=== PATIENT | female | born 1950 | race Caucasian/White ===

== ENCOUNTER 2017-01-05 07:36 | Inpatient (IN) | payer MEDICARE, OTHER ==
[~2017-01-05] VITALS: Ht 152.4 cm; Wt 69.8 kg
[~2017-01-05 07:36] MED LIST: AMLO5TAB4 PO; CARV3.1260 PO; ISOS5TAB2 PO; LANT3I SC; LEVO25TA53 PO; MEDS FOR HTN
--- NOTE | 2017-01-05 08:52 | RADRPT ---
PROCEDURE: XR Chest. CLINICAL INDICATION: Cough . TECHNIQUE: Single frontal chest x-ray. COMPARISON: 11/12/2013 FINDINGS: The lungs are clear of acute infiltrates, edema, effusions, or masses.. The cardiac silhouette is e nlarged.. The osseous structures are intact. IMPRESSION: No acute cardiopulmonary disease. Enlarged cardiac silhouette. RPTAT: GG .Julio Borrero MD, Date Time Electronically viewed and signed by .Julio Borrero MD, on 01/05/2017 08:51 .L/
[2017-01-05] MEDS ORDERED: LEVO100T87 PO (08:56)
[2017-01-05] MEDS ORDERED: FURO40TA4 PO (08:56)
[2017-01-05] MEDS ORDERED: PENT400T2 PO (08:57)
[2017-01-05] MEDS ORDERED: ATOR20TA38 PO (08:57)
[2017-01-05] MEDS ORDERED: LORA10TA3 PO (08:57)
[2017-01-05] MEDS ORDERED: LOSA100T7 PO (08:57)
[2017-01-05] MEDS ORDERED: VERA120C2 PO (08:58)
[2017-01-05 09:05] LABS: BASOPHIL # 0.1 10^3/ul (0.0-0.1); BASOPHILS % 0.7 % (0.0-2.0); EOSINOPHILS # 0.6 10^3/ul (0.0-0.5); EOSINOPHILS % 7.7 % (0.0-7.0); HEMATOCRIT 28.1 % (37.0-47.0); HEMOGLOBIN 9.1 g/dl (12.0-16.0); LYMPHOCYTES # 1.8 10^3/ul (0.8-2.9); LYMPHOCYTES % 23.8 % (15.0-51.0); MEAN CORPUSCULAR HEMOGLOBIN 28.5 pg (29.0-33.0); MEAN CORPUSCULAR HGB CONC 32.4 g/dl (32.0-37.0); MEAN CORPUSCULAR VOLUME 88.1 fl (82.0-101.0); MEAN PLATELET VOLUME 11.5 fl (7.4-10.4); MONOCYTE # 0.4 10^3/ul (0.3-0.9); MONOCYTES % 5.3 % (0.0-11.0); NEUTROPHIL # 4.6 10^3/ul (1.6-7.5); NEUTROPHILS % 62.1 % (39.0-77.0); PLATELET COUNT 217 10^3/UL (140-415); RED BLOOD COUNT 3.19 10^6/ul (4.20-5.40); RED CELL DISTRIBUTION WIDTH 13.3 % (11.5-14.5); WHITE BLOOD COUNT 7.4 10^3/ul (4.8-10.8)
[2017-01-05 09:25] LABS: ALBUMIN 2.2 g/dl (3.3-4.9); ALBUMIN/GLOBULIN RATIO 0.73; BILIRUBIN,INDIRECT 0.1 mg/dl (0-1.1); BILIRUBIN,TOTAL 0.1 mg/dl (0.2-1.3); CALCIUM 7.6 mg/dl (8.4-10.2); CREATININE 5.76 mg/dl (0.44-1.00); POTASSIUM 4.4 mmol/L (3.5-5.1); TOTAL PROTEIN 5.2 g/dl (6.1-8.1)
--- NOTE | 2017-01-05 09:47 | ERA ---
ER Documentation Chief Complaint Date/Time DATE: 01/05/17 TIME: 09:[address] Chief Complaint [address]ENT BY DR Dave BURRIS FOR ABNORMAL LABS , B/L LEG SWELLING HPI 66-year-old female referred to the emergency department by Dr. Burris for evaluation of lower extremity swelling as well as an elevated creatinine. Patient was last seen in the office approximately a month or 2 ago where her creatinine was approximately in the low twos. Patient is asymptomatic at this time with no chest pain or shortness of breath, but Dr. Burris noted that her creatinine was elevated above 5 and sent her to the emergency department. At this current time, patient reports no chest pain, shortness of breath, weakness , fevers and tells me she does continue to urinate. ROS All systems reviewed and are negative except as per history of present illness. Medications Home Meds Reported Medications Verapamil Hcl* (Verapamil ER*) 120 Mg Cap24h.pel, 120 MG PO DAILY, CAP 01/05/17 Pentoxifylline* (Pentoxifylline*) 400 Mg Tablet.sa, 400 MG PO TID, TAB 01/05/17 Losartan Potassium* (Losartan Potassium*) 100 Mg Tablet, 100 MG PO DAILY, TAB 01/05/17 Loratadine* (Loratadine*) 10 Mg Tablet, 10 MG PO DAILY, #30 TAB 01/05/17 Atorvastatin Calcium* (Atorvastatin Calcium*) 20 Mg Tablet, 20 MG PO QHS, #30 TAB 01/05/17 Furosemide* (Furosemide*) 40 Mg Tablet, 40 MG PO DAILY, TAB 01/05/17 Levothyroxine Sodium* (Levothyroxine Sodium*) 100 Mcg Tablet, 100 MCG PO BEFORE BREAKFAST, #30 TAB 01/05/17 Discontinued Reported Medications Isosorbide Dinitrate* (Isosorbide Dinitrate*) 5 Mg Tablet, 5 MG PO BID, TAB 11/12/13 Carvedilol* (Carvedilol*) 3.125 Mg Tablet, 3.125 MG PO BID, TAB 11/12/13 Insulin Glargine* (Lantus*) 100 Unit/Ml Soln, 5 UNIT SC HS, EA 10/19/13 Amlodipine Besylate* (Norvasc*) 5 Mg Tablet, 5 MG PO DAILY, TAB 10/19/13 Levothyroxine Sodium* (Levothyroxine Sodium*) 25 Mcg Tablet, 25 MCG PO AC BREAKFAST, TAB 10/19/13 [Meds For Htn] No Conflict Check 10/14/13 Allergies Allergies: Coded Allergies: No Known Allergy (Unverified , 01/05/17) PMhx/Soc History of Surgery: No Anesthesia Reaction: No Hx Neurological Disorder: No Hx Respiratory Disorders: No Hx Cardiac Disorders: Yes (HTN,HIGH CHOLESTEROL) Hx Psychiatric Problems: No Hx Miscellaneous Medical Probl: Yes (DM) Hx Alcohol Use: No Hx Substance Use: No Hx Tobacco Use: No Smoking Status: Never smoker FmHx non-Contributory for chief complaint Physical Exam Vitals Vital Signs Date Time Temp Pulse Resp B/P Pulse Ox O2 Delivery O2 Flow Rate FiO2 01/05/17 08:51 71 18 199/88 98 Room Air 01/05/17 07:40 96.4 78 18 236/98 98 Physical Exam GENERAL: Patient is elderly somewhat plethoric in no acute distress HEENT: Pupils equal, round, and reactive to light. EOMI. There is no scleral icterus. NECK: C-spine is soft and supple, there is no meningismus. There is no cervical lymphadenopathy. LUNGS: Clear to auscultation bilaterally. There are no rales, wheezes or rhonchi. HEART: Regular rate and rhythm, no murmurs, clicks, rubs or gallops. ABDOMEN: Soft, non-tender, non-distended. There are bowel sounds in all four quadrants. No rebound or guarding. EXTREMITIES: 2+ edema both lower extremities without cyanosis or clubbing NEURO: The patient moves all four extremities with 5/5 strength. Cranial nerves II - XII are intact. Normal gait. Alert and oriented SKIN: There is no apparent rash or petechiae. HEME/LYMPHATIC: There is no evidence of excessive bruising or lymphedema. PSYCHIATRIC: The patient does not appear anxious or depressed. Result Diagram: 01/05/17 0825 01/05/17 0825 Results 24 hrs Laboratory Tests Test 01/05/17 08:25 White Blood Count 7.410^3/ul Red Blood Count 3.1910^6/ul Hemoglobin 9.1g/dl Hematocrit 28.1% Mean Corpuscular Volume 88.1fl Mean Corpuscular Hemoglobin 28.5pg Mean Corpuscular Hemoglobin Concent 32.4g/dl Red Cell Distribution Width 13.3% Platelet Count 83314^3/UL Mean Platelet Volume 11.5fl Neutrophils % 62.1% Lymphocytes % 23.8% Monocytes % 5.3% Eosinophils % 7.7% Basophils % 0.7% Nucleated Red Blood Cells % 0.0/100WBC Neutrophils # 4.610^3/ul Lymphocytes # 1.810^3/ul Monocytes # 0.410^3/ul Eosinophils # 0.610^3/ul Basophils # 0.110^3/ul Nucleated Red Blood Cells # 0.010^3/ul Sodium Level 133mmol/L Potassium Level 4.4mmol/L Chloride Level 107mmol/L Carbon Dioxide Level 21mmol/L Anion Gap 9 Blood Urea Nitrogen 60mg/dl Creatinine 5.76mg/dl Glucose Level 181mg/dl Calcium Level 7.6mg/dl Total Bilirubin 0.1mg/dl Direct Bilirubin 0.00mg/dl Indirect Bilirubin 0.1mg/dl Aspartate Amino Transf (AST/SGOT) 32IU/L Alanine Aminotransferase (ALT/SGPT) 33IU/L Alkaline Phosphatase 114IU/L Total Protein 5.2g/dl Albumin 2.2g/dl Globulin 3.00g/dl Albumin/Globulin Ratio 0.73 Procedures/MDM Patient was taken to a room, seen and evaluated. Comfort measures were initiated. Diagnostic tests were ordered and reviewed. 3 LEAD RHYTHM STRIP: [Normal sinus rhythm without ectopy] EK lead EKG reviewed by myself: [Normal Sinus Rhythm] [Normal [place] and intervals] Nonspecific ST and T-wave changes without peaked T waves or ischemic changes Impression: Abnormal, nonspecific EKG RADIOLOGY: [reviewed with the radiologist] CONSULTATION: Dr. Burris was consulted. He requested Dr. Martinez, who was notified for admission REEVALUATION: 66-year-old female presents the emergency department with essentially an asymptomatic worsening acute renal failure. At this time, patient does not appear to be fluid overloaded although she does have some lower extremity edema, but no CHF. She is not hyperkalemic or acidotic. She does not appear to be uremic. At this time, she will be admitted for further evaluation and observation of her renal issues. MEDICAL DECISION MAKING: [default value] Departure Diagnosis: Primary Impression: Acute renal failure Condition: NITA Jansen Jan 05, 2017 09:47
--- NOTE | 2017-01-05 10:53 | CONS ---
Date/Time of Note Date/Time of Note DATE: 01/05/17 TIME: 10:52 Assessment/Plan Assessment/Plan Additional Assessment/Plan 1. Acute Kidney injuyr on CKD worsening to CKD V 2. acute fluid overaload with Anasarca 3. 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 Hypertension - not well controlled 5. Diabetes melitus 6. hyperlipidemia 7. hypothyroidism Plan : Thanks for consultatino I will order 24 hr urine collectinofor creatinine clearance and Protein Renal US has been ordered Recently had a Hepatitis panel and HIV negative BP High - pt is already on verapmil so she can not have Nifedipine, we will add hydralazine 50mg PO QID< IV hydralzine Prn will continue to follow up will give IV albumin with IV lasix for diuresis Consultation Date/Type/Reason Admit Date/Time 01/05/2017 Date of Consultation: Jan 05, 2017 Type of Consultation: NEPHROLOGY Reason for Consultation Acute vs acute on chronic renal failure, Anasarca Referring Provider: SILVIA IQBAL MD Hx of Present Illness 66 F with PMHx of HTN, HL, DM< who was seen by me in clinic yesterday for low renal functio, eGFR 8- she was complaining of leg edema, and Fluid overload, she was advised to come to ED yesterday but she came today- need to be admitted for worsening renal failure and anasarca Constitutional: no complaints Eyes: no complaints ENT: no complaints Respiratory: cough, pleuritic pain, shortness of breath Genitourinary: no complaints Musculoskeletal: back pain, bone/joint pain, neck pain, restricted range of motion, swelling Skin: no complaints Neurologic: no complaints Endocrine: no complaints Lymphatic: no complaints Psychological: no complaints Immunologic: no complaints Past Medical History Medical History: diabetes, high cholesterol, hypertension, renal disease Past Surgical History Past Surgical Hx: no surgical history Family History Significant Family History: no pertinent family hx Social History Alcohol Use: none Smoking Status: Never smoker Drug Use: none Exam/Review of Systems Vital Signs Vitals Vital Signs Date Time Temp Pulse Resp B/P Pulse Ox O2 Delivery O2 Flow Rate FiO2 01/05/17 10:51 66 18 205/95 98 Room Air 01/05/17 07:40 96.4 Exam Constitutional: alert Psych: no complaints Head: normocephalic Eyes: nl conjunctiva ENMT: nl external ears & nose Neck: non-tender, supple Respiratory: clear to auscultation, normal air movement Cardiovascular: nl pulses, regular rate and rhythm Gastrointestinal: non-tender, soft Extremities: calf tenderness, edema, normal pulses, palpable cord, pitting pedal edema, tenderness 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, nl mental status, nl speech, nl strength Results Result Diagram: 01/05/1782401/05/17 0825 Results 24 hrs Laboratory Tests Test 01/05/17 08:25 White Blood Count 7.4 Red Blood Count 3.19 L Hemoglobin 9.1 L Hematocrit 28.1 L Mean Corpuscular Volume 88.1 Mean Corpuscular Hemoglobin 28.5 L Mean Corpuscular Hemoglobin Concent 32.4 Red Cell Distribution Width 13.3 Platelet Count 217 Mean Platelet Volume 11.5 H Neutrophils % 62.1 Lymphocytes % 23.8 Monocytes % 5.3 Eosinophils % 7.7 H Basophils % 0.7 Nucleated Red Blood Cells % 0.0 Neutrophils # 4.6 Lymphocytes # 1.8 Monocytes # 0.4 Eosinophils # 0.6 H Basophils # 0.1 Nucleated Red Blood Cells # 0.0 Sodium Level 133 L Potassium Level 4.4 Chloride Level 107 Carbon Dioxide Level 21 Anion Gap 9 Blood Urea Nitrogen 60 H Creatinine 5.76 H Glucose Level 181 Calcium Level 7.6 L Total Bilirubin 0.1 L Direct Bilirubin 0.00 Indirect Bilirubin 0.1 Aspartate Amino Transf (AST/SGOT) 32 Alanine Aminotransferase (ALT/SGPT) 33 Alkaline Phosphatase 114 Total Protein 5.2 L Albumin 2.2 L Globulin 3.00 Albumin/Globulin Ratio 0.73 Medications Medications Current Medications Atorvastatin Calcium (Lipitor) 20 mg QHS PO ; Start 01/05/17 at 21:00; Status UNV Loratadine (Claritin) 10 mg DAILY PO ; Start 01/06/17 at 09:00; Status UNV Pentoxifylline (Trental) 400 mg TID PO ; Start 01/05/17 at 13:00; Status UNV Verapamil HCl (Isoptin Sr) 120 mg DAILY PO ; Start 01/05/17 at 11:00; Status UNV IRIS BURRIS MD Jan 05, 2017 10:53
[2017-01-05] MEDS ORDERED: hydrALAzine 20 MG INJ IV ONE (11:00)
[2017-01-05] MEDS ORDERED: ACETAMINOPHEN 325 MG TAB PO PRN (12:00)
[2017-01-05] MEDS ORDERED: DOCUSATE SODIUM 100 MG CAP PO PRN (12:00)
[2017-01-05] MEDS ORDERED: NACL 0.9% 3 ML SYG IV SCH (12:00)
[2017-01-05 12:05] VITALS: BP 190/88; PULSE 70; RESP 18
[2017-01-05] MEDS: ALBUMIN HUMAN 25% 100 ML IV SCH ×2 (12:20→21:07)
[2017-01-05] MEDS: VERAPAMIL (SR) 120 MG TAB PO SCH (12:22)
[2017-01-05] MEDS: PENTOXIFYLLINE (SR) 400 MG TAB PO SCH ×2 (12:26→21:19)
[2017-01-05 12:30] VITALS: Ht 152.4 cm; Wt 69.8 kg
--- NOTE | 2017-01-05 12:50 | HP ---
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 HISTORY OF PRESENT ILLNESS: The patient is a 66-year-old, with past medical history positive for diabetes mellitus, hypertension, hyperlipidemia, hypothyroidism, and chronic kidney disease with baseline creatinine being slightly above 2. The patient was seen in her dampener operator office, Dr. Naidu with complaints of bilateral lower extremity swelling and her creatinine was elevated above 5 and patient was sent to the emergency room for further evaluation and management. In the emergency room the patient's blood pressure was elevated to 236/98. Creatinine elevated to 5.76. Patient denies any chest pain. Denies any shortness of breath. Denies any nausea, vomiting, or diarrhea. Denies any abdominal pain. The patient underwent chest x-ray, which revealed no acute cardiopulmonary disease. Enlarged cardiac silhouette. PAST MEDICAL HISTORY: Positive for chronic kidney disease, diabetes, hypertension, hypothyroidism, and left toe infection. PAST SURGICAL HISTORY: The patient denies having any surgeries in the past. FAMILY HISTORY: Positive for heart disease in both parents. SOCIAL HISTORY: Patient lives at home with her . The patient denies any tobacco use, alcohol use, or illicit drug use. ALLERGIES: NO KNOWN ALLERGIES. MEDICATIONS: Includes verapamil, pentoxifylline, Cozaar, loratadine, atorvastatin, Lasix, and levothyroxine. REVIEW OF SYSTEMS: Twelve point review of system is negative unless mentioned in HPI. PHYSICAL EXAMINATION: GENERAL: Well-developed, well-nourished female, currently is awake and alert. VITAL SIGNS: Temperature is 96.4, heart rate is 66, blood pressure 199/88, respiratory rate 18, and oxygen saturation 98 percent on room air. HEENT: Head is atraumatic, normocephalic. Pupils equal, round, reactive to light and accommodation. Oral mucosa is pink and moist. NECK: Supple. No cervical lymphadenopathy. No thyromegaly. CHEST: Lungs clear bilaterally. There is no rhonchi, wheezes, rales noted. CARDIOVASCULAR: Normal S1, S2. No murmurs, gallops, clicks, or rubs noted. ABDOMEN: Protuberant, soft, nondistended, nontender. Bowel sounds present. There is no guarding or rebound tenderness. EXTREMITIES: Mild edema 2 plus. SKIN: No rash. No petechiae noted. NEUROLOGICAL: Patient is awake, alert and oriented times 4. No focal deficits noted. Motor strength 5/5 in all extremities. LABORATORY DATA: On admission, CBC white blood cells 7.4, hemoglobin 9.1, hematocrit 28.1, and platelets 217. Chemistry: Sodium is 133, potassium 4.4, chloride 107, carbon dioxide 21, anion gap 9, BUN 16, creatinine 5.76, glucose 181, AST 32, ALT 33, and alkaline phosphate is 114. ASSESSMENT AND PLAN: 1. Acute kidney injury on chronic kidney disease. Dr. Naidu is following patient in Nephrology consultation. 2. Hypertensive urgency continue hydralazine and verapamil. 3. Continue to monitor blood pressure. Admit patient to telemetry floor. 4. Hypothyroidism. Continue Synthroid. We will check TSH and T4. 5. Bilateral lower extremity edema. We will check 2D echo to evaluate ejection fraction. 6. Hyperlipidemia. 7. Hyperlipidemia. Continue statin. 8. We will continue Pepcid for peptic ulcer disease prophylaxis. 9. Further recommendations based on clinical course. Plan of care discussed with Dr. Martinez. Dictated By: Kirsten Tan NP /tobi/erick /Document#: [id number]
[2017-01-05 12:53] LABS: CREATINE KINASE 953 IU/L (23-200)
[2017-01-05 13:11] LABS: TROPONIN-I < 0.012 ng/ml (0.00-0.12)
[2017-01-05 13:25] VITALS: BP 183/86; PULSE 68
[2017-01-05] MEDS: FAMOTIDINE 20 MG TAB PO SCH (14:04)
--- NOTE | 2017-01-05 15:14 | RADRPT ---
PROCEDURE: US Lower extremity Venous. CLINICAL INDICATION: Bilateral leg swelling TECHNIQUE: Multiple sonographic images of the bilateral lower extremity deep venous system was obt ained utilizing lewis scale, color-flow, compressive sonography and doppler imaging with augmentation . COMPARISON: None. FINDINGS: There is normal compressibility and flow within the bilateral common femoral, femoral and popliteal veins. Visualized portions of the calf veins are patent. Left popliteal fossa cyst. IMPRESSION: No sonographic evidence for deep venous thrombosis. RPTAT:AAJJ Les Brunner Physician Date Time Electronically viewed and signed by Les Brunner Physician on 01/05/2017 15:13 /
[2017-01-05 15:30] VITALS: BP 175/88; PULSE 65
[2017-01-05 15:50] LABS: CK-MB 6.17 ng/ml (0.0-2.4); TROPONIN-I 0.012 ng/ml (0.00-0.12)
[2017-01-05] MEDS: FUROSEMIDE 40 MG INJ IV SCH ×2 (16:15→19:01)
--- NOTE | 2017-01-05 17:05 | RADRPT ---
PROCEDURE: US Renal CLINICAL INDICATION: Elevated creatinine TECHNIQUE: Multiple sonographic images of the kidneys and bladder were obtained. Evaluation of th e kidneys and bladder was performed as well with lewis scale and color and Doppler evaluation using a curved array transducer. The images were reviewed on a high-resolution PACS workstation. COMPARISON: 04/21/2013 to FINDINGS: The right kidney measures 8.7 cm. The left kidney measures 9.9 cm. Kidneys appear echogenic and demonstrate renal cortical thinning bilaterally. There is no mass, calculus, or obstructive uropathy. No perinephric fluid collection is seen. Evaluation of the urinary bladder is unremarkable. IMPRESSION: 1. Small echogenic kidneys with cortical thinning suggesting medical renal disease. RPTAT: [facility] Physician Gilberto Date Time Electronically viewed and signed by Physician Gilberto on 01/05/2017 17:05 /
[2017-01-05 18:08] VITALS: BP 195/85; PULSE 72
--- NOTE | 2017-01-05 18:21 | RADRPT ---
Echocardiogram Report Patient Name: LAM ZAVALA Gender: Female Date: 1950 Study Date: 05-Jan-2017 Warranty Manager: Jason [facility] Location: 3302 Ref. Physician: FREDDIE KEYS Quality: Adequate Procedures: Transthoracic echocardiogram with complete 2D, M-Mode, and doppler examination. Indications: BLE edema. 2D/M Mode Doppler Measurement Value Normal Ranges Measurement Value Normal Ranges LVIDd 2D 5.1 3.5 - 5.6 cm AV Peak Walter 1.5 m/sec LVIDs 2D 3.2 2.1 - 4.1 cm AV Peak PG 9.0 mmHg FS 2D 37.9 % LVOT Peak Walter 1.0 m/sec LVPWd 2D 1.3 0.6 - 1.1 cm LVOT Peak PG 4.0 mmHg IVSd 2D 1.3 0.6 - 1.1 cm MV E Peak Walter 0.9 m/sec IVS/LVPW 2D 1.0 MV A Peak Walter 1.0 m/sec AoR Diam 2D 2.8 2.0 - 3.7 cm MV E/A 0.8 LA/Ao 2D 1 0 - 1 MV Decel Time 222 msec EDV 2D 132.0 cm3 MV E/A 0.8 ESV 2D 31.6 cm3 TR Peak Walter 2.6 m/sec LA Dimen 2D 3.5 2.3 - 4.0 cm TR Peak PG 26.0 mmHg RVSP 29.0 mmHg Findings Left Ventricle: Lower limits of normal systolic function. Normal left ventricular cavity size. Mild concentric left ventricular hypertrophy. Ejection fraction is visually estimated at 5055 %. Tissue Doppler/Mitral Doppler indices are consistent with impaired relaxation (Stage I diastolic dysfunction). Right Ventricle: Normal right ventricular size. Normal right ventricular systolic function. Left Atrium: The left atrium is normal in size. Right Atrium: The right atrium is normal in size. Mitral Valve: Mild mitral leaflet calcification. Mild mitral annular calcification. Trace mitral regurgitation. Aortic Valve: Normal appearance of the aortic valve. No significant aortic stenosis or insufficiency. Tricuspid Valve: Normal appearance of the tricuspid valve. Estimated peak PA systolic pressure 29 mmHg. There is mild tricuspid regurgitation. Pulmonic Valve: Pulmonic valve not well visualized. There is trace pulmonic regurgitation. Pericardium: Normal pericardium with no significant pericardial effusion. Aorta: Normal aortic root. IVC: Normal size and normal respiratory collapse consistent with normal right atrial pressure. Conclusions 1.Lower limits of normal systolic function. Normal left ventricular cavity size. Mild concentric left ventricular hypertrophy. Ejection fraction is visually estimated at 50-55 %. Tissue Doppler/Mitral Doppler indices are consistent with impaired relaxation (Stage I diastolic dysfunction). 2.Mild mitral leaflet calcification. Mild mitral annular calcification. Trace mitral regurgitation. 3.Normal appearance of the tricuspid valve. Estimated peak PA systolic pressure 29 mmHg. There is mild tricuspid regurgitation. 4.Pulmonic valve not well visualized. There is trace pulmonic regurgitation. Electronically Signed By: Varinder Paidlla 05-Jan-2017 18:20:53 -0700 Patient Name: LAM ZAVALA Study Date: 05-Jan-2017 [id number]
[2017-01-05 20:43] VITALS: BP 168/85; RESP 18
[2017-01-05] MEDS: ATORVASTATIN 20 MG TAB PO SCH (21:08)
[2017-01-05] MEDS: ONDANSETRON 4 MG INJ IV PRN (23:39)
[2017-01-06] MEDS: hydrALAzine 20 MG INJ IV PRN (02:48)
[2017-01-06 03:07] VITALS: BP 189/91; RESP 16
[2017-01-06 05:00] VITALS: BP 145/85
[2017-01-06] MEDS: FUROSEMIDE 40 MG INJ IV SCH (05:28)
[2017-01-06 06:01] LABS: BASOPHILS % 0.5 % (0.0-2.0); EOSINOPHILS # 0.2 10^3/ul (0.0-0.5); EOSINOPHILS % 2.2 % (0.0-7.0); HEMATOCRIT 27.4 % (37.0-47.0); LYMPHOCYTES % 11.6 % (15.0-51.0); MEAN CORPUSCULAR HEMOGLOBIN 27.9 pg (29.0-33.0); MEAN CORPUSCULAR HGB CONC 32.8 g/dl (32.0-37.0); MEAN CORPUSCULAR VOLUME 84.8 fl (82.0-101.0); MEAN PLATELET VOLUME 10.9 fl (7.4-10.4); MONOCYTE # 0.4 10^3/ul (0.3-0.9); NEUTROPHIL # 7.1 10^3/ul (1.6-7.5); NEUTROPHILS % 81.1 % (39.0-77.0); PLATELET COUNT 209 10^3/UL (140-415); RED BLOOD COUNT 3.23 10^6/ul (4.20-5.40); RED CELL DISTRIBUTION WIDTH 13.3 % (11.5-14.5); WHITE BLOOD COUNT 8.7 10^3/ul (4.8-10.8)
[2017-01-06] MEDS: LEVOTHYROXINE 100 MCG TAB PO SCH (06:03)
[2017-01-06] MEDS: ALBUMIN HUMAN 25% 100 ML IV SCH ×2 (06:04→17:58)
[2017-01-06] MEDS: ONDANSETRON 4 MG INJ IV PRN ×3 (06:27→21:55)
[2017-01-06 07:03] LABS: ALBUMIN 2.7 g/dl (3.3-4.9); ALBUMIN/GLOBULIN RATIO 0.96; BILIRUBIN,INDIRECT 0.1 mg/dl (0-1.1); BILIRUBIN,TOTAL 0.1 mg/dl (0.2-1.3); CREATININE 5.52 mg/dl (0.44-1.00); TOTAL PROTEIN 5.5 g/dl (6.1-8.1)
[2017-01-06 07:13] LABS: THYROID STIMULATING HORMONE 4.02 MIU/L (0.465-4.680)
[2017-01-06 08:31] VITALS: BP 179/86; RESP 19
[2017-01-06] MEDS: LORATADINE 10 MG TAB PO SCH (09:19)
[2017-01-06] MEDS: ASPIRIN 81 MG TAB PO SCH (09:19)
[2017-01-06] MEDS: PENTOXIFYLLINE (SR) 400 MG TAB PO SCH ×3 (09:20→20:13)
[2017-01-06] MEDS: VERAPAMIL (SR) 120 MG TAB PO SCH (09:20)
[2017-01-06] MEDS: FAMOTIDINE 20 MG TAB PO SCH (09:20)
[2017-01-06] MEDS ORDERED: METOCLOPRAMIDE 10 MG INJ IV ONE (10:30)
[2017-01-06 15:09] VITALS: BP 157/72; RESP 18
--- NOTE | 2017-01-06 16:35 | CONS ---
Date/Time of Note Date/Time of Note DATE: 01/06/17 TIME: 16:33 Assessment/Plan Assessment/Plan Chief Complaint/Hosp Course 66 F with PMHx of HTN, HL, DM< who was seen by me in clinic yesterday for low renal functio, eGFR 8- she was complaining of leg edema, and Fluid overload, she was advised to come to ED yesterday but she came today- need to be admitted for worsening renal failure and anasarca Problems: Additional Assessment/Plan 1. Acute Kidney injuyr on CKD worsening to CKD V 2. acute fluid overaload with Anasarca 3. 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 Hypertension - not well controlled 5. Diabetes melitus 6. hyperlipidemia 7. hypothyroidism Plan : continue IV lasix + albumin for diuresis,BUN/Cr slighty improved, BP stable with hydralazine Pending 24 hr urine collectinofor creatinine clearance and Protein Renal US c/w medical renal disease. Recently had a Hepatitis panel and HIV negative continue verapamil, lasix, Hydralazine for HTN will continue to follow up reglan 10mg IV x 1 dose today will follow up on 24 hr urine collection result to decide for need of dialysis initiation. Consultation Date/Type/Reason Admit Date/Time Jan 05, 2017 at 09:43 Initial Consult Date 01/05/17 Type of Consultation: NEPHROLOGY Referring Provider: SILVIA IQBAL MD 24 HR Interval Summary Free Text/Dictation BUN/Cr slightly improved, BP stable, afebrile c/o nausea, vomiting Exam/Review of Systems Vital Signs Vitals Vital Signs Date Time Temp Pulse Resp B/P Pulse Ox O2 Delivery O2 Flow Rate FiO2 01/06/17 15:09 98.5 79 18 157/72 95 01/05/17 12:05 Room Air Intake and Output 01/05/17 01/05/17 01/06/17 15:00 23:00 07:00 Intake Total 100 ml 460 ml 300 ml Balance 100 ml 460 ml 300 ml Exam Constitutional: alert Psych: no complaints Head: normocephalic Eyes: nl conjunctiva ENMT: nl external ears & nose Neck: non-tender, supple Respiratory: clear to auscultation, normal air movement Cardiovascular: nl pulses, regular rate and rhythm Gastrointestinal: non-tender, soft Extremities: calf tenderness, edema, normal pulses, palpable cord, pitting pedal edema, tenderness 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, nl mental status, nl speech, nl strength Results Result Diagram: 01/06/17 0535 01/06/17 0535 Results 24 hrs Laboratory Tests Test 01/06/17 05:35 01/06/17 13:19 White Blood Count 8.7 Red Blood Count 3.23 L Hemoglobin 9.0 L Hematocrit 27.4 L Mean Corpuscular Volume 84.8 Mean Corpuscular Hemoglobin 27.9 L Mean Corpuscular Hemoglobin Concent 32.8 Red Cell Distribution Width 13.3 Platelet Count 209 Mean Platelet Volume 10.9 H Neutrophils % 81.1 H Lymphocytes % 11.6 L Monocytes % 4.0 Eosinophils % 2.2 Basophils % 0.5 Nucleated Red Blood Cells % 0.0 Neutrophils # 7.1 Lymphocytes # 1.0 Monocytes # 0.4 Eosinophils # 0.2 Basophils # 0.0 Nucleated Red Blood Cells # 0.0 Sodium Level 137 Potassium Level 4.0 Chloride Level 108 Carbon Dioxide Level 23 Anion Gap 10 Blood Urea Nitrogen 55 H Creatinine 5.52 H Glucose Level 141 # Hemoglobin A1c 6.5 H Calcium Level 8.0 L Magnesium Level 2.0 Total Bilirubin 0.1 L Direct Bilirubin 0.00 Indirect Bilirubin 0.1 Aspartate Amino Transf (AST/SGOT) 33 Alanine Aminotransferase (ALT/SGPT) 31 Alkaline Phosphatase 103 Total Protein 5.5 L Albumin 2.7 L Globulin 2.80 Albumin/Globulin Ratio 0.96 Thyroid Stimulating Hormone (TSH) 4.020 Bedside Glucose 132 Medications Medications Current Medications Atorvastatin Calcium (Lipitor) 20 mg QHS PO Last administered on 01/05/17 21: 08; Admin Dose 20 MG; Start 01/05/17 at 21:00 Loratadine (Claritin) 10 mg DAILY PO Last administered on 01/06/17 09:19; Admin Dose 10 MG; Start 01/06/17 at 09:00 Pentoxifylline (Trental) 400 mg TID PO Last administered on 01/06/17 13:25; Admin Dose 400 MG; Start 01/05/17 at 13:00 Verapamil HCl 120 mg 120 mg DAILY PO Last administered on 01/06/17 09:20; Admin Dose 120 MG; Start 01/05/17 at 11:00 Albumin Human (Albumin Human 25%) 100 ml @ 100 mls/hr BID@05,17 IV Last administered on 01/06/17 06:04; Admin Dose 100 MLS/HR; Start 01/05/17 at 11:00 Ondansetron HCl (Zofran Inj) 4 mg Q6H PRN IV NAUSEA AND/OR VOMITING Last administered on 01/06/17 13:26; Admin Dose 4 MG; Start 01/05/17 at 12:00 Aspirin (Aspirin) 81 mg DAILY PO Last administered on 01/06/17 09:19; Admin Dose 81 MG; Start 01/06/17 at 09:00 Acetaminophen (Tylenol Tab) 650 mg Q6H PRN PO PAIN LEVEL 1-3 OR FEVER; Start at 12:00 Morphine Sulfate (morphine) 2 mg Q4H PRN IV PAIN LEVEL 7-10; Start 01/05/17 at 12:00 Docusate Sodium (Colace) 100 mg Q12H PRN PO CONSTIPATION; Start 01/05/17 at 12: 00 Famotidine (Pepcid) 20 mg DAILY PO Last administered on 01/06/17 09:20; Admin Dose 20 MG; Start 01/05/17 at 12:00 Hydralazine HCl (Apresoline) 50 mg QID PO Last administered on 01/06/17 13:25 ; Admin Dose 50 MG; Start 01/05/17 at 17:00 Hydralazine HCl (Apresoline) 10 mg Q4H PRN IV SBP>150 mmhg Last administered on 01/06/17 02:48; Admin Dose 10 MG; Start 01/05/17 at 17:00 IRIS BURRIS MD Jan 06, 2017 16:35
[2017-01-06] MEDS: FUROSEMIDE 20 MG INJ IV SCH (20:12)
[2017-01-06] MEDS: ATORVASTATIN 20 MG TAB PO SCH (20:13)
[2017-01-06 20:20] VITALS: BP 178/86; RESP 18
[2017-01-06] MEDS ORDERED: GLUCAGON 1 MG INJ IM PRN (21:30)
[2017-01-06] MEDS ORDERED: DEXTROSE 50% 50 ML SYRINGE IV PRN ×2 (21:30)
[2017-01-06] MEDS ORDERED: GLUCOSE GEL 15 GRAM TUBE BUCCAL PRN (21:30)
[2017-01-06] MEDS ORDERED: GLUCOSE GEL 15 GRAM TUBE PO PRN ×2 (21:30)
[2017-01-06] MEDS: INSULIN ASPART [NOVOLOG] 3 ML PEN SC SCH (21:30)
[2017-01-06] MEDS: ACCU-CHEK XX SCH (21:58)
[2017-01-06 23:17] LABS: SCRET 5.52 mg/dl (0.44-1.00)
[2017-01-06 23:52] LABS: COLLECTION PERIOD 24 hrs
[2017-01-07] VITALS (8 sets, daily range): BP systolic 131–168; BP diastolic 61–76; PULSE 80; RESP 17–18
[2017-01-07] MEDS: hydrALAzine 20 MG INJ IV PRN (00:42)
[2017-01-07] MEDS ORDERED: ACCU-CHEK XX SCH (02:00)
[2017-01-07 06:23] LABS: BASOPHIL # 0.1 10^3/ul (0.0-0.1); BASOPHILS % 0.7 % (0.0-2.0); EOSINOPHILS # 0.1 10^3/ul (0.0-0.5); EOSINOPHILS % 1.5 % (0.0-7.0); HEMATOCRIT 26.2 % (37.0-47.0); HEMOGLOBIN 8.4 g/dl (12.0-16.0); LYMPHOCYTES # 1.4 10^3/ul (0.8-2.9); LYMPHOCYTES % 16.5 % (15.0-51.0); MEAN CORPUSCULAR HGB CONC 32.1 g/dl (32.0-37.0); MEAN CORPUSCULAR VOLUME 87.3 fl (82.0-101.0); MEAN PLATELET VOLUME 11.1 fl (7.4-10.4); MONOCYTE # 0.5 10^3/ul (0.3-0.9); MONOCYTES % 5.9 % (0.0-11.0); NEUTROPHIL # 6.1 10^3/ul (1.6-7.5); NEUTROPHILS % 74.8 % (39.0-77.0); PLATELET COUNT 214 10^3/UL (140-415); RED CELL DISTRIBUTION WIDTH 13.6 % (11.5-14.5); WHITE BLOOD COUNT 8.2 10^3/ul (4.8-10.8)
[2017-01-07] MEDS: ALBUMIN HUMAN 25% 100 ML IV SCH ×2 (06:25→16:28)
[2017-01-07] MEDS: LEVOTHYROXINE 100 MCG TAB PO SCH (06:31)
[2017-01-07 06:50] LABS: INR 1.07; PARTIAL THROMBOPLASTIN TIME 31.3 Sec (25.0-35.0); PROTIME 13.9 Sec (12.2-14.2); PT RATIO 1.1
[2017-01-07 07:11] LABS: ALBUMIN 2.8 g/dl (3.3-4.9); ALBUMIN/GLOBULIN RATIO 1.03; CALCIUM 7.7 mg/dl (8.4-10.2); CREATININE 5.8 mg/dl (0.44-1.00); POTASSIUM 3.7 mmol/L (3.5-5.1); TOTAL PROTEIN 5.5 g/dl (6.1-8.1)
[2017-01-07 07:18] LABS: MAGNESIUM 1.7 mg/dl (1.7-2.5); PHOSPHORUS 5.4 mg/dl (2.5-4.9)
[2017-01-07] MEDS: INSULIN ASPART [NOVOLOG] 3 ML PEN SC SCH ×4 (07:41→20:08)
[2017-01-07] MEDS: FUROSEMIDE 20 MG INJ IV SCH ×2 (07:50→18:48)
[2017-01-07] MEDS: FAMOTIDINE 20 MG TAB PO SCH (08:51)
[2017-01-07] MEDS: ASPIRIN 81 MG TAB PO SCH (08:51)
[2017-01-07] MEDS: VERAPAMIL (SR) 120 MG TAB PO SCH (08:52)
[2017-01-07] MEDS: LORATADINE 10 MG TAB PO SCH (08:52)
[2017-01-07] MEDS: PENTOXIFYLLINE (SR) 400 MG TAB PO SCH ×3 (08:52→20:05)
--- NOTE | 2017-01-07 09:16 | CONS ---
Date/Time of Note Date/Time of Note DATE: 01/07/17 TIME: 09:14 Assessment/Plan Assessment/Plan Additional Assessment/Plan 1. Acute Kidney injuyr on CKD worsening to CKD V 2. acute fluid overaload with Anasarca 3. 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 Hypertension - not well controlled 5. Diabetes melitus 6. hyperlipidemia 7. hypothyroidism Plan : continue IV lasix + albumin for diuresis,BUN/Cr slighty improved, BP stable with hydralazine , yesterday her lasix was reduced to 20mg IV BID- tomorrow will switch it to PO lasix 40mg daily Pending 24 hr urine collectinofor creatinine clearance and Protein- collected,k result pending Renal US c/w medical renal disease. Recently had a Hepatitis panel and HIV negative continue verapamil, lasix, Hydralazine for HTN will continue to follow up Relgan prn nausea, vomiting will follow up on 24 hr urine collection result to decide for need of dialysis initiation. Consultation Date/Type/Reason Admit Date/Time Jan 05, 2017 at 09:43 Initial Consult Date 01/05/17 Type of Consultation: NEPHROLOGY Referring Provider: SILVIA IQBAL MD 24 HR Interval Summary Free Text/Dictation 24 hr urine collected, result pending, BP stable with hydralzine , no fever, no chills Exam/Review of Systems Vital Signs Vitals Vital Signs Date Time Temp Pulse Resp B/P Pulse Ox O2 Delivery O2 Flow Rate FiO2 01/07/17 08:15 98.8 91 17 164/75 95 01/05/17 12:05 Room Air Intake and Output 01/06/17 01/06/17 01/07/17 15:00 23:00 07:00 Intake Total 100 ml 590 ml 120 ml Output Total 700 ml Balance 100 ml 590 ml -580 ml Exam Constitutional: alert Psych: no complaints Eyes: nl conjunctiva ENMT: nl external ears & nose Respiratory: clear to auscultation, diminished breath sounds, normal air movement Cardiovascular: nl pulses, regular rate and rhythm Gastrointestinal: soft Musculoskeletal: nl extremities to inspection, swelling Neurological: [employer] II-XII intact, nl mental status, nl speech, nl strength Skin: nl turgor Results Result Diagram: 9/22/17 0526 9/22/17 0526 Results 24 hrs Laboratory Tests Test 01/06/17 13:19 01/06/17 21:50 01/06/17 22:00 01/07/17 05:26 Bedside Glucose 132 115 Urine Random Creatinine 27.30 Urine Total Volume 24 Hours 700 Urine Creatinine Timed 24 Creatinine Clearance 2.4 L White Blood Count 8.2 Red Blood Count 3.00 L Hemoglobin 8.4 L Hematocrit 26.2 L Mean Corpuscular Volume 87.3 Mean Corpuscular Hemoglobin 28.0 L Mean Corpuscular Hemoglobin Concent 32.1 Red Cell Distribution Width 13.6 Platelet Count 214 Mean Platelet Volume 11.1 H Neutrophils % 74.8 Lymphocytes % 16.5 Monocytes % 5.9 Eosinophils % 1.5 Basophils % 0.7 Nucleated Red Blood Cells % 0.0 Neutrophils # 6.1 Lymphocytes # 1.4 Monocytes # 0.5 Eosinophils # 0.1 Basophils # 0.1 Nucleated Red Blood Cells # 0.0 Prothrombin Time 13.9 Prothrombin Time Ratio 1.1 INR International Normalized Ratio 1.07 Activated Partial Thromboplast Time 31.3 Sodium Level 138 Potassium Level 3.7 Chloride Level 108 Carbon Dioxide Level 24 Anion Gap 10 Blood Urea Nitrogen 52 H Creatinine 5.80 H Glucose Level 98 # Calcium Level 7.7 L Phosphorus Level 5.4 H Magnesium Level 1.7 Total Bilirubin 0.0 L Direct Bilirubin 0.00 Indirect Bilirubin 0.0 Aspartate Amino Transf (AST/SGOT) 26 Alanine Aminotransferase (ALT/SGPT) 33 Alkaline Phosphatase 76 Total Protein 5.5 L Albumin 2.8 L Globulin 2.70 Albumin/Globulin Ratio 1.03 Test 01/07/17 07:40 Bedside Glucose 100 Medications Medications Current Medications Atorvastatin Calcium (Lipitor) 20 mg QHS PO Last administered on 01/06/17 20: 13; Admin Dose 20 MG; Start 01/05/17 at 21:00 Loratadine (Claritin) 10 mg DAILY PO Last administered on 01/07/17 08:52; Admin Dose 10 MG; Start 01/06/17 at 09:00 Pentoxifylline (Trental) 400 mg TID PO Last administered on 01/07/17 08:52; Admin Dose 400 MG; Start 01/05/17 at 13:00 Verapamil HCl 120 mg 120 mg DAILY PO Last administered on 01/07/17 08:52; Admin Dose 120 MG; Start 01/05/17 at 11:00 Albumin Human (Albumin Human 25%) 100 ml @ 100 mls/hr BID@17 IV Last administered on 01/07/17 06:25; Admin Dose 100 MLS/HR; Start 01/05/17 at 11:00 Ondansetron HCl (Zofran Inj) 4 mg Q6H PRN IV NAUSEA AND/OR VOMITING Last administered on 01/06/17 21:55; Admin Dose 4 MG; Start 01/05/17 at 12:00 Aspirin (Aspirin) 81 mg DAILY PO Last administered on 01/07/17 08:51; Admin Dose 81 MG; Start 01/06/17 at 09:00 Acetaminophen (Tylenol Tab) 650 mg Q6H PRN PO PAIN LEVEL 1-3 OR FEVER; Start at 12:00 Morphine Sulfate (morphine) 2 mg Q4H PRN IV PAIN LEVEL 7-10; Start 01/05/17 at 12:00 Docusate Sodium (Colace) 100 mg Q12H PRN PO CONSTIPATION; Start 01/05/17 at 12: 00 Famotidine (Pepcid) 20 mg DAILY PO Last administered on 01/07/17 08:51; Admin Dose 20 MG; Start 01/05/17 at 12:00 Hydralazine HCl (Apresoline) 50 mg QID PO Last administered on 01/07/17 08:52 ; Admin Dose 50 MG; Start 01/05/17 at 17:00 Hydralazine HCl (Apresoline) 10 mg Q4H PRN IV SBP>150 mmhg Last administered on 01/07/17 00:42; Admin Dose 10 MG; Start 01/05/17 at 17:00 Diagnostic Test (Pha) (Accu-Chek) 1 ea 02 XX ; Start 01/07/17 at 02:00 Miscellaneous Information 1 ea NOTE XX ; Start 01/06/17 at 21:30 Glucose (Glutose) 15 gm Q15M PRN PO DECREASED GLUCOSE; Start 01/06/17 at 21:30 Glucose (Glutose) 22.5 gm Q15M PRN PO DECREASED GLUCOSE; Start 01/06/17 at 21: 30 Dextrose (D50w Syringe) 25 ml Q15M PRN IV DECREASED GLUCOSE; Start 01/06/17 at 21:30 Dextrose (D50w Syringe) 50 ml Q15M PRN IV DECREASED GLUCOSE; Start 01/06/17 at 21:30 Glucagon (Glucagen) 1 mg Q15M PRN IM DECREASED GLUCOSE; Start 01/06/17 at 21:30 Glucose (Glutose) 15 gm Q15M PRN BUCCAL DECREASED GLUCOSE; Start 01/06/17 at 21 :30 IRIS BURRIS MD Jan 07, 2017 09:16
[2017-01-07] MEDS: CALCIUM ACETATE 667 MG CAP PO SCH ×2 (12:13→17:03)
[2017-01-07] MEDS: ONDANSETRON 4 MG INJ IV PRN (12:36)
[2017-01-07] MEDS: METOCLOPRAMIDE 10 MG INJ IV PRN (17:45)
--- NOTE | 2017-01-07 18:46 | PN ---
Date/Time of Note Date/Time of Note DATE: 01/07/17 TIME: 18:40 Assessment/Plan VTE Prophylaxis VTE Prophylaxis Intervention: SCD's Lines/Catheters IV [facility] Urinary Cath still in place: No Assessment/Plan Chief Complaint/Hosp Course Patient with poor appetite complains of nausea, continue Zofran and Reglan as needed. ASSESSMENT AND PLAN: - Acute kidney injury on chronic kidney disease stage 3. Dr. Naidu is following patient in Nephrology consultation. - Hypertensive urgency continue hydralazine and verapamil. - Diabetes mellitus type II with hemoglobin A1c 6.5. Continue NovoLog per sliding scale - Hypothyroidism. Continue Synthroid. - Bilateral lower extremity edema. Preserved ejection fraction per echo. - Hyperlipidemia. Continue statin. Further recommendations based on clinical course. Plan of care discussed with Dr. Martinez. Problems: Exam/Review of Systems Vital Signs Vitals Vital Signs Date Time Temp Pulse Resp B/P Pulse Ox O2 Delivery O2 Flow Rate FiO2 01/07/17 16:28 80 136/61 01/07/17 14:15 98.8 17 95 01/05/17 12:05 Room Air Intake and Output 01/06/17 01/06/17 01/07/17 15:00 23:00 07:00 Intake Total 100 ml 590 ml 120 ml Output Total 700 ml Balance 100 ml 590 ml -580 ml Exam Constitutional: alert Neck: supple Respiratory: normal air movement Cardiovascular: nl pulses Gastrointestinal: non-tender, soft Extremities: edema Results Result Diagram: 01/07/17 0526 01/07/17 0526 Results 24 hrs Laboratory Tests Test 01/06/17 21:50 01/06/17 22:00 01/07/17 05:26 01/07/17 07:40 Bedside Glucose 115 100 Urine Random Creatinine 27.30 Urine Collection Duration 24 Urine Total Volume 24 Hours 700 Urine Creatinine Timed 24 Creatinine Clearance 2.4 L Urine Total Volume (Protein) 700 Urine Total Protein 24 Hour White Blood Count 8.2 Red Blood Count 3.00 L Hemoglobin 8.4 L Hematocrit 26.2 L Mean Corpuscular Volume 87.3 Mean Corpuscular Hemoglobin 28.0 L Mean Corpuscular Hemoglobin Concent 32.1 Red Cell Distribution Width 13.6 Platelet Count 214 Mean Platelet Volume 11.1 H Neutrophils % 74.8 Lymphocytes % 16.5 Monocytes % 5.9 Eosinophils % 1.5 Basophils % 0.7 Nucleated Red Blood Cells % 0.0 Neutrophils # 6.1 Lymphocytes # 1.4 Monocytes # 0.5 Eosinophils # 0.1 Basophils # 0.1 Nucleated Red Blood Cells # 0.0 Prothrombin Time 13.9 Prothrombin Time Ratio 1.1 INR International Normalized Ratio 1.07 Activated Partial Thromboplast Time 31.3 Sodium Level 138 Potassium Level 3.7 Chloride Level 108 Carbon Dioxide Level 24 Anion Gap 10 Blood Urea Nitrogen 52 H Creatinine 5.80 H Glucose Level 98 # Calcium Level 7.7 L Phosphorus Level 5.4 H Magnesium Level 1.7 Total Bilirubin 0.0 L Direct Bilirubin 0.00 Indirect Bilirubin 0.0 Aspartate Amino Transf (AST/SGOT) 26 Alanine Aminotransferase (ALT/SGPT) 33 Alkaline Phosphatase 76 Total Protein 5.5 L Albumin 2.8 L Globulin 2.70 Albumin/Globulin Ratio 1.03 Test 01/07/17 11:52 01/07/17 16:56 Bedside Glucose 129 110 Medications Medications Current Medications Atorvastatin Calcium (Lipitor) 20 mg QHS PO Last administered on 01/06/17 20: 13; Admin Dose 20 MG; Start 01/05/17 at 21:00 Loratadine (Claritin) 10 mg DAILY PO Last administered on 01/07/17 08:52; Admin Dose 10 MG; Start 01/06/17 at 09:00 Pentoxifylline (Trental) 400 mg TID PO Last administered on 01/07/17 12:13; Admin Dose 400 MG; Start 01/05/17 at 13:00 Verapamil HCl 120 mg 120 mg DAILY PO Last administered on 01/07/17 08:52; Admin Dose 120 MG; Start 01/05/17 at 11:00 Albumin Human (Albumin Human 25%) 100 ml @ 100 mls/hr BID@05,17 IV Last administered on 01/07/17 16:28; Admin Dose 100 MLS/HR; Start 01/05/17 at 11:00 ; Stop 01/07/17 at 23:45 Aspirin (Aspirin) 81 mg DAILY PO Last administered on 01/07/17 08:51; Admin Dose 81 MG; Start 01/06/17 at 09:00 Acetaminophen (Tylenol Tab) 650 mg Q6H PRN PO PAIN LEVEL 1-3 OR FEVER; Start at 12:00 Morphine Sulfate (morphine) 2 mg Q4H PRN IV PAIN LEVEL 7-10; Start 01/05/17 at 12:00 Docusate Sodium (Colace) 100 mg Q12H PRN PO CONSTIPATION; Start 01/05/17 at 12: 00 Famotidine (Pepcid) 20 mg DAILY PO Last administered on 01/07/17 08:51; Admin Dose 20 MG; Start 01/05/17 at 12:00 Hydralazine HCl (Apresoline) 50 mg QID PO Last administered on 01/07/17 16:28 ; Admin Dose 50 MG; Start 01/05/17 at 17:00 Hydralazine HCl (Apresoline) 10 mg Q4H PRN IV SBP>150 mmhg Last administered on 01/07/17 00:42; Admin Dose 10 MG; Start 01/05/17 at 17:00 Diagnostic Test (Pha) (Accu-Chek) 1 ea 02 XX ; Start 01/07/17 at 02:00 Miscellaneous Information 1 ea NOTE XX ; Start 01/06/17 at 21:30 Glucose (Glutose) 15 gm Q15M PRN PO DECREASED GLUCOSE; Start 01/06/17 at 21:30 Glucose (Glutose) 22.5 gm Q15M PRN PO DECREASED GLUCOSE; Start 01/06/17 at 21: 30 Dextrose (D50w Syringe) 25 ml Q15M PRN IV DECREASED GLUCOSE; Start 01/06/17 at 21:30 Dextrose (D50w Syringe) 50 ml Q15M PRN IV DECREASED GLUCOSE; Start 01/06/17 at 21:30 Glucagon (Glucagen) 1 mg Q15M PRN IM DECREASED GLUCOSE; Start 01/06/17 at 21:30 Glucose (Glutose) 15 gm Q15M PRN BUCCAL DECREASED GLUCOSE; Start 01/06/17 at 21 :30 Ondansetron HCl (Zofran Inj) 4 mg Q4H PRN IV NAUSEA AND/OR VOMITING; Start at 17:00 Metoclopramide HCl (Reglan) 5 mg Q6H PRN IV NAUSEA Last administered on 17:45; Admin Dose 5 MG; Start 01/07/17 at 17:30 FREDDIE KEYS Jan 07, 2017 18:46
[2017-01-07] MEDS: ATORVASTATIN 20 MG TAB PO SCH (20:06)
[2017-01-08] VITALS (7 sets, daily range): BP systolic 136–187; BP diastolic 63–84; PULSE 85–87; RESP 16–19
[2017-01-08] MEDS: ACCU-CHEK XX SCH (01:15)
[2017-01-08] MEDS: hydrALAzine 20 MG INJ IV PRN ×2 (02:33→14:23)
[2017-01-08 04:38] LABS: BASOPHILS % 0.4 % (0.0-2.0); EOSINOPHILS # 0.4 10^3/ul (0.0-0.5); HEMATOCRIT 27.1 % (37.0-47.0); HEMOGLOBIN 8.6 g/dl (12.0-16.0); LYMPHOCYTES # 2.2 10^3/ul (0.8-2.9); MEAN CORPUSCULAR HEMOGLOBIN 28.2 pg (29.0-33.0); MEAN CORPUSCULAR HGB CONC 31.7 g/dl (32.0-37.0); MEAN CORPUSCULAR VOLUME 88.9 fl (82.0-101.0); MEAN PLATELET VOLUME 11.1 fl (7.4-10.4); MONOCYTE # 0.6 10^3/ul (0.3-0.9); MONOCYTES % 6.7 % (0.0-11.0); NEUTROPHIL # 5.9 10^3/ul (1.6-7.5); NEUTROPHILS % 64.3 % (39.0-77.0); PLATELET COUNT 214 10^3/UL (140-415); RED BLOOD COUNT 3.05 10^6/ul (4.20-5.40); RED CELL DISTRIBUTION WIDTH 13.9 % (11.5-14.5); WHITE BLOOD COUNT 9.1 10^3/ul (4.8-10.8)
[2017-01-08 05:28] LABS: CALCIUM 8.2 mg/dl (8.4-10.2); CREATININE 6.24 mg/dl (0.44-1.00); POTASSIUM 3.9 mmol/L (3.5-5.1)
[2017-01-08] MEDS: METOCLOPRAMIDE 10 MG INJ IV PRN ×2 (05:53→23:38)
[2017-01-08] MEDS: FUROSEMIDE 20 MG INJ IV SCH (05:55)
[2017-01-08] MEDS: LEVOTHYROXINE 100 MCG TAB PO SCH (06:00)
[2017-01-08] MEDS: INSULIN ASPART [NOVOLOG] 3 ML PEN SC SCH ×4 (08:00→21:00)
[2017-01-08] MEDS: CALCIUM ACETATE 667 MG CAP PO SCH ×3 (08:20→16:51)
[2017-01-08] MEDS: PENTOXIFYLLINE (SR) 400 MG TAB PO SCH ×3 (08:21→20:57)
[2017-01-08] MEDS: ISOSORBIDE MONONITRATE(SR)60 MG TAB PO SCH (08:21)
[2017-01-08] MEDS: FAMOTIDINE 20 MG TAB PO SCH (08:21)
[2017-01-08] MEDS: VERAPAMIL (SR) 120 MG TAB PO SCH (08:21)
[2017-01-08] MEDS: LORATADINE 10 MG TAB PO SCH (08:23)
[2017-01-08] MEDS: ASPIRIN 81 MG TAB PO SCH (08:23)
[2017-01-08] MEDS: ONDANSETRON 4 MG INJ IV PRN (14:23)
[2017-01-08] MEDS ORDERED: METOCLOPRAMIDE 10 MG INJ IV ONE (15:00)
--- NOTE | 2017-01-08 19:37 | CONS ---
Date/Time of Note Date/Time of Note DATE: 01/08/17 TIME: 19:35 Assessment/Plan Assessment/Plan Additional Assessment/Plan 1. Acute Kidney injuyr on CKD worsening to CKD V 2. acute fluid overaload with Anasarca 3. 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 Hypertension - not well controlled 5. Diabetes melitus 6. hyperlipidemia 7. hypothyroidism Plan : -IV albumin is finished, decrease lasix to 20mg daily - BUN/Cr persisitently rising Renal US c/w medical renal disease. Recently had a Hepatitis panel and HIV negative continue verapamil, lasix, Hydralazine for HTN will continue to follow up Relgan prn nausea, vomiting 24 hr urine collection showed Cr clearance 2.7, U/O 700 cc- will discuss with family about initiation of HD . Consultation Date/Type/Reason Admit Date/Time Jan 05, 2017 at 09:43 Initial Consult Date 01/05/17 Type of Consultation: NEPHROLOGY Referring Provider: SILVIA IQBAL MD 24 HR Interval Summary Free Text/Dictation c/o nausea, vomiting, BUN/Cr rising high Exam/Review of Systems Vital Signs Vitals Vital Signs Date Time Temp Pulse Resp B/P Pulse Ox O2 Delivery O2 Flow Rate FiO2 01/08/17 14:00 98.6 87 16 151/71 96 01/05/17 12:05 Room Air Intake and Output 01/07/17 01/07/17 01/08/17 14:59 22:59 06:59 Intake Total 100 ml 700 ml 220 ml Output Total 300 ml 800 ml Balance 100 ml 400 ml -580 ml Results Result Diagram: 01/08/17 0310 01/08/17 0310 Results 24 hrs Laboratory Tests Test 01/07/17 20:07 01/08/17 03:10 01/08/17 03:19 01/08/17 08:24 Bedside Glucose 104 94 White Blood Count 9.1 Red Blood Count 3.05 L Hemoglobin 8.6 L Hematocrit 27.1 L Mean Corpuscular Volume 88.9 Mean Corpuscular Hemoglobin 28.2 L Mean Corpuscular Hemoglobin Concent 31.7 L Red Cell Distribution Width 13.9 Platelet Count 214 Mean Platelet Volume 11.1 H Neutrophils % 64.3 Lymphocytes % 24.0 Monocytes % 6.7 Eosinophils % 4.0 Basophils % 0.4 Nucleated Red Blood Cells % 0.0 Neutrophils # 5.9 Lymphocytes # 2.2 Monocytes # 0.6 Eosinophils # 0.4 Basophils # 0.0 Nucleated Red Blood Cells # 0.0 Sodium Level 138 Potassium Level 3.9 Chloride Level 106 Carbon Dioxide Level 23 Anion Gap 13 Blood Urea Nitrogen 54 H Creatinine 6.24 H Glucose Level 90 Calcium Level 8.2 L Troponin I 0.052 Test 01/08/17 11:56 01/08/17 17:25 Bedside Glucose 148 135 Medications Medications Current Medications Atorvastatin Calcium (Lipitor) 20 mg QHS PO Last administered on 01/07/17 20: 06; Admin Dose 20 MG; Start 01/05/17 at 21:00 Loratadine (Claritin) 10 mg DAILY PO Last administered on 01/08/17 08:23; Admin Dose 10 MG; Start 01/06/17 at 09:00 Pentoxifylline (Trental) 400 mg TID PO Last administered on 01/08/17 12:06; Admin Dose 400 MG; Start 01/05/17 at 13:00 Verapamil HCl (Isoptin Sr) 120 mg DAILY PO Last administered on 01/08/17 08:21 ; Admin Dose 120 MG; Start 01/05/17 at 11:00 Aspirin (Aspirin) 81 mg DAILY PO Last administered on 01/08/17 08:23; Admin Dose 81 MG; Start 01/06/17 at 09:00 Acetaminophen (Tylenol Tab) 650 mg Q6H PRN PO PAIN LEVEL 1-3 OR FEVER; Start at 12:00 Morphine Sulfate (morphine) 2 mg Q4H PRN IV PAIN LEVEL 7-10; Start 01/05/17 at 12:00 Docusate Sodium (Colace) 100 mg Q12H PRN PO CONSTIPATION; Start 01/05/17 at 12: 00 Famotidine (Pepcid) 20 mg DAILY PO Last administered on 01/08/17 08:21; Admin Dose 20 MG; Start 01/05/17 at 12:00 Hydralazine HCl (Apresoline) 50 mg QID PO Last administered on 01/08/17 16:51 ; Admin Dose 50 MG; Start 01/05/17 at 17:00 Hydralazine HCl (Apresoline) 10 mg Q4H PRN IV SBP>150 mmhg Last administered on 01/08/17 14:23; Admin Dose 10 MG; Start 01/05/17 at 17:00 Diagnostic Test (Pha) (Accu-Chek) 1 ea 02 XX ; Start 01/07/17 at 02:00 Miscellaneous Information 1 ea NOTE XX ; Start 01/06/17 at 21:30 Glucose (Glutose) 15 gm Q15M PRN PO DECREASED GLUCOSE; Start 01/06/17 at 21:30 Glucose (Glutose) 22.5 gm Q15M PRN PO DECREASED GLUCOSE; Start 01/06/17 at 21: 30 Dextrose (D50w Syringe) 25 ml Q15M PRN IV DECREASED GLUCOSE; Start 01/06/17 at 21:30 Dextrose (D50w Syringe) 50 ml Q15M PRN IV DECREASED GLUCOSE; Start 01/06/17 at 21:30 Glucagon (Glucagen) 1 mg Q15M PRN IM DECREASED GLUCOSE; Start 01/06/17 at 21:30 Glucose (Glutose) 15 gm Q15M PRN BUCCAL DECREASED GLUCOSE; Start 01/06/17 at 21 :30 Ondansetron HCl (Zofran Inj) 4 mg Q4H PRN IV NAUSEA AND/OR VOMITING Last administered on 01/08/17 14:23; Admin Dose 4 MG; Start 01/07/17 at 17:00 Metoclopramide HCl (Reglan) 5 mg Q6H PRN IV NAUSEA Last administered on 05:53; Admin Dose 5 MG; Start 01/07/17 at 17:30 Nitroglycerin (Nitroglycerin (Sl Tab) 0.4 Mg) 1 tab Q5M PRN SL ANGINA; Start at 03:30 Isosorbide Mononitrate (Imdur) 60 mg DAILY PO Last administered on 01/08/17 08 :21; Admin Dose 60 MG; Start 01/08/17 at 09:00 Furosemide (Lasix) 20 mg DAILY PO ; Start 01/09/17 at 09:00 IRIS BURRIS MD Jan 08, 2017 19:37
[2017-01-08] MEDS: ATORVASTATIN 20 MG TAB PO SCH (20:57)
[2017-01-09 01:30] VITALS: BP 173/78; PULSE 95; RESP 18
[2017-01-09] MEDS: hydrALAzine 20 MG INJ IV PRN (01:35)
[2017-01-09] MEDS: ACCU-CHEK XX SCH (02:00)
[2017-01-09 02:13] VITALS: BP 155/70; PULSE 99; RESP 20
[2017-01-09] MEDS: ONDANSETRON 4 MG INJ IV PRN ×3 (03:34→16:15)
[2017-01-09 06:15] LABS: BASOPHIL # 0.1 10^3/ul (0.0-0.1); BASOPHILS % 0.5 % (0.0-2.0); EOSINOPHILS # 0.1 10^3/ul (0.0-0.5); EOSINOPHILS % 1.2 % (0.0-7.0); HEMATOCRIT 25.9 % (37.0-47.0); HEMOGLOBIN 8.2 g/dl (12.0-16.0); LYMPHOCYTES # 1.4 10^3/ul (0.8-2.9); LYMPHOCYTES % 13.8 % (15.0-51.0); MEAN CORPUSCULAR HEMOGLOBIN 27.8 pg (29.0-33.0); MEAN CORPUSCULAR HGB CONC 31.7 g/dl (32.0-37.0); MEAN CORPUSCULAR VOLUME 87.8 fl (82.0-101.0); MEAN PLATELET VOLUME 10.8 fl (7.4-10.4); MONOCYTE # 0.7 10^3/ul (0.3-0.9); MONOCYTES % 7.2 % (0.0-11.0); NEUTROPHIL # 7.7 10^3/ul (1.6-7.5); NEUTROPHILS % 76.8 % (39.0-77.0); PLATELET COUNT 221 10^3/UL (140-415); RED BLOOD COUNT 2.95 10^6/ul (4.20-5.40); RED CELL DISTRIBUTION WIDTH 13.5 % (11.5-14.5); WHITE BLOOD COUNT 10.1 10^3/ul (4.8-10.8)
[2017-01-09] MEDS: LEVOTHYROXINE 100 MCG TAB PO SCH (06:27)
[2017-01-09 06:34] LABS: CALCIUM 8.1 mg/dl (8.4-10.2); CREATININE 6.83 mg/dl (0.44-1.00); POTASSIUM 3.8 mmol/L (3.5-5.1)
[2017-01-09] MEDS: INSULIN ASPART [NOVOLOG] 3 ML PEN SC SCH ×4 (08:00→21:00)
[2017-01-09] MEDS: ASPIRIN 81 MG TAB PO SCH (08:13)
[2017-01-09] MEDS: FAMOTIDINE 20 MG TAB PO SCH (08:13)
[2017-01-09] MEDS: CALCIUM ACETATE 667 MG CAP PO SCH ×3 (08:13→17:23)
[2017-01-09] MEDS: LORATADINE 10 MG TAB PO SCH (08:13)
[2017-01-09] MEDS: PENTOXIFYLLINE (SR) 400 MG TAB PO SCH ×3 (08:13→21:17)
[2017-01-09] MEDS: VERAPAMIL (SR) 120 MG TAB PO SCH (08:22)
[2017-01-09] MEDS: ISOSORBIDE MONONITRATE(SR)60 MG TAB PO SCH (08:22)
[2017-01-09] MEDS: FUROSEMIDE 20 MG TAB PO SCH (08:28)
[2017-01-09 08:32] VITALS: BP 174/77; PULSE 93; RESP 20
[2017-01-09] MEDS: NITROGLYCERIN (SL) 0.4 MG TAB SL PRN ×3 (09:50→10:07)
[2017-01-09] MEDS: morphine 2 MG INJ IV PRN (11:20)
[2017-01-09] MEDS ORDERED: EPOETIN 10000 UNITS/1 ML INJ (ESRD) SC ONE (12:00)
[2017-01-09] MEDS: METOCLOPRAMIDE 10 MG INJ IV PRN ×2 (12:20→21:26)
--- NOTE | 2017-01-09 14:20 | CONS ---
Date/Time of Note Date/Time of Note DATE: 01/09/17 TIME: 14:05 Assessment/Plan Assessment/Plan Additional Assessment/Plan 1. Acute Kidney injuyr on CKD worsening to CKD V- progressed to ESRD- with symptoms of uremia 2. acute fluid overaload with Anasarca 3. 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 Hypertension - not well controlled 5. Diabetes melitus 6. hyperlipidemia 7. hypothyroidism Plan : -IV albumin is finished, decrease lasix to 20mg daily - BUN/Cr persisitently rising , 24 hr urine creatinine clearance 4- Pt has symptoms of uremia- d/w family at bedside with senior qa tester- pt agreed and plan is to start HD tomorrow after permacath placement hepatitis panel, HIV panel in AM labs Renal US c/w medical renal disease. continue verapamil, stop lasix after pt gets HD initiation will continue to follow up Relgan prn nausea, vomiting 24 hr urine collection showed Cr clearance 2.7, U/O 700 cc- Consent signed, IR guided permacath requested with AM labs. Consultation Date/Type/Reason Admit Date/Time Jan 05, 2017 at 09:43 Initial Consult Date 01/05/17 Type of Consultation: NEPHROLOGY Referring Provider: SILVIA IQBAL MD 24 HR Interval Summary Free Text/Dictation BUN/Cr persistently remained high, 24 hr urine creatinine clearance 4- BP stable Exam/Review of Systems Vital Signs Vitals Vital Signs Date Time Temp Pulse Resp B/P Pulse Ox O2 Delivery O2 Flow Rate FiO2 01/09/17 08:32 97.7 93 20 174/77 99 Room Air Intake and Output 01/08/17 01/08/17 01/09/17 15:00 23:00 07:00 Intake Total 520 ml 150 ml Output Total 1220 ml Balance 520 ml -1070 ml Exam Constitutional: alert Respiratory: clear to auscultation, normal air movement Cardiovascular: nl pulses, regular rate and rhythm Gastrointestinal: non-tender, soft Extremities: calf tenderness, edema, normal pulses, palpable cord, pitting pedal edema, tenderness Neurological: [employer] II-XII intact, nl mental status, nl speech, nl strength Results Result Diagram: 01/09/17 0549 01/09/17 0549 Results 24 hrs Laboratory Tests Test 01/08/17 17:25 01/08/17 20:56 01/09/17 05:49 01/09/17 08:11 Bedside Glucose 135 141 105 White Blood Count 10.1 Red Blood Count 2.95 L Hemoglobin 8.2 L Hematocrit 25.9 L Mean Corpuscular Volume 87.8 Mean Corpuscular Hemoglobin 27.8 L Mean Corpuscular Hemoglobin Concent 31.7 L Red Cell Distribution Width 13.5 Platelet Count 221 Mean Platelet Volume 10.8 H Neutrophils % 76.8 Lymphocytes % 13.8 L Monocytes % 7.2 Eosinophils % 1.2 Basophils % 0.5 Nucleated Red Blood Cells % 0.0 Neutrophils # 7.7 H Lymphocytes # 1.4 Monocytes # 0.7 Eosinophils # 0.1 Basophils # 0.1 Nucleated Red Blood Cells # 0.0 Sodium Level 136 Potassium Level 3.8 Chloride Level 104 Carbon Dioxide Level 25 Anion Gap 11 Blood Urea Nitrogen 54 H Creatinine 6.83 H Glucose Level 106 Calcium Level 8.1 L Test 01/09/17 10:59 01/09/17 12:16 Troponin I 0.029 Bedside Glucose 103 Medications Medications Current Medications Atorvastatin Calcium (Lipitor) 20 mg QHS PO Last administered on 01/08/17 20: 57; Admin Dose 20 MG; Start 01/05/17 at 21:00 Loratadine (Claritin) 10 mg DAILY PO Last administered on 01/09/17 08:13; Admin Dose 10 MG; Start 01/06/17 at 09:00 Pentoxifylline (Trental) 400 mg TID PO Last administered on 01/09/17 08:13; Admin Dose 400 MG; Start 01/05/17 at 13:00 Verapamil HCl (Isoptin Sr) 120 mg DAILY PO Last administered on 01/09/17 08:22 ; Admin Dose 120 MG; Start 01/05/17 at 11:00 Aspirin (Aspirin) 81 mg DAILY PO Last administered on 01/09/17 08:13; Admin Dose 81 MG; Start 01/06/17 at 09:00 Acetaminophen (Tylenol Tab) 650 mg Q6H PRN PO PAIN LEVEL 1-3 OR FEVER; Start at 12:00 Morphine Sulfate (morphine) 2 mg Q4H PRN IV PAIN LEVEL 7-10 Last administered on 01/09/17 11:20; Admin Dose 2 MG; Start 01/05/17 at 12:00 Docusate Sodium (Colace) 100 mg Q12H PRN PO CONSTIPATION; Start 01/05/17 at 12: 00 Famotidine (Pepcid) 20 mg DAILY PO Last administered on 01/09/17 08:13; Admin Dose 20 MG; Start 01/05/17 at 12:00 Hydralazine HCl (Apresoline) 50 mg QID PO Last administered on 01/09/17 08:23 ; Admin Dose 50 MG; Start 01/05/17 at 17:00 Hydralazine HCl (Apresoline) 10 mg Q4H PRN IV SBP>150 mmhg Last administered on 01/09/17 01:35; Admin Dose 10 MG; Start 01/05/17 at 17:00 Diagnostic Test (Pha) (Accu-Chek) 1 ea 02 XX ; Start 01/07/17 at 02:00 Miscellaneous Information 1 ea NOTE XX ; Start 01/06/17 at 21:30 Glucose (Glutose) 15 gm Q15M PRN PO DECREASED GLUCOSE; Start 01/06/17 at 21:30 Glucose (Glutose) 22.5 gm Q15M PRN PO DECREASED GLUCOSE; Start 01/06/17 at 21: 30 Dextrose (D50w Syringe) 25 ml Q15M PRN IV DECREASED GLUCOSE; Start 01/06/17 at 21:30 Dextrose (D50w Syringe) 50 ml Q15M PRN IV DECREASED GLUCOSE; Start 01/06/17 at 21:30 Glucagon (Glucagen) 1 mg Q15M PRN IM DECREASED GLUCOSE; Start 01/06/17 at 21:30 Glucose (Glutose) 15 gm Q15M PRN BUCCAL DECREASED GLUCOSE; Start 01/06/17 at 21 :30 Ondansetron HCl (Zofran Inj) 4 mg Q4H PRN IV NAUSEA AND/OR VOMITING Last administered on 01/09/17 11:24; Admin Dose 4 MG; Start 01/07/17 at 17:00 Metoclopramide HCl (Reglan) 5 mg Q6H PRN IV NAUSEA Last administered on 12:20; Admin Dose 5 MG; Start 01/07/17 at 17:30 Nitroglycerin (Nitroglycerin (Sl Tab) 0.4 Mg) 1 tab Q5M PRN SL ANGINA Last administered on 01/09/17 10:07; Admin Dose 1 TAB; Start 01/08/17 at 03:30 Isosorbide Mononitrate (Imdur) 60 mg DAILY PO Last administered on 01/09/17 08 :22; Admin Dose 60 MG; Start 01/08/17 at 09:00 Furosemide (Lasix) 20 mg DAILY PO Last administered on 01/09/17 08:28; Admin Dose 20 MG; Start 01/09/17 at 09:00 Carvedilol (Coreg) 6.25 mg BID PO Last administered on 01/09/17 11:24; Admin Dose 6.25 MG; Start 01/09/17 at 10:30 IRIS BURRIS MD Jan 09, 2017 14:15
[2017-01-09 14:25] VITALS: BP 144/68; RESP 18
--- NOTE | 2017-01-09 15:13 | PN ---
Date/Time of Note Date/Time of Note DATE: 01/09/17 TIME: 15:11 Assessment/Plan VTE Prophylaxis VTE Prophylaxis Intervention: other Lines/Catheters IV [facility]from [facility] Saline Lock Urinary Cath still in place: No Assessment/Plan Assessment/Plan - Acute kidney injury on chronic kidney disease stage 3. Dr. Naidu is following patient in Nephrology consultation. - Hypertensive urgency continue hydralazine and verapamil. - Diabetes mellitus type II with hemoglobin A1c 6.5. Continue NovoLog per sliding scale - Hypothyroidism. Continue Synthroid. - Bilateral lower extremity edema. Preserved ejection fraction per echo. - Hyperlipidemia. Continue statin. Further recommendations based on clinical course. Plan of care discussed with Dr. Martinez Subjective 24 Hr Interval Summary Free Text/Dictation Late entry- 01/08/2017 at 11:00 am Respiratory: no complaints Cardiovascular: no complaints Gastrointestinal: no complaints Exam/Review of Systems Vital Signs Vitals Vital Signs Date Time Temp Pulse Resp B/P Pulse Ox O2 Delivery O2 Flow Rate FiO2 01/09/17 14:25 98.2 78 18 144/68 96 01/09/17 08:32 Room Air Intake and Output 01/08/17 01/08/17 01/09/17 15:00 23:00 07:00 Intake Total 520 ml 150 ml Output Total 1220 ml Balance 520 ml -1070 ml Exam Constitutional: alert, oriented Respiratory: clear to auscultation, diminished breath sounds Cardiovascular: nl pulses Gastrointestinal: nl liver, spleen, soft Musculoskeletal: nl extremities to inspection Extremities: normal pulses Neurological: nl mental status, nl speech Results Result Diagram: 01/09/17 0549 01/09/17 0549 Results 24 hrs Laboratory Tests Test 01/08/17 17:25 01/08/17 20:56 01/09/17 05:49 01/09/17 08:11 Bedside Glucose 135 141 105 White Blood Count 10.1 Red Blood Count 2.95 L Hemoglobin 8.2 L Hematocrit 25.9 L Mean Corpuscular Volume 87.8 Mean Corpuscular Hemoglobin 27.8 L Mean Corpuscular Hemoglobin Concent 31.7 L Red Cell Distribution Width 13.5 Platelet Count 221 Mean Platelet Volume 10.8 H Neutrophils % 76.8 Lymphocytes % 13.8 L Monocytes % 7.2 Eosinophils % 1.2 Basophils % 0.5 Nucleated Red Blood Cells % 0.0 Neutrophils # 7.7 H Lymphocytes # 1.4 Monocytes # 0.7 Eosinophils # 0.1 Basophils # 0.1 Nucleated Red Blood Cells # 0.0 Sodium Level 136 Potassium Level 3.8 Chloride Level 104 Carbon Dioxide Level 25 Anion Gap 11 Blood Urea Nitrogen 54 H Creatinine 6.83 H Glucose Level 106 Calcium Level 8.1 L Test 01/09/17 10:59 01/09/17 12:16 Troponin I 0.029 Bedside Glucose 103 Medications Medications Current Medications Atorvastatin Calcium (Lipitor) 20 mg QHS PO Last administered on 01/08/17 20: 57; Admin Dose 20 MG; Start 01/05/17 at 21:00 Loratadine (Claritin) 10 mg DAILY PO Last administered on 01/09/17 08:13; Admin Dose 10 MG; Start 01/06/17 at 09:00 Pentoxifylline (Trental) 400 mg TID PO Last administered on 01/09/17 14:00; Admin Dose 400 MG; Start 01/05/17 at 13:00 Verapamil HCl (Isoptin Sr) 120 mg DAILY PO Last administered on 01/09/17 08:22 ; Admin Dose 120 MG; Start 01/05/17 at 11:00 Aspirin (Aspirin) 81 mg DAILY PO Last administered on 01/09/17 08:13; Admin Dose 81 MG; Start 01/06/17 at 09:00 Acetaminophen (Tylenol Tab) 650 mg Q6H PRN PO PAIN LEVEL 1-3 OR FEVER; Start at 12:00 Morphine Sulfate (morphine) 2 mg Q4H PRN IV PAIN LEVEL 7-10 Last administered on 01/09/17 11:20; Admin Dose 2 MG; Start 01/05/17 at 12:00 Docusate Sodium (Colace) 100 mg Q12H PRN PO CONSTIPATION; Start 01/05/17 at 12: 00 Famotidine (Pepcid) 20 mg DAILY PO Last administered on 01/09/17 08:13; Admin Dose 20 MG; Start 01/05/17 at 12:00 Hydralazine HCl (Apresoline) 50 mg QID PO Last administered on 01/09/17 14:17 ; Admin Dose 50 MG; Start 01/05/17 at 17:00 Hydralazine HCl (Apresoline) 10 mg Q4H PRN IV SBP>150 mmhg Last administered on 01/09/17 01:35; Admin Dose 10 MG; Start 01/05/17 at 17:00 Diagnostic Test (Pha) (Accu-Chek) 1 ea 02 XX ; Start 01/07/17 at 02:00 Miscellaneous Information 1 ea NOTE XX ; Start 01/06/17 at 21:30 Glucose (Glutose) 15 gm Q15M PRN PO DECREASED GLUCOSE; Start 01/06/17 at 21:30 Glucose (Glutose) 22.5 gm Q15M PRN PO DECREASED GLUCOSE; Start 01/06/17 at 21: 30 Dextrose (D50w Syringe) 25 ml Q15M PRN IV DECREASED GLUCOSE; Start 01/06/17 at 21:30 Dextrose (D50w Syringe) 50 ml Q15M PRN IV DECREASED GLUCOSE; Start 01/06/17 at 21:30 Glucagon (Glucagen) 1 mg Q15M PRN IM DECREASED GLUCOSE; Start 01/06/17 at 21:30 Glucose (Glutose) 15 gm Q15M PRN BUCCAL DECREASED GLUCOSE; Start 01/06/17 at 21 :30 Ondansetron HCl (Zofran Inj) 4 mg Q4H PRN IV NAUSEA AND/OR VOMITING Last administered on 01/09/17 11:24; Admin Dose 4 MG; Start 01/07/17 at 17:00 Metoclopramide HCl (Reglan) 5 mg Q6H PRN IV NAUSEA Last administered on 12:20; Admin Dose 5 MG; Start 01/07/17 at 17:30 Nitroglycerin (Nitroglycerin (Sl Tab) 0.4 Mg) 1 tab Q5M PRN SL ANGINA Last administered on 01/09/17 10:07; Admin Dose 1 TAB; Start 01/08/17 at 03:30 Isosorbide Mononitrate (Imdur) 60 mg DAILY PO Last administered on 01/09/17 08 :22; Admin Dose 60 MG; Start 01/08/17 at 09:00 Furosemide (Lasix) 20 mg DAILY PO Last administered on 01/09/17 08:28; Admin Dose 20 MG; Start 01/09/17 at 09:00 Carvedilol (Coreg) 6.25 mg BID PO Last administered on 01/09/17 11:24; Admin Dose 6.25 MG; Start 01/09/17 at 10:30 WALE RIBEIRO Jan 09, 2017 15:13
--- NOTE | 2017-01-09 15:18 | PN ---
Date/Time of Note Date/Time of Note DATE: 01/09/17 TIME: 15:13 Assessment/Plan VTE Prophylaxis VTE Prophylaxis Intervention: SCD's Lines/Catheters IV Catheter Type (from Nrsg): Saline Lock Urinary Cath still in place: No Assessment/Plan Assessment/Plan - Chest pain- none at present. - EKG, Troponin done- negative - cardiology consult- Dr Ku notified - Acute kidney injury on chronic kidney disease stage 3. Dr. Naidu is following patient in Nephrology consultation. - Hypertensive urgency continue hydralazine and verapamil. - Diabetes mellitus type II with hemoglobin A1c 6.5. Continue NovoLog per sliding scale - Hypothyroidism. Continue Synthroid. - Bilateral lower extremity edema. Preserved ejection fraction per echo. - Hyperlipidemia. Continue statin. Further recommendations based on clinical course. Plan of care discussed with Dr. Martinez. Problems: Subjective 24 Hr Interval Summary Free Text/Dictation 100- resting, had an episode of chest pain x1 this morning, EKG, Troponin done, cardiology consult- Dr Ku notified, staff. at bed side- all Qs answered Respiratory: no complaints Cardiovascular: no complaints Gastrointestinal: no complaints Genitourinary: no complaints Musculoskeletal: no complaints Exam/Review of Systems Vital Signs Vitals Vital Signs Date Time Temp Pulse Resp B/P Pulse Ox O2 Delivery O2 Flow Rate FiO2 01/09/17 14:25 98.2 78 18 144/68 96 01/09/17 08:32 Room Air Intake and Output 01/08/17 01/08/17 01/09/17 15:00 23:00 07:00 Intake Total 520 ml 150 ml Output Total 1220 ml Balance 520 ml -1070 ml Exam Constitutional: alert, well developed Respiratory: clear to auscultation, normal air movement Cardiovascular: nl pulses Gastrointestinal: non-tender, soft Musculoskeletal: nl extremities to inspection Extremities: normal pulses Neurological: nl mental status, nl speech Results Result Diagram: 01/09/17 0549 01/09/17 0549 Results 24 hrs Laboratory Tests Test 01/08/17 17:25 01/08/17 20:56 01/09/17 05:49 01/09/17 08:11 Bedside Glucose 135 141 105 White Blood Count 10.1 Red Blood Count 2.95 L Hemoglobin 8.2 L Hematocrit 25.9 L Mean Corpuscular Volume 87.8 Mean Corpuscular Hemoglobin 27.8 L Mean Corpuscular Hemoglobin Concent 31.7 L Red Cell Distribution Width 13.5 Platelet Count 221 Mean Platelet Volume 10.8 H Neutrophils % 76.8 Lymphocytes % 13.8 L Monocytes % 7.2 Eosinophils % 1.2 Basophils % 0.5 Nucleated Red Blood Cells % 0.0 Neutrophils # 7.7 H Lymphocytes # 1.4 Monocytes # 0.7 Eosinophils # 0.1 Basophils # 0.1 Nucleated Red Blood Cells # 0.0 Sodium Level 136 Potassium Level 3.8 Chloride Level 104 Carbon Dioxide Level 25 Anion Gap 11 Blood Urea Nitrogen 54 H Creatinine 6.83 H Glucose Level 106 Calcium Level 8.1 L Test 01/09/17 10:59 01/09/17 12:16 Troponin I 0.029 Bedside Glucose 103 Medications Medications Current Medications Atorvastatin Calcium (Lipitor) 20 mg QHS PO Last administered on 01/08/17 20: 57; Admin Dose 20 MG; Start 01/05/17 at 21:00 Loratadine (Claritin) 10 mg DAILY PO Last administered on 01/09/17 08:13; Admin Dose 10 MG; Start 01/06/17 at 09:00 Pentoxifylline (Trental) 400 mg TID PO Last administered on 01/09/17 14:00; Admin Dose 400 MG; Start 01/05/17 at 13:00 Verapamil HCl (Isoptin Sr) 120 mg DAILY PO Last administered on 01/09/17 08:22 ; Admin Dose 120 MG; Start 01/05/17 at 11:00 Aspirin (Aspirin) 81 mg DAILY PO Last administered on 01/09/17 08:13; Admin Dose 81 MG; Start 01/06/17 at 09:00 Acetaminophen (Tylenol Tab) 650 mg Q6H PRN PO PAIN LEVEL 1-3 OR FEVER; Start at 12:00 Morphine Sulfate (morphine) 2 mg Q4H PRN IV PAIN LEVEL 7-10 Last administered on 01/09/17 11:20; Admin Dose 2 MG; Start 01/05/17 at 12:00 Docusate Sodium (Colace) 100 mg Q12H PRN PO CONSTIPATION; Start 01/05/17 at 12: 00 Famotidine (Pepcid) 20 mg DAILY PO Last administered on 01/09/17 08:13; Admin Dose 20 MG; Start 01/05/17 at 12:00 Hydralazine HCl (Apresoline) 50 mg QID PO Last administered on 01/09/17 14:17 ; Admin Dose 50 MG; Start 01/05/17 at 17:00 Hydralazine HCl (Apresoline) 10 mg Q4H PRN IV SBP>150 mmhg Last administered on 01/09/17 01:35; Admin Dose 10 MG; Start 01/05/17 at 17:00 Diagnostic Test (Pha) (Accu-Chek) 1 ea 02 XX ; Start 01/07/17 at 02:00 Miscellaneous Information 1 ea NOTE XX ; Start 01/06/17 at 21:30 Glucose (Glutose) 15 gm Q15M PRN PO DECREASED GLUCOSE; Start 01/06/17 at 21:30 Glucose (Glutose) 22.5 gm Q15M PRN PO DECREASED GLUCOSE; Start 01/06/17 at 21: 30 Dextrose (D50w Syringe) 25 ml Q15M PRN IV DECREASED GLUCOSE; Start 01/06/17 at 21:30 Dextrose (D50w Syringe) 50 ml Q15M PRN IV DECREASED GLUCOSE; Start 01/06/17 at 21:30 Glucagon (Glucagen) 1 mg Q15M PRN IM DECREASED GLUCOSE; Start 01/06/17 at 21:30 Glucose (Glutose) 15 gm Q15M PRN BUCCAL DECREASED GLUCOSE; Start 01/06/17 at 21 :30 Ondansetron HCl (Zofran Inj) 4 mg Q4H PRN IV NAUSEA AND/OR VOMITING Last administered on 01/09/17 11:24; Admin Dose 4 MG; Start 01/07/17 at 17:00 Metoclopramide HCl (Reglan) 5 mg Q6H PRN IV NAUSEA Last administered on 12:20; Admin Dose 5 MG; Start 01/07/17 at 17:30 Nitroglycerin (Nitroglycerin (Sl Tab) 0.4 Mg) 1 tab Q5M PRN SL ANGINA Last administered on 01/09/17 10:07; Admin Dose 1 TAB; Start 01/08/17 at 03:30 Isosorbide Mononitrate (Imdur) 60 mg DAILY PO Last administered on 01/09/17 08 :22; Admin Dose 60 MG; Start 01/08/17 at 09:00 Furosemide (Lasix) 20 mg DAILY PO Last administered on 01/09/17 08:28; Admin Dose 20 MG; Start 01/09/17 at 09:00 Carvedilol (Coreg) 6.25 mg BID PO Last administered on 01/09/17 11:24; Admin Dose 6.25 MG; Start 01/09/17 at 10:30 WALE RIBEIRO Jan 09, 2017 15:18
[2017-01-09 17:27] VITALS: BP 143/67; RESP 20
[2017-01-09 20:22] VITALS: BP 146/68; RESP 22
[2017-01-09] MEDS: ATORVASTATIN 20 MG TAB PO SCH (21:19)
--- NOTE | 2017-01-10 00:03 | CONS ---
Date/Time of Note Date/Time of Note DATE: 01/09/17 TIME: 23:36 Consultation Date/Type/Reason Admit Date/Time Jan 05, 2017 at 09:43 DATE OF ADMISSION: 01/05/2017 DATE OF CONSULTATION: 01/09/2017 CHIEF COMPLAINT: Chest pain and bilateral lower extremity swelling. HISTORY OF PRESENT ILLNESS: The patient is a 66-year-old, with past medical history positive for diabetes mellitus, hypertension, hyperlipidemia, hypothyroidism, and chronic kidney disease with baseline creatinine being slightly above 2. The patient was seen in her iron ass[facility] office, Dr. Naidu with complaints of bilateral lower extremity swelling and her creatinine was elevated above 5 and patient was sent to the emergency room for further evaluation and management. In the emergency room the patient's blood pressure was elevated to 236/98. Creatinine elevated to 5.76, now 6.5. Patient was admitted initially without chest pain. Denies any shortness of breath. Denies any nausea, vomiting, or diarrhea. Denies any abdominal pain. The patient underwent chest x-ray, which revealed no acute cardiopulmonary disease. Enlarged cardiac silhouette. PAST MEDICAL HISTORY: Positive for chronic kidney disease, diabetes, hypertension, hypothyroidism, and left toe infection. PAST SURGICAL HISTORY: The patient denies having any surgeries in the past. FAMILY HISTORY: Positive for heart disease in both parents. SOCIAL HISTORY: Patient lives at home with her . The patient denies any tobacco use, alcohol use, or illicit drug use. ALLERGIES: NO KNOWN ALLERGIES. MEDICATIONS: Includes verapamil, pentoxifylline, Cozaar, loratadine, atorvastatin, Lasix, and levothyroxine. REVIEW OF SYSTEMS: Twelve point review of system is negative unless mentioned in HPI. PHYSICAL EXAMINATION: GENERAL: Well-developed, well-nourished female, currently is awake and alert. VITAL SIGNS: Temperature is 98.4, heart rate is 85 bpm, regular; blood pressure 146/68 mmHg, respiratory rate 22, oxygen saturation 91%. percent on room air (better with nasal cannula, 2 L/min. O2). HEENT: Head is atraumatic, normocephalic. Pupils equal, round, reactive to light and accommodation. Oral mucosa is pink and moist. NECK: Supple. No cervical lymphadenopathy. No thyromegaly. CHEST: Lungs clear bilaterally. There is no rhonchi, wheezes, rales noted. CARDIOVASCULAR: Normal S1, S2. No murmurs, gallops, clicks, or rubs noted. ABDOMEN: Protuberant, soft, nondistended, nontender. Bowel sounds present. There is no guarding or rebound tenderness. EXTREMITIES: Mild edema 2 plus. SKIN: No rash. No petechiae noted. NEUROLOGICAL: Patient is awake, alert and oriented times 4. No focal deficits noted. Motor strength 5/5 in all extremities. LABORATORY DATA: On admission, CBC white blood cells 7.4, hemoglobin 9.1, hematocrit 28.1, and platelets 217. Chemistry: Sodium is 133, potassium 4.4, chloride 107, carbon dioxide 21, anion gap 9, BUN 16, creatinine 5.76, glucose 181, AST 32, ALT 33, and alkaline phosphate is 114. ASSESSMENT AND PLAN: 1. Chest pain, non specific. Patient has several significant risk factors for premature CAD. 2. Acute kidney injury on chronic kidney disease. 2. Hypertensive urgency at admission, currently reasonably controlled with medications. 3. Hypothyroidism. 4. Bilateral lower extremity edema. Echocardiogram documented normal size cardiac chambers, normal LV systolic function, minimal valvular abnormalities. 5. Hyperlipidemia. RECOMMENDATION: Lexiscan nuclear stress test as inpatient to role out significant coronary artery disease. DAKOTA SANTILLAN MD Constitutional: no complaints Eyes: no complaints ENT: no complaints Respiratory: no complaints Cardiovascular: no complaints Gastrointestinal: no complaints Genitourinary: no complaints Musculoskeletal: no complaints Skin: no complaints Neurologic: no complaints Endocrine: no complaints Lymphatic: no complaints Psychological: no complaints Immunologic: no complaints Past Medical History Medical History: diabetes, high cholesterol, hypertension, renal disease Past Surgical History Past Surgical Hx: no surgical history Social History Alcohol Use: none Smoking Status: Never smoker Drug Use: none Exam/Review of Systems Vital Signs Vitals Vital Signs Date Time Temp Pulse Resp B/P Pulse Ox O2 Delivery O2 Flow Rate FiO2 01/09/17 20:22 98.5 85 22 146/68 91 01/09/17 17:27 Nasal Cannula Intake and Output 01/08/17 01/08/17 01/09/17 15:00 23:00 07:00 Intake Total 520 ml 150 ml Output Total 1220 ml Balance 520 ml -1070 ml Results Result Diagram: 01/09/17 0549 01/09/17 0549 Results 24 hrs Laboratory Tests Test 01/09/17 05:49 01/09/17 08:11 01/09/17 10:59 01/09/17 12:16 White Blood Count 10.1 Red Blood Count 2.95 L Hemoglobin 8.2 L Hematocrit 25.9 L Mean Corpuscular Volume 87.8 Mean Corpuscular Hemoglobin 27.8 L Mean Corpuscular Hemoglobin Concent 31.7 L Red Cell Distribution Width 13.5 Platelet Count 221 Mean Platelet Volume 10.8 H Neutrophils % 76.8 Lymphocytes % 13.8 L Monocytes % 7.2 Eosinophils % 1.2 Basophils % 0.5 Nucleated Red Blood Cells % 0.0 Neutrophils # 7.7 H Lymphocytes # 1.4 Monocytes # 0.7 Eosinophils # 0.1 Basophils # 0.1 Nucleated Red Blood Cells # 0.0 Sodium Level 136 Potassium Level 3.8 Chloride Level 104 Carbon Dioxide Level 25 Anion Gap 11 Blood Urea Nitrogen 54 H Creatinine 6.83 H Glucose Level 106 Calcium Level 8.1 L Bedside Glucose 105 103 Troponin I 0.029 Test 01/09/17 17:18 01/09/17 21:16 Bedside Glucose 106 90 Medications Medications Current Medications Atorvastatin Calcium (Lipitor) 20 mg QHS PO Last administered on 01/09/17 21: 19; Admin Dose 20 MG; Start 01/05/17 at 21:00 Loratadine (Claritin) 10 mg DAILY PO Last administered on 01/09/17 08:13; Admin Dose 10 MG; Start 01/06/17 at 09:00 Pentoxifylline (Trental) 400 mg TID PO Last administered on 01/09/17 21:17; Admin Dose 400 MG; Start 01/05/17 at 13:00 Verapamil HCl (Isoptin Sr) 120 mg DAILY PO Last administered on 01/09/17 08:22 ; Admin Dose 120 MG; Start 01/05/17 at 11:00 Aspirin (Aspirin) 81 mg DAILY PO Last administered on 01/09/17 08:13; Admin Dose 81 MG; Start 01/06/17 at 09:00 Acetaminophen (Tylenol Tab) 650 mg Q6H PRN PO PAIN LEVEL 1-3 OR FEVER; Start at 12:00 Morphine Sulfate (morphine) 2 mg Q4H PRN IV PAIN LEVEL 7-10 Last administered on 01/09/17 11:20; Admin Dose 2 MG; Start 01/05/17 at 12:00 Docusate Sodium (Colace) 100 mg Q12H PRN PO CONSTIPATION; Start 01/05/17 at 12: 00 Famotidine (Pepcid) 20 mg DAILY PO Last administered on 01/09/17 08:13; Admin Dose 20 MG; Start 01/05/17 at 12:00 Hydralazine HCl (Apresoline) 50 mg QID PO Last administered on 01/09/17 21:18 ; Admin Dose 50 MG; Start 01/05/17 at 17:00 Hydralazine HCl (Apresoline) 10 mg Q4H PRN IV SBP>150 mmhg Last administered on 01/09/17 01:35; Admin Dose 10 MG; Start 01/05/17 at 17:00 Diagnostic Test (Pha) (Accu-Chek) 1 ea 02 XX ; Start 01/07/17 at 02:00 Miscellaneous Information 1 ea NOTE XX ; Start 01/06/17 at 21:30 Glucose (Glutose) 15 gm Q15M PRN PO DECREASED GLUCOSE; Start 01/06/17 at 21:30 Glucose (Glutose) 22.5 gm Q15M PRN PO DECREASED GLUCOSE; Start 01/06/17 at 21: 30 Dextrose (D50w Syringe) 25 ml Q15M PRN IV DECREASED GLUCOSE; Start 01/06/17 at 21:30 Dextrose (D50w Syringe) 50 ml Q15M PRN IV DECREASED GLUCOSE; Start 01/06/17 at 21:30 Glucagon (Glucagen) 1 mg Q15M PRN IM DECREASED GLUCOSE; Start 01/06/17 at 21:30 Glucose (Glutose) 15 gm Q15M PRN BUCCAL DECREASED GLUCOSE; Start 01/06/17 at 21 :30 Ondansetron HCl (Zofran Inj) 4 mg Q4H PRN IV NAUSEA AND/OR VOMITING Last administered on 01/09/17 16:15; Admin Dose 4 MG; Start 01/07/17 at 17:00 Metoclopramide HCl (Reglan) 5 mg Q6H PRN IV NAUSEA Last administered on 21:26; Admin Dose 5 MG; Start 01/07/17 at 17:30 Nitroglycerin (Nitroglycerin (Sl Tab) 0.4 Mg) 1 tab Q5M PRN SL ANGINA Last administered on 01/09/17 10:07; Admin Dose 1 TAB; Start 01/08/17 at 03:30 Isosorbide Mononitrate (Imdur) 60 mg DAILY PO Last administered on 01/09/17 08 :22; Admin Dose 60 MG; Start 01/08/17 at 09:00 Furosemide (Lasix) 20 mg DAILY PO Last administered on 01/09/17 08:28; Admin Dose 20 MG; Start 01/09/17 at 09:00 Carvedilol (Coreg) 6.25 mg BID PO Last administered on 01/09/17 21:19; Admin Dose 6.25 MG; Start 01/09/17 at 10:30 DAKOTA SANTILLAN MD Jan 10, 2017 00:01
[2017-01-10] MEDS: ACCU-CHEK XX SCH (02:00)
[2017-01-10 02:57] VITALS: BP 154/71; RESP 21
[2017-01-10 05:45] LABS: HAAIG REFLEX REFLEX FILED
[2017-01-10 05:51] LABS: BASOPHIL # 0.1 10^3/ul (0.0-0.1); BASOPHILS % 0.5 % (0.0-2.0); EOSINOPHILS # 0.2 10^3/ul (0.0-0.5); EOSINOPHILS % 2.3 % (0.0-7.0); HEMATOCRIT 24.8 % (37.0-47.0); LYMPHOCYTES # 1.7 10^3/ul (0.8-2.9); LYMPHOCYTES % 18.5 % (15.0-51.0); MEAN CORPUSCULAR HEMOGLOBIN 28.5 pg (29.0-33.0); MEAN CORPUSCULAR HGB CONC 32.3 g/dl (32.0-37.0); MEAN CORPUSCULAR VOLUME 88.3 fl (82.0-101.0); MEAN PLATELET VOLUME 10.8 fl (7.4-10.4); MONOCYTE # 0.7 10^3/ul (0.3-0.9); NEUTROPHIL # 6.5 10^3/ul (1.6-7.5); NEUTROPHILS % 70.2 % (39.0-77.0); PLATELET COUNT 226 10^3/UL (140-415); RED BLOOD COUNT 2.81 10^6/ul (4.20-5.40); RED CELL DISTRIBUTION WIDTH 13.2 % (11.5-14.5); WHITE BLOOD COUNT 9.2 10^3/ul (4.8-10.8)
[2017-01-10] MEDS: LEVOTHYROXINE 100 MCG TAB PO SCH (06:13)
[2017-01-10 06:38] LABS: CALCIUM 8.1 mg/dl (8.4-10.2); CREATININE 6.99 mg/dl (0.44-1.00)
[2017-01-10 07:08] LABS: HEPATITIS B CORE ANTIBODY REACTIVE (NEGATIVE)
[2017-01-10 07:49] VITALS: BP 167/77; RESP 20
[2017-01-10] MEDS: INSULIN ASPART [NOVOLOG] 3 ML PEN SC SCH ×4 (08:00→21:00)
--- NOTE | 2017-01-10 08:38 | RADRPT ---
Vent Rate: 95 bpm RR Interval: 0 msec UT Interval: 172 msec QRS Duration: 84 msec QT Interval: 356 msec QTC Interval: 447 msec P-R-T [place]: 59 - 14 - 17 degrees Normal sinus rhythm Possible Anterior infarct , age undetermined Abnormal ECG Electronically Signed By: Irwin Marinelli [id number]
--- NOTE | 2017-01-10 08:40 | RADRPT ---
Vent Rate: 95 bpm RR Interval: 0 msec [place] Interval: 176 msec QRS Duration: 90 msec QT Interval: 356 msec QTC Interval: 447 msec P-R-T [place]: 57 - 43 - 43 degrees Normal sinus rhythm Normal ECG Electronically Signed By: Irwin Marinelli [id number]
[2017-01-10] MEDS: CALCIUM ACETATE 667 MG CAP PO SCH ×3 (08:52→17:38)
[2017-01-10] MEDS: FAMOTIDINE 20 MG TAB PO SCH (08:53)
[2017-01-10] MEDS: ISOSORBIDE MONONITRATE(SR)60 MG TAB PO SCH (08:53)
[2017-01-10] MEDS: FUROSEMIDE 20 MG TAB PO SCH (08:53)
[2017-01-10] MEDS: PENTOXIFYLLINE (SR) 400 MG TAB PO SCH ×3 (08:53→21:07)
[2017-01-10] MEDS: VERAPAMIL (SR) 120 MG TAB PO SCH (08:53)
[2017-01-10] MEDS: LORATADINE 10 MG TAB PO SCH (08:54)
[2017-01-10] MEDS: ASPIRIN 81 MG TAB PO SCH (08:54)
--- NOTE | 2017-01-10 13:56 | RADRPT ---
PROCEDURE: US bilateral upper extremity veins. CLINICAL INDICATION: Preoperative evaluation for central line placement. TECHNIQUE: Multiple longitudinal and transverse images of the bilateral internal jugular veins, gómez bclavian, and axillary veins was obtained with lewis scale, pulsed Doppler imaging, and color Doppler imaging. COMPARISON: None available FINDINGS: The internal jugular, subclavian, and axillary veins are patent bilaterally. There is normal flow an d compressibility throughout. There is no thrombus or occlusion. The right internal jugular vein diameter is 1.3 cm and the left internal jugular vein diameter is 1. 0 cm. IMPRESSION: 1. Normal bilateral internal jugular, subclavian, and axillary veins. RPTAT: QQ .Yunier Kelsey MD, MD Date Time Electronically viewed and signed by .Yunier Kelsey MD, on 01/10/2017 13:56 .R/
--- NOTE | 2017-01-10 14:18 | PN ---
Date/Time of Note Date/Time of Note DATE: 01/10/17 TIME: 14:16 Assessment/Plan VTE Prophylaxis VTE Prophylaxis Intervention: SCD's Lines/Catheters IV C[facility]ter Type (from [facility]): [facility] Urinary Cath still in place: No Assessment/Plan Chief Complaint/Hosp Course No acute events overnight, pending permacath placement by radiology today to initiate hemodialysis. Problems: Assessment/Plan - Acute kidney injury on chronic kidney disease stage 3. Dr. Naidu is following patient in Nephrology consultation. - Hypertensive urgency, continue hydralazine and verapamil. - Diabetes mellitus type II with hemoglobin A1c 6.5. Continue NovoLog per sliding scale - Hypothyroidism. Continue Synthroid. - Bilateral lower extremity edema. Preserved ejection fraction per echo. - Hyperlipidemia. Continue statin. Further recommendations based on clinical course. Plan of care discussed with Dr. Martinez. Exam/Review of Systems Vital Signs Vitals Vital Signs Date Time Temp Pulse Resp B/P Pulse Ox O2 Delivery O2 Flow Rate FiO2 01/10/17 07:49 97.7 85 20 167/77 95 01/09/17 17:27 Nasal Cannula Intake and Output 01/09/17 01/09/17 01/10/17 15:00 23:00 07:00 Intake Total 360 ml 250 ml Output Total 100 ml Balance 360 ml 150 ml Exam Constitutional: alert Neck: supple Respiratory: normal air movement Cardiovascular: nl pulses Gastrointestinal: non-tender, soft Extremities: edema Results Result Diagram: 01/10/17 0515 01/10/17 0515 Results 24 hrs Laboratory Tests Test 01/09/17 17:18 01/09/17 21:16 01/10/17 05:15 01/10/17 07:52 Bedside Glucose 106 90 70 White Blood Count 9.2 Red Blood Count 2.81 L Hemoglobin 8.0 L Hematocrit 24.8 L Mean Corpuscular Volume 88.3 Mean Corpuscular Hemoglobin 28.5 L Mean Corpuscular Hemoglobin Concent 32.3 Red Cell Distribution Width 13.2 Platelet Count 226 Mean Platelet Volume 10.8 H Neutrophils % 70.2 Lymphocytes % 18.5 Monocytes % 8.0 Eosinophils % 2.3 Basophils % 0.5 Nucleated Red Blood Cells % 0.0 Neutrophils # 6.5 Lymphocytes # 1.7 Monocytes # 0.7 Eosinophils # 0.2 Basophils # 0.1 Nucleated Red Blood Cells # 0.0 Sodium Level 136 Potassium Level 4.0 Chloride Level 105 Carbon Dioxide Level 24 Anion Gap 11 Blood Urea Nitrogen 54 H Creatinine 6.99 H Glucose Level 73 Calcium Level 8.1 L Hepatitis B Surface Antigen NEGATIVE Hepatitis B Core Total Antibody REACTIVE H Hepatitis C Antibody NEGATIVE HIV (1&2) Antibody NEGATIVE Test 01/10/17 11:45 Bedside Glucose 106 Medications Medications Current Medications Atorvastatin Calcium (Lipitor) 20 mg QHS PO Last administered on 01/09/17 21: 19; Admin Dose 20 MG; Start 01/05/17 at 21:00 Loratadine (Claritin) 10 mg DAILY PO Last administered on 01/10/17 08:54; Admin Dose 10 MG; Start 01/06/17 at 09:00 Pentoxifylline (Trental) 400 mg TID PO Last administered on 01/10/17 12:29; Admin Dose 400 MG; Start 01/05/17 at 13:00 Verapamil HCl (Isoptin Sr) 120 mg DAILY PO Last administered on 01/10/17 08:53 ; Admin Dose 120 MG; Start 01/05/17 at 11:00 Aspirin (Aspirin) 81 mg DAILY PO Last administered on 01/10/17 08:54; Admin Dose 81 MG; Start 01/06/17 at 09:00 Acetaminophen (Tylenol Tab) 650 mg Q6H PRN PO PAIN LEVEL 1-3 OR FEVER; Start at 12:00 Morphine Sulfate (morphine) 2 mg Q4H PRN IV PAIN LEVEL 7-10 Last administered on 01/09/17 11:20; Admin Dose 2 MG; Start 01/05/17 at 12:00 Docusate Sodium (Colace) 100 mg Q12H PRN PO CONSTIPATION; Start 01/05/17 at 12: 00 Famotidine (Pepcid) 20 mg DAILY PO Last administered on 01/10/17 08:53; Admin Dose 20 MG; Start 01/05/17 at 12:00 Hydralazine HCl (Apresoline) 50 mg QID PO Last administered on 01/10/17 12:30 ; Admin Dose 50 MG; Start 01/05/17 at 17:00 Hydralazine HCl (Apresoline) 10 mg Q4H PRN IV SBP>150 mmhg Last administered on 01/09/17 01:35; Admin Dose 10 MG; Start 01/05/17 at 17:00 Diagnostic Test (Pha) (Accu-Chek) 1 ea 02 XX ; Start 01/07/17 at 02:00 Miscellaneous Information 1 ea NOTE XX ; Start 01/06/17 at 21:30 Glucose (Glutose) 15 gm Q15M PRN PO DECREASED GLUCOSE; Start 01/06/17 at 21:30 Glucose (Glutose) 22.5 gm Q15M PRN PO DECREASED GLUCOSE; Start 01/06/17 at 21: 30 Dextrose (D50w Syringe) 25 ml Q15M PRN IV DECREASED GLUCOSE; Start 01/06/17 at 21:30 Dextrose (D50w Syringe) 50 ml Q15M PRN IV DECREASED GLUCOSE; Start 01/06/17 at 21:30 Glucagon (Glucagen) 1 mg Q15M PRN IM DECREASED GLUCOSE; Start 01/06/17 at 21:30 Glucose (Glutose) 15 gm Q15M PRN BUCCAL DECREASED GLUCOSE; Start 01/06/17 at 21 :30 Ondansetron HCl (Zofran Inj) 4 mg Q4H PRN IV NAUSEA AND/OR VOMITING Last administered on 01/09/17 16:15; Admin Dose 4 MG; Start 01/07/17 at 17:00 Metoclopramide HCl (Reglan) 5 mg Q6H PRN IV NAUSEA Last administered on 21:26; Admin Dose 5 MG; Start 01/07/17 at 17:30 Nitroglycerin (Nitroglycerin (Sl Tab) 0.4 Mg) 1 tab Q5M PRN SL ANGINA Last administered on 01/09/17 10:07; Admin Dose 1 TAB; Start 01/08/17 at 03:30 Isosorbide Mononitrate (Imdur) 60 mg DAILY PO Last administered on 01/10/17 08 :53; Admin Dose 60 MG; Start 01/08/17 at 09:00 Furosemide (Lasix) 20 mg DAILY PO Last administered on 01/10/17 08:53; Admin Dose 20 MG; Start 01/09/17 at 09:00 Carvedilol 6.25 mg 6.25 mg BID PO Last administered on 01/10/17 08:54; Admin Dose 6.25 MG; Start 01/09/17 at 10:30 Dextrose/Sodium Chloride (D5-NS) 1,000 ml @ 50 mls/hr Q20H IV ; Start 01/11/17 at 00:00 FREDDIE KEYS Jan 10, 2017 14:18
[2017-01-10 14:48] VITALS: BP 126/60; RESP 16
[2017-01-10] MEDS: ONDANSETRON 4 MG INJ IV PRN (14:48)
[2017-01-10] MEDS: METOCLOPRAMIDE 10 MG INJ IV PRN (17:38)
--- NOTE | 2017-01-10 18:39 | CONS ---
Date/Time of Note Date/Time of Note DATE: 01/10/17 TIME: 18:38 Assessment/Plan Assessment/Plan Additional Assessment/Plan 1. Acute Kidney injuyr on CKD worsening to CKD V- progressed to ESRD- with symptoms of uremia 2. acute fluid overaload with Anasarca 3. 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 Hypertension - not well controlled 5. Diabetes melitus 6. hyperlipidemia 7. 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 continue verapamil, stop lasix after pt gets HD initiation will continue to follow up Relgan prn nausea, vomiting 24 hr urine collection showed Cr clearance 2.7, U/O 700 cc- Consent signed, IR guided permacath pending . Consultation Date/Type/Reason Admit Date/Time Jan 05, 2017 at 09:43 Initial Consult Date 01/05/17 Type of Consultation: NEPHROLOGY Referring Provider: SILVIA IQBAL MD Exam/Review of Systems Vital Signs Vitals Vital Signs Date Time Temp Pulse Resp B/P Pulse Ox O2 Delivery O2 Flow Rate FiO2 01/10/17 14:48 98.1 78 16 126/60 94 01/09/17 17:27 Nasal Cannula Intake and Output 01/09/17 01/09/17 01/10/17 15:00 23:00 07:00 Intake Total 360 ml 250 ml Output Total 100 ml Balance 360 ml 150 ml Exam Constitutional: alert Respiratory: clear to auscultation, normal air movement Cardiovascular: nl pulses, regular rate and rhythm Gastrointestinal: non-tender, soft Extremities: calf tenderness, edema, normal pulses, palpable cord, pitting pedal edema, tenderness 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, nl mental status, nl speech, nl strength Results Result Diagram: 01/10/17 0515 01/10/17 0515 Results 24 hrs Laboratory Tests Test 01/09/17 21:16 01/10/17 05:15 01/10/17 07:52 01/10/17 11:45 Bedside Glucose 90 70 106 White Blood Count 9.2 Red Blood Count 2.81 L Hemoglobin 8.0 L Hematocrit 24.8 L Mean Corpuscular Volume 88.3 Mean Corpuscular Hemoglobin 28.5 L Mean Corpuscular Hemoglobin Concent 32.3 Red Cell Distribution Width 13.2 Platelet Count 226 Mean Platelet Volume 10.8 H Neutrophils % 70.2 Lymphocytes % 18.5 Monocytes % 8.0 Eosinophils % 2.3 Basophils % 0.5 Nucleated Red Blood Cells % 0.0 Neutrophils # 6.5 Lymphocytes # 1.7 Monocytes # 0.7 Eosinophils # 0.2 Basophils # 0.1 Nucleated Red Blood Cells # 0.0 Sodium Level 136 Potassium Level 4.0 Chloride Level 105 Carbon Dioxide Level 24 Anion Gap 11 Blood Urea Nitrogen 54 H Creatinine 6.99 H Glucose Level 73 Calcium Level 8.1 L Hepatitis B Surface Antigen NEGATIVE Hepatitis B Core Total Antibody REACTIVE H Hepatitis C Antibody NEGATIVE HIV (1&2) Antibody NEGATIVE Test 01/10/17 17:33 Bedside Glucose 107 Medications Medications Current Medications Atorvastatin Calcium (Lipitor) 20 mg QHS PO Last administered on 01/09/17 21: 19; Admin Dose 20 MG; Start 01/05/17 at 21:00 Loratadine (Claritin) 10 mg DAILY PO Last administered on 01/10/17 08:54; Admin Dose 10 MG; Start 01/06/17 at 09:00 Pentoxifylline (Trental) 400 mg TID PO Last administered on 01/10/17 12:29; Admin Dose 400 MG; Start 01/05/17 at 13:00 Verapamil HCl (Isoptin Sr) 120 mg DAILY PO Last administered on 01/10/17 08:53 ; Admin Dose 120 MG; Start 01/05/17 at 11:00 Aspirin (Aspirin) 81 mg DAILY PO Last administered on 01/10/17 08:54; Admin Dose 81 MG; Start 01/06/17 at 09:00 Acetaminophen (Tylenol Tab) 650 mg Q6H PRN PO PAIN LEVEL 1-3 OR FEVER; Start at 12:00 Morphine Sulfate (morphine) 2 mg Q4H PRN IV PAIN LEVEL 7-10 Last administered on 01/09/17 11:20; Admin Dose 2 MG; Start 01/05/17 at 12:00 Docusate Sodium (Colace) 100 mg Q12H PRN PO CONSTIPATION; Start 01/05/17 at 12: 00 Famotidine (Pepcid) 20 mg DAILY PO Last administered on 01/10/17 08:53; Admin Dose 20 MG; Start 01/05/17 at 12:00 Hydralazine HCl (Apresoline) 50 mg QID PO Last administered on 01/10/17 17:38 ; Admin Dose 50 MG; Start 01/05/17 at 17:00 Hydralazine HCl (Apresoline) 10 mg Q4H PRN IV SBP>150 mmhg Last administered on 01/09/17 01:35; Admin Dose 10 MG; Start 01/05/17 at 17:00 Diagnostic Test (Pha) (Accu-Chek) 1 ea 02 XX ; Start 01/07/17 at 02:00 Miscellaneous Information 1 ea NOTE XX ; Start 01/06/17 at 21:30 Glucose (Glutose) 15 gm Q15M PRN PO DECREASED GLUCOSE; Start 01/06/17 at 21:30 Glucose (Glutose) 22.5 gm Q15M PRN PO DECREASED GLUCOSE; Start 01/06/17 at 21: 30 Dextrose (D50w Syringe) 25 ml Q15M PRN IV DECREASED GLUCOSE; Start 01/06/17 at 21:30 Dextrose (D50w Syringe) 50 ml Q15M PRN IV DECREASED GLUCOSE; Start 01/06/17 at 21:30 Glucagon (Glucagen) 1 mg Q15M PRN IM DECREASED GLUCOSE; Start 01/06/17 at 21:30 Glucose (Glutose) 15 gm Q15M PRN BUCCAL DECREASED GLUCOSE; Start 01/06/17 at 21 :30 Ondansetron HCl (Zofran Inj) 4 mg Q4H PRN IV NAUSEA AND/OR VOMITING Last administered on 01/10/17 14:48; Admin Dose 4 MG; Start 01/07/17 at 17:00 Metoclopramide HCl (Reglan) 5 mg Q6H PRN IV NAUSEA Last administered on 17:38; Admin Dose 5 MG; Start 01/07/17 at 17:30 Nitroglycerin (Nitroglycerin (Sl Tab) 0.4 Mg) 1 tab Q5M PRN SL ANGINA Last administered on 01/09/17 10:07; Admin Dose 1 TAB; Start 01/08/17 at 03:30 Isosorbide Mononitrate (Imdur) 60 mg DAILY PO Last administered on 01/10/17 08 :53; Admin Dose 60 MG; Start 01/08/17 at 09:00 Furosemide (Lasix) 20 mg DAILY PO Last administered on 01/10/17 08:53; Admin Dose 20 MG; Start 01/09/17 at 09:00 Carvedilol 6.25 mg 6.25 mg BID PO Last administered on 01/10/17 08:54; Admin Dose 6.25 MG; Start 01/09/17 at 10:30 Dextrose/Sodium Chloride (D5-NS) 1,000 ml @ 50 mls/hr Q20H IV ; Start 01/11/17 at 00:00 IRIS BURRIS MD Jan 10, 2017 18:39
--- NOTE | 2017-01-10 19:06 | CONS ---
Date/Time of Note Date/Time of Note DATE: 01/10/17 TIME: 18:58 Assessment/Plan Assessment/Plan Chief Complaint/Hosp Course IMP: 1.Chest pain-trop negative x 3/NL EF by echo this admit 2.HTN 3.HL 4.Renal failure 5. HYpothyroid 6.DM 7.PAD Recc: -serial ecg's -Continue coreg/lasix/imdur/statin -Continue daily PO lasix and follow creatnine/volume status closely -Continue asa/trental -AM lexiscan Problems: Consultation Date/Type/Reason Admit Date/Time Jan 05, 2017 at 09:43 Initial Consult Date 01/05/17 Type of Consultation: cardiology Reason for Consultation chest pain Referring Provider: SILVIA IQBAL MD Exam/Review of Systems Vital Signs Vitals Vital Signs Date Time Temp Pulse Resp B/P Pulse Ox O2 Delivery O2 Flow Rate FiO2 01/10/17 14:48 98.1 78 16 126/60 94 01/09/17 17:27 Nasal Cannula Intake and Output 01/09/17 01/09/17 01/10/17 15:00 23:00 07:00 Intake Total 360 ml 250 ml Output Total 100 ml Balance 360 ml 150 ml Exam Review of Systems: CONSTITUTIONAL: No fevers, chills. PULMONARY: No sob CARDIOVASCULAR: No chest pain/palpitations GASTROINTESTINAL: No nausea/vomiting. GENITOURINARY: No hematuria/dysuria. MUSCULOSKELETAL: No myagias/arthalgias. PSYCHIATRIC: The patient denies depression. NEUROLOGIC: somewhat lethargic Constitutional: alert Psych: no complaints Head: normocephalic ENMT: mucosa pink and moist Neck: jvd (9 cm water), supple Respiratory: diminished breath sounds (at bases/B) Cardiovascular: regular rate and rhythm Gastrointestinal: non-tender, soft Musculoskeletal: muscle tone (normal) Extremities: edema (trace) Neurological: lethargic Results Result Diagram: 01/10/17 0515 01/10/17 0515 Results 24 hrs Laboratory Tests Test 01/09/17 21:16 01/10/17 05:15 01/10/17 07:52 01/10/17 11:45 Bedside Glucose 90 70 106 White Blood Count 9.2 Red Blood Count 2.81 L Hemoglobin 8.0 L Hematocrit 24.8 L Mean Corpuscular Volume 88.3 Mean Corpuscular Hemoglobin 28.5 L Mean Corpuscular Hemoglobin Concent 32.3 Red Cell Distribution Width 13.2 Platelet Count 226 Mean Platelet Volume 10.8 H Neutrophils % 70.2 Lymphocytes % 18.5 Monocytes % 8.0 Eosinophils % 2.3 Basophils % 0.5 Nucleated Red Blood Cells % 0.0 Neutrophils # 6.5 Lymphocytes # 1.7 Monocytes # 0.7 Eosinophils # 0.2 Basophils # 0.1 Nucleated Red Blood Cells # 0.0 Sodium Level 136 Potassium Level 4.0 Chloride Level 105 Carbon Dioxide Level 24 Anion Gap 11 Blood Urea Nitrogen 54 H Creatinine 6.99 H Glucose Level 73 Calcium Level 8.1 L Hepatitis B Surface Antigen NEGATIVE Hepatitis B Core Total Antibody REACTIVE H Hepatitis C Antibody NEGATIVE HIV (1&2) Antibody NEGATIVE Test 01/10/17 17:33 Bedside Glucose 107 Medications Medications Current Medications Atorvastatin Calcium (Lipitor) 20 mg QHS PO Last administered on 01/09/17 21: 19; Admin Dose 20 MG; Start 01/05/17 at 21:00 Loratadine (Claritin) 10 mg DAILY PO Last administered on 01/10/17 08:54; Admin Dose 10 MG; Start 01/06/17 at 09:00 Pentoxifylline (Trental) 400 mg TID PO Last administered on 01/10/17 12:29; Admin Dose 400 MG; Start 01/05/17 at 13:00 Verapamil HCl (Isoptin Sr) 120 mg DAILY PO Last administered on 01/10/17 08:53 ; Admin Dose 120 MG; Start 01/05/17 at 11:00 Aspirin (Aspirin) 81 mg DAILY PO Last administered on 01/10/17 08:54; Admin Dose 81 MG; Start 01/06/17 at 09:00 Acetaminophen (Tylenol Tab) 650 mg Q6H PRN PO PAIN LEVEL 1-3 OR FEVER; Start at 12:00 Morphine Sulfate (morphine) 2 mg Q4H PRN IV PAIN LEVEL 7-10 Last administered on 01/09/17 11:20; Admin Dose 2 MG; Start 01/05/17 at 12:00 Docusate Sodium (Colace) 100 mg Q12H PRN PO CONSTIPATION; Start 01/05/17 at 12: 00 Famotidine (Pepcid) 20 mg DAILY PO Last administered on 01/10/17 08:53; Admin Dose 20 MG; Start 01/05/17 at 12:00 Hydralazine HCl (Apresoline) 50 mg QID PO Last administered on 01/10/17 17:38 ; Admin Dose 50 MG; Start 01/05/17 at 17:00 Hydralazine HCl (Apresoline) 10 mg Q4H PRN IV SBP>150 mmhg Last administered on 01/09/17 01:35; Admin Dose 10 MG; Start 01/05/17 at 17:00 Diagnostic Test (Pha) (Accu-Chek) 1 ea 02 XX ; Start 01/07/17 at 02:00 Miscellaneous Information 1 ea NOTE XX ; Start 01/06/17 at 21:30 Glucose (Glutose) 15 gm Q15M PRN PO DECREASED GLUCOSE; Start 01/06/17 at 21:30 Glucose (Glutose) 22.5 gm Q15M PRN PO DECREASED GLUCOSE; Start 01/06/17 at 21: 30 Dextrose (D50w Syringe) 25 ml Q15M PRN IV DECREASED GLUCOSE; Start 01/06/17 at 21:30 Dextrose (D50w Syringe) 50 ml Q15M PRN IV DECREASED GLUCOSE; Start 01/06/17 at 21:30 Glucagon (Glucagen) 1 mg Q15M PRN IM DECREASED GLUCOSE; Start 01/06/17 at 21:30 Glucose (Glutose) 15 gm Q15M PRN BUCCAL DECREASED GLUCOSE; Start 01/06/17 at 21 :30 Ondansetron HCl (Zofran Inj) 4 mg Q4H PRN IV NAUSEA AND/OR VOMITING Last administered on 01/10/17 14:48; Admin Dose 4 MG; Start 01/07/17 at 17:00 Metoclopramide HCl (Reglan) 5 mg Q6H PRN IV NAUSEA Last administered on 17:38; Admin Dose 5 MG; Start 01/07/17 at 17:30 Nitroglycerin (Nitroglycerin (Sl Tab) 0.4 Mg) 1 tab Q5M PRN SL ANGINA Last administered on 01/09/17 10:07; Admin Dose 1 TAB; Start 01/08/17 at 03:30 Isosorbide Mononitrate (Imdur) 60 mg DAILY PO Last administered on 01/10/17 08 :53; Admin Dose 60 MG; Start 01/08/17 at 09:00 Furosemide (Lasix) 20 mg DAILY PO Last administered on 01/10/17 08:53; Admin Dose 20 MG; Start 01/09/17 at 09:00 Carvedilol 6.25 mg 6.25 mg BID PO Last administered on 01/10/17 08:54; Admin Dose 6.25 MG; Start 01/09/17 at 10:30 Dextrose/Sodium Chloride (D5-NS) 1,000 ml @ 50 mls/hr Q20H IV ; Start 01/11/17 at 00:00 KERRY RIZO Jan 10, 2017 19:06
[2017-01-10 19:50] VITALS: BP 129/60; RESP 16
[2017-01-10] MEDS: ATORVASTATIN 20 MG TAB PO SCH (21:07)
[2017-01-11] VITALS (15 sets, daily range): BP systolic 90–159; BP diastolic 50–74; PULSE 60–72; RESP 12–19
[2017-01-11] MEDS: DEXTROSE 5%-0.9% NACL 1,000 ML IV SCH (00:11)
[2017-01-11] MEDS: ACCU-CHEK XX SCH (02:00)
[2017-01-11] MEDS: morphine 2 MG INJ IV PRN ×2 (02:29→09:10)
[2017-01-11] MEDS: hydrALAzine 20 MG INJ IV PRN (04:52)
[2017-01-11] MEDS: LEVOTHYROXINE 100 MCG TAB PO SCH (06:30)
[2017-01-11 06:32] LABS: BASOPHILS % 0.4 % (0.0-2.0); EOSINOPHILS # 0.3 10^3/ul (0.0-0.5); EOSINOPHILS % 3.2 % (0.0-7.0); HEMOGLOBIN 7.7 g/dl (12.0-16.0); LYMPHOCYTES # 1.8 10^3/ul (0.8-2.9); LYMPHOCYTES % 17.7 % (15.0-51.0); MEAN CORPUSCULAR HEMOGLOBIN 28.2 pg (29.0-33.0); MEAN CORPUSCULAR HGB CONC 32.1 g/dl (32.0-37.0); MEAN CORPUSCULAR VOLUME 87.9 fl (82.0-101.0); MONOCYTES % 9.3 % (0.0-11.0); NEUTROPHIL # 7.1 10^3/ul (1.6-7.5); NEUTROPHILS % 68.8 % (39.0-77.0); PLATELET COUNT 221 10^3/UL (140-415); RED BLOOD COUNT 2.73 10^6/ul (4.20-5.40); RED CELL DISTRIBUTION WIDTH 13.2 % (11.5-14.5); WHITE BLOOD COUNT 10.3 10^3/ul (4.8-10.8)
[2017-01-11 07:14] LABS: CALCIUM 7.8 mg/dl (8.4-10.2); CREATININE 7.24 mg/dl (0.44-1.00); POTASSIUM 3.8 mmol/L (3.5-5.1)
[2017-01-11] MEDS: CALCIUM ACETATE 667 MG CAP PO SCH ×3 (07:35→17:33)
[2017-01-11] MEDS: INSULIN ASPART [NOVOLOG] 3 ML PEN SC SCH ×4 (08:00→21:00)
[2017-01-11] MEDS: LORATADINE 10 MG TAB PO SCH (09:11)
[2017-01-11] MEDS: VERAPAMIL (SR) 120 MG TAB PO SCH (09:11)
[2017-01-11] MEDS: ISOSORBIDE MONONITRATE(SR)60 MG TAB PO SCH (09:11)
[2017-01-11] MEDS: FAMOTIDINE 20 MG TAB PO SCH (09:12)
[2017-01-11] MEDS: FUROSEMIDE 20 MG TAB PO SCH (09:17)
[2017-01-11] MEDS: PENTOXIFYLLINE (SR) 400 MG TAB PO SCH ×3 (09:18→21:04)
[2017-01-11] MEDS: ASPIRIN 81 MG TAB PO SCH (10:13)
--- NOTE | 2017-01-11 10:43 | CONS ---
Date/Time of Note Date/Time of Note DATE: 01/11/17 TIME: 10:41 Assessment/Plan Assessment/Plan Additional Assessment/Plan 1.Chest pain-trop negative x 3/NL EF by echo this admit - Stress test to follow 2.HTN - on hig sie, will adjust Rx as need post test 3.HL 4.Renal failure - + urine output, avoid nephrotoxic meds 5. HYpothyroid - stable, Rx as needed 6.DM - keep euglycemic 7.PAD Consultation Date/Type/Reason Admit Date/Time Jan 05, 2017 at 09:43 Initial Consult Date 01/05/17 Type of Consultation: cardiology Referring Provider: SILVIA IQBAL MD 24 HR Interval Summary Free Text/Dictation NO CP now. Stress test to follow ROS: No fever, no chills, no nausea, no vomiting, no diarrhea/constipation No recent weight changes No chest pain, no PND, no orthopnea No dizziness, blurred vision No thirst, no heat or cold intolerance Exam/Review of Systems Vital Signs Vitals Vital Signs Date Time Temp Pulse Resp B/P Pulse Ox O2 Delivery O2 Flow Rate FiO2 01/11/17 07:45 98.1 80 16 155/69 98 01/09/17 17:27 Nasal Cannula Intake and Output 01/10/17 01/10/17 01/11/17 15:00 23:00 07:00 Intake Total 1200 ml 250 ml Balance 1200 ml 250 ml Exam General: WN/WD/NAD, AOx 1-2 HEENT: Unicetric/atraumatic/EOMI (follows some commands) NECK: JVD elevated, no thyromegaly Lymph: no lymphadenopathy HEART: regular with no S3, II/ systolic murmur at apex LUNGS: Coarse sounds ABD: soft, NT, ND, +BS : Intact Neuro: non focal SKIN: chronic changes EXT: trace edema Results Result Diagram: 01/11/1744801/11/17448 Results 24 hrs Laboratory Tests Test 01/10/17 11:45 01/10/17 17:33 01/10/17 21:02 01/11/17 04:49 Bedside Glucose 106 107 126 White Blood Count 10.3 Red Blood Count 2.73 L Hemoglobin 7.7 L Hematocrit 24.0 L Mean Corpuscular Volume 87.9 Mean Corpuscular Hemoglobin 28.2 L Mean Corpuscular Hemoglobin Concent 32.1 Red Cell Distribution Width 13.2 Platelet Count 221 Mean Platelet Volume 11.0 H Neutrophils % 68.8 Lymphocytes % 17.7 Monocytes % 9.3 Eosinophils % 3.2 Basophils % 0.4 Nucleated Red Blood Cells % 0.0 Neutrophils # 7.1 Lymphocytes # 1.8 Monocytes # 1.0 H Eosinophils # 0.3 Basophils # 0.0 Nucleated Red Blood Cells # 0.0 Sodium Level 134 L Potassium Level 3.8 Chloride Level 104 Carbon Dioxide Level 25 Anion Gap 9 Blood Urea Nitrogen 55 H Creatinine 7.24 H Glucose Level 99 Calcium Level 7.8 L Test 01/11/17 08:02 Bedside Glucose 111 Medications Medications Current Medications Atorvastatin Calcium (Lipitor) 20 mg QHS PO Last administered on 01/10/17 21: 07; Admin Dose 20 MG; Start 01/05/17 at 21:00 Loratadine (Claritin) 10 mg DAILY PO Last administered on 01/11/17 09:11; Admin Dose 10 MG; Start 01/06/17 at 09:00 Pentoxifylline (Trental) 400 mg TID PO Last administered on 01/11/17 09:18; Admin Dose 400 MG; Start 01/05/17 at 13:00 Verapamil HCl (Isoptin Sr) 120 mg DAILY PO Last administered on 01/11/17 09:11 ; Admin Dose 120 MG; Start 01/05/17 at 11:00 Aspirin (Aspirin) 81 mg DAILY PO Last administered on 01/11/17 10:13; Admin Dose 81 MG; Start 01/06/17 at 09:00 Acetaminophen (Tylenol Tab) 650 mg Q6H PRN PO PAIN LEVEL 1-3 OR FEVER; Start at 12:00 Morphine Sulfate (morphine) 2 mg Q4H PRN IV PAIN LEVEL 7-10 Last administered on 01/11/17 09:10; Admin Dose 2 MG; Start 01/05/17 at 12:00 Docusate Sodium (Colace) 100 mg Q12H PRN PO CONSTIPATION; Start 01/05/17 at 12: 00 Famotidine (Pepcid) 20 mg DAILY PO Last administered on 01/11/17 09:12; Admin Dose 20 MG; Start 01/05/17 at 12:00 Hydralazine HCl (Apresoline) 50 mg QID PO Last administered on 01/11/17 09:18 ; Admin Dose 50 MG; Start 01/05/17 at 17:00 Hydralazine HCl (Apresoline) 10 mg Q4H PRN IV SBP>150 mmhg Last administered on 01/11/17 04:52; Admin Dose 10 MG; Start 01/05/17 at 17:00 Diagnostic Test (Pha) (Accu-Chek) 1 ea 02 XX ; Start 01/07/17 at 02:00 Miscellaneous Information 1 ea NOTE XX ; Start 01/06/17 at 21:30 Glucose (Glutose) 15 gm Q15M PRN PO DECREASED GLUCOSE; Start 01/06/17 at 21:30 Glucose (Glutose) 22.5 gm Q15M PRN PO DECREASED GLUCOSE; Start 01/06/17 at 21: 30 Dextrose (D50w Syringe) 25 ml Q15M PRN IV DECREASED GLUCOSE; Start 01/06/17 at 21:30 Dextrose (D50w Syringe) 50 ml Q15M PRN IV DECREASED GLUCOSE; Start 01/06/17 at 21:30 Glucagon (Glucagen) 1 mg Q15M PRN IM DECREASED GLUCOSE; Start 01/06/17 at 21:30 Glucose (Glutose) 15 gm Q15M PRN BUCCAL DECREASED GLUCOSE; Start 01/06/17 at 21 :30 Ondansetron HCl (Zofran Inj) 4 mg Q4H PRN IV NAUSEA AND/OR VOMITING Last administered on 01/10/17 14:48; Admin Dose 4 MG; Start 01/07/17 at 17:00 Metoclopramide HCl (Reglan) 5 mg Q6H PRN IV NAUSEA Last administered on 17:38; Admin Dose 5 MG; Start 01/07/17 at 17:30 Nitroglycerin (Nitroglycerin (Sl Tab) 0.4 Mg) 1 tab Q5M PRN SL ANGINA Last administered on 01/09/17 10:07; Admin Dose 1 TAB; Start 01/08/17 at 03:30 Isosorbide Mononitrate (Imdur) 60 mg DAILY PO Last administered on 01/11/17 09 :11; Admin Dose 60 MG; Start 01/08/17 at 09:00 Furosemide (Lasix) 20 mg DAILY PO Last administered on 01/11/17 09:17; Admin Dose 20 MG; Start 01/09/17 at 09:00 Carvedilol 6.25 mg 6.25 mg BID PO Last administered on 01/11/17 09:12; Admin Dose 6.25 MG; Start 01/09/17 at 10:30 Dextrose/Sodium Chloride (D5-NS) 1,000 ml @ 50 mls/hr Q20H IV Last administered on 01/11/17 00:11; Admin Dose 50 MLS/HR; Start 01/11/17 at 00:00 CAMMY RAE MD Jan 11, 2017 10:43
[2017-01-11] MEDS ORDERED: HEPARIN 1000 UNITS/ML 10 ML INJ ONE (11:41)
[2017-01-11] MEDS ORDERED: LIDOCAINE 1% (MDV) 20 ML INJ ONE (11:41)
[2017-01-11] MEDS ORDERED: CEFAZOLIN 1 GM/50 ML (PMX) 50 ML IVPB ONE (11:43)
[2017-01-11] MEDS ORDERED: FENTAnyl 50 MCG/ML VIAL ONE (11:51)
[2017-01-11] MEDS ORDERED: MIDAZOLAM 1 MG/ML 2 ML INJ ONE (11:51)
[2017-01-11] MEDS ORDERED: LIDOCAINE 2% (SDV) 5 ML INJ ONE (11:51)
[2017-01-11] MEDS ORDERED: PROPOFOL 20 ML ONE (11:51)
[2017-01-11] MEDS ORDERED: PHENYLephrine (100 MCG/ML) 5ML SYG ONE (11:57)
--- NOTE | 2017-01-11 13:06 | CONS ---
Date/Time of Note Date/Time of Note DATE: 01/11/17 TIME: 13:05 Assessment/Plan Assessment/Plan Additional Assessment/Plan 1. Acute Kidney injuyr on CKD worsening to CKD V- progressed to ESRD- with symptoms of uremia 2. acute fluid overaload with Anasarca 3. 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 Hypertension - not well controlled 5. Diabetes melitus 6. hyperlipidemia 7. hypothyroidism Plan : -IV albumin is finished, decreased lasix to 20mg daily - BUN/Cr persisitently rising ,24 hr urine collection showed Cr clearance 2.7, U/O 700 cc- Pt has symptoms of uremia- d/w family at bedside with operations officer afloat- pt agreed and plan is to start HD today after permacath placement hepatitis panel, HIV panel negative Renal US c/w medical renal disease. continue verapamil, stop lasix after pt gets HD initiation will continue to follow up Relgan prn nausea, vomiting Consultation Date/Type/Reason Admit Date/Time Jan 05, 2017 at 09:43 Initial Consult Date 01/05/17 Type of Consultation: NEPHROLOGY Referring Provider: SILVIA IQBAL MD Exam/Review of Systems Vital Signs Vitals Vital Signs Date Time Temp Pulse Resp B/P Pulse Ox O2 Delivery O2 Flow Rate FiO2 01/11/17 07:45 98.1 80 16 155/69 98 01/09/17 17:27 Nasal Cannula Intake and Output 01/10/17 01/10/17 01/11/17 15:00 23:00 07:00 Intake Total 1200 ml 250 ml Balance 1200 ml 250 ml Exam Constitutional: alert Respiratory: clear to auscultation, normal air movement Cardiovascular: nl pulses, regular rate and rhythm Gastrointestinal: non-tender, soft Extremities: calf tenderness, edema, normal pulses, palpable cord, pitting pedal edema, tenderness Neurological: ALGEBRAIST II-XII intact, nl mental status, nl speech, nl strength Results Result Diagram: 01/11/179 01/11/179 Results 24 hrs Laboratory Tests Test 01/10/17 17:33 01/10/17 21:02 01/11/17 04:49 01/11/17 08:02 Bedside Glucose 107 126 111 White Blood Count 10.3 Red Blood Count 2.73 L Hemoglobin 7.7 L Hematocrit 24.0 L Mean Corpuscular Volume 87.9 Mean Corpuscular Hemoglobin 28.2 L Mean Corpuscular Hemoglobin Concent 32.1 Red Cell Distribution Width 13.2 Platelet Count 221 Mean Platelet Volume 11.0 H Neutrophils % 68.8 Lymphocytes % 17.7 Monocytes % 9.3 Eosinophils % 3.2 Basophils % 0.4 Nucleated Red Blood Cells % 0.0 Neutrophils # 7.1 Lymphocytes # 1.8 Monocytes # 1.0 H Eosinophils # 0.3 Basophils # 0.0 Nucleated Red Blood Cells # 0.0 Sodium Level 134 L Potassium Level 3.8 Chloride Level 104 Carbon Dioxide Level 25 Anion Gap 9 Blood Urea Nitrogen 55 H Creatinine 7.24 H Glucose Level 99 Calcium Level 7.8 L Medications Medications Current Medications Atorvastatin Calcium (Lipitor) 20 mg QHS PO Last administered on 01/10/17 21: 07; Admin Dose 20 MG; Start 01/05/17 at 21:00 Loratadine (Claritin) 10 mg DAILY PO Last administered on 01/11/17 09:11; Admin Dose 10 MG; Start 01/06/17 at 09:00 Pentoxifylline (Trental) 400 mg TID PO Last administered on 01/11/17 09:18; Admin Dose 400 MG; Start 01/05/17 at 13:00 Verapamil HCl (Isoptin Sr) 120 mg DAILY PO Last administered on 01/11/17 09:11 ; Admin Dose 120 MG; Start 01/05/17 at 11:00 Aspirin (Aspirin) 81 mg DAILY PO Last administered on 01/11/17 10:13; Admin Dose 81 MG; Start 01/06/17 at 09:00 Acetaminophen (Tylenol Tab) 650 mg Q6H PRN PO PAIN LEVEL 1-3 OR FEVER; Start at 12:00 Morphine Sulfate (morphine) 2 mg Q4H PRN IV PAIN LEVEL 7-10 Last administered on 01/11/17 09:10; Admin Dose 2 MG; Start 01/05/17 at 12:00 Docusate Sodium (Colace) 100 mg Q12H PRN PO CONSTIPATION; Start 01/05/17 at 12: 00 Famotidine (Pepcid) 20 mg DAILY PO Last administered on 01/11/17 09:12; Admin Dose 20 MG; Start 01/05/17 at 12:00 Hydralazine HCl (Apresoline) 50 mg QID PO Last administered on 01/11/17 09:18 ; Admin Dose 50 MG; Start 01/05/17 at 17:00 Hydralazine HCl (Apresoline) 10 mg Q4H PRN IV SBP>150 mmhg Last administered on 01/11/17 04:52; Admin Dose 10 MG; Start 01/05/17 at 17:00 Diagnostic Test (Pha) (Accu-Chek) 1 ea 02 XX ; Start 01/07/17 at 02:00 Miscellaneous Information 1 ea NOTE XX ; Start 01/06/17 at 21:30 Glucose (Glutose) 15 gm Q15M PRN PO DECREASED GLUCOSE; Start 01/06/17 at 21:30 Glucose (Glutose) 22.5 gm Q15M PRN PO DECREASED GLUCOSE; Start 01/06/17 at 21: 30 Dextrose (D50w Syringe) 25 ml Q15M PRN IV DECREASED GLUCOSE; Start 01/06/17 at 21:30 Dextrose (D50w Syringe) 50 ml Q15M PRN IV DECREASED GLUCOSE; Start 01/06/17 at 21:30 Glucagon (Glucagen) 1 mg Q15M PRN IM DECREASED GLUCOSE; Start 01/06/17 at 21:30 Glucose (Glutose) 15 gm Q15M PRN BUCCAL DECREASED GLUCOSE; Start 01/06/17 at 21 :30 Ondansetron HCl (Zofran Inj) 4 mg Q4H PRN IV NAUSEA AND/OR VOMITING Last administered on 01/10/17 14:48; Admin Dose 4 MG; Start 01/07/17 at 17:00 Metoclopramide HCl (Reglan) 5 mg Q6H PRN IV NAUSEA Last administered on 17:38; Admin Dose 5 MG; Start 01/07/17 at 17:30 Nitroglycerin (Nitroglycerin (Sl Tab) 0.4 Mg) 1 tab Q5M PRN SL ANGINA Last administered on 01/09/17 10:07; Admin Dose 1 TAB; Start 01/08/17 at 03:30 Isosorbide Mononitrate (Imdur) 60 mg DAILY PO Last administered on 01/11/17 09 :11; Admin Dose 60 MG; Start 01/08/17 at 09:00 Furosemide (Lasix) 20 mg DAILY PO Last administered on 01/11/17 09:17; Admin Dose 20 MG; Start 01/09/17 at 09:00 Carvedilol 6.25 mg 6.25 mg BID PO Last administered on 01/11/17 09:12; Admin Dose 6.25 MG; Start 01/09/17 at 10:30 Dextrose/Sodium Chloride (D5-NS) 1,000 ml @ 50 mls/hr Q20H IV Last administered on 01/11/17 00:11; Admin Dose 50 MLS/HR; Start 01/11/17 at 00:00 Hydromorphone HCl (Dilaudid) 0.5 mg Q4H PRN IV PAIN; Start 01/11/17 at 11:30 IRIS BURRIS MD Jan 11, 2017 13:06
--- NOTE | 2017-01-11 13:07 | RADRPT ---
PROCEDURE: PLACEMENT OF RIGHT INTERNAL JUGULAR VENOUS TUNNELED DIALYSIS CATHETER. CLINICAL INDICATION: Renal failure. TECHNIQUE: Prior to the procedure, informed consent was obtained. Risks including bleeding, infection, and pneu mothorax were explained to the patient and/or the patient's family. The patient and/or the patient's family understood and was willing to proceed. A procedural pause was performed. The patient's name, date of , and procedure to be performed were verified. The central line was inserted with all elements of maximal sterile barrier technique. All of the following were used: head covering, facial mask, sterile gown, sterile gloves, a large sterile sheet, hand hygiene, and 2% chlorhexidine for cutaneous antisepsis. The right neck and anterior/superior chest wall was prepped and draped in usu al sterile fashion. Limited sonography of the right neck was then performed. Noted is a patent right internal jugular ve in. Ultrasound images were recorded and stored in the patient's medical record. Following the local injection of Xylocaine, the right internal jugular vein was punctured under sono graphic guidance with a 20-gauge needle through which a 0.018 inch floppy tip guidewire was advanced into the superior vena cava. The tract was dilated to 5 [place] and the wire was then replaced with a 0.035 in Amplatz guidewire. A tunnel was then created from the anterior lateral aspect of the sup erior right chest wall to the puncture site in the neck and the catheter was pulled through the trac t. Serial dilatation was then performed and a 16 [place] peel away sheath was introduced. The 14.5 [place] 23cm tip to cuff Angiodynamics BioFlo DuraMax dialysis catheter was advanced through the 16 F rench peel-away sheath. The tip of the catheter was confirmed in position within the right atrium. T he peel-away sheath was removed. The 2 ports were each flushed with 2.3 ml of 1:1000 heparin. The c atheter was secured to the skin with 2-0 silk. The wound in the neck was closed with 4-0 Vicryl suture using subcuticular running technique. The site was dressed. The patient tolerated the proce dure well. COMPARISON: None. FINDINGS: Final radiographic images demonstrate the tip of the catheter in the upper right atrium. A total of 0.1 minutes of fluoroscopy time was used. The ultrasound images demonstrate the needle entering th e jugular vein. Ultrasound images were recorded and stored in the patient's medical record. 4 image s of the chest were obtained with image intensifier. IMPRESSION: 1. Percutaneous insertion of right internal jugular dialysis tunneled dialysis catheter under fluoro scopic and sonographic guidance. RPTAT: QQ .Yunier Kelsey MD, MD Date Time Electronically viewed and signed by .Yunier Kelsey MD, MD on 01/11/2017 13:07 .R/
--- NOTE | 2017-01-11 13:09 | RADRPT ---
PROCEDURE: Ultrasound guidance for placement of needle in right internal jugular vein. CLINICAL INDICATION: Venous access. TECHNIQUE: Prior to the procedure, informed consent was obtained. Risks including bleeding, infection, and pneu mothorax were explained to the patient. The patient understood and was willing to proceed. A procedu ral pause was performed. The patient's name, date of , and procedure to be performed were verif ied. The central line was inserted with all elements of maximal sterile barrier technique. All of th e following were used: head covering, facial mask, sterile gown, sterile gloves, a large sterile she et, hand hygiene, and 2% chlorhexidine for cutaneous antisepsis. The right neck and anterior/super ior chest wall was prepped and draped in usual sterile fashion. Limited sonography of the right neck was then performed. Noted is a patent right internal jugular ve in. Ultrasound images were recorded and stored in the patient's medical record. Following the local injection of Xylocaine, the right internal jugular vein was punctured under sono graphic guidance with a 20-gauge needle through which a 0.018 inch floppy tip guidewire was advanced into the superior vena cava. The patient tolerated the procedure well. The remainder of the proce dure was performed and dictated under separate cover. COMPARISON: None. FINDINGS: The ultrasound images demonstrate a patent right internal jugular vein. The subsequent images demon strate the needle entering the right internal jugular vein. IMPRESSION: 1. Ultrasound guidance for a needle placement in right internal jugular vein. RPTAT: QQ .Yunier Kelsey MD, Date Time Electronically viewed and signed by .Yunier Kelsey MD, on 01/11/2017 13:09 .R/
[2017-01-11] MEDS ORDERED: ONDANSETRON 4 MG INJ IV PRN (13:30)
[2017-01-11] MEDS ORDERED: HYDROmorphONE (0.2 MG/ML) 10ML SYG IV PRN (13:30)
[2017-01-11] MEDS ORDERED: EPHEDrine SULFATE 50 MG/5 ML SYG ONE (13:36)
[2017-01-11] MEDS: HYDROmorphONE 1 MG/ML SYG IV PRN (14:45)
--- NOTE | 2017-01-11 17:16 | PN ---
Date/Time of Note Date/Time of Note DATE: 01/11/17 TIME: 17:09 Assessment/Plan VTE Prophylaxis VTE Prophylaxis Intervention: SCD's Lines/Catheters IV [facility]ter [facility]from [facility] Peripheral IV Urinary Cath still in place: No Assessment/Plan Chief Complaint/Hosp Course Patient status post right IJ permacath placement by radiology today, currently patient is undergoing first hemodialysis, patient looks comfortable denies any pain. 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 Dr. Naidu is following patient in Nephrology consultation. Continue hemodialysis per nephrology. - Hypertensive urgency, continue hydralazine and verapamil. - Diabetes mellitus type II with hemoglobin A1c 6.5. Continue NovoLog per sliding scale - Hypothyroidism. Continue Synthroid. - Bilateral lower extremity edema. Preserved ejection fraction per echo. - Hyperlipidemia. Continue statin. Further recommendations based on clinical course. Plan of care discussed with Dr. Martinez. Problems: Exam/Review of Systems Vital Signs Vitals Vital Signs Date Time Temp Pulse Resp B/P Pulse Ox O2 Delivery O2 Flow Rate FiO2 01/11/17 16:05 68 01/11/17 14:35 20 01/11/17 14:21 98.0 113/56 91 01/11/17 13:15 Nasal Cannula 2.0 Intake and Output 01/10/17 01/10/17 01/11/17 15:00 23:00 07:00 Intake Total 1200 ml 250 ml Balance 1200 ml 250 ml Exam Constitutional: alert Neck: supple Respiratory: normal air movement Cardiovascular: nl pulses Gastrointestinal: non-tender, soft Extremities: edema R IJ permacath Results Result Diagram: 01/11/17 0449 01/11/17 0449 Results 24 hrs Laboratory Tests Test 01/10/17 17:33 01/10/17 21:02 01/11/17 04:49 01/11/17 08:02 Bedside Glucose 107 126 111 White Blood Count 10.3 Red Blood Count 2.73 L Hemoglobin 7.7 L Hematocrit 24.0 L Mean Corpuscular Volume 87.9 Mean Corpuscular Hemoglobin 28.2 L Mean Corpuscular Hemoglobin Concent 32.1 Red Cell Distribution Width 13.2 Platelet Count 221 Mean Platelet Volume 11.0 H Neutrophils % 68.8 Lymphocytes % 17.7 Monocytes % 9.3 Eosinophils % 3.2 Basophils % 0.4 Nucleated Red Blood Cells % 0.0 Neutrophils # 7.1 Lymphocytes # 1.8 Monocytes # 1.0 H Eosinophils # 0.3 Basophils # 0.0 Nucleated Red Blood Cells # 0.0 Sodium Level 134 L Potassium Level 3.8 Chloride Level 104 Carbon Dioxide Level 25 Anion Gap 9 Blood Urea Nitrogen 55 H Creatinine 7.24 H Glucose Level 99 Calcium Level 7.8 L Test 01/11/17 13:06 Bedside Glucose 117 Medications Medications Current Medications Atorvastatin Calcium (Lipitor) 20 mg QHS PO Last administered on 01/10/17 21: 07; Admin Dose 20 MG; Start 01/05/17 at 21:00 Loratadine (Claritin) 10 mg DAILY PO Last administered on 01/11/17 09:11; Admin Dose 10 MG; Start 01/06/17 at 09:00 Pentoxifylline (Trental) 400 mg TID PO Last administered on 01/11/17 14:44; Admin Dose 400 MG; Start 01/05/17 at 13:00 Verapamil HCl (Isoptin Sr) 120 mg DAILY PO Last administered on 01/11/17 09:11 ; Admin Dose 120 MG; Start 01/05/17 at 11:00 Aspirin (Aspirin) 81 mg DAILY PO Last administered on 01/11/17 10:13; Admin Dose 81 MG; Start 01/06/17 at 09:00 Acetaminophen (Tylenol Tab) 650 mg Q6H PRN PO PAIN LEVEL 1-3 OR FEVER; Start at 12:00 Morphine Sulfate (morphine) 2 mg Q4H PRN IV PAIN LEVEL 7-10 Last administered on 01/11/17 09:10; Admin Dose 2 MG; Start 01/05/17 at 12:00 Docusate Sodium (Colace) 100 mg Q12H PRN PO CONSTIPATION; Start 01/05/17 at 12: 00 Famotidine (Pepcid) 20 mg DAILY PO Last administered on 01/11/17 09:12; Admin Dose 20 MG; Start 01/05/17 at 12:00 Hydralazine HCl (Apresoline) 50 mg QID PO Last administered on 01/11/17 14:44 ; Admin Dose 50 MG; Start 01/05/17 at 17:00 Hydralazine HCl (Apresoline) 10 mg Q4H PRN IV SBP>150 mmhg Last administered on 01/11/17 04:52; Admin Dose 10 MG; Start 01/05/17 at 17:00 Diagnostic Test (Pha) (Accu-Chek) 1 ea 02 XX ; Start 01/07/17 at 02:00 Miscellaneous Information 1 ea NOTE XX ; Start 01/06/17 at 21:30 Glucose (Glutose) 15 gm Q15M PRN PO DECREASED GLUCOSE; Start 01/06/17 at 21:30 Glucose (Glutose) 22.5 gm Q15M PRN PO DECREASED GLUCOSE; Start 01/06/17 at 21: 30 Dextrose (D50w Syringe) 25 ml Q15M PRN IV DECREASED GLUCOSE; Start 01/06/17 at 21:30 Dextrose (D50w Syringe) 50 ml Q15M PRN IV DECREASED GLUCOSE; Start 01/06/17 at 21:30 Glucagon (Glucagen) 1 mg Q15M PRN IM DECREASED GLUCOSE; Start 01/06/17 at 21:30 Glucose (Glutose) 15 gm Q15M PRN BUCCAL DECREASED GLUCOSE; Start 01/06/17 at 21 :30 Ondansetron HCl (Zofran Inj) 4 mg Q4H PRN IV NAUSEA AND/OR VOMITING Last administered on 01/10/17 14:48; Admin Dose 4 MG; Start 01/07/17 at 17:00 Metoclopramide HCl (Reglan) 5 mg Q6H PRN IV NAUSEA Last administered on 17:38; Admin Dose 5 MG; Start 01/07/17 at 17:30 Nitroglycerin (Nitroglycerin (Sl Tab) 0.4 Mg) 1 tab Q5M PRN SL ANGINA Last administered on 01/09/17 10:07; Admin Dose 1 TAB; Start 01/08/17 at 03:30 Isosorbide Mononitrate (Imdur) 60 mg DAILY PO Last administered on 01/11/17 09 :11; Admin Dose 60 MG; Start 01/08/17 at 09:00 Furosemide (Lasix) 20 mg DAILY PO Last administered on 01/11/17 09:17; Admin Dose 20 MG; Start 01/09/17 at 09:00 Carvedilol 6.25 mg 6.25 mg BID PO Last administered on 01/11/17 09:12; Admin Dose 6.25 MG; Start 01/09/17 at 10:30 Dextrose/Sodium Chloride (D5-NS) 1,000 ml @ 50 mls/hr Q20H IV Last administered on 01/11/17 00:11; Admin Dose 50 MLS/HR; Start 01/11/17 at 00:00 Hydromorphone HCl (Dilaudid) 0.5 mg Q4H PRN IV PAIN Last administered on 14:45; Admin Dose 0.5 MG; Start 01/11/17 at 11:30 FREDDIE KEYS Jan 11, 2017 17:16
[2017-01-11] MEDS: ATORVASTATIN 20 MG TAB PO SCH (21:04)
[2017-01-12] VITALS (10 sets, daily range): BP systolic 78–157; BP diastolic 45–72; PULSE 78–88; RESP 16–18
[2017-01-12] MEDS: ACCU-CHEK XX SCH (02:00)
[2017-01-12] MEDS: HYDROmorphONE 1 MG/ML SYG IV PRN ×3 (02:09→12:23)
[2017-01-12] MEDS: LEVOTHYROXINE 100 MCG TAB PO SCH (06:07)
[2017-01-12 06:18] LABS: BASOPHILS % 0.4 % (0.0-2.0); EOSINOPHILS # 0.3 10^3/ul (0.0-0.5); EOSINOPHILS % 3.2 % (0.0-7.0); HEMATOCRIT 27.4 % (37.0-47.0); HEMOGLOBIN 8.7 g/dl (12.0-16.0); LYMPHOCYTES # 1.3 10^3/ul (0.8-2.9); LYMPHOCYTES % 13.7 % (15.0-51.0); MEAN CORPUSCULAR HEMOGLOBIN 28.2 pg (29.0-33.0); MEAN CORPUSCULAR HGB CONC 31.8 g/dl (32.0-37.0); MEAN CORPUSCULAR VOLUME 88.7 fl (82.0-101.0); MEAN PLATELET VOLUME 10.8 fl (7.4-10.4); MONOCYTES % 10.8 % (0.0-11.0); NEUTROPHIL # 6.5 10^3/ul (1.6-7.5); NEUTROPHILS % 70.9 % (39.0-77.0); PLATELET COUNT 215 10^3/UL (140-415); RED BLOOD COUNT 3.09 10^6/ul (4.20-5.40); RED CELL DISTRIBUTION WIDTH 13.4 % (11.5-14.5); WHITE BLOOD COUNT 9.2 10^3/ul (4.8-10.8)
[2017-01-12 06:47] LABS: CALCIUM 7.4 mg/dl (8.4-10.2); CREATININE 5.61 mg/dl (0.44-1.00)
[2017-01-12] MEDS: CALCIUM ACETATE 667 MG CAP PO SCH ×3 (07:35→18:03)
[2017-01-12] MEDS: INSULIN ASPART [NOVOLOG] 3 ML PEN SC SCH ×4 (08:00→21:00)
[2017-01-12] MEDS: ASPIRIN 81 MG TAB PO SCH (08:12)
[2017-01-12] MEDS: LORATADINE 10 MG TAB PO SCH (08:12)
[2017-01-12] MEDS: FAMOTIDINE 20 MG TAB PO SCH (09:00)
[2017-01-12] MEDS: VERAPAMIL (SR) 120 MG TAB PO SCH (09:00)
[2017-01-12] MEDS: PENTOXIFYLLINE (SR) 400 MG TAB PO SCH ×4 (09:00→22:52)
[2017-01-12] MEDS: FUROSEMIDE 20 MG TAB PO SCH (09:00)
[2017-01-12] MEDS: ISOSORBIDE MONONITRATE(SR)60 MG TAB PO SCH (09:00)
[2017-01-12] MEDS: DEXTROSE 5%-0.9% NACL 1,000 ML IV SCH ×2 (09:16→16:00)
[2017-01-12] MEDS ORDERED: REGADENOSON 0.4 MG/5 ML SYG ONE (09:36)
--- NOTE | 2017-01-12 11:04 | CONS ---
Date/Time of Note Date/Time of Note DATE: 01/12/17 TIME: 11:02 Assessment/Plan Assessment/Plan Additional Assessment/Plan 1.Chest pain-trop negative x 3/NL EF by echo this admit - Stress test DONE TODAY , con't to follow post test 2.HTN - on hig sie, will adjust Rx as need post test - well rX now 3.HL 4.Renal failure - + urine output, avoid nephrotoxic meds - stable 5. HYpothyroid - stable, Rx as needed 6.DM - keep euglycemic 7.PAD Consultation Date/Type/Reason Admit Date/Time Jan 05, 2017 at 09:43 Initial Consult Date 01/05/17 Type of Consultation: NEPHROLOGY Referring Provider: SILVIA IQBAL MD 24 HR Interval Summary Free Text/Dictation Stress test completer - will follow post test ROS: No fever, no chills, no nausea, no vomiting, no diarrhea/constipation No recent weight changes No chest pain, no PND, no orthopnea No dizziness, blurred vision No thirst, no heat or cold intolerance Exam/Review of Systems Vital Signs Vitals Vital Signs Date Time Temp Pulse Resp B/P Pulse Ox O2 Delivery O2 Flow Rate FiO2 01/12/17 08:14 98.2 87 16 140/71 95 01/12/17 08:05 Nasal Cannula 2.0 Intake and Output 01/11/17 01/11/17 01/12/17 15:00 23:00 07:00 Intake Total 1420 ml 600 ml Output Total 1100 ml Balance 320 ml 600 ml Exam General: WN/WD/NAD, AOx 3 HEENT: Unicetric/atraumatic/EOMI (follows commands) NECK: JVD elevated, no thyromegaly Lymph: no lymphadenopathy HEART: regular with no S3, II/ systolic murmur at apex LUNGS: Coarse sounds ABD: soft, NT, ND, +BS : Intact Neuro: non focal SKIN: chronic changes EXT: trace edema Results Result Diagram: 01/12/1728 01/12/1728 Results 24 hrs Laboratory Tests Test 01/11/17 13:06 01/11/17 17:03 01/11/17 21:02 01/12/17 05:28 Bedside Glucose 117 127 105 White Blood Count 9.2 Red Blood Count 3.09 L Hemoglobin 8.7 L Hematocrit 27.4 L Mean Corpuscular Volume 88.7 Mean Corpuscular Hemoglobin 28.2 L Mean Corpuscular Hemoglobin Concent 31.8 L Red Cell Distribution Width 13.4 Platelet Count 215 Mean Platelet Volume 10.8 H Neutrophils % 70.9 Lymphocytes % 13.7 L Monocytes % 10.8 Eosinophils % 3.2 Basophils % 0.4 Nucleated Red Blood Cells % 0.0 Neutrophils # 6.5 Lymphocytes # 1.3 Monocytes # 1.0 H Eosinophils # 0.3 Basophils # 0.0 Nucleated Red Blood Cells # 0.0 Sodium Level 136 Potassium Level 4.0 Chloride Level 104 Carbon Dioxide Level 27 Anion Gap 9 Blood Urea Nitrogen 38 #H Creatinine 5.61 H Glucose Level 125 Calcium Level 7.4 L Test 01/12/17 05:30 01/12/17 07:15 01/12/17 08:04 Lab Scanned Report BLOOD [facility]SFUS[facility] LAB Bedside Glucose 114 Medications Medications Current Medications Atorvastatin Calcium (Lipitor) 20 mg QHS PO Last administered on 01/11/17 21: 04; Admin Dose 20 MG; Start 01/05/17 at 21:00 Loratadine (Claritin) 10 mg DAILY PO Last administered on 01/11/17 09:11; Admin Dose 10 MG; Start 01/06/17 at 09:00 Pentoxifylline (Trental) 400 mg TID PO Last administered on 01/11/17 21:04; Admin Dose 400 MG; Start 01/05/17 at 13:00 Verapamil HCl (Isoptin Sr) 120 mg DAILY PO Last administered on 01/11/17 09:11 ; Admin Dose 120 MG; Start 01/05/17 at 11:00 Aspirin (Aspirin) 81 mg DAILY PO Last administered on 01/11/17 10:13; Admin Dose 81 MG; Start 01/06/17 at 09:00 Acetaminophen (Tylenol Tab) 650 mg Q6H PRN PO PAIN LEVEL 1-3 OR FEVER; Start at 12:00 Morphine Sulfate (morphine) 2 mg Q4H PRN IV PAIN LEVEL 7-10 Last administered on 01/11/17 09:10; Admin Dose 2 MG; Start 01/05/17 at 12:00 Docusate Sodium (Colace) 100 mg Q12H PRN PO CONSTIPATION; Start 01/05/17 at 12: 00 Famotidine (Pepcid) 20 mg DAILY PO Last administered on 01/11/17 09:12; Admin Dose 20 MG; Start 01/05/17 at 12:00 Hydralazine HCl (Apresoline) 50 mg QID PO Last administered on 01/11/17 21:04 ; Admin Dose 50 MG; Start 01/05/17 at 17:00 Hydralazine HCl (Apresoline) 10 mg Q4H PRN IV SBP>150 mmhg Last administered on 01/11/17 04:52; Admin Dose 10 MG; Start 01/05/17 at 17:00 Diagnostic Test (Pha) (Accu-Chek) 1 ea 02 XX ; Start 01/07/17 at 02:00 Miscellaneous Information 1 ea NOTE XX ; Start 01/06/17 at 21:30 Glucose (Glutose) 15 gm Q15M PRN PO DECREASED GLUCOSE; Start 01/06/17 at 21:30 Glucose (Glutose) 22.5 gm Q15M PRN PO DECREASED GLUCOSE; Start 01/06/17 at 21: 30 Dextrose (D50w Syringe) 25 ml Q15M PRN IV DECREASED GLUCOSE; Start 01/06/17 at 21:30 Dextrose (D50w Syringe) 50 ml Q15M PRN IV DECREASED GLUCOSE; Start 01/06/17 at 21:30 Glucagon (Glucagen) 1 mg Q15M PRN IM DECREASED GLUCOSE; Start 01/06/17 at 21:30 Glucose (Glutose) 15 gm Q15M PRN BUCCAL DECREASED GLUCOSE; Start 01/06/17 at 21 :30 Ondansetron HCl (Zofran Inj) 4 mg Q4H PRN IV NAUSEA AND/OR VOMITING Last administered on 01/10/17 14:48; Admin Dose 4 MG; Start 01/07/17 at 17:00 Metoclopramide HCl (Reglan) 5 mg Q6H PRN IV NAUSEA Last administered on 17:38; Admin Dose 5 MG; Start 01/07/17 at 17:30 Nitroglycerin (Nitroglycerin (Sl Tab) 0.4 Mg) 1 tab Q5M PRN SL ANGINA Last administered on 01/09/17 10:07; Admin Dose 1 TAB; Start 01/08/17 at 03:30 Isosorbide Mononitrate (Imdur) 60 mg DAILY PO Last administered on 01/11/17 09 :11; Admin Dose 60 MG; Start 01/08/17 at 09:00 Furosemide (Lasix) 20 mg DAILY PO Last administered on 01/11/17 09:17; Admin Dose 20 MG; Start 01/09/17 at 09:00 Carvedilol 6.25 mg 6.25 mg BID PO Last administered on 01/11/17 21:04; Admin Dose 6.25 MG; Start 01/09/17 at 10:30 Dextrose/Sodium Chloride (D5-NS) 1,000 ml @ 50 mls/hr Q20H IV Last administered on 01/12/17 09:16; Admin Dose 50 MLS/HR; Start 01/11/17 at 00:00 Hydromorphone HCl (Dilaudid) 0.5 mg Q4H PRN IV PAIN Last administered on 08:05; Admin Dose 0.5 MG; Start 01/11/17 at 11:30 CAMMY RAE MD Jan 12, 2017 11:04
--- NOTE | 2017-01-12 11:49 | PN ---
Date/Time of Note Date/Time of Note DATE: 01/12/17 TIME: 11:47 Assessment/Plan VTE Prophylaxis VTE Prophylaxis Intervention: SCD's Lines/Catheters IV C[facility]ter Type (from [facility] Peripheral IV Urinary Cath still in place: No Assessment/Plan Chief Complaint/Hosp Course Patient is currently in nuclear medicine, undergoing stress test, no acute events reported prior to procedure. 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 Dr. Naidu is following patient in Nephrology consultation. Continue hemodialysis per nephrology. - Hypertensive urgency, continue hydralazine and verapamil. - Diabetes mellitus type II with hemoglobin A1c 6.5. Continue NovoLog per sliding scale - Hypothyroidism. Continue Synthroid. - Bilateral lower extremity edema. Preserved ejection fraction per echo. - Hyperlipidemia. Continue statin. Further recommendations based on clinical course. Plan of care discussed with Dr. Martinez. Problems: Exam/Review of Systems Vital Signs Vitals Vital Signs Date Time Temp Pulse Resp B/P Pulse Ox O2 Delivery O2 Flow Rate FiO2 01/12/17 08:14 98.2 87 16 140/71 95 01/12/17 08:05 Nasal Cannula 2.0 Intake and Output 01/11/17 01/11/17 01/12/17 15:00 23:00 07:00 Intake Total 1420 ml 600 ml Output Total 1100 ml Balance 320 ml 600 ml Results Result Diagram: 01/12/17 0528 01/12/17 0528 Results 24 hrs Laboratory Tests Test 01/11/17 13:06 01/11/17 17:03 01/11/17 21:02 01/12/17 05:28 Bedside Glucose 117 127 105 White Blood Count 9.2 Red Blood Count 3.09 L Hemoglobin 8.7 L Hematocrit 27.4 L Mean Corpuscular Volume 88.7 Mean Corpuscular Hemoglobin 28.2 L Mean Corpuscular Hemoglobin Concent 31.8 L Red Cell Distribution Width 13.4 Platelet Count 215 Mean Platelet Volume 10.8 H Neutrophils % 70.9 Lymphocytes % 13.7 L Monocytes % 10.8 Eosinophils % 3.2 Basophils % 0.4 Nucleated Red Blood Cells % 0.0 Neutrophils # 6.5 Lymphocytes # 1.3 Monocytes # 1.0 H Eosinophils # 0.3 Basophils # 0.0 Nucleated Red Blood Cells # 0.0 Sodium Level 136 Potassium Level 4.0 Chloride Level 104 Carbon Dioxide Level 27 Anion Gap 9 Blood Urea Nitrogen 38 #H Creatinine 5.61 H Glucose Level 125 Calcium Level 7.4 L Test 01/12/17 05:30 01/12/17 07:15 01/12/17 08:04 Lab Scanned Report BLOOD TRANSFUSION REFERENCE LAB Bedside Glucose 114 Medications Medications Current Medications Atorvastatin Calcium (Lipitor) 20 mg QHS PO Last administered on 01/11/17 21: 04; Admin Dose 20 MG; Start 01/05/17 at 21:00 Loratadine (Claritin) 10 mg DAILY PO Last administered on 01/11/17 09:11; Admin Dose 10 MG; Start 01/06/17 at 09:00 Pentoxifylline (Trental) 400 mg TID PO Last administered on 01/11/17 21:04; Admin Dose 400 MG; Start 01/05/17 at 13:00 Verapamil HCl (Isoptin Sr) 120 mg DAILY PO Last administered on 01/11/17 09:11 ; Admin Dose 120 MG; Start 01/05/17 at 11:00 Aspirin (Aspirin) 81 mg DAILY PO Last administered on 01/11/17 10:13; Admin Dose 81 MG; Start 01/06/17 at 09:00 Acetaminophen (Tylenol Tab) 650 mg Q6H PRN PO PAIN LEVEL 1-3 OR FEVER; Start at 12:00 Morphine Sulfate (morphine) 2 mg Q4H PRN IV PAIN LEVEL 7-10 Last administered on 01/11/17 09:10; Admin Dose 2 MG; Start 01/05/17 at 12:00 Docusate Sodium (Colace) 100 mg Q12H PRN PO CONSTIPATION; Start 01/05/17 at 12: 00 Famotidine (Pepcid) 20 mg DAILY PO Last administered on 01/11/17 09:12; Admin Dose 20 MG; Start 01/05/17 at 12:00 Hydralazine HCl (Apresoline) 50 mg QID PO Last administered on 01/11/17 21:04 ; Admin Dose 50 MG; Start 01/05/17 at 17:00 Hydralazine HCl (Apresoline) 10 mg Q4H PRN IV SBP>150 mmhg Last administered on 01/11/17 04:52; Admin Dose 10 MG; Start 01/05/17 at 17:00 Diagnostic Test (Pha) (Accu-Chek) 1 ea 02 XX ; Start 01/07/17 at 02:00 Miscellaneous Information 1 ea NOTE XX ; Start 01/06/17 at 21:30 Glucose (Glutose) 15 gm Q15M PRN PO DECREASED GLUCOSE; Start 01/06/17 at 21:30 Glucose (Glutose) 22.5 gm Q15M PRN PO DECREASED GLUCOSE; Start 01/06/17 at 21: 30 Dextrose (D50w Syringe) 25 ml Q15M PRN IV DECREASED GLUCOSE; Start 01/06/17 at 21:30 Dextrose (D50w Syringe) 50 ml Q15M PRN IV DECREASED GLUCOSE; Start 01/06/17 at 21:30 Glucagon (Glucagen) 1 mg Q15M PRN IM DECREASED GLUCOSE; Start 01/06/17 at 21:30 Glucose (Glutose) 15 gm Q15M PRN BUCCAL DECREASED GLUCOSE; Start 01/06/17 at 21 :30 Ondansetron HCl (Zofran Inj) 4 mg Q4H PRN IV NAUSEA AND/OR VOMITING Last administered on 01/10/17 14:48; Admin Dose 4 MG; Start 01/07/17 at 17:00 Metoclopramide HCl (Reglan) 5 mg Q6H PRN IV NAUSEA Last administered on 17:38; Admin Dose 5 MG; Start 01/07/17 at 17:30 Nitroglycerin (Nitroglycerin (Sl Tab) 0.4 Mg) 1 tab Q5M PRN SL ANGINA Last administered on 01/09/17 10:07; Admin Dose 1 TAB; Start 01/08/17 at 03:30 Isosorbide Mononitrate (Imdur) 60 mg DAILY PO Last administered on 01/11/17 09 :11; Admin Dose 60 MG; Start 01/08/17 at 09:00 Furosemide (Lasix) 20 mg DAILY PO Last administered on 01/11/17 09:17; Admin Dose 20 MG; Start 01/09/17 at 09:00 Carvedilol 6.25 mg 6.25 mg BID PO Last administered on 01/11/17 21:04; Admin Dose 6.25 MG; Start 01/09/17 at 10:30 Dextrose/Sodium Chloride (D5-NS) 1,000 ml @ 50 mls/hr Q20H IV Last administered on 01/12/17 09:16; Admin Dose 50 MLS/HR; Start 01/11/17 at 00:00 Hydromorphone HCl (Dilaudid) 0.5 mg Q4H PRN IV PAIN Last administered on 08:05; Admin Dose 0.5 MG; Start 01/11/17 at 11:30 FREDDIE KEYS Jan 12, 2017 11:49
--- NOTE | 2017-01-12 12:24 | RADRPT ---
PROCEDURE: LEXISCAN MYOCARDIAL PERFUSION STUDY CLINICAL INDICATION: 66 -year-old patient with chest pain. TECHNIQUE: Lexiscan 0.4 mg intravenously separate acquisition, gated myocardial perfusion SPECT us ing 30 mCi intravenously at stress and 10 mCi intravenously at rest was performed using the rest/str ess sequence. Poststress SPECT images were obtained in the supine position. COMPARISON: No prior studies. FINDINGS: Perfusion images reveal no evidence of perfusion defects. Poststress gated SPECT images demonstrate no wall motion abnormalities. IMPRESSION: 1. No evidence of perfusion defects. 2. No wall motion abnormalities. 3. The left ventricle ejection fraction at stress is 57% . RPTAT: HH Physician Shu Date Time Electronically viewed and signed by Physician Shu on 01/12/2017 12:23 /
[2017-01-12] MEDS: GABAPENTIN 100 MG CAP PO SCH ×2 (12:51→22:52)
--- NOTE | 2017-01-12 14:06 | CARRPT ---
DATE OF PROCEDURE: 01/12/2017 REFERRING PHYSICIAN: Dr. Martinez. DESCRIPTION OF PROCEDURE: The patient was brought to the cardiac screedman/laborer in a fasting condition. She had a successful Lexiscan injection. Initial blood pressure 135/65. . The imaging portion of the report will be dictated separately. Dictated By: Shon Pink MD /tobi/anatoliy /Document#: [id number]
[2017-01-12] MEDS: morphine 2 MG INJ IV PRN (15:37)
--- NOTE | 2017-01-12 19:13 | RADRPT ---
PROCEDURE: US bilateral lower extremity arteries. CLINICAL INDICATION: Bilateral leg pain. Claudication that interferes significantly with the patricia ent's lifestyle. TECHNIQUE: Multiple longitudinal and transverse images of the bilateral lower extremity arteries w ere obtained with lewis scale, pulsed Doppler, and color Doppler imaging. COMPARISON: No prior studies are available for comparison. FINDINGS: Right SUPERVISOR GLUING:120 cm/sec PSFA:105 cm/sec MSFA:95 cm/sec DSFA:104 cm/sec POP:89 cm/sec STRATEGIC ADVISOR:62 cm/sec DPA:58 cm/sec Left SUPERVISOR GLUING:93 cm/sec PSFA:133 cm/sec MSFA:130 cm/sec DSFA:121 cm/sec POP:113 cm/sec STRATEGIC ADVISOR:107 cm/sec DPA:62 cm/sec Ankle-brachial indices are unobtainable due to calcified vessel bui. There is normal triphasic liat w throughout bilaterally with no significant stenosis. There is no occlusion. There is a left popliteal fossa Adam's cyst measuring 3.3 x 2.2 x 3.2 cm. IMPRESSION: 1. Mild plaque formation without evidence for hemodynamically significant stenosis or occlusion. RPTAT: QQ .Yunier Kelsey MD, Date Time Electronically viewed and signed by .Yunier Kesley MD, on 01/12/2017 19:13 .R/
--- NOTE | 2017-01-12 19:42 | CONS ---
Date/Time of Note Date/Time of Note DATE: 01/12/17 TIME: 19:39 Assessment/Plan Assessment/Plan Additional Assessment/Plan 1. Acute Kidney injuyr on CKD worsening to CKD V- progressed to ESRD- with symptoms of uremia 2. acute fluid overaload with Anasarca 3. 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 Hypertension - not well controlled 5. Diabetes melitus 6. hyperlipidemia 7. hypothyroidism Plan : - pt started on HD during this admission- Hepatitis panel, HIV negative, [place] [facility] [place] Plan for HD today , lexiscan negative Renal US c/w medical renal disease. continue verapamil, lasix 20mg po daily will continue to follow up Consultation Date/Type/Reason Admit Date/Time Jan 05, 2017 at 09:43 Initial Consult Date 01/05/17 Type of Consultation: NEPHROLOGY Referring Provider: SILVIA IQBAL MD 24 HR Interval Summary Free Text/Dictation lexiscan negative, BP stable, afebrile Exam/Review of Systems Vital Signs Vitals Vital Signs Date Time Temp Pulse Resp B/P Pulse Ox O2 Delivery O2 Flow Rate FiO2 01/12/17 14:37 98.2 91 18 112/59 91 01/12/17 08:05 Nasal Cannula 2.0 Intake and Output 01/11/17 01/11/17 01/12/17 15:00 23:00 07:00 Intake Total 1420 ml 600 ml Output Total 1100 ml Balance 320 ml 600 ml Exam Constitutional: alert Respiratory: clear to auscultation, normal air movement Cardiovascular: nl pulses, regular rate and rhythm Gastrointestinal: non-tender, soft Extremities: calf tenderness, edema, normal pulses, palpable cord, pitting pedal edema, tenderness, + right chest permacath Neurological: FAMILY MEDICINE CHAIR II-XII intact, nl mental status, nl speech, nl strength Results Result Diagram: 01/12/1752701/12/17527 Results 24 hrs Laboratory Tests Test 01/11/17 21:02 01/12/17 05:28 01/12/17 05:30 01/12/17 07:15 Bedside Glucose 105 White Blood Count 9.2 Red Blood Count 3.09 L Hemoglobin 8.7 L Hematocrit 27.4 L Mean Corpuscular Volume 88.7 Mean Corpuscular Hemoglobin 28.2 L Mean Corpuscular Hemoglobin Concent 31.8 L Red Cell Distribution Width 13.4 Platelet Count 215 Mean Platelet Volume 10.8 H Neutrophils % 70.9 Lymphocytes % 13.7 L Monocytes % 10.8 Eosinophils % 3.2 Basophils % 0.4 Nucleated Red Blood Cells % 0.0 Neutrophils # 6.5 Lymphocytes # 1.3 Monocytes # 1.0 H Eosinophils # 0.3 Basophils # 0.0 Nucleated Red Blood Cells # 0.0 Sodium Level 136 Potassium Level 4.0 Chloride Level 104 Carbon Dioxide Level 27 Anion Gap 9 Blood Urea Nitrogen 38 #H Creatinine 5.61 H Glucose Level 125 Calcium Level 7.4 L Lab Scanned Report BLOOD TRANSFUSION REFERENCE LAB Test 01/12/17 08:04 01/12/17 12:11 01/12/17 17:03 Bedside Glucose 114 98 135 Medications Medications Current Medications Atorvastatin Calcium (Lipitor) 20 mg QHS PO Last administered on 01/11/17 21: 04; Admin Dose 20 MG; Start 01/05/17 at 21:00 Loratadine (Claritin) 10 mg DAILY PO Last administered on 01/11/17 09:11; Admin Dose 10 MG; Start 01/06/17 at 09:00 Pentoxifylline (Trental) 400 mg TID PO Last administered on 01/12/17 12:51; Admin Dose 400 MG; Start 01/05/17 at 13:00 Verapamil HCl (Isoptin Sr) 120 mg DAILY PO Last administered on 01/11/17 09:11 ; Admin Dose 120 MG; Start 01/05/17 at 11:00 Aspirin (Aspirin) 81 mg DAILY PO Last administered on 01/11/17 10:13; Admin Dose 81 MG; Start 01/06/17 at 09:00 Acetaminophen (Tylenol Tab) 650 mg Q6H PRN PO PAIN LEVEL 1-3 OR FEVER; Start at 12:00 Morphine Sulfate (morphine) 2 mg Q4H PRN IV PAIN LEVEL 7-10 Last administered on 01/12/17 15:37; Admin Dose 2 MG; Start 01/05/17 at 12:00 Docusate Sodium (Colace) 100 mg Q12H PRN PO CONSTIPATION; Start 01/05/17 at 12: 00 Famotidine (Pepcid) 20 mg DAILY PO Last administered on 01/11/17 09:12; Admin Dose 20 MG; Start 01/05/17 at 12:00 Hydralazine HCl (Apresoline) 50 mg QID PO Last administered on 01/11/17 21:04 ; Admin Dose 50 MG; Start 01/05/17 at 17:00 Hydralazine HCl (Apresoline) 10 mg Q4H PRN IV SBP>150 mmhg Last administered on 01/11/17 04:52; Admin Dose 10 MG; Start 01/05/17 at 17:00 Diagnostic Test (Pha) (Accu-Chek) 1 ea 02 XX ; Start 01/07/17 at 02:00 Miscellaneous Information 1 ea NOTE XX ; Start 01/06/17 at 21:30 Glucose (Glutose) 15 gm Q15M PRN PO DECREASED GLUCOSE; Start 01/06/17 at 21:30 Glucose (Glutose) 22.5 gm Q15M PRN PO DECREASED GLUCOSE; Start 01/06/17 at 21: 30 Dextrose (D50w Syringe) 25 ml Q15M PRN IV DECREASED GLUCOSE; Start 01/06/17 at 21:30 Dextrose (D50w Syringe) 50 ml Q15M PRN IV DECREASED GLUCOSE; Start 01/06/17 at 21:30 Glucagon (Glucagen) 1 mg Q15M PRN IM DECREASED GLUCOSE; Start 01/06/17 at 21:30 Glucose (Glutose) 15 gm Q15M PRN BUCCAL DECREASED GLUCOSE; Start 01/06/17 at 21 :30 Ondansetron HCl (Zofran Inj) 4 mg Q4H PRN IV NAUSEA AND/OR VOMITING Last administered on 01/10/17 14:48; Admin Dose 4 MG; Start 01/07/17 at 17:00 Metoclopramide HCl (Reglan) 5 mg Q6H PRN IV NAUSEA Last administered on 17:38; Admin Dose 5 MG; Start 01/07/17 at 17:30 Nitroglycerin (Nitroglycerin (Sl Tab) 0.4 Mg) 1 tab Q5M PRN SL ANGINA Last administered on 01/09/17 10:07; Admin Dose 1 TAB; Start 01/08/17 at 03:30 Isosorbide Mononitrate (Imdur) 60 mg DAILY PO Last administered on 01/11/17 09 :11; Admin Dose 60 MG; Start 01/08/17 at 09:00 Furosemide (Lasix) 20 mg DAILY PO Last administered on 01/11/17 09:17; Admin Dose 20 MG; Start 01/09/17 at 09:00 Carvedilol 6.25 mg 6.25 mg BID PO Last administered on 01/11/17 21:04; Admin Dose 6.25 MG; Start 01/09/17 at 10:30 Dextrose/Sodium Chloride (D5-NS) 1,000 ml @ 50 mls/hr Q20H IV Last administered on 01/12/17 09:16; Admin Dose 50 MLS/HR; Start 01/11/17 at 00:00 Hydromorphone HCl (Dilaudid) 0.5 mg Q4H PRN IV PAIN Last administered on 12:23; Admin Dose 0.5 MG; Start 01/11/17 at 11:30 Gabapentin (Neurontin) 100 mg BID PO Last administered on 01/12/17 12:51; Admin Dose 100 MG; Start 01/12/17 at 13:00 IRIS BURRIS MD Jan 12, 2017 19:42
[2017-01-12] MEDS ORDERED: HEPARIN 1000 UNITS/ML 10 ML INJ CATHETER ONE (20:00)
[2017-01-12] MEDS ORDERED: ALBUMIN HUMAN 25% 100 ML IV ONE (20:00)
[2017-01-12] MEDS: ATORVASTATIN 20 MG TAB PO SCH (22:53)
[2017-01-13] MEDS: ACCU-CHEK XX SCH (02:00)
[2017-01-13 02:14] VITALS: BP 142/57; RESP 18
[2017-01-13] MEDS: LEVOTHYROXINE 100 MCG TAB PO SCH (05:55)
[2017-01-13] MEDS: INSULIN ASPART [NOVOLOG] 3 ML PEN SC SCH ×4 (07:50→20:42)
[2017-01-13] MEDS: ISOSORBIDE MONONITRATE(SR)60 MG TAB PO SCH (08:16)
[2017-01-13] MEDS: VERAPAMIL (SR) 120 MG TAB PO SCH (08:17)
[2017-01-13] MEDS: FUROSEMIDE 20 MG TAB PO SCH (08:46)
[2017-01-13] MEDS: PENTOXIFYLLINE (SR) 400 MG TAB PO SCH ×3 (08:46→20:46)
[2017-01-13] MEDS: ASPIRIN 81 MG TAB PO SCH (08:46)
[2017-01-13] MEDS: CALCIUM ACETATE 667 MG CAP PO SCH ×3 (08:46→17:32)
[2017-01-13] MEDS: FAMOTIDINE 20 MG TAB PO SCH (08:46)
[2017-01-13] MEDS: GABAPENTIN 100 MG CAP PO SCH ×2 (08:46→20:46)
[2017-01-13] MEDS: LORATADINE 10 MG TAB PO SCH (08:46)
[2017-01-13 09:03] VITALS: BP 120/58; RESP 16
--- NOTE | 2017-01-13 12:01 | CONS ---
Date/Time of Note Date/Time of Note DATE: 01/13/17 TIME: 12:00 Assessment/Plan Assessment/Plan Additional Assessment/Plan 1.Chest pain-trop negative x 3/NL EF by echo this admit - Stress test EF 55%, NO ISCHEMIA 2.HTN - on hig sie, will adjust Rx as need post test - well rX now - BETTER NOW 3.HL 4.Renal failure - + urine output, avoid nephrotoxic meds - stable - renal team to follow 5. HYpothyroid - stable, Rx as needed 6.DM - keep euglycemic 7.PAD Consultation Date/Type/Reason Admit Date/Time Jan 05, 2017 at 09:43 Initial Consult Date 01/05/17 Type of Consultation: NEPHROLOGY Referring Provider: SILVIA IQBAL MD 24 HR Interval Summary Free Text/Dictation Stress test EF 55%, NO ISCHEMIA - MED Rx advised ROS: No fever, no chills, no nausea, no vomiting, no diarrhea/constipation No recent weight changes No chest pain, no PND, no orthopnea No dizziness, blurred vision No thirst, no heat or cold intolerance Exam/Review of Systems Vital Signs Vitals Vital Signs Date Time Temp Pulse Resp B/P Pulse Ox O2 Delivery O2 Flow Rate FiO2 01/13/17 09:03 98.5 74 16 120/58 96 01/12/17 20:00 Nasal Cannula 2.0 Intake and Output 01/12/17 01/12/17 01/13/17 15:00 23:00 07:00 Intake Total 1160 ml 480 ml Output Total 1000 ml Balance 160 ml 480 ml Exam General: WN/WD/NAD, AOx 3 HEENT: Unicetric/atraumatic/EOMI (follows commands) NECK: JVD elevated, no thyromegaly Lymph: no lymphadenopathy HEART: regular with no S3, II/ systolic murmur at apex LUNGS: Coarse sounds ABD: soft, NT, ND, +BS : Intact Neuro: non focal SKIN: chronic changes EXT: trace edema Results Result Diagram: 01/12/17 0528 01/12/1728 Results 24 hrs Laboratory Tests Test 01/12/17 12:11 01/12/17 17:03 01/12/17 22:36 01/13/17 07:49 Bedside Glucose 98 135 157 125 Test 01/13/17 11:48 Bedside Glucose 100 Medications Medications Current Medications Atorvastatin Calcium (Lipitor) 20 mg QHS PO Last administered on 01/12/17 22: 53; Admin Dose 20 MG; Start 01/05/17 at 21:00 Loratadine (Claritin) 10 mg DAILY PO Last administered on 01/13/17 08:46; Admin Dose 10 MG; Start 01/06/17 at 09:00 Pentoxifylline (Trental) 400 mg TID PO Last administered on 01/13/17 08:46; Admin Dose 400 MG; Start 01/05/17 at 13:00 Verapamil HCl (Isoptin Sr) 120 mg DAILY PO Last administered on 01/11/17 09:11 ; Admin Dose 120 MG; Start 01/05/17 at 11:00 Aspirin (Aspirin) 81 mg DAILY PO Last administered on 01/13/17 08:46; Admin Dose 81 MG; Start 01/06/17 at 09:00 Acetaminophen (Tylenol Tab) 650 mg Q6H PRN PO PAIN LEVEL 1-3 OR FEVER; Start at 12:00 Morphine Sulfate (morphine) 2 mg Q4H PRN IV PAIN LEVEL 7-10 Last administered on 01/12/17 15:37; Admin Dose 2 MG; Start 01/05/17 at 12:00 Docusate Sodium (Colace) 100 mg Q12H PRN PO CONSTIPATION; Start 01/05/17 at 12: 00 Famotidine (Pepcid) 20 mg DAILY PO Last administered on 01/13/17 08:46; Admin Dose 20 MG; Start 01/05/17 at 12:00 Hydralazine HCl (Apresoline) 50 mg QID PO Last administered on 01/12/17 22:52 ; Admin Dose 50 MG; Start 01/05/17 at 17:00 Hydralazine HCl (Apresoline) 10 mg Q4H PRN IV SBP>150 mmhg Last administered on 01/11/17 04:52; Admin Dose 10 MG; Start 01/05/17 at 17:00 Diagnostic Test (Pha) (Accu-Chek) 1 ea 02 XX ; Start 01/07/17 at 02:00 Miscellaneous Information 1 ea NOTE XX ; Start 01/06/17 at 21:30 Glucose (Glutose) 15 gm Q15M PRN PO DECREASED GLUCOSE; Start 01/06/17 at 21:30 Glucose (Glutose) 22.5 gm Q15M PRN PO DECREASED GLUCOSE; Start 01/06/17 at 21: 30 Dextrose (D50w Syringe) 25 ml Q15M PRN IV DECREASED GLUCOSE; Start 01/06/17 at 21:30 Dextrose (D50w Syringe) 50 ml Q15M PRN IV DECREASED GLUCOSE; Start 01/06/17 at 21:30 Glucagon (Glucagen) 1 mg Q15M PRN IM DECREASED GLUCOSE; Start 01/06/17 at 21:30 Glucose (Glutose) 15 gm Q15M PRN BUCCAL DECREASED GLUCOSE; Start 01/06/17 at 21 :30 Ondansetron HCl (Zofran Inj) 4 mg Q4H PRN IV NAUSEA AND/OR VOMITING Last administered on 01/10/17 14:48; Admin Dose 4 MG; Start 01/07/17 at 17:00 Metoclopramide HCl (Reglan) 5 mg Q6H PRN IV NAUSEA Last administered on 17:38; Admin Dose 5 MG; Start 01/07/17 at 17:30 Nitroglycerin (Nitroglycerin (Sl Tab) 0.4 Mg) 1 tab Q5M PRN SL ANGINA Last administered on 01/09/17 10:07; Admin Dose 1 TAB; Start 01/08/17 at 03:30 Isosorbide Mononitrate (Imdur) 60 mg DAILY PO Last administered on 01/11/17 09 :11; Admin Dose 60 MG; Start 01/08/17 at 09:00 Furosemide (Lasix) 20 mg DAILY PO Last administered on 01/13/17 08:46; Admin Dose 20 MG; Start 01/09/17 at 09:00 Carvedilol (Coreg) 6.25 mg BID PO Last administered on 01/12/17 22:52; Admin Dose 6.25 MG; Start 01/09/17 at 10:30 Hydromorphone HCl (Dilaudid) 0.5 mg Q4H PRN IV PAIN Last administered on 12:23; Admin Dose 0.5 MG; Start 01/11/17 at 11:30 Gabapentin (Neurontin) 100 mg BID PO Last administered on 01/13/17 08:46; Admin Dose 100 MG; Start 01/12/17 at 13:00 Miscellaneous Information (* Miscellaneous Pharmacy Order) PENNSAID 2% HILDA APPL... BID XX ; Start 01/13/17 at 12:00; Status UNV CAMMY RAE MD Jan 13, 2017 12:01
[2017-01-13] MEDS: HYDROmorphONE 1 MG/ML SYG IV PRN (12:13)
[2017-01-13 14:00] VITALS: BP 162/77; RESP 18
[2017-01-13 17:35] VITALS: BP 138/69; PULSE 74
[2017-01-13 17:56] VITALS: BP 162/77; RESP 18
[2017-01-13 20:00] VITALS: BP 136/63; RESP 20
[2017-01-13] MEDS: ATORVASTATIN 20 MG TAB PO SCH (20:47)
--- NOTE | 2017-01-13 21:14 | CONS ---
Date/Time of Note Date/Time of Note DATE: 01/13/17 TIME: 21:13 Assessment/Plan Assessment/Plan Additional Assessment/Plan 1. Acute Kidney injuyr on CKD worsening to CKD V- progressed to ESRD- with symptoms of uremia 2. acute fluid overaload with Anasarca 3. 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 Hypertension - not well controlled 5. Diabetes melitus 6. hyperlipidemia 7. hypothyroidism Plan : - pt started on HD during this admission- Hepatitis panel, HIV negative, outpatient HD placement requested at [facility] [place] Lexiscan negative Plan for HD tomorrow Renal US c/w medical renal disease. continue verapamil, lasix 20mg po daily will continue to follow up Consultation Date/Type/Reason Admit Date/Time Jan 05, 2017 at 09:43 Initial Consult Date 01/05/17 Type of Consultation: NEPHROLOGY Referring Provider: SILVIA IQBAL MD 24 HR Interval Summary Free Text/Dictation plan for HD tomorrow Exam/Review of Systems Vital Signs Vitals Vital Signs Date Time Temp Pulse Resp B/P Pulse Ox O2 Delivery O2 Flow Rate FiO2 01/13/17 17:35 74 138/69 01/13/17 14:00 98.0 18 95 01/13/17 08:46 Nasal Cannula 2.0 Intake and Output 01/12/17 01/12/17 01/13/17 15:00 23:00 07:00 Intake Total 1160 ml 480 ml Output Total 1000 ml Balance 160 ml 480 ml Exam Constitutional: alert Respiratory: clear to auscultation, normal air movement Cardiovascular: nl pulses, regular rate and rhythm Gastrointestinal: non-tender, soft Extremities: calf tenderness, edema, normal pulses, palpable cord, pitting pedal edema, tenderness, + right chest permacath Neurological: PLASTICS PROCESS HAND II-XII intact, nl mental status, nl speech, nl strength Results Result Diagram: 01/12/1752701/12/17527 Results 24 hrs Laboratory Tests Test 01/12/17 22:36 01/13/17 07:49 01/13/17 11:48 01/13/17 17:00 Bedside Glucose 157 125 100 110 Test 01/13/17 20:41 Bedside Glucose 124 Medications Medications Current Medications Atorvastatin Calcium (Lipitor) 20 mg QHS PO Last administered on 01/13/17t 20: 47; Admin Dose 20 MG; Start 01/05/17 at 21:00 Loratadine (Claritin) 10 mg DAILY PO Last administered on 01/13/17 08:46; Admin Dose 10 MG; Start 01/06/17 at 09:00 Pentoxifylline (Trental) 400 mg TID PO Last administered on 01/13/17 20:46; Admin Dose 400 MG; Start 01/05/17 at 13:00 Verapamil HCl (Isoptin Sr) 120 mg DAILY PO Last administered on 01/11/17 09:11 ; Admin Dose 120 MG; Start 01/05/17 at 11:00 Aspirin (Aspirin) 81 mg DAILY PO Last administered on 01/13/17 08:46; Admin Dose 81 MG; Start 01/06/17 at 09:00 Acetaminophen (Tylenol Tab) 650 mg Q6H PRN PO PAIN LEVEL 1-3 OR FEVER; Start at 12:00 Morphine Sulfate (morphine) 2 mg Q4H PRN IV PAIN LEVEL 7-10 Last administered on 01/12/17 15:37; Admin Dose 2 MG; Start 01/05/17 at 12:00 Docusate Sodium (Colace) 100 mg Q12H PRN PO CONSTIPATION; Start 01/05/17 at 12: 00 Famotidine (Pepcid) 20 mg DAILY PO Last administered on 01/13/17 08:46; Admin Dose 20 MG; Start 01/05/17 at 12:00 Hydralazine HCl (Apresoline) 50 mg QID PO Last administered on 01/13/17 20:45 ; Admin Dose 50 MG; Start 01/05/17 at 17:00 Hydralazine HCl (Apresoline) 10 mg Q4H PRN IV SBP>150 mmhg Last administered on 01/11/17 04:52; Admin Dose 10 MG; Start 01/05/17 at 17:00 Diagnostic Test (Pha) (Accu-Chek) 1 ea 02 XX ; Start 01/07/17 at 02:00 Miscellaneous Information 1 ea NOTE XX ; Start 01/06/17 at 21:30 Glucose (Glutose) 15 gm Q15M PRN PO DECREASED GLUCOSE; Start 01/06/17 at 21:30 Glucose (Glutose) 22.5 gm Q15M PRN PO DECREASED GLUCOSE; Start 01/06/17 at 21: 30 Dextrose (D50w Syringe) 25 ml Q15M PRN IV DECREASED GLUCOSE; Start 01/06/17 at 21:30 Dextrose (D50w Syringe) 50 ml Q15M PRN IV DECREASED GLUCOSE; Start 01/06/17 at 21:30 Glucagon (Glucagen) 1 mg Q15M PRN IM DECREASED GLUCOSE; Start 01/06/17 at 21:30 Glucose (Glutose) 15 gm Q15M PRN BUCCAL DECREASED GLUCOSE; Start 01/06/17 at 21 :30 Ondansetron HCl (Zofran Inj) 4 mg Q4H PRN IV NAUSEA AND/OR VOMITING Last administered on 01/10/17 14:48; Admin Dose 4 MG; Start 01/07/17 at 17:00 Metoclopramide HCl (Reglan) 5 mg Q6H PRN IV NAUSEA Last administered on 17:38; Admin Dose 5 MG; Start 01/07/17 at 17:30 Nitroglycerin (Nitroglycerin (Sl Tab) 0.4 Mg) 1 tab Q5M PRN SL ANGINA Last administered on 01/09/17 10:07; Admin Dose 1 TAB; Start 01/08/17 at 03:30 Isosorbide Mononitrate (Imdur) 60 mg DAILY PO Last administered on 01/11/17 09 :11; Admin Dose 60 MG; Start 01/08/17 at 09:00 Furosemide (Lasix) 20 mg DAILY PO Last administered on 01/13/17 08:46; Admin Dose 20 MG; Start 01/09/17 at 09:00 Carvedilol (Coreg) 6.25 mg BID PO Last administered on 01/13/17 20:46; Admin Dose 6.25 MG; Start 01/09/17 at 10:30 Hydromorphone HCl (Dilaudid) 0.5 mg Q4H PRN IV PAIN Last administered on 12:13; Admin Dose 0.5 MG; Start 01/11/17 at 11:30 Gabapentin (Neurontin) 100 mg BID PO Last administered on 01/13/17 20:46; Admin Dose 100 MG; Start 01/12/17 at 13:00 IRIS BURRIS MD Jan 13, 2017 21:14
--- NOTE | 2017-01-13 21:51 | PN ---
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 Dr. Naidu is following patient in Nephrology consultation. Continue hemodialysis per nephrology. - Hypertensive urgency, continue hydralazine and verapamil. - Diabetes mellitus type II with hemoglobin A1c 6.5. Continue NovoLog per sliding scale - Hypothyroidism. Continue Synthroid. - Bilateral lower extremity edema. Preserved ejection fraction per echo. - Hyperlipidemia. Continue statin. Further recommendations based on clinical course. Plan of care discussed with Dr. Martinez. Subjective 24 Hr Interval Summary Free Text/Dictation Patient seen at 1440 Exam/Review of Systems Vital Signs Vitals Vital Signs Date Time Temp Pulse Resp B/P Pulse Ox O2 Delivery O2 Flow Rate FiO2 01/13/17 17:35 74 138/69 01/13/17 14:00 98.0 18 95 01/13/17 08:46 Nasal Cannula 2.0 Intake and Output 01/12/17 01/12/17 01/13/17 15:00 23:00 07:00 Intake Total 1160 ml 480 ml Output Total 1000 ml Balance 160 ml 480 ml Results Result Diagram: 01/12/1728 01/12/17527 Results 24 hrs Laboratory Tests Test 01/12/17 22:36 01/13/17 07:49 01/13/17 11:48 01/13/17 17:00 Bedside Glucose 157 125 100 110 Test 01/13/17 20:41 Bedside Glucose 124 Medications Medications Current Medications Atorvastatin Calcium (Lipitor) 20 mg QHS PO Last administered on 01/13/17 20: 47; Admin Dose 20 MG; Start 01/05/17 at 21:00 Loratadine (Claritin) 10 mg DAILY PO Last administered on 01/13/17 08:46; Admin Dose 10 MG; Start 01/06/17 at 09:00 Pentoxifylline (Trental) 400 mg TID PO Last administered on 01/13/17 20:46; Admin Dose 400 MG; Start 01/05/17 at 13:00 Verapamil HCl (Isoptin Sr) 120 mg DAILY PO Last administered on 01/11/17 09:11 ; Admin Dose 120 MG; Start 01/05/17 at 11:00 Aspirin (Aspirin) 81 mg DAILY PO Last administered on 01/13/17 08:46; Admin Dose 81 MG; Start 01/06/17 at 09:00 Acetaminophen (Tylenol Tab) 650 mg Q6H PRN PO PAIN LEVEL 1-3 OR FEVER; Start at 12:00 Morphine Sulfate (morphine) 2 mg Q4H PRN IV PAIN LEVEL 7-10 Last administered on 01/12/17 15:37; Admin Dose 2 MG; Start 01/05/17 at 12:00 Docusate Sodium (Colace) 100 mg Q12H PRN PO CONSTIPATION; Start 01/05/17 at 12: 00 Famotidine (Pepcid) 20 mg DAILY PO Last administered on 01/13/17 08:46; Admin Dose 20 MG; Start 01/05/17 at 12:00 Hydralazine HCl (Apresoline) 50 mg QID PO Last administered on 01/13/17 20:45 ; Admin Dose 50 MG; Start 01/05/17 at 17:00 Hydralazine HCl (Apresoline) 10 mg Q4H PRN IV SBP>150 mmhg Last administered on 01/11/17 04:52; Admin Dose 10 MG; Start 01/05/17 at 17:00 Diagnostic Test (Pha) (Accu-Chek) 1 ea 02 XX ; Start 01/07/17 at 02:00 Miscellaneous Information 1 ea NOTE XX ; Start 01/06/17 at 21:30 Glucose (Glutose) 15 gm Q15M PRN PO DECREASED GLUCOSE; Start 01/06/17 at 21:30 Glucose (Glutose) 22.5 gm Q15M PRN PO DECREASED GLUCOSE; Start 01/06/17 at 21: 30 Dextrose (D50w Syringe) 25 ml Q15M PRN IV DECREASED GLUCOSE; Start 01/06/17 at 21:30 Dextrose (D50w Syringe) 50 ml Q15M PRN IV DECREASED GLUCOSE; Start 01/06/17 at 21:30 Glucagon (Glucagen) 1 mg Q15M PRN IM DECREASED GLUCOSE; Start 01/06/17 at 21:30 Glucose (Glutose) 15 gm Q15M PRN BUCCAL DECREASED GLUCOSE; Start 01/06/17 at 21 :30 Ondansetron HCl (Zofran Inj) 4 mg Q4H PRN IV NAUSEA AND/OR VOMITING Last administered on 01/10/17 14:48; Admin Dose 4 MG; Start 01/07/17 at 17:00 Metoclopramide HCl (Reglan) 5 mg Q6H PRN IV NAUSEA Last administered on 17:38; Admin Dose 5 MG; Start 01/07/17 at 17:30 Nitroglycerin (Nitroglycerin (Sl Tab) 0.4 Mg) 1 tab Q5M PRN SL ANGINA Last administered on 01/09/17 10:07; Admin Dose 1 TAB; Start 01/08/17 at 03:30 Isosorbide Mononitrate (Imdur) 60 mg DAILY PO Last administered on 01/11/17 09 :11; Admin Dose 60 MG; Start 01/08/17 at 09:00 Furosemide (Lasix) 20 mg DAILY PO Last administered on 01/13/17 08:46; Admin Dose 20 MG; Start 01/09/17 at 09:00 Carvedilol (Coreg) 6.25 mg BID PO Last administered on 01/13/17 20:46; Admin Dose 6.25 MG; Start 01/09/17 at 10:30 Hydromorphone HCl (Dilaudid) 0.5 mg Q4H PRN IV PAIN Last administered on 12:13; Admin Dose 0.5 MG; Start 01/11/17 at 11:30 Gabapentin (Neurontin) 100 mg BID PO Last administered on 01/13/17 20:46; Admin Dose 100 MG; Start 01/12/17 at 13:00 WALE RIBEIRO Jan 13, 2017 21:51
[2017-01-14] VITALS (11 sets, daily range): BP systolic 115–170; BP diastolic 55–79; PULSE 70–76; RESP 18–20
[2017-01-14] MEDS: ACCU-CHEK XX SCH (02:00)
[2017-01-14 05:28] LABS: BASOPHILS % 0.3 % (0.0-2.0); EOSINOPHILS # 0.7 10^3/ul (0.0-0.5); EOSINOPHILS % 7.7 % (0.0-7.0); HEMATOCRIT 26.1 % (37.0-47.0); HEMOGLOBIN 8.1 g/dl (12.0-16.0); LYMPHOCYTES # 2.1 10^3/ul (0.8-2.9); LYMPHOCYTES % 22.8 % (15.0-51.0); MEAN CORPUSCULAR VOLUME 90.3 fl (82.0-101.0); MEAN PLATELET VOLUME 10.5 fl (7.4-10.4); MONOCYTE # 0.8 10^3/ul (0.3-0.9); MONOCYTES % 8.3 % (0.0-11.0); NEUTROPHIL # 5.6 10^3/ul (1.6-7.5); NEUTROPHILS % 60.3 % (39.0-77.0); PLATELET COUNT 256 10^3/UL (140-415); RED BLOOD COUNT 2.89 10^6/ul (4.20-5.40); RED CELL DISTRIBUTION WIDTH 13.2 % (11.5-14.5); WHITE BLOOD COUNT 9.3 10^3/ul (4.8-10.8)
[2017-01-14 05:52] LABS: CALCIUM 7.5 mg/dl (8.4-10.2); CREATININE 6.3 mg/dl (0.44-1.00); POTASSIUM 4.5 mmol/L (3.5-5.1)
[2017-01-14] MEDS: LEVOTHYROXINE 100 MCG TAB PO SCH (06:35)
[2017-01-14] MEDS: INSULIN ASPART [NOVOLOG] 3 ML PEN SC SCH ×4 (07:58→21:00)
[2017-01-14] MEDS: CALCIUM ACETATE 667 MG CAP PO SCH ×3 (08:38→17:27)
[2017-01-14] MEDS: GABAPENTIN 100 MG CAP PO SCH ×2 (08:38→21:01)
[2017-01-14] MEDS: LORATADINE 10 MG TAB PO SCH (08:38)
[2017-01-14] MEDS: FAMOTIDINE 20 MG TAB PO SCH (08:38)
[2017-01-14] MEDS: PENTOXIFYLLINE (SR) 400 MG TAB PO SCH ×3 (08:38→21:01)
[2017-01-14] MEDS: ASPIRIN 81 MG TAB PO SCH (08:40)
[2017-01-14] MEDS: VERAPAMIL (SR) 120 MG TAB PO SCH ×2 (08:41→14:12)
[2017-01-14] MEDS: ISOSORBIDE MONONITRATE(SR)60 MG TAB PO SCH ×2 (08:41→14:11)
[2017-01-14] MEDS: FUROSEMIDE 20 MG TAB PO SCH (08:45)
--- NOTE | 2017-01-14 17:54 | CONS ---
Date/Time of Note Date/Time of Note DATE: 01/14/17 TIME: 17:53 Assessment/Plan Assessment/Plan Additional Assessment/Plan 1. Acute Kidney injuyr on CKD worsening to CKD V- progressed to ESRD- with symptoms of uremia 2. acute fluid overaload with Anasarca 3. 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 Hypertension - not well controlled 5. Diabetes melitus 6. hyperlipidemia 7. hypothyroidism Plan : - pt started on HD during this admission- Hepatitis panel, HIV negative, outpatient HD placement requested - pt can not go to HD center in early AM- her is blind so he can not drive in Dark. she has to be set up at HD unit for Dialysis time after 7 am and Before 7 pm because and cant see in dark. Lexiscan negative s/p HD today, no HD tomorrow, will reassess her in AM Renal US c/w medical renal disease. continue verapamil, lasix 20mg po daily will continue to follow up Consultation Date/Type/Reason Admit Date/Time Jan 05, 2017 at 09:43 Initial Consult Date 01/05/17 Type of Consultation: NEPHROLOGY Referring Provider: SILVIA IQBAL MD Exam/Review of Systems Vital Signs Vitals Vital Signs Date Time Temp Pulse Resp B/P Pulse Ox O2 Delivery O2 Flow Rate FiO2 01/14/17 15:00 97.9 80 18 163/79 97 01/13/17 20:00 Nasal Cannula 2.0 Intake and Output 01/13/17 01/13/17 01/14/17 15:00 23:00 07:00 Intake Total 600 ml 120 ml Output Total 100 ml 100 ml Balance 500 ml 20 ml Exam Constitutional: alert Respiratory: clear to auscultation, normal air movement Cardiovascular: nl pulses, regular rate and rhythm Gastrointestinal: non-tender, soft Extremities: calf tenderness, edema, normal pulses, palpable cord, pitting pedal edema, tenderness, + right chest permacath Neurological: [employer] II-XII intact, nl mental status, nl speech, nl strength Results Result Diagram: 01/14/17 0453 01/14/17 0453 Results 24 hrs Laboratory Tests Test 01/13/17 20:41 01/14/17 04:53 01/14/17 12:07 01/14/17 17:21 Bedside Glucose 124 146 131 White Blood Count 9.3 Red Blood Count 2.89 L Hemoglobin 8.1 L Hematocrit 26.1 L Mean Corpuscular Volume 90.3 Mean Corpuscular Hemoglobin 28.0 L Mean Corpuscular Hemoglobin Concent 31.0 L Red Cell Distribution Width 13.2 Platelet Count 256 Mean Platelet Volume 10.5 H Neutrophils % 60.3 Lymphocytes % 22.8 Monocytes % 8.3 Eosinophils % 7.7 H Basophils % 0.3 Nucleated Red Blood Cells % 0.0 Neutrophils # 5.6 Lymphocytes # 2.1 Monocytes # 0.8 Eosinophils # 0.7 H Basophils # 0.0 Nucleated Red Blood Cells # 0.0 Sodium Level 129 L Potassium Level 4.5 Chloride Level 101 Carbon Dioxide Level 25 Anion Gap 8 Blood Urea Nitrogen 38 H Creatinine 6.30 H Glucose Level 82 # Calcium Level 7.5 L Medications Medications Current Medications Atorvastatin Calcium (Lipitor) 20 mg QHS PO Last administered on 01/13/17 20: 47; Admin Dose 20 MG; Start 01/05/17 at 21:00 Loratadine (Claritin) 10 mg DAILY PO Last administered on 01/14/17 08:38; Admin Dose 10 MG; Start 01/06/17 at 09:00 Pentoxifylline (Trental) 400 mg TID PO Last administered on 01/14/17 14:10; Admin Dose 400 MG; Start 01/05/17 at 13:00 Verapamil HCl (Isoptin Sr) 120 mg DAILY PO Last administered on 01/14/17 14:12 ; Admin Dose 120 MG; Start 01/05/17 at 11:00 Aspirin (Aspirin) 81 mg DAILY PO Last administered on 01/14/17 08:40; Admin Dose 81 MG; Start 01/06/17 at 09:00 Acetaminophen (Tylenol Tab) 650 mg Q6H PRN PO PAIN LEVEL 1-3 OR FEVER; Start at 12:00 Morphine Sulfate (morphine) 2 mg Q4H PRN IV PAIN LEVEL 7-10 Last administered on 01/12/17 15:37; Admin Dose 2 MG; Start 01/05/17 at 12:00 Docusate Sodium (Colace) 100 mg Q12H PRN PO CONSTIPATION; Start 01/05/17 at 12: 00 Famotidine (Pepcid) 20 mg DAILY PO Last administered on 01/14/17 08:38; Admin Dose 20 MG; Start 01/05/17 at 12:00 Hydralazine HCl (Apresoline) 50 mg QID PO Last administered on 01/14/17 17:27 ; Admin Dose 50 MG; Start 01/05/17 at 17:00 Hydralazine HCl (Apresoline) 10 mg Q4H PRN IV SBP>150 mmhg Last administered on 01/11/17 04:52; Admin Dose 10 MG; Start 01/05/17 at 17:00 Diagnostic Test (Pha) (Accu-Chek) 1 ea 02 XX ; Start 01/07/17 at 02:00 Miscellaneous Information 1 ea NOTE XX ; Start 01/06/17 at 21:30 Glucose (Glutose) 15 gm Q15M PRN PO DECREASED GLUCOSE; Start 01/06/17 at 21:30 Glucose (Glutose) 22.5 gm Q15M PRN PO DECREASED GLUCOSE; Start 01/06/17 at 21: 30 Dextrose (D50w Syringe) 25 ml Q15M PRN IV DECREASED GLUCOSE; Start 01/06/17 at 21:30 Dextrose (D50w Syringe) 50 ml Q15M PRN IV DECREASED GLUCOSE; Start 01/06/17 at 21:30 Glucagon (Glucagen) 1 mg Q15M PRN IM DECREASED GLUCOSE; Start 01/06/17 at 21:30 Glucose (Glutose) 15 gm Q15M PRN BUCCAL DECREASED GLUCOSE; Start 01/06/17 at 21 :30 Ondansetron HCl (Zofran Inj) 4 mg Q4H PRN IV NAUSEA AND/OR VOMITING Last administered on 01/10/17 14:48; Admin Dose 4 MG; Start 01/07/17 at 17:00 Metoclopramide HCl (Reglan) 5 mg Q6H PRN IV NAUSEA Last administered on 17:38; Admin Dose 5 MG; Start 01/07/17 at 17:30 Nitroglycerin (Nitroglycerin (Sl Tab) 0.4 Mg) 1 tab Q5M PRN SL ANGINA Last administered on 01/09/17 10:07; Admin Dose 1 TAB; Start 01/08/17 at 03:30 Isosorbide Mononitrate (Imdur) 60 mg DAILY PO Last administered on 01/14/17 14 :11; Admin Dose 60 MG; Start 01/08/17 at 09:00 Furosemide (Lasix) 20 mg DAILY PO Last administered on 01/13/17 08:46; Admin Dose 20 MG; Start 01/09/17 at 09:00 Carvedilol (Coreg) 6.25 mg BID PO Last administered on 01/13/17 20:46; Admin Dose 6.25 MG; Start 01/09/17 at 10:30 Hydromorphone HCl (Dilaudid) 0.5 mg Q4H PRN IV PAIN Last administered on 12:13; Admin Dose 0.5 MG; Start 01/11/17 at 11:30 Gabapentin (Neurontin) 100 mg BID PO Last administered on 01/14/17 08:38; Admin Dose 100 MG; Start 01/12/17 at 13:00 IRIS BURRIS MD Jan 14, 2017 17:54
--- NOTE | 2017-01-14 17:59 | CONS ---
Date/Time of Note Date/Time of Note DATE: 01/14/17 TIME: 17:56 Assessment/Plan Assessment/Plan Chief Complaint/Hosp Course IMP: 1.Chest pain-trop negative x 3/NL EF by echo this admit. Lexiscan this admit no ischemia/NL EF 2.HTN 3.HL 4.Renal failure on HD 5. HYpothyroid 6.DM 7.PAD Recc: -serial ecg's -Continue coreg/imdur/verapamil and f/u BP after receiving -Continue daily PO lasix and follow creatnine/volume status closely -Continue asa/statin/imdur -HD for volume removal -pnding placement Problems: Consultation Date/Type/Reason Admit Date/Time Jan 05, 2017 at 09:43 Initial Consult Date 01/05/17 Type of Consultation: cardiology Reason for Consultation Chest pain/HTN Referring Provider: SILVIA IQBAL MD Exam/Review of Systems Vital Signs Vitals Vital Signs Date Time Temp Pulse Resp B/P Pulse Ox O2 Delivery O2 Flow Rate FiO2 01/14/17 15:00 97.9 80 18 163/79 97 01/13/17 20:00 Nasal Cannula 2.0 Intake and Output 01/13/17 01/13/17 01/14/17 15:00 23:00 07:00 Intake Total 600 ml 120 ml Output Total 100 ml 100 ml Balance 500 ml 20 ml Exam Review of Systems: CONSTITUTIONAL: No fevers, chills. PULMONARY: No sob CARDIOVASCULAR: No chest pain/palpitations GASTROINTESTINAL: No nausea/vomiting. GENITOURINARY: No hematuria/dysuria. MUSCULOSKELETAL: No myagias/arthalgias. PSYCHIATRIC: The patient denies depression. NEUROLOGIC: No weakness Constitutional: alert Psych: no complaints Head: normocephalic ENMT: mucosa pink and moist Neck: jvd (9 cm water), supple Respiratory: clear to auscultation Cardiovascular: regular rate and rhythm Gastrointestinal: non-tender, soft Musculoskeletal: muscle tone (normal) Extremities: edema (none) Neurological: other (No focal deficits) Results Result Diagram: 01/14/17 0453 01/14/17 0453 Results 24 hrs Laboratory Tests Test 01/13/17 20:41 01/14/17 04:53 01/14/17 12:07 01/14/17 17:21 Bedside Glucose 124 146 131 White Blood Count 9.3 Red Blood Count 2.89 L Hemoglobin 8.1 L Hematocrit 26.1 L Mean Corpuscular Volume 90.3 Mean Corpuscular Hemoglobin 28.0 L Mean Corpuscular Hemoglobin Concent 31.0 L Red Cell Distribution Width 13.2 Platelet Count 256 Mean Platelet Volume 10.5 H Neutrophils % 60.3 Lymphocytes % 22.8 Monocytes % 8.3 Eosinophils % 7.7 H Basophils % 0.3 Nucleated Red Blood Cells % 0.0 Neutrophils # 5.6 Lymphocytes # 2.1 Monocytes # 0.8 Eosinophils # 0.7 H Basophils # 0.0 Nucleated Red Blood Cells # 0.0 Sodium Level 129 L Potassium Level 4.5 Chloride Level 101 Carbon Dioxide Level 25 Anion Gap 8 Blood Urea Nitrogen 38 H Creatinine 6.30 H Glucose Level 82 # Calcium Level 7.5 L Medications Medications Current Medications Atorvastatin Calcium (Lipitor) 20 mg QHS PO Last administered on 01/13/17 20: 47; Admin Dose 20 MG; Start 01/05/17 at 21:00 Loratadine (Claritin) 10 mg DAILY PO Last administered on 01/14/17 08:38; Admin Dose 10 MG; Start 01/06/17 at 09:00 Pentoxifylline (Trental) 400 mg TID PO Last administered on 01/14/17 14:10; Admin Dose 400 MG; Start 01/05/17 at 13:00 Verapamil HCl (Isoptin Sr) 120 mg DAILY PO Last administered on 01/14/17 14:12 ; Admin Dose 120 MG; Start 01/05/17 at 11:00 Aspirin (Aspirin) 81 mg DAILY PO Last administered on 01/14/17 08:40; Admin Dose 81 MG; Start 01/06/17 at 09:00 Acetaminophen (Tylenol Tab) 650 mg Q6H PRN PO PAIN LEVEL 1-3 OR FEVER; Start at 12:00 Morphine Sulfate (morphine) 2 mg Q4H PRN IV PAIN LEVEL 7-10 Last administered on 01/12/17 15:37; Admin Dose 2 MG; Start 01/05/17 at 12:00 Docusate Sodium (Colace) 100 mg Q12H PRN PO CONSTIPATION; Start 01/05/17 at 12: 00 Famotidine (Pepcid) 20 mg DAILY PO Last administered on 01/14/17 08:38; Admin Dose 20 MG; Start 01/05/17 at 12:00 Hydralazine HCl (Apresoline) 50 mg QID PO Last administered on 01/14/17 17:27 ; Admin Dose 50 MG; Start 01/05/17 at 17:00 Hydralazine HCl (Apresoline) 10 mg Q4H PRN IV SBP>150 mmhg Last administered on 01/11/17 04:52; Admin Dose 10 MG; Start 01/05/17 at 17:00 Diagnostic Test (Pha) (Accu-Chek) 1 ea 02 XX ; Start 01/07/17 at 02:00 Miscellaneous Information 1 ea NOTE XX ; Start 01/06/17 at 21:30 Glucose (Glutose) 15 gm Q15M PRN PO DECREASED GLUCOSE; Start 01/06/17 at 21:30 Glucose (Glutose) 22.5 gm Q15M PRN PO DECREASED GLUCOSE; Start 01/06/17 at 21: 30 Dextrose (D50w Syringe) 25 ml Q15M PRN IV DECREASED GLUCOSE; Start 01/06/17 at 21:30 Dextrose (D50w Syringe) 50 ml Q15M PRN IV DECREASED GLUCOSE; Start 01/06/17 at 21:30 Glucagon (Glucagen) 1 mg Q15M PRN IM DECREASED GLUCOSE; Start 01/06/17 at 21:30 Glucose (Glutose) 15 gm Q15M PRN BUCCAL DECREASED GLUCOSE; Start 01/06/17 at 21 :30 Ondansetron HCl (Zofran Inj) 4 mg Q4H PRN IV NAUSEA AND/OR VOMITING Last administered on 01/10/17 14:48; Admin Dose 4 MG; Start 01/07/17 at 17:00 Metoclopramide HCl (Reglan) 5 mg Q6H PRN IV NAUSEA Last administered on 17:38; Admin Dose 5 MG; Start 01/07/17 at 17:30 Nitroglycerin (Nitroglycerin (Sl Tab) 0.4 Mg) 1 tab Q5M PRN SL ANGINA Last administered on 01/09/17 10:07; Admin Dose 1 TAB; Start 01/08/17 at 03:30 Isosorbide Mononitrate (Imdur) 60 mg DAILY PO Last administered on 01/14/17 14 :11; Admin Dose 60 MG; Start 01/08/17 at 09:00 Furosemide (Lasix) 20 mg DAILY PO Last administered on 01/13/17 08:46; Admin Dose 20 MG; Start 01/09/17 at 09:00 Carvedilol (Coreg) 6.25 mg BID PO Last administered on 01/13/17 20:46; Admin Dose 6.25 MG; Start 01/09/17 at 10:30 Hydromorphone HCl (Dilaudid) 0.5 mg Q4H PRN IV PAIN Last administered on 12:13; Admin Dose 0.5 MG; Start 01/11/17 at 11:30 Gabapentin (Neurontin) 100 mg BID PO Last administered on 01/14/17 08:38; Admin Dose 100 MG; Start 01/12/17 at 13:00 KERRY RIZO Jan 14, 2017 17:59
--- NOTE | 2017-01-14 20:14 | PN ---
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 Dr. Naidu is following patient in Nephrology consultation. Continue hemodialysis per nephrology. - Chest pain, acute coronary syndrome ruled out, troponin is negative 3, Lexiscan is negative for ischemia, preserved ejection fraction for per echo - Hypertensive urgency, continue hydralazine and verapamil. - Diabetes mellitus type II with hemoglobin A1c 6.5. Continue NovoLog per sliding scale - Hypothyroidism. Continue Synthroid. - Bilateral lower extremity edema. Preserved ejection fraction per echo. - Hyperlipidemia. Continue statin. Further recommendations based on clinical course. Plan of care discussed with Dr. Martinez. Problems: Exam/Review of Systems Vital Signs Vitals Vital Signs Date Time Temp Pulse Resp B/P Pulse Ox O2 Delivery O2 Flow Rate FiO2 01/14/17 15:00 97.9 80 18 163/79 97 01/13/17 20:00 Nasal Cannula 2.0 Intake and Output 01/13/17 01/13/17 01/14/17 15:00 23:00 07:00 Intake Total 600 ml 120 ml Output Total 100 ml 100 ml Balance 500 ml 20 ml Exam Constitutional: alert Neck: supple Respiratory: normal air movement Cardiovascular: nl pulses Gastrointestinal: non-tender, soft Extremities: edema R IJ permacath Results Result Diagram: 01/14/17 0453 01/14/17 0453 Results 24 hrs Laboratory Tests Test 01/13/17 20:41 01/14/17 04:53 01/14/17 12:07 01/14/17 17:21 Bedside Glucose 124 146 131 White Blood Count 9.3 Red Blood Count 2.89 L Hemoglobin 8.1 L Hematocrit 26.1 L Mean Corpuscular Volume 90.3 Mean Corpuscular Hemoglobin 28.0 L Mean Corpuscular Hemoglobin Concent 31.0 L Red Cell Distribution Width 13.2 Platelet Count 256 Mean Platelet Volume 10.5 H Neutrophils % 60.3 Lymphocytes % 22.8 Monocytes % 8.3 Eosinophils % 7.7 H Basophils % 0.3 Nucleated Red Blood Cells % 0.0 Neutrophils # 5.6 Lymphocytes # 2.1 Monocytes # 0.8 Eosinophils # 0.7 H Basophils # 0.0 Nucleated Red Blood Cells # 0.0 Sodium Level 129 L Potassium Level 4.5 Chloride Level 101 Carbon Dioxide Level 25 Anion Gap 8 Blood Urea Nitrogen 38 H Creatinine 6.30 H Glucose Level 82 # Calcium Level 7.5 L Medications Medications Current Medications Atorvastatin Calcium (Lipitor) 20 mg QHS PO Last administered on 01/13/17 20: 47; Admin Dose 20 MG; Start 01/05/17 at 21:00 Loratadine (Claritin) 10 mg DAILY PO Last administered on 01/14/17 08:38; Admin Dose 10 MG; Start 01/06/17 at 09:00 Pentoxifylline (Trental) 400 mg TID PO Last administered on 01/14/17 14:10; Admin Dose 400 MG; Start 01/05/17 at 13:00 Verapamil HCl (Isoptin Sr) 120 mg DAILY PO Last administered on 01/14/17 14:12 ; Admin Dose 120 MG; Start 01/05/17 at 11:00 Aspirin (Aspirin) 81 mg DAILY PO Last administered on 01/14/17 08:40; Admin Dose 81 MG; Start 01/06/17 at 09:00 Acetaminophen (Tylenol Tab) 650 mg Q6H PRN PO PAIN LEVEL 1-3 OR FEVER; Start at 12:00 Morphine Sulfate (morphine) 2 mg Q4H PRN IV PAIN LEVEL 7-10 Last administered on 01/12/17 15:37; Admin Dose 2 MG; Start 01/05/17 at 12:00 Docusate Sodium (Colace) 100 mg Q12H PRN PO CONSTIPATION; Start 01/05/17 at 12: 00 Famotidine (Pepcid) 20 mg DAILY PO Last administered on 01/14/17 08:38; Admin Dose 20 MG; Start 01/05/17 at 12:00 Hydralazine HCl (Apresoline) 50 mg QID PO Last administered on 01/14/17 17:27 ; Admin Dose 50 MG; Start 01/05/17 at 17:00 Hydralazine HCl (Apresoline) 10 mg Q4H PRN IV SBP>150 mmhg Last administered on 01/11/17 04:52; Admin Dose 10 MG; Start 01/05/17 at 17:00 Diagnostic Test (Pha) (Accu-Chek) 1 ea 02 XX ; Start 01/07/17 at 02:00 Miscellaneous Information 1 ea NOTE XX ; Start 01/06/17 at 21:30 Glucose (Glutose) 15 gm Q15M PRN PO DECREASED GLUCOSE; Start 01/06/17 at 21:30 Glucose (Glutose) 22.5 gm Q15M PRN PO DECREASED GLUCOSE; Start 01/06/17 at 21: 30 Dextrose (D50w Syringe) 25 ml Q15M PRN IV DECREASED GLUCOSE; Start 01/06/17 at 21:30 Dextrose (D50w Syringe) 50 ml Q15M PRN IV DECREASED GLUCOSE; Start 01/06/17 at 21:30 Glucagon (Glucagen) 1 mg Q15M PRN IM DECREASED GLUCOSE; Start 01/06/17 at 21:30 Glucose (Glutose) 15 gm Q15M PRN BUCCAL DECREASED GLUCOSE; Start 01/06/17 at 21 :30 Ondansetron HCl (Zofran Inj) 4 mg Q4H PRN IV NAUSEA AND/OR VOMITING Last administered on 01/10/17 14:48; Admin Dose 4 MG; Start 01/07/17 at 17:00 Metoclopramide HCl (Reglan) 5 mg Q6H PRN IV NAUSEA Last administered on 17:38; Admin Dose 5 MG; Start 01/07/17 at 17:30 Nitroglycerin (Nitroglycerin (Sl Tab) 0.4 Mg) 1 tab Q5M PRN SL ANGINA Last administered on 01/09/17 10:07; Admin Dose 1 TAB; Start 01/08/17 at 03:30 Isosorbide Mononitrate (Imdur) 60 mg DAILY PO Last administered on 01/14/17 14 :11; Admin Dose 60 MG; Start 01/08/17 at 09:00 Furosemide (Lasix) 20 mg DAILY PO Last administered on 01/13/17 08:46; Admin Dose 20 MG; Start 01/09/17 at 09:00 Carvedilol (Coreg) 6.25 mg BID PO Last administered on 01/13/17 20:46; Admin Dose 6.25 MG; Start 01/09/17 at 10:30 Hydromorphone HCl (Dilaudid) 0.5 mg Q4H PRN IV PAIN Last administered on 12:13; Admin Dose 0.5 MG; Start 01/11/17 at 11:30 Gabapentin (Neurontin) 100 mg BID PO Last administered on 01/14/17 08:38; Admin Dose 100 MG; Start 01/12/17 at 13:00 FREDDIE KEYS Jan 14, 2017 20:14
[2017-01-14] MEDS: ATORVASTATIN 20 MG TAB PO SCH (21:01)
[2017-01-15] VITALS (7 sets, daily range): BP systolic 94–156; BP diastolic 52–72; PULSE 68; RESP 18–21
[2017-01-15] MEDS: ACCU-CHEK XX SCH (02:00)
[2017-01-15] MEDS: LEVOTHYROXINE 100 MCG TAB PO SCH (06:08)
[2017-01-15 06:17] LABS: BASOPHILS % 0.2 % (0.0-2.0); EOSINOPHILS # 0.5 10^3/ul (0.0-0.5); EOSINOPHILS % 5.7 % (0.0-7.0); HEMATOCRIT 26.5 % (37.0-47.0); HEMOGLOBIN 8.5 g/dl (12.0-16.0); LYMPHOCYTES # 1.3 10^3/ul (0.8-2.9); LYMPHOCYTES % 13.8 % (15.0-51.0); MEAN CORPUSCULAR HEMOGLOBIN 28.9 pg (29.0-33.0); MEAN CORPUSCULAR HGB CONC 32.1 g/dl (32.0-37.0); MEAN CORPUSCULAR VOLUME 90.1 fl (82.0-101.0); MEAN PLATELET VOLUME 10.1 fl (7.4-10.4); MONOCYTE # 0.6 10^3/ul (0.3-0.9); MONOCYTES % 6.2 % (0.0-11.0); NEUTROPHIL # 6.7 10^3/ul (1.6-7.5); NEUTROPHILS % 73.3 % (39.0-77.0); PLATELET COUNT 303 10^3/UL (140-415); RED BLOOD COUNT 2.94 10^6/ul (4.20-5.40); RED CELL DISTRIBUTION WIDTH 13.3 % (11.5-14.5); WHITE BLOOD COUNT 9.2 10^3/ul (4.8-10.8)
[2017-01-15 06:37] LABS: CALCIUM 7.7 mg/dl (8.4-10.2); CREATININE 4.55 mg/dl (0.44-1.00); POTASSIUM 4.9 mmol/L (3.5-5.1)
[2017-01-15] MEDS: INSULIN ASPART [NOVOLOG] 3 ML PEN SC SCH ×4 (08:00→21:00)
[2017-01-15] MEDS: CALCIUM ACETATE 667 MG CAP PO SCH ×3 (08:02→16:56)
[2017-01-15] MEDS: PENTOXIFYLLINE (SR) 400 MG TAB PO SCH ×3 (08:37→21:27)
[2017-01-15] MEDS: VERAPAMIL (SR) 120 MG TAB PO SCH (08:37)
[2017-01-15] MEDS: FAMOTIDINE 20 MG TAB PO SCH (08:38)
[2017-01-15] MEDS: GABAPENTIN 100 MG CAP PO SCH ×2 (08:38→21:27)
[2017-01-15] MEDS: FUROSEMIDE 20 MG TAB PO SCH (08:39)
[2017-01-15] MEDS: LORATADINE 10 MG TAB PO SCH (08:39)
[2017-01-15] MEDS: ISOSORBIDE MONONITRATE(SR)60 MG TAB PO SCH (08:39)
[2017-01-15] MEDS: ASPIRIN 81 MG TAB PO SCH (08:39)
--- NOTE | 2017-01-15 13:00 | PN ---
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 Dr. Naidu is following patient in Nephrology consultation. Continue hemodialysis per nephrology. - Chest pain, acute coronary syndrome ruled out, troponin is negative 3, Lexiscan is negative for ischemia, preserved ejection fraction for per echo - Hypertensive urgency, continue hydralazine and verapamil. - Diabetes mellitus type II with hemoglobin A1c 6.5. Continue NovoLog per sliding scale - Hypothyroidism. Continue Synthroid. - Bilateral lower extremity edema. Preserved ejection fraction per echo. - Hyperlipidemia. Continue statin. Problems: Subjective 24 Hr Interval Summary Free Text/Dictation Patient has no complaints Exam/Review of Systems Vital Signs Vitals Vital Signs Date Time Temp Pulse Resp B/P Pulse Ox O2 Delivery O2 Flow Rate FiO2 01/15/17 12:57 68 99/54 01/15/17 08:00 98.1 21 94 01/13/17 20:00 Nasal Cannula 2.0 Intake and Output 01/14/17 01/14/17 01/15/17 15:00 23:00 07:00 Intake Total 500 ml 600 ml 340 ml Output Total 2500 ml Balance -2000 ml 600 ml 340 ml Exam Constitutional: well developed Head: atraumatic, normocephalic Neck: supple Respiratory: diminished breath sounds Cardiovascular: regular rate and rhythm Gastrointestinal: non-tender, soft Extremities: normal pulses Results Result Diagram: 01/15/17 0542 01/15/17 0542 Results 24 hrs Laboratory Tests Test 01/14/17 17:21 01/14/17 21:00 01/15/17 05:42 01/15/17 08:00 Bedside Glucose 131 125 132 White Blood Count 9.2 Red Blood Count 2.94 L Hemoglobin 8.5 L Hematocrit 26.5 L Mean Corpuscular Volume 90.1 Mean Corpuscular Hemoglobin 28.9 L Mean Corpuscular Hemoglobin Concent 32.1 Red Cell Distribution Width 13.3 Platelet Count 303 Mean Platelet Volume 10.1 Neutrophils % 73.3 Lymphocytes % 13.8 L Monocytes % 6.2 Eosinophils % 5.7 Basophils % 0.2 Nucleated Red Blood Cells % 0.0 Neutrophils # 6.7 Lymphocytes # 1.3 Monocytes # 0.6 Eosinophils # 0.5 Basophils # 0.0 Nucleated Red Blood Cells # 0.0 Sodium Level 136 Potassium Level 4.9 Chloride Level 105 Carbon Dioxide Level 29 Anion Gap 7 L Blood Urea Nitrogen 26 #H Creatinine 4.55 #H Glucose Level 134 # Calcium Level 7.7 L Test 01/15/17 11:42 Bedside Glucose 161 Medications Medications Current Medications Atorvastatin Calcium (Lipitor) 20 mg QHS PO Last administered on 01/14/17 21: 01; Admin Dose 20 MG; Start 01/05/17 at 21:00 Loratadine (Claritin) 10 mg DAILY PO Last administered on 01/15/17 08:39; Admin Dose 10 MG; Start 01/06/17 at 09:00 Pentoxifylline (Trental) 400 mg TID PO Last administered on 01/15/17 08:37; Admin Dose 400 MG; Start 01/05/17 at 13:00 Verapamil HCl (Isoptin Sr) 120 mg DAILY PO Last administered on 01/15/17 08:37 ; Admin Dose 120 MG; Start 01/05/17 at 11:00 Aspirin (Aspirin) 81 mg DAILY PO Last administered on 01/15/17 08:39; Admin Dose 81 MG; Start 01/06/17 at 09:00 Acetaminophen (Tylenol Tab) 650 mg Q6H PRN PO PAIN LEVEL 1-3 OR FEVER; Start at 12:00 Morphine Sulfate (morphine) 2 mg Q4H PRN IV PAIN LEVEL 7-10 Last administered on 01/12/17 15:37; Admin Dose 2 MG; Start 01/05/17 at 12:00 Docusate Sodium (Colace) 100 mg Q12H PRN PO CONSTIPATION; Start 01/05/17 at 12: 00 Famotidine (Pepcid) 20 mg DAILY PO Last administered on 01/15/17 08:38; Admin Dose 20 MG; Start 01/05/17 at 12:00 Hydralazine HCl (Apresoline) 50 mg QID PO Last administered on 01/15/17 08:38 ; Admin Dose 50 MG; Start 01/05/17 at 17:00 Hydralazine HCl (Apresoline) 10 mg Q4H PRN IV SBP>150 mmhg Last administered on 01/11/17 04:52; Admin Dose 10 MG; Start 01/05/17 at 17:00 Diagnostic Test (Pha) (Accu-Chek) 1 ea 02 XX ; Start 01/07/17 at 02:00 Miscellaneous Information 1 ea NOTE XX ; Start 01/06/17 at 21:30 Glucose (Glutose) 15 gm Q15M PRN PO DECREASED GLUCOSE; Start 01/06/17 at 21:30 Glucose (Glutose) 22.5 gm Q15M PRN PO DECREASED GLUCOSE; Start 01/06/17 at 21: 30 Dextrose (D50w Syringe) 25 ml Q15M PRN IV DECREASED GLUCOSE; Start 01/06/17 at 21:30 Dextrose (D50w Syringe) 50 ml Q15M PRN IV DECREASED GLUCOSE; Start 01/06/17 at 21:30 Glucagon (Glucagen) 1 mg Q15M PRN IM DECREASED GLUCOSE; Start 01/06/17 at 21:30 Glucose (Glutose) 15 gm Q15M PRN BUCCAL DECREASED GLUCOSE; Start 01/06/17 at 21 :30 Ondansetron HCl (Zofran Inj) 4 mg Q4H PRN IV NAUSEA AND/OR VOMITING Last administered on 01/10/17 14:48; Admin Dose 4 MG; Start 01/07/17 at 17:00 Metoclopramide HCl (Reglan) 5 mg Q6H PRN IV NAUSEA Last administered on 17:38; Admin Dose 5 MG; Start 01/07/17 at 17:30 Nitroglycerin (Nitroglycerin (Sl Tab) 0.4 Mg) 1 tab Q5M PRN SL ANGINA Last administered on 01/09/17 10:07; Admin Dose 1 TAB; Start 01/08/17 at 03:30 Isosorbide Mononitrate (Imdur) 60 mg DAILY PO Last administered on 01/15/17 08 :39; Admin Dose 60 MG; Start 01/08/17 at 09:00 Furosemide (Lasix) 20 mg DAILY PO Last administered on 01/15/17 08:39; Admin Dose 20 MG; Start 01/09/17 at 09:00 Carvedilol (Coreg) 6.25 mg BID PO Last administered on 01/15/17 08:38; Admin Dose 6.25 MG; Start 01/09/17 at 10:30 Hydromorphone HCl (Dilaudid) 0.5 mg Q4H PRN IV PAIN Last administered on 12:13; Admin Dose 0.5 MG; Start 01/11/17 at 11:30 Gabapentin (Neurontin) 100 mg BID PO Last administered on 01/15/17 08:38; Admin Dose 100 MG; Start 01/12/17 at 13:00 LUIZ LOZOYA Jan 15, 2017 13:00
--- NOTE | 2017-01-15 13:48 | CONS ---
Date/Time of Note Date/Time of Note DATE: 01/15/17 TIME: 13:43 Assessment/Plan Assessment/Plan Chief Complaint/Hosp Course IMP: 1.Chest pain-trop negative x 3/NL EF by echo this admit. Lexiscan this admit no ischemia/NL EF 2.HTN-low BP today, ? due to prior volume removal by HD 3.HL 4.Renal failure on HD 5. HYpothyroid 6.DM 7.PAD Recc: -serial ecg's -Continue coreg/imdur/verapamil and will make slight decrease to hydralazine given currently low BP and f/u -Continue daily PO lasix and follow creatnine/volume status closely -Continue asa/statin/imdur -HD for volume removal -pnding placement Problems: Consultation Date/Type/Reason Admit Date/Time Jan 05, 2017 at 09:43 Initial Consult Date 01/05/17 Type of Consultation: cardiology Reason for Consultation HTN Referring Provider: SILVIA IQBAL MD Exam/Review of Systems Vital Signs Vitals Vital Signs Date Time Temp Pulse Resp B/P Pulse Ox O2 Delivery O2 Flow Rate FiO2 01/15/17 12:57 68 99/54 01/15/17 08:00 98.1 21 94 01/13/17 20:00 Nasal Cannula 2.0 Intake and Output 01/14/17 01/14/17 01/15/17 15:00 23:00 07:00 Intake Total 500 ml 600 ml 340 ml Output Total 2500 ml Balance -2000 ml 600 ml 340 ml Exam Review of Systems: CONSTITUTIONAL: No fevers, chills. PULMONARY: No sob CARDIOVASCULAR: No chest pain/palpitations GASTROINTESTINAL: No nausea/vomiting. GENITOURINARY: No hematuria/dysuria. MUSCULOSKELETAL: No myagias/arthalgias. PSYCHIATRIC: The patient denies depression. NEUROLOGIC: CX/O general fatigue Constitutional: alert, oriented Psych: no complaints Head: normocephalic ENMT: mucosa pink and moist Neck: jvd (9 cm water), supple Respiratory: diminished breath sounds (at bases/B) Gastrointestinal: non-tender, soft Musculoskeletal: muscle tone (normal) Extremities: edema (trace/B) Neurological: other (some general weakness) Results Result Diagram: 01/15/17 0542 01/15/17 0542 Results 24 hrs Laboratory Tests Test 01/14/17 17:21 01/14/17 21:00 01/15/17 05:42 01/15/17 08:00 Bedside Glucose 131 125 132 White Blood Count 9.2 Red Blood Count 2.94 L Hemoglobin 8.5 L Hematocrit 26.5 L Mean Corpuscular Volume 90.1 Mean Corpuscular Hemoglobin 28.9 L Mean Corpuscular Hemoglobin Concent 32.1 Red Cell Distribution Width 13.3 Platelet Count 303 Mean Platelet Volume 10.1 Neutrophils % 73.3 Lymphocytes % 13.8 L Monocytes % 6.2 Eosinophils % 5.7 Basophils % 0.2 Nucleated Red Blood Cells % 0.0 Neutrophils # 6.7 Lymphocytes # 1.3 Monocytes # 0.6 Eosinophils # 0.5 Basophils # 0.0 Nucleated Red Blood Cells # 0.0 Sodium Level 136 Potassium Level 4.9 Chloride Level 105 Carbon Dioxide Level 29 Anion Gap 7 L Blood Urea Nitrogen 26 #H Creatinine 4.55 #H Glucose Level 134 # Calcium Level 7.7 L Test 01/15/17 11:42 Bedside Glucose 161 Medications Medications Current Medications Atorvastatin Calcium (Lipitor) 20 mg QHS PO Last administered on 01/14/17 21: 01; Admin Dose 20 MG; Start 01/05/17 at 21:00 Loratadine (Claritin) 10 mg DAILY PO Last administered on 01/15/17 08:39; Admin Dose 10 MG; Start 01/06/17 at 09:00 Pentoxifylline (Trental) 400 mg TID PO Last administered on 01/15/17 08:37; Admin Dose 400 MG; Start 01/05/17 at 13:00 Verapamil HCl (Isoptin Sr) 120 mg DAILY PO Last administered on 01/15/17 08:37 ; Admin Dose 120 MG; Start 01/05/17 at 11:00 Aspirin (Aspirin) 81 mg DAILY PO Last administered on 01/15/17 08:39; Admin Dose 81 MG; Start 01/06/17 at 09:00 Acetaminophen (Tylenol Tab) 650 mg Q6H PRN PO PAIN LEVEL 1-3 OR FEVER; Start at 12:00 Morphine Sulfate (morphine) 2 mg Q4H PRN IV PAIN LEVEL 7-10 Last administered on 01/12/17 15:37; Admin Dose 2 MG; Start 01/05/17 at 12:00 Docusate Sodium (Colace) 100 mg Q12H PRN PO CONSTIPATION; Start 01/05/17 at 12: 00 Famotidine (Pepcid) 20 mg DAILY PO Last administered on 01/15/17 08:38; Admin Dose 20 MG; Start 01/05/17 at 12:00 Hydralazine HCl (Apresoline) 50 mg QID PO Last administered on 01/15/17 08:38 ; Admin Dose 50 MG; Start 01/05/17 at 17:00 Hydralazine HCl (Apresoline) 10 mg Q4H PRN IV SBP>150 mmhg Last administered on 01/11/17 04:52; Admin Dose 10 MG; Start 01/05/17 at 17:00 Diagnostic Test (Pha) (Accu-Chek) 1 ea 02 XX ; Start 01/07/17 at 02:00 Miscellaneous Information 1 ea NOTE XX ; Start 01/06/17 at 21:30 Glucose (Glutose) 15 gm Q15M PRN PO DECREASED GLUCOSE; Start 01/06/17 at 21:30 Glucose (Glutose) 22.5 gm Q15M PRN PO DECREASED GLUCOSE; Start 01/06/17 at 21: 30 Dextrose (D50w Syringe) 25 ml Q15M PRN IV DECREASED GLUCOSE; Start 01/06/17 at 21:30 Dextrose (D50w Syringe) 50 ml Q15M PRN IV DECREASED GLUCOSE; Start 01/06/17 at 21:30 Glucagon (Glucagen) 1 mg Q15M PRN IM DECREASED GLUCOSE; Start 01/06/17 at 21:30 Glucose (Glutose) 15 gm Q15M PRN BUCCAL DECREASED GLUCOSE; Start 01/06/17 at 21 :30 Ondansetron HCl (Zofran Inj) 4 mg Q4H PRN IV NAUSEA AND/OR VOMITING Last administered on 01/10/17 14:48; Admin Dose 4 MG; Start 01/07/17 at 17:00 Metoclopramide HCl (Reglan) 5 mg Q6H PRN IV NAUSEA Last administered on 17:38; Admin Dose 5 MG; Start 01/07/17 at 17:30 Nitroglycerin (Nitroglycerin (Sl Tab) 0.4 Mg) 1 tab Q5M PRN SL ANGINA Last administered on 01/09/17 10:07; Admin Dose 1 TAB; Start 01/08/17 at 03:30 Isosorbide Mononitrate (Imdur) 60 mg DAILY PO Last administered on 01/15/17 08 :39; Admin Dose 60 MG; Start 01/08/17 at 09:00 Furosemide (Lasix) 20 mg DAILY PO Last administered on 01/15/17 08:39; Admin Dose 20 MG; Start 01/09/17 at 09:00 Carvedilol (Coreg) 6.25 mg BID PO Last administered on 01/15/17 08:38; Admin Dose 6.25 MG; Start 01/09/17 at 10:30 Hydromorphone HCl (Dilaudid) 0.5 mg Q4H PRN IV PAIN Last administered on 12:13; Admin Dose 0.5 MG; Start 01/11/17 at 11:30 Gabapentin (Neurontin) 100 mg BID PO Last administered on 01/15/17 08:38; Admin Dose 100 MG; Start 01/12/17 at 13:00 KERRY RIZO Jan 15, 2017 13:48
[2017-01-15] MEDS ORDERED: SOD CHLORIDE 0.9% 250 ML IV ONE (14:00)
--- NOTE | 2017-01-15 16:07 | CONS ---
Date/Time of Note Date/Time of Note DATE: 01/15/17 TIME: 16:03 Assessment/Plan Assessment/Plan Additional Assessment/Plan 1. Acute Kidney injury on CKD worsening to CKD V- progressed to ESRD- with symptoms of uremia 2. acute fluid overload with Anasarca 3. 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 Hypertension - not well controlled 5. Diabetes mellitus 6. hyperlipidemia 7. hypothyroidism 8. Anemia- monitor H/H Plan : - pt started on HD during this admission- Hepatitis panel, HIV negative, outpatient HD placement requested - pt can not go to HD center in early AM- her is blind so he can not drive in Dark. she has to be set up at HD unit for Dialysis time after 7 am and Before 7 pm because and cant see in dark. -Lexiscan negative -no HD today -Renal US c/w medical renal disease. -continue verapamil, lasix 20mg po daily -will continue to follow up - Igor Luque Consultation Date/Type/Reason Admit Date/Time Jan 05, 2017 at 09:43 Initial Consult Date 01/05/17 Type of Consultation: cardiology Referring Provider: SILVIA IQBAL MD 24 HR Interval Summary Free Text/Dictation bp was low , sp IVF per Dr Padilla, Cr 4,5, dw staff, family at bed side- all Qs answered. Constitutional: requiring IVF Exam/Review of Systems Vital Signs Vitals Vital Signs Date Time Temp Pulse Resp B/P Pulse Ox O2 Delivery O2 Flow Rate FiO2 01/15/17 15:01 68 98/60 01/15/17 08:00 98.1 21 94 01/13/17 20:00 Nasal Cannula 2.0 Intake and Output 01/14/17 01/14/17 01/15/17 15:00 23:00 07:00 Intake Total 500 ml 600 ml 340 ml Output Total 2500 ml Balance -2000 ml 600 ml 340 ml Exam Constitutional: alert, oriented, well developed Respiratory: clear to auscultation, diminished breath sounds Cardiovascular: regular rate and rhythm Gastrointestinal: non-tender, soft Musculoskeletal: nl extremities to inspection Extremities: normal pulses Neurological: nl speech Results Result Diagram: 01/15/17 0542 01/15/17 0542 Results 24 hrs Laboratory Tests Test 01/14/17 17:21 01/14/17 21:00 01/15/17 05:42 01/15/17 08:00 Bedside Glucose 131 125 132 White Blood Count 9.2 Red Blood Count 2.94 L Hemoglobin 8.5 L Hematocrit 26.5 L Mean Corpuscular Volume 90.1 Mean Corpuscular Hemoglobin 28.9 L Mean Corpuscular Hemoglobin Concent 32.1 Red Cell Distribution Width 13.3 Platelet Count 303 Mean Platelet Volume 10.1 Neutrophils % 73.3 Lymphocytes % 13.8 L Monocytes % 6.2 Eosinophils % 5.7 Basophils % 0.2 Nucleated Red Blood Cells % 0.0 Neutrophils # 6.7 Lymphocytes # 1.3 Monocytes # 0.6 Eosinophils # 0.5 Basophils # 0.0 Nucleated Red Blood Cells # 0.0 Sodium Level 136 Potassium Level 4.9 Chloride Level 105 Carbon Dioxide Level 29 Anion Gap 7 L Blood Urea Nitrogen 26 #H Creatinine 4.55 #H Glucose Level 134 # Calcium Level 7.7 L Test 01/15/17 11:42 Bedside Glucose 161 Medications Medications Current Medications Atorvastatin Calcium (Lipitor) 20 mg QHS PO Last administered on 01/14/17 21: 01; Admin Dose 20 MG; Start 01/05/17 at 21:00 Loratadine (Claritin) 10 mg DAILY PO Last administered on 01/15/17 08:39; Admin Dose 10 MG; Start 01/06/17 at 09:00 Pentoxifylline (Trental) 400 mg TID PO Last administered on 01/15/17 08:37; Admin Dose 400 MG; Start 01/05/17 at 13:00 Verapamil HCl (Isoptin Sr) 120 mg DAILY PO Last administered on 01/15/17 08:37 ; Admin Dose 120 MG; Start 01/05/17 at 11:00 Aspirin (Aspirin) 81 mg DAILY PO Last administered on 01/15/17 08:39; Admin Dose 81 MG; Start 01/06/17 at 09:00 Acetaminophen (Tylenol Tab) 650 mg Q6H PRN PO PAIN LEVEL 1-3 OR FEVER; Start at 12:00 Morphine Sulfate (morphine) 2 mg Q4H PRN IV PAIN LEVEL 7-10 Last administered on 01/12/17 15:37; Admin Dose 2 MG; Start 01/05/17 at 12:00 Docusate Sodium (Colace) 100 mg Q12H PRN PO CONSTIPATION; Start 01/05/17 at 12: 00 Famotidine (Pepcid) 20 mg DAILY PO Last administered on 01/15/17 08:38; Admin Dose 20 MG; Start 01/05/17 at 12:00 Hydralazine HCl (Apresoline) 10 mg Q4H PRN IV SBP>150 mmhg Last administered on 01/11/17 04:52; Admin Dose 10 MG; Start 01/05/17 at 17:00 Diagnostic Test (Pha) (Accu-Chek) 1 ea 02 XX ; Start 01/07/17 at 02:00 Miscellaneous Information 1 ea NOTE XX ; Start 01/06/17 at 21:30 Glucose (Glutose) 15 gm Q15M PRN PO DECREASED GLUCOSE; Start 01/06/17 at 21:30 Glucose (Glutose) 22.5 gm Q15M PRN PO DECREASED GLUCOSE; Start 01/06/17 at 21: 30 Dextrose (D50w Syringe) 25 ml Q15M PRN IV DECREASED GLUCOSE; Start 01/06/17 at 21:30 Dextrose (D50w Syringe) 50 ml Q15M PRN IV DECREASED GLUCOSE; Start 01/06/17 at 21:30 Glucagon (Glucagen) 1 mg Q15M PRN IM DECREASED GLUCOSE; Start 01/06/17 at 21:30 Glucose (Glutose) 15 gm Q15M PRN BUCCAL DECREASED GLUCOSE; Start 01/06/17 at 21 :30 Ondansetron HCl (Zofran Inj) 4 mg Q4H PRN IV NAUSEA AND/OR VOMITING Last administered on 01/10/17 14:48; Admin Dose 4 MG; Start 01/07/17 at 17:00 Metoclopramide HCl (Reglan) 5 mg Q6H PRN IV NAUSEA Last administered on 17:38; Admin Dose 5 MG; Start 01/07/17 at 17:30 Nitroglycerin (Nitroglycerin (Sl Tab) 0.4 Mg) 1 tab Q5M PRN SL ANGINA Last administered on 01/09/17 10:07; Admin Dose 1 TAB; Start 01/08/17 at 03:30 Isosorbide Mononitrate (Imdur) 60 mg DAILY PO Last administered on 01/15/17 08 :39; Admin Dose 60 MG; Start 01/08/17 at 09:00 Furosemide (Lasix) 20 mg DAILY PO Last administered on 01/15/17 08:39; Admin Dose 20 MG; Start 01/09/17 at 09:00 Carvedilol (Coreg) 6.25 mg BID PO Last administered on 01/15/17 08:38; Admin Dose 6.25 MG; Start 01/09/17 at 10:30 Hydromorphone HCl (Dilaudid) 0.5 mg Q4H PRN IV PAIN Last administered on 12:13; Admin Dose 0.5 MG; Start 01/11/17 at 11:30 Gabapentin (Neurontin) 100 mg BID PO Last administered on 01/15/17 08:38; Admin Dose 100 MG; Start 01/12/17 at 13:00 Hydralazine HCl (Apresoline) 50 mg Q8 PO ; Start 01/15/17 at 14:00 WALE RIBEIRO Jan 15, 2017 16:07
[2017-01-15] MEDS: ATORVASTATIN 20 MG TAB PO SCH (21:27)
[2017-01-16] VITALS (8 sets, daily range): BP systolic 123–172; BP diastolic 57–83; PULSE 80–84; RESP 18–20
[2017-01-16] MEDS: ACCU-CHEK XX SCH (02:00)
[2017-01-16] MEDS: LEVOTHYROXINE 100 MCG TAB PO SCH (06:00)
[2017-01-16] MEDS: INSULIN ASPART [NOVOLOG] 3 ML PEN SC SCH ×4 (07:48→20:01)
[2017-01-16] MEDS: CALCIUM ACETATE 667 MG CAP PO SCH ×3 (07:50→17:30)
[2017-01-16] MEDS: GABAPENTIN 100 MG CAP PO SCH ×2 (08:42→20:01)
[2017-01-16] MEDS: FUROSEMIDE 20 MG TAB PO SCH (08:42)
[2017-01-16] MEDS: LORATADINE 10 MG TAB PO SCH (08:42)
[2017-01-16] MEDS: FAMOTIDINE 20 MG TAB PO SCH (08:42)
[2017-01-16] MEDS: PENTOXIFYLLINE (SR) 400 MG TAB PO SCH ×3 (08:42→20:01)
[2017-01-16] MEDS: ASPIRIN 81 MG TAB PO SCH (08:42)
[2017-01-16] MEDS: VERAPAMIL (SR) 120 MG TAB PO SCH ×2 (09:00→11:39)
[2017-01-16] MEDS: ISOSORBIDE MONONITRATE(SR)60 MG TAB PO SCH (10:01)
--- NOTE | 2017-01-16 11:21 | PN ---
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 Dr. Naidu is following patient in Nephrology consultation. Continue hemodialysis per nephrology. - Chest pain, acute coronary syndrome ruled out, troponin is negative 3, Lexiscan is negative for ischemia, preserved ejection fraction for per echo - Hypertensive urgency, continue hydralazine and verapamil. - Diabetes mellitus type II with hemoglobin A1c 6.5. Continue NovoLog per sliding scale - Hypothyroidism. Continue Synthroid. - Bilateral lower extremity edema. Preserved ejection fraction per echo. - Hyperlipidemia. Continue statin. Problems: Subjective 24 Hr Interval Summary Free Text/Dictation Patient has no complaints Exam/Review of Systems Vital Signs Vitals Vital Signs Date Time Temp Pulse Resp B/P Pulse Ox O2 Delivery O2 Flow Rate FiO2 01/16/17 10:00 81 151/71 01/16/17 08:00 98.1 18 97 01/13/17 20:00 Nasal Cannula 2.0 Intake and Output 01/15/17 01/15/17 01/16/17 15:00 23:00 07:00 Intake Total 250 ml 800 ml 350 ml Balance 250 ml 800 ml 350 ml Exam Constitutional: well developed Head: atraumatic, normocephalic Neck: supple Respiratory: diminished breath sounds Cardiovascular: regular rate and rhythm Gastrointestinal: non-tender, soft Extremities: normal pulses Results Result Diagram: 01/15/17 0542 01/15/17 0542 Results 24 hrs Laboratory Tests Test 01/15/17 11:42 01/15/17 16:52 01/15/17 21:33 01/16/17 07:47 Bedside Glucose 161 210 154 115 Medications Medications Current Medications Atorvastatin Calcium (Lipitor) 20 mg QHS PO Last administered on 01/15/17 21: 27; Admin Dose 20 MG; Start 01/05/17 at 21:00 Loratadine (Claritin) 10 mg DAILY PO Last administered on 01/16/17 08:42; Admin Dose 10 MG; Start 01/06/17 at 09:00 Pentoxifylline (Trental) 400 mg TID PO Last administered on 01/16/17 08:42; Admin Dose 400 MG; Start 01/05/17 at 13:00 Verapamil HCl (Isoptin Sr) 120 mg DAILY PO Last administered on 01/15/17 08:37 ; Admin Dose 120 MG; Start 01/05/17 at 11:00 Aspirin (Aspirin) 81 mg DAILY PO Last administered on 01/16/17 08:42; Admin Dose 81 MG; Start 01/06/17 at 09:00 Acetaminophen (Tylenol Tab) 650 mg Q6H PRN PO PAIN LEVEL 1-3 OR FEVER; Start at 12:00 Morphine Sulfate (morphine) 2 mg Q4H PRN IV PAIN LEVEL 7-10 Last administered on 01/12/17 15:37; Admin Dose 2 MG; Start 01/05/17 at 12:00 Docusate Sodium (Colace) 100 mg Q12H PRN PO CONSTIPATION; Start 01/05/17 at 12: 00 Famotidine (Pepcid) 20 mg DAILY PO Last administered on 01/16/17 08:42; Admin Dose 20 MG; Start 01/05/17 at 12:00 Hydralazine HCl (Apresoline) 10 mg Q4H PRN IV SBP>150 mmhg Last administered on 01/11/17 04:52; Admin Dose 10 MG; Start 01/05/17 at 17:00 Diagnostic Test (Pha) (Accu-Chek) 1 ea 02 XX ; Start 01/07/17 at 02:00 Miscellaneous Information 1 ea NOTE XX ; Start 01/06/17 at 21:30 Glucose (Glutose) 15 gm Q15M PRN PO DECREASED GLUCOSE; Start 01/06/17 at 21:30 Glucose (Glutose) 22.5 gm Q15M PRN PO DECREASED GLUCOSE; Start 01/06/17 at 21: 30 Dextrose (D50w Syringe) 25 ml Q15M PRN IV DECREASED GLUCOSE; Start 01/06/17 at 21:30 Dextrose (D50w Syringe) 50 ml Q15M PRN IV DECREASED GLUCOSE; Start 01/06/17 at 21:30 Glucagon (Glucagen) 1 mg Q15M PRN IM DECREASED GLUCOSE; Start 01/06/17 at 21:30 Glucose (Glutose) 15 gm Q15M PRN BUCCAL DECREASED GLUCOSE; Start 01/06/17 at 21 :30 Ondansetron HCl (Zofran Inj) 4 mg Q4H PRN IV NAUSEA AND/OR VOMITING Last administered on 01/10/17 14:48; Admin Dose 4 MG; Start 01/07/17 at 17:00 Metoclopramide HCl (Reglan) 5 mg Q6H PRN IV NAUSEA Last administered on 17:38; Admin Dose 5 MG; Start 01/07/17 at 17:30 Nitroglycerin (Nitroglycerin (Sl Tab) 0.4 Mg) 1 tab Q5M PRN SL ANGINA Last administered on 01/09/17 10:07; Admin Dose 1 TAB; Start 01/08/17 at 03:30 Isosorbide Mononitrate (Imdur) 60 mg DAILY PO Last administered on 01/16/17 10 :01; Admin Dose 60 MG; Start 01/08/17 at 09:00 Furosemide (Lasix) 20 mg DAILY PO Last administered on 01/16/17 08:42; Admin Dose 20 MG; Start 01/09/17 at 09:00 Carvedilol (Coreg) 6.25 mg BID PO Last administered on 01/16/17 10:01; Admin Dose 6.25 MG; Start 01/09/17 at 10:30 Hydromorphone HCl (Dilaudid) 0.5 mg Q4H PRN IV PAIN Last administered on 12:13; Admin Dose 0.5 MG; Start 01/11/17 at 11:30 Gabapentin (Neurontin) 100 mg BID PO Last administered on 01/16/17 08:42; Admin Dose 100 MG; Start 01/12/17 at 13:00 Hydralazine HCl (Apresoline) 50 mg Q8 PO ; Start 01/15/17 at 14:00 LUIZ LOZOYA Jan 16, 2017 11:21
--- NOTE | 2017-01-16 13:15 | CONS ---
Date/Time of Note Date/Time of Note DATE: 01/16/17 TIME: 13:14 Assessment/Plan Assessment/Plan Additional Assessment/Plan Hypotension- improved. BP 123/68. 1. Acute Kidney injury on CKD worsening to CKD V- progressed to ESRD- with symptoms of uremia 2. acute fluid overload with Anasarca 3. 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 Hypertension - not well controlled 5. Diabetes mellitus 6. hyperlipidemia 7. hypothyroidism 8. Anemia- monitor H/H Plan : - pt started on HD during this admission- Hepatitis panel, HIV negative, outpatient HD placement requested - pt can not go to HD center in early AM- her is blind so he can not drive in Dark. she has to be set up at HD unit for Dialysis time after 7 am and Before 7 pm because and cant see in dark. -Lexiscan negative -no HD today -Renal US c/w medical renal disease. -continue verapamil, lasix 20mg po daily -will continue to follow up - Igor Luque Consultation Date/Type/Reason Admit Date/Time Jan 05, 2017 at 09:43 Initial Consult Date 01/05/17 Type of Consultation: cardiology Referring Provider: SILVIA IQBAL MD 24 HR Interval Summary Constitutional: improved Detailed Summary Respiratory: no complaints Cardiovascular: no complaints Gastrointestinal: no complaints Genitourinary: no complaints Musculoskeletal: no complaints Exam/Review of Systems Vital Signs Vitals Vital Signs Date Time Temp Pulse Resp B/P Pulse Ox O2 Delivery O2 Flow Rate FiO2 01/16/17 11:41 80 142/70 01/16/17 08:00 98.1 18 97 01/13/17 20:00 Nasal Cannula 2.0 Intake and Output 01/15/17 01/15/17 01/16/17 15:00 23:00 07:00 Intake Total 250 ml 800 ml 350 ml Balance 250 ml 800 ml 350 ml Exam bp satble, afbrile, no new complainys per staff- Constitutional: alert, oriented, well developed Cardiovascular: nl pulses, regular rate and rhythm Gastrointestinal: soft Musculoskeletal: nl extremities to inspection Extremities: normal pulses Neurological: nl mental status, nl speech Results Result Diagram: 01/15/17 0542 01/15/17 0542 Results 24 hrs Laboratory Tests Test 01/15/17 16:52 01/15/17 21:33 01/16/17 07:47 01/16/17 11:27 Bedside Glucose 210 154 115 201 Medications Medications Current Medications Atorvastatin Calcium (Lipitor) 20 mg QHS PO Last administered on 01/15/17 21: 27; Admin Dose 20 MG; Start 01/05/17 at 21:00 Loratadine (Claritin) 10 mg DAILY PO Last administered on 01/16/17 08:42; Admin Dose 10 MG; Start 01/06/17 at 09:00 Pentoxifylline (Trental) 400 mg TID PO Last administered on 01/16/17 08:42; Admin Dose 400 MG; Start 01/05/17 at 13:00 Verapamil HCl (Isoptin Sr) 120 mg DAILY PO Last administered on 01/16/17 11:39 ; Admin Dose 120 MG; Start 01/05/17 at 11:00 Aspirin (Aspirin) 81 mg DAILY PO Last administered on 01/16/17 08:42; Admin Dose 81 MG; Start 01/06/17 at 09:00 Acetaminophen (Tylenol Tab) 650 mg Q6H PRN PO PAIN LEVEL 1-3 OR FEVER; Start at 12:00 Morphine Sulfate (morphine) 2 mg Q4H PRN IV PAIN LEVEL 7-10 Last administered on 01/12/17 15:37; Admin Dose 2 MG; Start 01/05/17 at 12:00 Docusate Sodium (Colace) 100 mg Q12H PRN PO CONSTIPATION; Start 01/05/17 at 12: 00 Famotidine (Pepcid) 20 mg DAILY PO Last administered on 01/16/17 08:42; Admin Dose 20 MG; Start 01/05/17 at 12:00 Hydralazine HCl (Apresoline) 10 mg Q4H PRN IV SBP>150 mmhg Last administered on 01/11/17 04:52; Admin Dose 10 MG; Start 01/05/17 at 17:00 Diagnostic Test (Pha) (Accu-Chek) 1 ea 02 XX ; Start 01/07/17 at 02:00 Miscellaneous Information 1 ea NOTE XX ; Start 01/06/17 at 21:30 Glucose (Glutose) 15 gm Q15M PRN PO DECREASED GLUCOSE; Start 01/06/17 at 21:30 Glucose (Glutose) 22.5 gm Q15M PRN PO DECREASED GLUCOSE; Start 01/06/17 at 21: 30 Dextrose (D50w Syringe) 25 ml Q15M PRN IV DECREASED GLUCOSE; Start 01/06/17 at 21:30 Dextrose (D50w Syringe) 50 ml Q15M PRN IV DECREASED GLUCOSE; Start 01/06/17 at 21:30 Glucagon (Glucagen) 1 mg Q15M PRN IM DECREASED GLUCOSE; Start 01/06/17 at 21:30 Glucose (Glutose) 15 gm Q15M PRN BUCCAL DECREASED GLUCOSE; Start 01/06/17 at 21 :30 Ondansetron HCl (Zofran Inj) 4 mg Q4H PRN IV NAUSEA AND/OR VOMITING Last administered on 01/10/17 14:48; Admin Dose 4 MG; Start 01/07/17 at 17:00 Metoclopramide HCl (Reglan) 5 mg Q6H PRN IV NAUSEA Last administered on 17:38; Admin Dose 5 MG; Start 01/07/17 at 17:30 Nitroglycerin (Nitroglycerin (Sl Tab) 0.4 Mg) 1 tab Q5M PRN SL ANGINA Last administered on 01/09/17 10:07; Admin Dose 1 TAB; Start 01/08/17 at 03:30 Isosorbide Mononitrate (Imdur) 60 mg DAILY PO Last administered on 01/16/17 10 :01; Admin Dose 60 MG; Start 01/08/17 at 09:00 Furosemide (Lasix) 20 mg DAILY PO Last administered on 01/16/17 08:42; Admin Dose 20 MG; Start 01/09/17 at 09:00 Carvedilol (Coreg) 6.25 mg BID PO Last administered on 01/16/17 10:01; Admin Dose 6.25 MG; Start 01/09/17 at 10:30 Hydromorphone HCl (Dilaudid) 0.5 mg Q4H PRN IV PAIN Last administered on 12:13; Admin Dose 0.5 MG; Start 01/11/17 at 11:30 Gabapentin (Neurontin) 100 mg BID PO Last administered on 01/16/17 08:42; Admin Dose 100 MG; Start 01/12/17 at 13:00 Hydralazine HCl (Apresoline) 50 mg Q8 PO ; Start 01/15/17 at 14:00 WALE RIBEIRO Jan 16, 2017 13:15
--- NOTE | 2017-01-16 13:46 | CONS ---
Date/Time of Note Date/Time of Note DATE: 01/16/17 TIME: 13:43 Assessment/Plan Assessment/Plan Chief Complaint/Hosp Course IMP: 1.Chest pain-trop negative x 3/NL EF by echo this admit. Lexiscan this admit no ischemia/NL EF 2.HTN-low BP today, ? due to prior volume removal by HD 3.HL 4.Renal failure on HD 5. HYpothyroid 6.DM 7.PAD Recc: -serial ecg's -Continue coreg/imdur/verapamil and will make further slight decrease to hydralazine as again held today -Continue daily PO lasix and follow creatnine/volume status closely -Continue asa/statin/imdur -HD for volume removal -pnding placement -lethargic/somnolent today-? received any sedative Problems: Consultation Date/Type/Reason Admit Date/Time Jan 05, 2017 at 09:43 Initial Consult Date 01/05/17 Type of Consultation: cardiology Reason for Consultation Chest pain/HTN Referring Provider: SILVIA IQBAL MD Exam/Review of Systems Vital Signs Vitals Vital Signs Date Time Temp Pulse Resp B/P Pulse Ox O2 Delivery O2 Flow Rate FiO2 01/16/17 12:30 80 123/68 01/16/17 08:00 98.1 18 97 01/13/17 20:00 Nasal Cannula 2.0 Intake and Output 01/15/17 01/15/17 01/16/17 15:00 23:00 07:00 Intake Total 250 ml 800 ml 350 ml Balance 250 ml 800 ml 350 ml Exam Review of Systems: CONSTITUTIONAL: No fevers, chills. PULMONARY: No sob CARDIOVASCULAR: No chest pain/palpitations GASTROINTESTINAL: No nausea/vomiting. GENITOURINARY: No hematuria/dysuria. MUSCULOSKELETAL: No myagias/arthalgias. PSYCHIATRIC: The patient denies depression. NEUROLOGIC: lethargic Constitutional: other (sleepig) Psych: no complaints Head: normocephalic ENMT: mucosa pink and moist Neck: jvd (9 cm water), supple Respiratory: diminished breath sounds Cardiovascular: regular rate and rhythm Gastrointestinal: non-tender, soft Musculoskeletal: muscle tone (normal) Extremities: edema (none) Neurological: lethargic Results Result Diagram: 01/15/17 0542 01/15/17 0542 Results 24 hrs Laboratory Tests Test 01/15/17 16:52 01/15/17 21:33 01/16/17 07:47 01/16/17 11:27 Bedside Glucose 210 154 115 201 Medications Medications Current Medications Atorvastatin Calcium (Lipitor) 20 mg QHS PO Last administered on 01/15/17 21: 27; Admin Dose 20 MG; Start 01/05/17 at 21:00 Loratadine (Claritin) 10 mg DAILY PO Last administered on 01/16/17 08:42; Admin Dose 10 MG; Start 01/06/17 at 09:00 Pentoxifylline (Trental) 400 mg TID PO Last administered on 01/16/17 13:38; Admin Dose 400 MG; Start 01/05/17 at 13:00 Verapamil HCl (Isoptin Sr) 120 mg DAILY PO Last administered on 01/16/17 11:39 ; Admin Dose 120 MG; Start 01/05/17 at 11:00 Aspirin (Aspirin) 81 mg DAILY PO Last administered on 01/16/17 08:42; Admin Dose 81 MG; Start 01/06/17 at 09:00 Acetaminophen (Tylenol Tab) 650 mg Q6H PRN PO PAIN LEVEL 1-3 OR FEVER; Start at 12:00 Morphine Sulfate (morphine) 2 mg Q4H PRN IV PAIN LEVEL 7-10 Last administered on 01/12/17 15:37; Admin Dose 2 MG; Start 01/05/17 at 12:00 Docusate Sodium (Colace) 100 mg Q12H PRN PO CONSTIPATION; Start 01/05/17 at 12: 00 Famotidine (Pepcid) 20 mg DAILY PO Last administered on 01/16/17 08:42; Admin Dose 20 MG; Start 01/05/17 at 12:00 Hydralazine HCl (Apresoline) 10 mg Q4H PRN IV SBP>150 mmhg Last administered on 01/11/17 04:52; Admin Dose 10 MG; Start 01/05/17 at 17:00 Diagnostic Test (Pha) (Accu-Chek) 1 ea 02 XX ; Start 01/07/17 at 02:00 Miscellaneous Information 1 ea NOTE XX ; Start 01/06/17 at 21:30 Glucose (Glutose) 15 gm Q15M PRN PO DECREASED GLUCOSE; Start 01/06/17 at 21:30 Glucose (Glutose) 22.5 gm Q15M PRN PO DECREASED GLUCOSE; Start 01/06/17 at 21: 30 Dextrose (D50w Syringe) 25 ml Q15M PRN IV DECREASED GLUCOSE; Start 01/06/17 at 21:30 Dextrose (D50w Syringe) 50 ml Q15M PRN IV DECREASED GLUCOSE; Start 01/06/17 at 21:30 Glucagon (Glucagen) 1 mg Q15M PRN IM DECREASED GLUCOSE; Start 01/06/17 at 21:30 Glucose (Glutose) 15 gm Q15M PRN BUCCAL DECREASED GLUCOSE; Start 01/06/17 at 21 :30 Ondansetron HCl (Zofran Inj) 4 mg Q4H PRN IV NAUSEA AND/OR VOMITING Last administered on 01/10/17 14:48; Admin Dose 4 MG; Start 01/07/17 at 17:00 Metoclopramide HCl (Reglan) 5 mg Q6H PRN IV NAUSEA Last administered on 17:38; Admin Dose 5 MG; Start 01/07/17 at 17:30 Nitroglycerin (Nitroglycerin (Sl Tab) 0.4 Mg) 1 tab Q5M PRN SL ANGINA Last administered on 01/09/17 10:07; Admin Dose 1 TAB; Start 01/08/17 at 03:30 Isosorbide Mononitrate (Imdur) 60 mg DAILY PO Last administered on 01/16/17 10 :01; Admin Dose 60 MG; Start 01/08/17 at 09:00 Furosemide (Lasix) 20 mg DAILY PO Last administered on 01/16/17 08:42; Admin Dose 20 MG; Start 01/09/17 at 09:00 Carvedilol (Coreg) 6.25 mg BID PO Last administered on 01/16/17 10:01; Admin Dose 6.25 MG; Start 01/09/17 at 10:30 Hydromorphone HCl (Dilaudid) 0.5 mg Q4H PRN IV PAIN Last administered on 12:13; Admin Dose 0.5 MG; Start 01/11/17 at 11:30 Gabapentin (Neurontin) 100 mg BID PO Last administered on 01/16/17 08:42; Admin Dose 100 MG; Start 01/12/17 at 13:00 Hydralazine HCl (Apresoline) 50 mg Q8 PO ; Start 01/15/17 at 14:00 KERRY RIZO Jan 16, 2017 13:45
[2017-01-16] MEDS: ATORVASTATIN 20 MG TAB PO SCH (20:00)
[2017-01-17] VITALS (14 sets, daily range): BP systolic 120–166; BP diastolic 59–80; PULSE 75–88; RESP 18–19
[2017-01-17] MEDS: ACCU-CHEK XX SCH (02:00)
[2017-01-17 05:28] LABS: BASOPHILS % 0.3 % (0.0-2.0); EOSINOPHILS # 0.7 10^3/ul (0.0-0.5); EOSINOPHILS % 5.9 % (0.0-7.0); HEMATOCRIT 24.7 % (37.0-47.0); HEMOGLOBIN 7.7 g/dl (12.0-16.0); LYMPHOCYTES # 1.7 10^3/ul (0.8-2.9); LYMPHOCYTES % 15.5 % (15.0-51.0); MEAN CORPUSCULAR HEMOGLOBIN 27.9 pg (29.0-33.0); MEAN CORPUSCULAR HGB CONC 31.2 g/dl (32.0-37.0); MEAN CORPUSCULAR VOLUME 89.5 fl (82.0-101.0); MEAN PLATELET VOLUME 9.7 fl (7.4-10.4); MONOCYTE # 0.8 10^3/ul (0.3-0.9); MONOCYTES % 6.9 % (0.0-11.0); NEUTROPHIL # 7.9 10^3/ul (1.6-7.5); NEUTROPHILS % 70.8 % (39.0-77.0); PLATELET COUNT 300 10^3/UL (140-415); RED BLOOD COUNT 2.76 10^6/ul (4.20-5.40); RED CELL DISTRIBUTION WIDTH 13.2 % (11.5-14.5); WHITE BLOOD COUNT 11.2 10^3/ul (4.8-10.8)
[2017-01-17 05:49] LABS: CALCIUM 7.3 mg/dl (8.4-10.2); POTASSIUM 4.5 mmol/L (3.5-5.1)
[2017-01-17] MEDS: LEVOTHYROXINE 100 MCG TAB PO SCH (06:33)
[2017-01-17] MEDS: LORATADINE 10 MG TAB PO SCH (08:22)
[2017-01-17] MEDS: PENTOXIFYLLINE (SR) 400 MG TAB PO SCH ×3 (08:22→20:12)
[2017-01-17] MEDS: GABAPENTIN 100 MG CAP PO SCH ×2 (08:22→20:12)
[2017-01-17] MEDS: CALCIUM ACETATE 667 MG CAP PO SCH ×3 (08:22→17:14)
[2017-01-17] MEDS: INSULIN ASPART [NOVOLOG] 3 ML PEN SC SCH ×4 (08:23→20:13)
[2017-01-17] MEDS: ASPIRIN 81 MG TAB PO SCH (08:24)
[2017-01-17] MEDS: FAMOTIDINE 20 MG TAB PO SCH (08:30)
[2017-01-17] MEDS: VERAPAMIL (SR) 120 MG TAB PO SCH (09:00)
[2017-01-17] MEDS: ISOSORBIDE MONONITRATE(SR)60 MG TAB PO SCH ×2 (09:00→14:40)
[2017-01-17] MEDS: FUROSEMIDE 20 MG TAB PO SCH ×2 (09:00→14:40)
--- NOTE | 2017-01-17 11:35 | CONS ---
Date/Time of Note Date/Time of Note DATE: 01/17/17 TIME: 11:31 Assessment/Plan Assessment/Plan Chief Complaint/Hosp Course IMP: 1.Chest pain-trop negative x 3/NL EF by echo this admit. Lexiscan this admit no ischemia/NL EF 2.HTN 3.HL 4.Renal failure on HD 5. HYpothyroid 6.DM 7.PAD 8. Hyponatremia Recc: -serial ecg's -Continue coreg/imdur/verapamil/hydralazine at current doses and will f/u BP closely after receiving -Continue daily PO lasix and follow creatnine/volume status closely -Continue asa/statin/imdur -HD for volume removal -pnding placement Problems: Consultation Date/Type/Reason Admit Date/Time Jan 05, 2017 at 09:43 Initial Consult Date 01/05/17 Type of Consultation: cardiology Reason for Consultation HTN/chest pain Referring Provider: SILVIA IQBAL MD Exam/Review of Systems Vital Signs Vitals Vital Signs Date Time Temp Pulse Resp B/P Pulse Ox O2 Delivery O2 Flow Rate FiO2 01/17/17 07:34 97.8 76 19 161/80 01/17/17 02:51 97 01/13/17 20:00 Nasal Cannula 2.0 Intake and Output 01/16/17 01/16/17 01/17/17 15:00 23:00 07:00 Intake Total 800 ml 1180 ml Output Total 2500 ml Balance 800 ml -1320 ml Exam Review of Systems: CONSTITUTIONAL: No fevers, chills. PULMONARY: No sob CARDIOVASCULAR: No chest pain/palpitations GASTROINTESTINAL: No nausea/vomiting. GENITOURINARY: No hematuria/dysuria. MUSCULOSKELETAL: No myagias/arthalgias. PSYCHIATRIC: The patient denies depression. NEUROLOGIC: No weakness Constitutional: alert, oriented Psych: no complaints Head: normocephalic ENMT: mucosa pink and moist Neck: jvd (cm watere), supple Respiratory: diminished breath sounds (at bases/B) Cardiovascular: regular rate and rhythm Gastrointestinal: non-tender, soft Musculoskeletal: muscle tone (normal) Extremities: edema (none) Neurological: other (No focal deficits) Results Result Diagram: 01/17/17 0501 01/17/17 0501 Results 24 hrs Laboratory Tests Test 01/16/17 16:59 01/16/17 19:57 01/17/17 05:01 01/17/17 07:59 Bedside Glucose 132 175 156 White Blood Count 11.2 #H Red Blood Count 2.76 L Hemoglobin 7.7 L Hematocrit 24.7 L Mean Corpuscular Volume 89.5 Mean Corpuscular Hemoglobin 27.9 L Mean Corpuscular Hemoglobin Concent 31.2 L Red Cell Distribution Width 13.2 Platelet Count 300 Mean Platelet Volume 9.7 Neutrophils % 70.8 Lymphocytes % 15.5 Monocytes % 6.9 Eosinophils % 5.9 Basophils % 0.3 Nucleated Red Blood Cells % 0.0 Neutrophils # 7.9 H Lymphocytes # 1.7 Monocytes # 0.8 Eosinophils # 0.7 H Basophils # 0.0 Nucleated Red Blood Cells # 0.0 Sodium Level 128 L Potassium Level 4.5 Chloride Level 99 Carbon Dioxide Level 26 Anion Gap 8 Blood Urea Nitrogen 39 #H Creatinine 6.00 H Glucose Level 103 Calcium Level 7.3 L Medications Medications Current Medications Atorvastatin Calcium (Lipitor) 20 mg QHS PO Last administered on 01/16/17 20: 00; Admin Dose 20 MG; Start 01/05/17 at 21:00 Loratadine (Claritin) 10 mg DAILY PO Last administered on 01/17/17 08:22; Admin Dose 10 MG; Start 01/06/17 at 09:00 Pentoxifylline (Trental) 400 mg TID PO Last administered on 01/17/17 08:22; Admin Dose 400 MG; Start 01/05/17 at 13:00 Verapamil HCl (Isoptin Sr) 120 mg DAILY PO Last administered on 01/16/17 11:39 ; Admin Dose 120 MG; Start 01/05/17 at 11:00 Aspirin (Aspirin) 81 mg DAILY PO Last administered on 01/17/17 08:24; Admin Dose 81 MG; Start 01/06/17 at 09:00 Acetaminophen (Tylenol Tab) 650 mg Q6H PRN PO PAIN LEVEL 1-3 OR FEVER; Start at 12:00 Morphine Sulfate (morphine) 2 mg Q4H PRN IV PAIN LEVEL 7-10 Last administered on 01/12/17 15:37; Admin Dose 2 MG; Start 01/05/17 at 12:00 Docusate Sodium (Colace) 100 mg Q12H PRN PO CONSTIPATION; Start 01/05/17 at 12: 00 Famotidine (Pepcid) 20 mg DAILY PO Last administered on 01/17/17 08:30; Admin Dose 20 MG; Start 01/05/17 at 12:00 Hydralazine HCl (Apresoline) 10 mg Q4H PRN IV SBP>150 mmhg Last administered on 01/11/17 04:52; Admin Dose 10 MG; Start 01/05/17 at 17:00 Diagnostic Test (Pha) (Accu-Chek) 1 ea 02 XX ; Start 01/07/17 at 02:00 Miscellaneous Information 1 ea NOTE XX ; Start 01/06/17 at 21:30 Glucose (Glutose) 15 gm Q15M PRN PO DECREASED GLUCOSE; Start 01/06/17 at 21:30 Glucose (Glutose) 22.5 gm Q15M PRN PO DECREASED GLUCOSE; Start 01/06/17 at 21: 30 Dextrose (D50w Syringe) 25 ml Q15M PRN IV DECREASED GLUCOSE; Start 01/06/17 at 21:30 Dextrose (D50w Syringe) 50 ml Q15M PRN IV DECREASED GLUCOSE; Start 01/06/17 at 21:30 Glucagon (Glucagen) 1 mg Q15M PRN IM DECREASED GLUCOSE; Start 01/06/17 at 21:30 Glucose (Glutose) 15 gm Q15M PRN BUCCAL DECREASED GLUCOSE; Start 01/06/17 at 21 :30 Ondansetron HCl (Zofran Inj) 4 mg Q4H PRN IV NAUSEA AND/OR VOMITING Last administered on 01/10/17 14:48; Admin Dose 4 MG; Start 01/07/17 at 17:00 Metoclopramide HCl (Reglan) 5 mg Q6H PRN IV NAUSEA Last administered on 17:38; Admin Dose 5 MG; Start 01/07/17 at 17:30 Nitroglycerin (Nitroglycerin (Sl Tab) 0.4 Mg) 1 tab Q5M PRN SL ANGINA Last administered on 01/09/17 10:07; Admin Dose 1 TAB; Start 01/08/17 at 03:30 Isosorbide Mononitrate (Imdur) 60 mg DAILY PO Last administered on 01/16/17 10 :01; Admin Dose 60 MG; Start 01/08/17 at 09:00 Furosemide (Lasix) 20 mg DAILY PO Last administered on 01/16/17 08:42; Admin Dose 20 MG; Start 01/09/17 at 09:00 Carvedilol (Coreg) 6.25 mg BID PO Last administered on 01/16/17 20:01; Admin Dose 6.25 MG; Start 01/09/17 at 10:30 Hydromorphone HCl (Dilaudid) 0.5 mg Q4H PRN IV PAIN Last administered on 12:13; Admin Dose 0.5 MG; Start 01/11/17 at 11:30 Gabapentin (Neurontin) 100 mg BID PO Last administered on 01/17/17 08:22; Admin Dose 100 MG; Start 01/12/17 at 13:00 Hydralazine HCl (Apresoline) 25 mg Q8 PO Last administered on 01/17/17 05:20; Admin Dose 25 MG; Start 01/16/17 at 14:00 KERRY RIZO Jan 17, 2017 11:35
--- NOTE | 2017-01-17 17:37 | CONS ---
Date/Time of Note Date/Time of Note DATE: 01/17/17 TIME: 17:36 Assessment/Plan Assessment/Plan Additional Assessment/Plan 1. Acute Kidney injuyr on CKD worsening to CKD V- progressed to ESRD- with symptoms of uremia 2. acute fluid overaload with Anasarca 3. 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 Hypertension - not well controlled 5. Diabetes melitus 6. hyperlipidemia 7. hypothyroidism Plan : - pt started on HD during this admission- Hepatitis panel, HIV negative, outpatient HD placement requested at [facility] - almost in final process for approval Lexiscan negative S/p HD today - 2 L removed Renal US c/w medical renal disease. continue verapamil, lasix 20mg po daily will continue to follow up Consultation Date/Type/Reason Admit Date/Time Jan 05, 2017 at 09:43 Initial Consult Date 01/05/17 Type of Consultation: NEPHROLOGY Referring Provider: SILVIA IQBAL MD Exam/Review of Systems Vital Signs Vitals Vital Signs Date Time Temp Pulse Resp B/P Pulse Ox O2 Delivery O2 Flow Rate FiO2 01/17/17 14:42 78 153/76 01/17/17 07:34 97.8 19 01/17/17 02:51 97 01/13/17 20:00 Nasal Cannula 2.0 Intake and Output 01/16/17 01/16/17 01/17/17 15:00 23:00 07:00 Intake Total 800 ml 1180 ml Output Total 2500 ml Balance 800 ml -1320 ml Exam Constitutional: alert Respiratory: clear to auscultation, normal air movement Cardiovascular: nl pulses, regular rate and rhythm Gastrointestinal: non-tender, soft Extremities: calf tenderness, edema, normal pulses, palpable cord, pitting pedal edema, tenderness, + right chest permacath Neurological: [employer] II-XII intact, nl mental status, nl speech, nl strength Results Result Diagram: 01/17/17 0501 01/17/17 0501 Results 24 hrs Laboratory Tests Test 01/16/17 19:57 01/17/17 05:01 01/17/17 07:59 01/17/17 11:51 Bedside Glucose 175 156 152 White Blood Count 11.2 #H Red Blood Count 2.76 L Hemoglobin 7.7 L Hematocrit 24.7 L Mean Corpuscular Volume 89.5 Mean Corpuscular Hemoglobin 27.9 L Mean Corpuscular Hemoglobin Concent 31.2 L Red Cell Distribution Width 13.2 Platelet Count 300 Mean Platelet Volume 9.7 Neutrophils % 70.8 Lymphocytes % 15.5 Monocytes % 6.9 Eosinophils % 5.9 Basophils % 0.3 Nucleated Red Blood Cells % 0.0 Neutrophils # 7.9 H Lymphocytes # 1.7 Monocytes # 0.8 Eosinophils # 0.7 H Basophils # 0.0 Nucleated Red Blood Cells # 0.0 Sodium Level 128 L Potassium Level 4.5 Chloride Level 99 Carbon Dioxide Level 26 Anion Gap 8 Blood Urea Nitrogen 39 #H Creatinine 6.00 H Glucose Level 103 Calcium Level 7.3 L Test 01/17/17 17:10 Bedside Glucose 149 Medications Medications Current Medications Atorvastatin Calcium (Lipitor) 20 mg QHS PO Last administered on 01/16/17 20: 00; Admin Dose 20 MG; Start 01/05/17 at 21:00 Loratadine (Claritin) 10 mg DAILY PO Last administered on 01/17/17 08:22; Admin Dose 10 MG; Start 01/06/17 at 09:00 Pentoxifylline (Trental) 400 mg TID PO Last administered on 01/17/17 12:51; Admin Dose 400 MG; Start 01/05/17 at 13:00 Verapamil HCl (Isoptin Sr) 120 mg DAILY PO Last administered on 01/16/17 11:39 ; Admin Dose 120 MG; Start 01/05/17 at 11:00 Aspirin (Aspirin) 81 mg DAILY PO Last administered on 01/17/17 08:24; Admin Dose 81 MG; Start 01/06/17 at 09:00 Acetaminophen (Tylenol Tab) 650 mg Q6H PRN PO PAIN LEVEL 1-3 OR FEVER; Start at 12:00 Morphine Sulfate (morphine) 2 mg Q4H PRN IV PAIN LEVEL 7-10 Last administered on 01/12/17 15:37; Admin Dose 2 MG; Start 01/05/17 at 12:00 Docusate Sodium (Colace) 100 mg Q12H PRN PO CONSTIPATION; Start 01/05/17 at 12: 00 Famotidine (Pepcid) 20 mg DAILY PO Last administered on 01/17/17 08:30; Admin Dose 20 MG; Start 01/05/17 at 12:00 Hydralazine HCl (Apresoline) 10 mg Q4H PRN IV SBP>150 mmhg Last administered on 01/11/17 04:52; Admin Dose 10 MG; Start 01/05/17 at 17:00 Diagnostic Test (Pha) (Accu-Chek) 1 ea 02 XX ; Start 01/07/17 at 02:00 Miscellaneous Information 1 ea NOTE XX ; Start 01/06/17 at 21:30 Glucose (Glutose) 15 gm Q15M PRN PO DECREASED GLUCOSE; Start 01/06/17 at 21:30 Glucose (Glutose) 22.5 gm Q15M PRN PO DECREASED GLUCOSE; Start 01/06/17 at 21: 30 Dextrose (D50w Syringe) 25 ml Q15M PRN IV DECREASED GLUCOSE; Start 01/06/17 at 21:30 Dextrose (D50w Syringe) 50 ml Q15M PRN IV DECREASED GLUCOSE; Start 01/06/17 at 21:30 Glucagon (Glucagen) 1 mg Q15M PRN IM DECREASED GLUCOSE; Start 01/06/17 at 21:30 Glucose (Glutose) 15 gm Q15M PRN BUCCAL DECREASED GLUCOSE; Start 01/06/17 at 21 :30 Ondansetron HCl (Zofran Inj) 4 mg Q4H PRN IV NAUSEA AND/OR VOMITING Last administered on 01/10/17 14:48; Admin Dose 4 MG; Start 01/07/17 at 17:00 Metoclopramide HCl (Reglan) 5 mg Q6H PRN IV NAUSEA Last administered on 17:38; Admin Dose 5 MG; Start 01/07/17 at 17:30 Nitroglycerin (Nitroglycerin (Sl Tab) 0.4 Mg) 1 tab Q5M PRN SL ANGINA Last administered on 01/09/17 10:07; Admin Dose 1 TAB; Start 01/08/17 at 03:30 Isosorbide Mononitrate (Imdur) 60 mg DAILY PO Last administered on 01/17/17 14 :40; Admin Dose 60 MG; Start 01/08/17 at 09:00 Furosemide (Lasix) 20 mg DAILY PO Last administered on 01/17/17 14:40; Admin Dose 20 MG; Start 01/09/17 at 09:00 Carvedilol (Coreg) 6.25 mg BID PO Last administered on 01/17/17 14:41; Admin Dose 6.25 MG; Start 01/09/17 at 10:30 Hydromorphone HCl (Dilaudid) 0.5 mg Q4H PRN IV PAIN Last administered on 12:13; Admin Dose 0.5 MG; Start 01/11/17 at 11:30 Gabapentin (Neurontin) 100 mg BID PO Last administered on 01/17/17 08:22; Admin Dose 100 MG; Start 01/12/17 at 13:00 Hydralazine HCl (Apresoline) 25 mg Q8 PO Last administered on 01/17/17 14:39; Admin Dose 25 MG; Start 01/16/17 at 14:00 IRIS BURRIS MD Jan 17, 2017 17:37
[2017-01-17] MEDS ORDERED: POLYETHYLENE GLYCOL 17 GM PACKET PO PRN (19:00)
--- NOTE | 2017-01-17 19:32 | PN ---
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 Dr. Naidu is following patient in Nephrology consultation. Continue hemodialysis per nephrology. - Chest pain, acute coronary syndrome ruled out, troponin is negative 3, Lexiscan is negative for ischemia, preserved ejection fraction for per echo - Hypertensive urgency, continue hydralazine and verapamil. - Diabetes mellitus type II with hemoglobin A1c 6.5. Continue NovoLog per sliding scale - Hypothyroidism. Continue Synthroid. - Bilateral lower extremity edema, resolved. - Hyperlipidemia. Continue statin. Further recommendations based on clinical course. Plan of care discussed with Dr. Martinez. Problems: Exam/Review of Systems Vital Signs Vitals Vital Signs Date Time Temp Pulse Resp B/P Pulse Ox O2 Delivery O2 Flow Rate FiO2 01/17/17 14:42 78 153/76 01/17/17 07:34 97.8 19 01/17/17 02:51 97 01/13/17 20:00 Nasal Cannula 2.0 Intake and Output 01/16/17 01/16/17 01/17/17 15:00 23:00 07:00 Intake Total 800 ml 1180 ml Output Total 2500 ml Balance 800 ml -1320 ml Exam Constitutional: alert Neck: supple Respiratory: normal air movement Cardiovascular: nl pulses Gastrointestinal: non-tender, soft Extremities: edema R IJ permacath Results Result Diagram: 01/17/17 0501 01/17/17 0501 Results 24 hrs Laboratory Tests Test 01/16/17 19:57 01/17/17 05:01 01/17/17 07:59 01/17/17 11:51 Bedside Glucose 175 156 152 White Blood Count 11.2 #H Red Blood Count 2.76 L Hemoglobin 7.7 L Hematocrit 24.7 L Mean Corpuscular Volume 89.5 Mean Corpuscular Hemoglobin 27.9 L Mean Corpuscular Hemoglobin Concent 31.2 L Red Cell Distribution Width 13.2 Platelet Count 300 Mean Platelet Volume 9.7 Neutrophils % 70.8 Lymphocytes % 15.5 Monocytes % 6.9 Eosinophils % 5.9 Basophils % 0.3 Nucleated Red Blood Cells % 0.0 Neutrophils # 7.9 H Lymphocytes # 1.7 Monocytes # 0.8 Eosinophils # 0.7 H Basophils # 0.0 Nucleated Red Blood Cells # 0.0 Sodium Level 128 L Potassium Level 4.5 Chloride Level 99 Carbon Dioxide Level 26 Anion Gap 8 Blood Urea Nitrogen 39 #H Creatinine 6.00 H Glucose Level 103 Calcium Level 7.3 L Test 01/17/17 17:10 Bedside Glucose 149 Medications Medications Current Medications Atorvastatin Calcium (Lipitor) 20 mg QHS PO Last administered on 01/16/17 20: 00; Admin Dose 20 MG; Start 01/05/17 at 21:00 Loratadine (Claritin) 10 mg DAILY PO Last administered on 01/17/17 08:22; Admin Dose 10 MG; Start 01/06/17 at 09:00 Pentoxifylline (Trental) 400 mg TID PO Last administered on 01/17/17 12:51; Admin Dose 400 MG; Start 01/05/17 at 13:00 Verapamil HCl (Isoptin Sr) 120 mg DAILY PO Last administered on 01/16/17 11:39 ; Admin Dose 120 MG; Start 01/05/17 at 11:00 Aspirin (Aspirin) 81 mg DAILY PO Last administered on 01/17/17 08:24; Admin Dose 81 MG; Start 01/06/17 at 09:00 Acetaminophen (Tylenol Tab) 650 mg Q6H PRN PO PAIN LEVEL 1-3 OR FEVER; Start at 12:00 Morphine Sulfate (morphine) 2 mg Q4H PRN IV PAIN LEVEL 7-10 Last administered on 01/12/17 15:37; Admin Dose 2 MG; Start 01/05/17 at 12:00 Docusate Sodium (Colace) 100 mg Q12H PRN PO CONSTIPATION Last administered on 01/17/17 18:28; Admin Dose 100 MG; Start 01/05/17 at 12:00 Famotidine (Pepcid) 20 mg DAILY PO Last administered on 01/17/17 08:30; Admin Dose 20 MG; Start 01/05/17 at 12:00 Hydralazine HCl (Apresoline) 10 mg Q4H PRN IV SBP>150 mmhg Last administered on 01/11/17 04:52; Admin Dose 10 MG; Start 01/05/17 at 17:00 Diagnostic Test (Pha) (Accu-Chek) 1 ea 02 XX ; Start 01/07/17 at 02:00 Miscellaneous Information 1 ea NOTE XX ; Start 01/06/17 at 21:30 Glucose (Glutose) 15 gm Q15M PRN PO DECREASED GLUCOSE; Start 01/06/17 at 21:30 Glucose (Glutose) 22.5 gm Q15M PRN PO DECREASED GLUCOSE; Start 01/06/17 at 21: 30 Dextrose (D50w Syringe) 25 ml Q15M PRN IV DECREASED GLUCOSE; Start 01/06/17 at 21:30 Dextrose (D50w Syringe) 50 ml Q15M PRN IV DECREASED GLUCOSE; Start 01/06/17 at 21:30 Glucagon (Glucagen) 1 mg Q15M PRN IM DECREASED GLUCOSE; Start 01/06/17 at 21:30 Glucose (Glutose) 15 gm Q15M PRN BUCCAL DECREASED GLUCOSE; Start 01/06/17 at 21 :30 Ondansetron HCl (Zofran Inj) 4 mg Q4H PRN IV NAUSEA AND/OR VOMITING Last administered on 01/10/17 14:48; Admin Dose 4 MG; Start 01/07/17 at 17:00 Metoclopramide HCl (Reglan) 5 mg Q6H PRN IV NAUSEA Last administered on 17:38; Admin Dose 5 MG; Start 01/07/17 at 17:30 Nitroglycerin (Nitroglycerin (Sl Tab) 0.4 Mg) 1 tab Q5M PRN SL ANGINA Last administered on 01/09/17 10:07; Admin Dose 1 TAB; Start 01/08/17 at 03:30 Isosorbide Mononitrate (Imdur) 60 mg DAILY PO Last administered on 01/17/17 14 :40; Admin Dose 60 MG; Start 01/08/17 at 09:00 Furosemide (Lasix) 20 mg DAILY PO Last administered on 01/17/17 14:40; Admin Dose 20 MG; Start 01/09/17 at 09:00 Carvedilol (Coreg) 6.25 mg BID PO Last administered on 01/17/17 14:41; Admin Dose 6.25 MG; Start 01/09/17 at 10:30 Hydromorphone HCl (Dilaudid) 0.5 mg Q4H PRN IV PAIN Last administered on 12:13; Admin Dose 0.5 MG; Start 01/11/17 at 11:30 Gabapentin (Neurontin) 100 mg BID PO Last administered on 01/17/17 08:22; Admin Dose 100 MG; Start 01/12/17 at 13:00 Hydralazine HCl (Apresoline) 25 mg Q8 PO Last administered on 01/17/17 14:39; Admin Dose 25 MG; Start 01/16/17 at 14:00 Polyethylene Glycol (Miralax) 17 gm DAILY PRN PO CONSTIPATION Last administered on 01/17/17 19:02; Admin Dose 17 GM; Start 01/17/17 at 19:00 FREDDIE KEYS Jan 17, 2017 19:32
[2017-01-17] MEDS: ATORVASTATIN 20 MG TAB PO SCH (20:12)
[2017-01-18] MEDS: ACCU-CHEK XX SCH (02:00)
[2017-01-18] MEDS: hydrALAzine 20 MG INJ IV PRN (02:32)
[2017-01-18 02:40] VITALS: BP 171/80; RESP 18
[2017-01-18 03:30] VITALS: BP 133/60; PULSE 83
[2017-01-18 05:59] LABS: BASOPHILS % 0.2 % (0.0-2.0); EOSINOPHILS # 0.5 10^3/ul (0.0-0.5); EOSINOPHILS % 4.2 % (0.0-7.0); HEMATOCRIT 28.8 % (37.0-47.0); HEMOGLOBIN 9.4 g/dl (12.0-16.0); LYMPHOCYTES # 1.1 10^3/ul (0.8-2.9); LYMPHOCYTES % 9.8 % (15.0-51.0); MEAN CORPUSCULAR HEMOGLOBIN 28.9 pg (29.0-33.0); MEAN CORPUSCULAR HGB CONC 32.6 g/dl (32.0-37.0); MEAN CORPUSCULAR VOLUME 88.6 fl (82.0-101.0); MEAN PLATELET VOLUME 9.8 fl (7.4-10.4); MONOCYTE # 0.7 10^3/ul (0.3-0.9); MONOCYTES % 6.5 % (0.0-11.0); NEUTROPHIL # 8.4 10^3/ul (1.6-7.5); NEUTROPHILS % 78.6 % (39.0-77.0); PLATELET COUNT 304 10^3/UL (140-415); RED BLOOD COUNT 3.25 10^6/ul (4.20-5.40); RED CELL DISTRIBUTION WIDTH 13.3 % (11.5-14.5); WHITE BLOOD COUNT 10.7 10^3/ul (4.8-10.8)
[2017-01-18 06:07] VITALS: BP 161/72; PULSE 85
[2017-01-18] MEDS: LEVOTHYROXINE 100 MCG TAB PO SCH (06:10)
[2017-01-18 06:47] LABS: CALCIUM 7.9 mg/dl (8.4-10.2); CREATININE 3.82 mg/dl (0.44-1.00); POTASSIUM 3.6 mmol/L (3.5-5.1)
[2017-01-18 07:28] VITALS: BP 140/70; RESP 17
[2017-01-18] MEDS: INSULIN ASPART [NOVOLOG] 3 ML PEN SC SCH ×3 (08:00→17:09)
[2017-01-18] MEDS: CALCIUM ACETATE 667 MG CAP PO SCH ×3 (08:28→17:09)
[2017-01-18] MEDS: ISOSORBIDE MONONITRATE(SR)60 MG TAB PO SCH (08:32)
[2017-01-18] MEDS: FAMOTIDINE 20 MG TAB PO SCH (08:33)
[2017-01-18] MEDS: FUROSEMIDE 20 MG TAB PO SCH (08:33)
[2017-01-18] MEDS: GABAPENTIN 100 MG CAP PO SCH (08:33)
[2017-01-18] MEDS: PENTOXIFYLLINE (SR) 400 MG TAB PO SCH ×2 (08:33→12:03)
[2017-01-18] MEDS: VERAPAMIL (SR) 120 MG TAB PO SCH (08:37)
[2017-01-18] MEDS: ASPIRIN 81 MG TAB PO SCH (08:37)
[2017-01-18] MEDS: LORATADINE 10 MG TAB PO SCH (08:37)
--- NOTE | 2017-01-18 08:49 | CONS ---
Date/Time of Note Date/Time of Note DATE: 01/18/17 TIME: 08:47 Assessment/Plan Assessment/Plan Additional Assessment/Plan 1. Acute Kidney injuyr on CKD worsening to CKD V- progressed to ESRD- with symptoms of uremia 2. acute fluid overaload with Anasarca 3. 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 Hypertension - not well controlled 5. Diabetes melitus 6. hyperlipidemia 7. hypothyroidism Plan : - pt started on HD during this admission- Hepatitis panel, HIV negative, outpatient HD placement requested at [facility] -confirmed, tuesday , tuesday and Tuesday at 4 am Lexiscan negative S/p HD yesterday- 2 L removed Renal US c/w medical renal disease. continue verapamil, lasix 20mg po daily on discharge no plan for HD today, ok to d/c home today, will follow up on pt in HD unit, Next HD tomorrow at HD unit Consultation Date/Type/Reason Admit Date/Time Jan 05, 2017 at 09:43 Initial Consult Date 01/05/17 Type of Consultation: NEPHROLOGY Referring Provider: SILVIA IQBAL MD 24 HR Interval Summary Free Text/Dictation s/p Hd yesterday, outpatient HD placement confirmed Exam/Review of Systems Vital Signs Vitals Vital Signs Date Time Temp Pulse Resp B/P Pulse Ox O2 Delivery O2 Flow Rate FiO2 01/18/17 07:28 97.7 86 17 140/70 98 Intake and Output 01/17/17 01/17/17 01/18/17 15:00 23:00 07:00 Intake Total 600 ml 600 ml Balance 600 ml 600 ml Exam Constitutional: alert Respiratory: clear to auscultation, normal air movement Cardiovascular: nl pulses, regular rate and rhythm Gastrointestinal: non-tender, soft Extremities: calf tenderness, edema, normal pulses, palpable cord, pitting pedal edema, tenderness, + right chest permacath Neurological: FOOT SETTER II-XII intact, nl mental status, nl speech, nl strength Results Result Diagram: 01/18/17 0501 01/18/17 0501 Results 24 hrs Laboratory Tests Test 01/17/17 11:51 01/17/17 17:10 01/17/17 20:11 01/18/17 05:01 Bedside Glucose 152 149 118 White Blood Count 10.7 Red Blood Count 3.25 L Hemoglobin 9.4 #L Hematocrit 28.8 L Mean Corpuscular Volume 88.6 Mean Corpuscular Hemoglobin 28.9 L Mean Corpuscular Hemoglobin Concent 32.6 Red Cell Distribution Width 13.3 Platelet Count 304 Mean Platelet Volume 9.8 Neutrophils % 78.6 H Lymphocytes % 9.8 L Monocytes % 6.5 Eosinophils % 4.2 Basophils % 0.2 Nucleated Red Blood Cells % 0.0 Neutrophils # 8.4 H Lymphocytes # 1.1 Monocytes # 0.7 Eosinophils # 0.5 Basophils # 0.0 Nucleated Red Blood Cells # 0.0 Sodium Level 136 Potassium Level 3.6 Chloride Level 106 Carbon Dioxide Level 27 Anion Gap 7 L Blood Urea Nitrogen 23 #H Creatinine 3.82 #H Glucose Level 124 Calcium Level 7.9 L Test 01/18/17 05:32 01/18/17 08:00 Lab Scanned Report BLOOD TRANSFUSION Bedside Glucose 114 Medications Medications Current Medications Atorvastatin Calcium (Lipitor) 20 mg QHS PO Last administered on 01/17/17 20: 12; Admin Dose 20 MG; Start 01/05/17 at 21:00 Loratadine (Claritin) 10 mg DAILY PO Last administered on 01/18/17 08:37; Admin Dose 10 MG; Start 01/06/17 at 09:00 Pentoxifylline (Trental) 400 mg TID PO Last administered on 01/18/17 08:33; Admin Dose 400 MG; Start 01/05/17 at 13:00 Verapamil HCl (Isoptin Sr) 120 mg DAILY PO Last administered on 01/18/17 08:37 ; Admin Dose 120 MG; Start 01/05/17 at 11:00 Aspirin (Aspirin) 81 mg DAILY PO Last administered on 01/18/17 08:37; Admin Dose 81 MG; Start 01/06/17 at 09:00 Acetaminophen (Tylenol Tab) 650 mg Q6H PRN PO PAIN LEVEL 1-3 OR FEVER; Start at 12:00 Morphine Sulfate (morphine) 2 mg Q4H PRN IV PAIN LEVEL 7-10 Last administered on 01/12/17 15:37; Admin Dose 2 MG; Start 01/05/17 at 12:00 Docusate Sodium (Colace) 100 mg Q12H PRN PO CONSTIPATION Last administered on 01/17/17 18:28; Admin Dose 100 MG; Start 01/05/17 at 12:00 Famotidine (Pepcid) 20 mg DAILY PO Last administered on 01/18/17 08:33; Admin Dose 20 MG; Start 01/05/17 at 12:00 Hydralazine HCl (Apresoline) 10 mg Q4H PRN IV SBP>150 mmhg Last administered on 01/18/17 02:32; Admin Dose 10 MG; Start 01/05/17 at 17:00 Diagnostic Test (Pha) (Accu-Chek) 1 ea 02 XX ; Start 01/07/17 at 02:00 Miscellaneous Information 1 ea NOTE XX ; Start 01/06/17 at 21:30 Glucose (Glutose) 15 gm Q15M PRN PO DECREASED GLUCOSE; Start 01/06/17 at 21:30 Glucose (Glutose) 22.5 gm Q15M PRN PO DECREASED GLUCOSE; Start 01/06/17 at 21: 30 Dextrose (D50w Syringe) 25 ml Q15M PRN IV DECREASED GLUCOSE; Start 01/06/17 at 21:30 Dextrose (D50w Syringe) 50 ml Q15M PRN IV DECREASED GLUCOSE; Start 01/06/17 at 21:30 Glucagon (Glucagen) 1 mg Q15M PRN IM DECREASED GLUCOSE; Start 01/06/17 at 21:30 Glucose (Glutose) 15 gm Q15M PRN BUCCAL DECREASED GLUCOSE; Start 01/06/17 at 21 :30 Ondansetron HCl (Zofran Inj) 4 mg Q4H PRN IV NAUSEA AND/OR VOMITING Last administered on 01/10/17 14:48; Admin Dose 4 MG; Start 01/07/17 at 17:00 Metoclopramide HCl (Reglan) 5 mg Q6H PRN IV NAUSEA Last administered on 17:38; Admin Dose 5 MG; Start 01/07/17 at 17:30 Nitroglycerin (Nitroglycerin (Sl Tab) 0.4 Mg) 1 tab Q5M PRN SL ANGINA Last administered on 01/09/17 10:07; Admin Dose 1 TAB; Start 01/08/17 at 03:30 Isosorbide Mononitrate (Imdur) 60 mg DAILY PO Last administered on 01/18/17 08 :32; Admin Dose 60 MG; Start 01/08/17 at 09:00 Furosemide (Lasix) 20 mg DAILY PO Last administered on 01/18/17 08:33; Admin Dose 20 MG; Start 01/09/17 at 09:00 Carvedilol (Coreg) 6.25 mg BID PO Last administered on 01/18/17 08:31; Admin Dose 6.25 MG; Start 01/09/17 at 10:30 Hydromorphone HCl (Dilaudid) 0.5 mg Q4H PRN IV PAIN Last administered on 12:13; Admin Dose 0.5 MG; Start 01/11/17 at 11:30 Gabapentin (Neurontin) 100 mg BID PO Last administered on 01/18/17 08:33; Admin Dose 100 MG; Start 01/12/17 at 13:00 Hydralazine HCl (Apresoline) 25 mg Q8 PO Last administered on 01/18/17 06:10; Admin Dose 25 MG; Start 01/16/17 at 14:00 Polyethylene Glycol (Miralax) 17 gm DAILY PRN PO CONSTIPATION Last administered on 01/17/17 19:02; Admin Dose 17 GM; Start 01/17/17 at 19:00 IRIS BURRIS MD Jan 18, 2017 08:49
[2017-01-18 14:21] VITALS: BP 106/58; RESP 18
--- NOTE | 2017-01-18 14:56 | CONS ---
Date/Time of Note Date/Time of Note DATE: 01/18/17 TIME: 14:55 Assessment/Plan Assessment/Plan Additional Assessment/Plan 1.Chest pain-trop negative x 3/NL EF by echo this admit - Stress test DONE TODAY , con't to follow post test - better now 2.HTN - on hig sie, will adjust Rx as need post test - well rX now 3.HL 4.Renal failure - + urine output, avoid nephrotoxic meds - stable IMPROVED 5. HYpothyroid - stable, Rx as needed 6.DM - keep euglycemic 7.PAD - stable, will follow Consultation Date/Type/Reason Admit Date/Time Jan 05, 2017 at 09:43 Initial Consult Date 01/05/17 Type of Consultation: NEPHROLOGY Referring Provider: SILVIA IQBAL MD 24 HR Interval Summary Free Text/Dictation NO acute events - con't to improve - off tele now ROS: No fever, no chills, no nausea, no vomiting, no diarrhea/constipation No recent weight changes No chest pain, no PND, no orthopnea No dizziness, blurred vision No thirst, no heat or cold intolerance Exam/Review of Systems Vital Signs Vitals Vital Signs Date Time Temp Pulse Resp B/P Pulse Ox O2 Delivery O2 Flow Rate FiO2 01/18/17 14:21 97.5 73 18 106/58 95 Intake and Output 01/17/17 01/17/17 01/18/17 15:00 23:00 07:00 Intake Total 600 ml 600 ml Balance 600 ml 600 ml Exam General: WN/WD/NAD, AOx 3 HEENT: Unicetric/atraumatic/EOMI ( follow commands) NECK: JVD elevated, no thyromegaly Lymph: no lymphadenopathy HEART: regular with no S3, II/ systolic murmur at apex LUNGS: Coarse sounds ABD: soft, NT, ND, +BS : Intact Neuro: non focal SKIN: chronic changes EXT: trace edema Results Result Diagram: 01/18/17 0501 01/18/17 0501 Results 24 hrs Laboratory Tests Test 01/17/17 17:10 01/17/17 20:11 01/18/17 05:01 01/18/17 05:32 Bedside Glucose 149 118 White Blood Count 10.7 Red Blood Count 3.25 L Hemoglobin 9.4 #L Hematocrit 28.8 L Mean Corpuscular Volume 88.6 Mean Corpuscular Hemoglobin 28.9 L Mean Corpuscular Hemoglobin Concent 32.6 Red Cell Distribution Width 13.3 Platelet Count 304 Mean Platelet Volume 9.8 Neutrophils % 78.6 H Lymphocytes % 9.8 L Monocytes % 6.5 Eosinophils % 4.2 Basophils % 0.2 Nucleated Red Blood Cells % 0.0 Neutrophils # 8.4 H Lymphocytes # 1.1 Monocytes # 0.7 Eosinophils # 0.5 Basophils # 0.0 Nucleated Red Blood Cells # 0.0 Sodium Level 136 Potassium Level 3.6 Chloride Level 106 Carbon Dioxide Level 27 Anion Gap 7 L Blood Urea Nitrogen 23 #H Creatinine 3.82 #H Glucose Level 124 Calcium Level 7.9 L Lab Scanned Report BLOOD TRANSFUSION Test 01/18/17 08:00 01/18/17 11:52 Bedside Glucose 114 201 Medications Medications Current Medications Atorvastatin Calcium (Lipitor) 20 mg QHS PO Last administered on 01/17/17 20: 12; Admin Dose 20 MG; Start 01/05/17 at 21:00 Loratadine (Claritin) 10 mg DAILY PO Last administered on 01/18/17 08:37; Admin Dose 10 MG; Start 01/06/17 at 09:00 Pentoxifylline (Trental) 400 mg TID PO Last administered on 01/18/17 12:03; Admin Dose 400 MG; Start 01/05/17 at 13:00 Verapamil HCl (Isoptin Sr) 120 mg DAILY PO Last administered on 01/18/17 08:37 ; Admin Dose 120 MG; Start 01/05/17 at 11:00 Aspirin (Aspirin) 81 mg DAILY PO Last administered on 01/18/17 08:37; Admin Dose 81 MG; Start 01/06/17 at 09:00 Acetaminophen (Tylenol Tab) 650 mg Q6H PRN PO PAIN LEVEL 1-3 OR FEVER; Start at 12:00 Morphine Sulfate (morphine) 2 mg Q4H PRN IV PAIN LEVEL 7-10 Last administered on 01/12/17 15:37; Admin Dose 2 MG; Start 01/05/17 at 12:00 Docusate Sodium (Colace) 100 mg Q12H PRN PO CONSTIPATION Last administered on 01/17/17 18:28; Admin Dose 100 MG; Start 01/05/17 at 12:00 Famotidine (Pepcid) 20 mg DAILY PO Last administered on 01/18/17 08:33; Admin Dose 20 MG; Start 01/05/17 at 12:00 Hydralazine HCl (Apresoline) 10 mg Q4H PRN IV SBP>150 mmhg Last administered on 01/18/17 02:32; Admin Dose 10 MG; Start 01/05/17 at 17:00 Diagnostic Test (Pha) (Accu-Chek) 1 ea 02 XX ; Start 01/07/17 at 02:00 Miscellaneous Information 1 ea NOTE XX ; Start 01/06/17 at 21:30 Glucose (Glutose) 15 gm Q15M PRN PO DECREASED GLUCOSE; Start 01/06/17 at 21:30 Glucose (Glutose) 22.5 gm Q15M PRN PO DECREASED GLUCOSE; Start 01/06/17 at 21: 30 Dextrose (D50w Syringe) 25 ml Q15M PRN IV DECREASED GLUCOSE; Start 01/06/17 at 21:30 Dextrose (D50w Syringe) 50 ml Q15M PRN IV DECREASED GLUCOSE; Start 01/06/17 at 21:30 Glucagon (Glucagen) 1 mg Q15M PRN IM DECREASED GLUCOSE; Start 01/06/17 at 21:30 Glucose (Glutose) 15 gm Q15M PRN BUCCAL DECREASED GLUCOSE; Start 01/06/17 at 21 :30 Ondansetron HCl (Zofran Inj) 4 mg Q4H PRN IV NAUSEA AND/OR VOMITING Last administered on 01/10/17 14:48; Admin Dose 4 MG; Start 01/07/17 at 17:00 Metoclopramide HCl (Reglan) 5 mg Q6H PRN IV NAUSEA Last administered on 17:38; Admin Dose 5 MG; Start 01/07/17 at 17:30 Nitroglycerin (Nitroglycerin (Sl Tab) 0.4 Mg) 1 tab Q5M PRN SL ANGINA Last administered on 01/09/17 10:07; Admin Dose 1 TAB; Start 01/08/17 at 03:30 Isosorbide Mononitrate (Imdur) 60 mg DAILY PO Last administered on 01/18/17 08 :32; Admin Dose 60 MG; Start 01/08/17 at 09:00 Furosemide (Lasix) 20 mg DAILY PO Last administered on 01/18/17 08:33; Admin Dose 20 MG; Start 01/09/17 at 09:00 Carvedilol (Coreg) 6.25 mg BID PO Last administered on 01/18/17 08:31; Admin Dose 6.25 MG; Start 01/09/17 at 10:30 Hydromorphone HCl (Dilaudid) 0.5 mg Q4H PRN IV PAIN Last administered on 12:13; Admin Dose 0.5 MG; Start 01/11/17 at 11:30 Gabapentin (Neurontin) 100 mg BID PO Last administered on 01/18/17 08:33; Admin Dose 100 MG; Start 01/12/17 at 13:00 Hydralazine HCl (Apresoline) 25 mg Q8 PO Last administered on 01/18/17 13:30; Admin Dose 25 MG; Start 01/16/17 at 14:00 Polyethylene Glycol (Miralax) 17 gm DAILY PRN PO CONSTIPATION Last administered on 01/17/17 19:02; Admin Dose 17 GM; Start 01/17/17 at 19:00 CAMMY RAE MD Jan 18, 2017 14:56
[2017-01-18] MEDS ORDERED: CARV6.2579 PO (16:53)
[2017-01-18] MEDS ORDERED: ASPI81TA3 PO (16:53)
[2017-01-18] MEDS ORDERED: HYDR-3671 PO (16:53)
[2017-01-18] MEDS ORDERED: VERA120C2 PO (16:53)
[2017-01-18] MEDS ORDERED: LAS20 PO (16:53)
[2017-01-18] MEDS ORDERED: CALC667C PO (16:53)
--- NOTE | 2017-01-18 18:22 | DS ---
Date/Time of Note Date/Time of Note DATE: 01/18/17 TIME: 18:21 Discharge Summary Admission/Discharge Info Admit Date/Time Jan 05, 2017 at 09:43 Discharge Date/Time Patient Condition: Stable Hx of Present Illness The patient is a 66-year-old, with past medical history positive for diabetes mellitus, hypertension, hyperlipidemia, hypothyroidism, and chronic kidney disease with baseline creatinine being slightly above 2. The patient was seen in her workers' compensation mediator office, Dr. Naidu with complaints of bilateral lower extremity swelling and her creatinine was elevated above 5 and patient was sent to the emergency room for further evaluation and management. In the emergency room the patient's blood pressure was elevated to 236/98. Creatinine elevated to 5.76. Patient denies any chest pain. Denies any shortness of breath. Denies any nausea, vomiting, or diarrhea. Denies any abdominal pain. The patient underwent chest x-ray, which revealed no acute cardiopulmonary disease. Enlarged cardiac silhouette. 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 Dr. Naidu is following patient in Nephrology consultation. Continue hemodialysis per nephrology. - Chest pain, acute coronary syndrome ruled out, troponin is negative 3, Lexiscan is negative for ischemia, preserved ejection fraction for per echo - Hypertensive urgency, continue hydralazine and verapamil. - Diabetes mellitus type II with hemoglobin A1c 6.5. Continue NovoLog per sliding scale - Hypothyroidism. Continue Synthroid. - Bilateral lower extremity edema, resolved. - Hyperlipidemia. Continue statin. Home Meds Active Scripts Hydralazine Hcl* (Hydralazine Hcl*) 25 Mg Tab, 25 MG PO Q8 for 30 Days, TAB Prov:FREDDIE KEYS 01/18/17 Furosemide (Lasix) 20 Mg Tab, 20 MG PO DAILY for 30 Days, TAB Prov:LORI KEYSA 01/18/17 Carvedilol* (Carvedilol*) 6.25 Mg Tablet, 6.25 MG PO BID for 30 Days, TAB Prov:FREDDIE KEYS 01/18/17 Calcium Acetate* (Calcium Acetate*) 667 Mg Capsule, 667 MG PO WITH MEALS for 30 Days, CAP Prov:FREDDIE KEYS 01/18/17 Aspirin (Aspirin) 81 Mg Chew, 81 MG PO DAILY for 30 Days, TAB Prov:FREDDIE KEYS 01/18/17 Verapamil Hcl* (Verapamil ER*) 120 Mg Cap24h.pel, 120 MG PO DAILY for 30 Days, CAP Prov:FREDDIE KEYS 01/18/17 Reported Medications Pentoxifylline* (Pentoxifylline*) 400 Mg Tablet.sa, 400 MG PO TID, TAB 01/05/17 Losartan Potassium* (Losartan Potassium*) 100 Mg Tablet, 100 MG PO DAILY, TAB 01/05/17 Loratadine* (Loratadine*) 10 Mg Tablet, 10 MG PO DAILY, #30 TAB 01/05/17 Atorvastatin Calcium* (Atorvastatin Calcium*) 20 Mg Tablet, 20 MG PO QHS, #30 TAB 01/05/17 Furosemide* (Furosemide*) 40 Mg Tablet, 40 MG PO DAILY, TAB 01/05/17 Levothyroxine Sodium* (Levothyroxine Sodium*) 100 Mcg Tablet, 100 MCG PO BEFORE BREAKFAST, #30 TAB 01/05/17 Follow-up Plan f/up with HD [facility] for HD, f/up with PMD in 1-2 weeks. Primary Care Provider Nik Iniguez MD Pending Labs Laboratory Tests Test 01/17/17 20:11 01/18/17 05:01 01/18/17 05:32 01/18/17 08:00 Bedside Glucose 118mg/dL (70-220) 114mg/dL (70-220) White Blood Count 10.710^3/ul (4.8-10.8) Red Blood Count 3.2510^6/ul (4.20-5.40) Hemoglobin 9.4g/dl (12.0-16.0) Hematocrit 28.8% (37.0-47.0) Mean Corpuscular Volume 88.6fl (82.0-101.0) Mean Corpuscular Hemoglobin 28.9pg (29.0-33.0) Mean Corpuscular Hemoglobin Concent 32.6g/dl (32.0-37.0) Red Cell Distribution Width 13.3% (11.5-14.5) Platelet Count 30823^3/UL (140-415) Mean Platelet Volume 9.8fl (7.4-10.4) Neutrophils % 78.6% (39.0-77.0) Lymphocytes % 9.8% (15.0-51.0) Monocytes % 6.5% (0.0-11.0) Eosinophils % 4.2% (0.0-7.0) Basophils % 0.2% (0.0-2.0) Nucleated Red Blood Cells % 0.0/100WBC (0.0-0.0) Neutrophils # 8.410^3/ul (1.6-7.5) Lymphocytes # 1.110^3/ul (0.8-2.9) Monocytes # 0.710^3/ul (0.3-0.9) Eosinophils # 0.510^3/ul (0.0-0.5) Basophils # 0.010^3/ul (0.0-0.1) Nucleated Red Blood Cells # 0.010^3/ul (0.0-0.0) Sodium Level 136mmol/L (135-144) Potassium Level 3.6mmol/L (3.5-5.1) Chloride Level 106mmol/L (97-110) Carbon Dioxide Level 27mmol/L (21-31) Anion Gap 7 (8-16) Blood Urea Nitrogen 23mg/dl (7-20) Creatinine 3.82mg/dl (0.44-1.00) Glucose Level 124mg/dl (70-220) Calcium Level 7.9mg/dl (8.4-10.2) Lab Scanned Report BLOOD [id number] Test 01/18/17 11:52 01/18/17 17:00 Bedside Glucose 201mg/dL (70-220) 177mg/dL (70-220) FREDDIE KEYS Jan 18, 2017 18:22
[2017-01-18 19:20] VITALS: BP 145/78; RESP 18
== END 2017-01-18 19:09 | disposition home or self-care (01) | DRG 673 ==
LOC: E/R 07:36 → MS3 09:43 → PP2 18:34
PROVIDERS: ADMIT Internal Medicine; ATTEND Internal Medicine
PROC: 0JH63XZ Insertion of Tunneled Vascular Access Device into Chest Subcutaneous Tissue and Fascia, Percutaneous Approach (ICD-10-PCS; principal; 2017-01-11)
PROC: 02HV33Z Insertion of Infusion Device into Superior Vena Cava, Percutaneous Approach (ICD-10-PCS; 2017-01-11)
PROC: B548ZZA Ultrasonography of Superior Vena Cava, Guidance (ICD-10-PCS; 2017-01-11)
PROC: C22GYZZ Tomographic (Tomo) Nuclear Medicine Imaging of Myocardium using Other Radionuclide (ICD-10-PCS; 2017-01-11)
PROC: 4A02XM4 Measurement of Cardiac Total Activity, External Approach (ICD-10-PCS; 2017-01-11)
PROC: 3E033HZ Introduction of Radioactive Substance into Peripheral Vein, Percutaneous Approach (ICD-10-PCS; 2017-01-11)
PROC: 30233N1 Transfusion of Nonautologous Red Blood Cells into Peripheral Vein, Percutaneous Approach (ICD-10-PCS; 2017-01-11)
PROC: 5A1D70Z Performance of Urinary Filtration, Intermittent, Less than 6 Hours Per Day (ICD-10-PCS; 2017-01-11)
DX: I12.0 Hypertensive chronic kidney disease with stage 5 chronic kidney disease or end stage renal disease (principal); N18.6 End stage renal disease; N17.9 Acute kidney failure, unspecified; E11.51 Type 2 diabetes mellitus with diabetic peripheral angiopathy without gangrene; E11.21 Type 2 diabetes mellitus with diabetic nephropathy; E11.22 Type 2 diabetes mellitus with diabetic chronic kidney disease; E87.70 Fluid overload, unspecified; I16.0 Hypertensive urgency; E78.5 Hyperlipidemia, unspecified; E03.9 Hypothyroidism, unspecified; D64.9 Anemia, unspecified
CPT/HCPCS: 36430; 36558; 71010; 76775; 76942; 78452; 80048; 80053; 82550; 82553; 82575; 82962; 83036; 83735; 84100; 84156; 84443; 84484; 85025; 85610; 85730; 86703; 86704; 86709; 86803; 86850; 86900; 86901; 86920; 87081; 87340; 90935; 93005; 93017; 93306; 93922; 93970; 96374; J1940; A9500; A9505; J0360; J0690; J1170; J1644; J1815; J2250; J2270; J2370; J2405; J2765; J2785; J3010; J7040; J7042; P9016; P9047; Q4081

== ENCOUNTER 2017-06-17 18:12 | Inpatient (IN) | END 2017-06-18 06:30 | disposition left against medical advice (07) | DRG 252 ==

== ENCOUNTER 2017-07-31 19:05 | Emergency (ER) | END 2017-08-01 02:19 | disposition home or self-care (01) ==

== ENCOUNTER 2018-11-03 04:35 | Inpatient (IN) | payer OTHER ==
[2018-11-03] VITALS (19 sets, daily range): BP systolic 16–192; BP diastolic 59–80; PULSE 52–64; RESP 18–20; Ht 162.6 cm; Wt 65.3 kg
[~2018-11-03] VITALS: Ht 162.6 cm; Wt 65.3 kg
[~2018-11-03 04:35] MED LIST changes: -AMLO5TAB4 PO; +ASPI-831 PO; +ATOR20TA38 PO; +CALC667C PO; -CARV3.1260 PO; +CARV6.2579 PO; +DIC20 PO; +HYDR-3029 PO; +HYDR-3671 PO; +HYDR-3980 PO; -ISOS5TAB2 PO; -LANT3I SC; +LAS20 PO; +LEVO100T8 PO; -LEVO25TA53 PO; +LORA10TA3 PO; -MEDS FOR HTN; +PENT400T9 PO; +VERA120C2 PO
--- NOTE | 2018-11-03 04:54 | ERD ---
ER Documentation Chief Complaint Chief Complaint bib ra from dialysis facility for cp HPI The patient is a 68-year-old female, presenting to the ER from dialysis center because of left-sided chest pain that began about 30 minutes prior to arrival, non-provoked, radiating down to the left arm, denies similar symptoms previously, complains of associated dyspnea. She was treated with 2 nitroglycerin spray by EMS with good response, denies headache, neck pain, abdominal pain, vomiting, dysuria, diarrhea. She does not smoke nor drink Past medical history: Chronic kidney disease on hemodialysis Tuesday and Tuesday, diabetes mellitus, hypertension, hypothyroidism Past surgical history: Left upper extremity AV fistula ROS All systems reviewed and are negative except as per history of present illness. Medications Home Meds Active Scripts Dicyclomine HCl (Dicyclomine HCl) 20 Mg Tablet, 20 MG PO QID for PAIN, #20 Prov:INDIRA DENT DO 08/01/17 Hydrocodone/Acetaminophen ([place] 10-325 Tablet) 1 Each Tablet, 1 TAB PO Q6H PRN for PAIN, #20 TAB Prov:INDIRA DENT DO 08/01/17 Hydralazine Hcl* (Hydralazine Hcl*) 25 Mg Tab, 25 MG PO Q8 for 30 Days, TAB Prov:FREDDIE KEYS 01/18/17 Furosemide (Lasix) 20 Mg Tab, 20 MG PO DAILY for 30 Days, TAB Prov:FREDDIE KEYS 01/18/17 Carvedilol* (Carvedilol*) 6.25 Mg Tablet, 6.25 MG PO BID for 30 Days, TAB Prov:FREDDIE KEYS 01/18/17 Calcium Acetate* (Calcium Acetate*) 667 Mg Capsule, 667 MG PO WITH MEALS for 30 Days, CAP Prov:FREDDIE KEYS 01/18/17 Aspirin (Aspirin) 81 Mg Chew, 81 MG PO DAILY for 30 Days, TAB Prov:FREDDIE KEYS 01/18/17 Verapamil Hcl* (Verapamil ER*) 120 Mg Cap24h.pel, 120 MG PO DAILY for 30 Days, CAP Prov:FREDDIE KEYS 01/18/17 Reported Medications Hydroxyzine Hcl* (Hydroxyzine Hcl*) 10 Mg Tablet, 10 MG PO TID, #30 TAB 06/16/17 Pentoxifylline* (Pentoxifylline*) 400 Mg Tablet.sa, 400 MG PO TID, TAB 01/05/17 Loratadine* (Loratadine*) 10 Mg Tablet, 10 MG PO DAILY, #30 TAB 01/05/17 Atorvastatin Calcium* (Atorvastatin Calcium*) 20 Mg Tablet, 20 MG PO QHS, #30 TAB 01/05/17 Levothyroxine Sodium* (Levothyroxine Sodium*) 100 Mcg Tablet, 100 MCG PO BEFORE BREAKFAST, #30 TAB 01/05/17 Allergies Allergies: Coded Allergies: No Known Allergy (Unverified , 01/05/17) PMhx/Soc History of Surgery: Yes (dialysis cath placed) Anesthesia Reaction: No Hx Neurological Disorder: No Hx Respiratory Disorders: No Hx Cardiac Disorders: Yes (htn) Hx Psychiatric Problems: No Hx Miscellaneous Medical Probl: Yes (gallstones, diabetes, renal failure w/ dialysisright, low thyroid, hi marlyn) Hx Alcohol Use: No Hx Substance Use: No Hx Tobacco Use: No Smoking Status: Never smoker Physical Exam Vitals Vital Signs Date Temp Pulse Resp B/P (MAP) Pulse Ox O2 O2 Flow FiO2 Time Delivery Rate 11/03/18 Nasal 04:42 Cannula 11/03/18 98.6 69 19 134/66 100 04:38 (88) Physical Exam Const: No acute distress. Head: Atraumatic. Eyes: Normal Conjunctiva. ENT: Normal External Ears, Nose and Mouth. Neck: Full range of motion. No meningismus. Resp: Bibasilar crackle Cardio: Regular rate and rhythm. Abd: Soft, non distended, normal bowel sounds, non tender. Skin: No petechiae or rashes. Back: No midline or flank tenderness. Ext: No cyanosis, or edema. Left upper extremity AV fistula Neur: Awake and alert. No focal deficit Psych: Normal Mood and Affect. Result Diagram: 11/03/1844111/03/18441 Results 24 hrs Laboratory Tests Test 11/03/18 04:42 11/03/18 04:47 White Blood Count 5.6 10^3/ul Red Blood Count 4.00 10^6/ul Hemoglobin 12.2 g/dl Hematocrit 36.6 % Mean Corpuscular Volume 91.5 fl Mean Corpuscular Hemoglobin 30.5 pg Mean Corpuscular Hemoglobin Concent 33.3 g/dl Red Cell Distribution Width 15.2 % Platelet Count 134 10^3/UL Mean Platelet Volume 12.3 fl Immature Granulocytes % 0.200 % Neutrophils % 67.3 % Lymphocytes % 21.4 % Monocytes % 6.1 % Eosinophils % 4.5 % Basophils % 0.5 % Nucleated Red Blood Cells % 0.0 /100WBC Immature Granulocytes # 0.010 10^3/ul Neutrophils # 3.7 10^3/ul Lymphocytes # 1.2 10^3/ul Monocytes # 0.3 10^3/ul Eosinophils # 0.3 10^3/ul Basophils # 0.0 10^3/ul Nucleated Red Blood Cells # 0.0 10^3/ul Sodium Level 125 mmol/L Potassium Level 5.5 mmol/L Chloride Level 88 mmol/L Carbon Dioxide Level 25 mmol/L Anion Gap 12 Blood Urea Nitrogen 47 mg/dl Creatinine 8.24 mg/dl Est Glomerular Filtrat Rate mL/min 5 mL/min Glucose Level 98 mg/dl Calcium Level 7.7 mg/dl Troponin I 0.027 ng/ml Bedside Glucose 111 mg/dL Current Medications Medications Dose Sig/Elzbieta Start Time Status Last (Trade) Ordered Route PRN Stop Time Admin Dose Reason Admin Aspirin 162 mg ONCE ONCE 11/03/18 DC 11/03/18 (Aspirin) PO 05:00 04:56 11/03/18 05:01 Sodium 30 gm ONCE ONCE 11/03/18 Polystyrene PO 05:30 Sulfonate 11/03/18 05:31 (Kayexalate) Albuterol 5 mg ONCE STAT 11/03/18 DC (Proventil HHN 05:27 0.083% (Neb)) 11/03/18 05:29 Procedures/MDM Chest x-ray radiologist reading is pending EKG: Read by emergency physician Rate/Rhythm: Normal Sinus Rhythm 66 beats/min QRS, ST, T-waves: No ST elevation, no T inversion, PVC Impression: Abnormal EKG MEDICAL MAKING DECISION: The patient is a 68-year-old female, with multiple cardiac risk factors, presenting with acute chest pain that is concerning for acute ACS, acute fluid overload, acute hyperkalemia, acute hyponatremia. She was treated with aspirin 162 mg p.o. in the ER for acute chest pain, Kayexalate 30 g p.o. and albuterol 5 mg nebulizer for acute hyperkalemia The differential diagnoses considered include but are not limited to acute coronary syndrome, acute myocardial infarction, pericarditis, pulmonary embolism, aortic dissection, pneumonia, pleural effusion, pneumothorax, GERD, chest wall pain. Departure Diagnosis: Primary Impression: Chest pain Additional Impressions: Fluid overload Hyperkalemia Hyponatremia Thrombocytopenia Condition: Stable Comments I discussed the findings with the patient. I notified the patient with Dr. Peters via [employer] , who was made aware of the lab, the treatment, the patient condition and the need for emergent dialysis. The patient is admitted to Tel Disclaimer: Inadvertent spelling and grammatical errors are likely due to EHR/dictation software use and do not reflect on the overall quality of patient care. Also, please note that the electronic time recorded on this note does not necessarily reflect the actual time of the patient encounter. LEXI RIDLEY MD Nov 03, 2018 04:54
[2018-11-03] MEDS ORDERED: ASPIRIN 81 MG TAB PO ONE (05:00)
[2018-11-03] MEDS ORDERED: ALBUTEROL 0.083% (NEB) 2.5 MG/3 ML AMP HHN STA (05:27)
[2018-11-03] MEDS ORDERED: NA POLYST SULFON 15 GM/60 ML BTL PO ONE (05:30)
[2018-11-03] MEDS ORDERED: ALBUMIN HUMAN 25% 100 ML IV PRN (08:00)
[2018-11-03] MEDS ORDERED: SODIUM CHLORIDE 0.9% 1L BAG IV PRN (08:00)
--- NOTE | 2018-11-03 08:02 | CONS ---
Assessment/Plan Assessment/Plan Assessment/Plan (Daily) 1. acute fluid overload with pulmoanry edema 2. Hypertensive urgency 3. ESRD on HD MWF schedule 4. H/o HTN 5. H/o DM II 6 H/o HL Plan: seeni Tigre< going to telemetry floor will plan for HD today and Extra Hd on Tuesday Cardiology has been consulted for work up of chest pain pt follows at [facility], her regular schedule is MWF thanks for consultaiton, I will conitnue to follow up Consultation Date/Type/Reason Admit Date/Time Nov 03, 2018 at 05:44 Date of Consultation: Nov 03, 2018 Type of Consult NEPHROLOGY Reason for Consultation acute fluid overload, ESRD on HD Requesting Provider: SILVIA IQBAL MD Date/Time of Note DATE: 11/03/18 TIME: 08:01 Hx of Present Illness 68-year-old female with a history of end-stage renal disease on hemodialysis, diabetes mellitus, hypertension, hyperthyroidism, dyslipidemia who presented with complaints of left-sided chest pain beginning in the dialysis center, poorly described, but upon further questioning, states it was like a cramping feeling in the left side of her chest, occurring at rest with radiation to her left arm. The patient states she has not had chest pain like this similar. EKG showed NSR, First troponin has been negative. CXR showed pulmonary congestion and pt has hypertensive urgency, Renal has been consulted for Emergent HD today and Fluid [place] Constitutional: no complaints Eyes: no complaints ENT: no complaints Respiratory: cough, pleuritic pain, shortness of breath Cardiovascular: chest pain Gastrointestinal: no complaints Genitourinary: no complaints Musculoskeletal: no complaints Skin: no complaints Neurologic: no complaints Endocrine: no complaints Lymphatic: no complaints Psychological: no complaints Immunologic: no complaints Past Medical History Medical History: coronary artery disease, high cholesterol, hypertension Home Meds Active Scripts Dicyclomine HCl (Dicyclomine HCl) 20 Mg Tablet, 20 MG PO QID for PAIN, #20 Prov:INDIRA DENT AJuanita DO 08/01/17 Hydrocodone/Acetaminophen ([place] 10-325 Tablet) 1 Each Tablet, 1 TAB PO Q6H PRN for PAIN, #20 TAB Prov:LECYNTHIAOS,APOSTOLOS A. DO 08/01/17 Hydralazine Hcl* (Hydralazine Hcl*) 25 Mg Tab, 25 MG PO Q8 for 30 Days, TAB Prov:ANIKETFREDDIE 01/18/17 Furosemide (Lasix) 20 Mg Tab, 20 MG PO DAILY for 30 Days, TAB Prov:ANIKETFREDDIE 01/18/17 Carvedilol* (Carvedilol*) 6.25 Mg Tablet, 6.25 MG PO BID for 30 Days, TAB Prov:FREDDIE 01/18/17 Calcium Acetate* (Calcium Acetate*) 667 Mg Capsule, 667 MG PO WITH MEALS for 30 Days, CAP Prov:FREDDIE 01/18/17 Aspirin (Aspirin) 81 Mg Chew, 81 MG PO DAILY for 30 Days, TAB Prov:01/18/17 Verapamil Hcl* (Verapamil ER*) 120 Mg Cap24h.pel, 120 MG PO DAILY for 30 Days, CAP Prov:ANIKETFREDDIE 01/18/17 Reported Medications Insulin Glargine* (Lantus*) 100 Unit/Ml Soln, 30 UNIT SC QHS, #1 VIAL 11/03/18 Insulin Lispro (Humalog) 100 Unit/1 Ml Cartridge, 12 UNIT SQ BID, EA 11/03/18 Hydroxyzine Hcl* (Hydroxyzine Hcl*) 10 Mg Tablet, 10 MG PO TID, #30 TAB 06/16/17 Pentoxifylline* (Pentoxifylline*) 400 Mg Tablet.sa, 400 MG PO TID, TAB 01/05/17 Loratadine* (Loratadine*) 10 Mg Tablet, 10 MG PO DAILY, #30 TAB 01/05/17 Atorvastatin Calcium* (Atorvastatin Calcium*) 20 Mg Tablet, 20 MG PO QHS, #30 TAB 01/05/17 Levothyroxine Sodium* (Levothyroxine Sodium*) 100 Mcg Tablet, 100 MCG PO BEFORE BREAKFAST, #30 TAB 01/05/17 Allergies: Coded Allergies: No Known Allergy (Unverified , 01/05/17) Past Surgical History Past Surgical Hx: no surgical history, other (Cholecystectomy, ERCP with sphincterotomy, Permcath placement, LUE AVF surgery ) Family History Significant Family History: no pertinent family hx Social History Alcohol Use: none Smoking Status: Never smoker Drug Use: none Exam/Review of Systems Exam Vitals Vital Signs Date Temp Pulse Resp B/P (MAP) Pulse Ox O2 O2 Flow FiO2 Time Delivery Rate 11/03/18 98.6 69 18 154/72 96 Room Air 06:26 (99) 11/03/18 21 05:34 Constitutional: alert Head: normocephalic Eyes: nl conjunctiva ENMT: nl external ears & nose Neck: supple, non-tender Respiratory: congested cough, crackles/rales, diminished breath sounds Cardiovascular: regular rate and rhythm, nl pulses Gastrointestinal: soft, non-tender Musculoskeletal: nl extremities to inspection, muscle weakness, swelling Extremities: normal pulses 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, nl mental status, nl speech Lymph: nl lymph nodes Results Result Diagram: 11/03/1844111/03/182 Results 24hrs Laboratory Tests Test 11/03/18 04:42 11/03/18 04:47 White Blood Count 5.6 # Red Blood Count 4.00 L Hemoglobin 12.2 Hematocrit 36.6 L Mean Corpuscular Volume 91.5 Mean Corpuscular Hemoglobin 30.5 Mean Corpuscular Hemoglobin Concent 33.3 Red Cell Distribution Width 15.2 H Platelet Count 134 #L Mean Platelet Volume 12.3 #H Immature Granulocytes % 0.200 Neutrophils % 67.3 Lymphocytes % 21.4 Monocytes % 6.1 Eosinophils % 4.5 Basophils % 0.5 Nucleated Red Blood Cells % 0.0 Immature Granulocytes # 0.010 Neutrophils # 3.7 Lymphocytes # 1.2 Monocytes # 0.3 Eosinophils # 0.3 Basophils # 0.0 Nucleated Red Blood Cells # 0.0 Sodium Level 125 L Potassium Level 5.5 H Chloride Level 88 L Carbon Dioxide Level 25 Anion Gap 12 Blood Urea Nitrogen 47 H Creatinine 8.24 H Est Glomerular Filtrat Rate mL/min 5 L Glucose Level 98 Calcium Level 7.7 L Troponin I 0.027 Bedside Glucose 111 IRIS BURRIS MD Nov 03, 2018 08:02
--- NOTE | 2018-11-03 09:31 | HP ---
Date/Time of Note Date/Time of Note DATE: 11/03/18 TIME: 09:25 Assessment/Plan VTE Prophylaxis Risk score (from Ns)>0 risk: 2 SCD applied (from Ns): No SCD contraindicated: other Pharmacological prophylaxis: other Pharm contraindication: other Lines/Catheters IV Catheter Type (from Nrsg): Saline Lock Assessment/Plan Assessment/Plan - Chest pain- r/o ACS: none at present - admit to tele - will get cardiology consult - Dr Padilla notified - Fluid overload - nephrology consult- Dr Dave Naidu follows - HD today - Hyperkalemia- per nephro - Hyponatremia- per nephro - ESRD on HD MWF schedule - hd today - Thrombocytopenia - monitor for bleeding - Diabetes Mellitus - II - Glycemic control - diabetic diet - Hypertensive urgency - Hypothyroidism - will do TSH level am - H/o Hyperlipidemia Patient seen in collaboration with Dr Martinez Result Diagram: 11/03/18 0442 11/03/18 0442 Results 24hrs Laboratory Tests Test 11/03/18 04:42 11/03/18 04:47 White Blood Count 5.6 # Red Blood Count 4.00 L Hemoglobin 12.2 Hematocrit 36.6 L Mean Corpuscular Volume 91.5 Mean Corpuscular Hemoglobin 30.5 Mean Corpuscular Hemoglobin Concent 33.3 Red Cell Distribution Width 15.2 H Platelet Count 134 #L Mean Platelet Volume 12.3 #H Immature Granulocytes % 0.200 Neutrophils % 67.3 Lymphocytes % 21.4 Monocytes % 6.1 Eosinophils % 4.5 Basophils % 0.5 Nucleated Red Blood Cells % 0.0 Immature Granulocytes # 0.010 Neutrophils # 3.7 Lymphocytes # 1.2 Monocytes # 0.3 Eosinophils # 0.3 Basophils # 0.0 Nucleated Red Blood Cells # 0.0 Sodium Level 125 L Potassium Level 5.5 H Chloride Level 88 L Carbon Dioxide Level 25 Anion Gap 12 Blood Urea Nitrogen 47 H Creatinine 8.24 H Est Glomerular Filtrat Rate mL/min 5 L Glucose Level 98 Calcium Level 7.7 L Troponin I 0.027 Bedside Glucose 111 HPI/ROS Admit Date/Time Admit Date/Time Nov 03, 2018 at 05:44 ROS HPI The patient is a 68-year-old female with a history of end-stage renal disease on hemodialysis, diabetes mellitus, hypertension, hyperthyroidism, dyslipidemia. Patient is admitted with complaints of left-sided chest pain started at the dialysis center. Patient stated non-provoked, radiating down to the left arm, denies similar symptoms previously, complains of associated dyspnea. She was treated with 2 nitroglycerin spray by EMS with good response. Patient denies headache, neck pain, abdominal pain, vomiting, dysuria, diarrhea. She does not smoke nor drink. Patient is admitted under Dr Green for further treatment/evaluation. Plan of care dw staff EKG showed NSR, First troponin has been negative. CXR showed pulmonary congestion and pt has hypertensive urgency, Renal has been consulted for Emergent HD today and Fluid overload. HD today - starting now Past Medical History Medical History: coronary artery disease, high cholesterol, hypertension Past Surgical History Past Surgical Hx: no surgical history, other (Cholecystectomy, ERCP with sphincterotomy, Permcath placement, LUE AVF surgery ) Family History Significant Family History: no pertinent family hx Social History Alcohol Use: none Smoking Status: Never smoker Drug Use: none Past medical history: Chronic kidney disease on hemodialysis Tuesday a tuesday, diabetes mellitus, hypertension, hypothyroidism Past surgical history: Left upper extremity AV fistula ROS All systems reviewed and are negative except as per history of present illness. Eyes: no complaints ENT: no complaints Respiratory: no complaints Cardiovascular: no complaints Gastrointestinal: no complaints Genitourinary: no complaints Musculoskeletal: no complaints Skin: no complaints Neurologic: no complaints Psychological: nl mood/affect Immunologic: no complaints PMH/Family/Social Past Medical History PMhx/Soc History of Surgery: Yes (dialysis cath placed) Anesthesia Reaction: No Hx Neurological Disorder: No Hx Respiratory Disorders: No Hx Cardiac Disorders: Yes - hypertension, Hx Psychiatric Problems: No Hx Miscellaneous Medical Probl: Yes (gallstones, diabetes, renal failure w/ dialysis;Chronic kidney disease on hemodialysis Tuesday and Tuesday, right, hypothyroidism,marlyn) Hx Alcohol Use: No Hx Substance Use: No Hx Tobacco Use: No Smoking Status: Never smoker Past surgical history: Left upper extremity AV fistula Medications Current Medications Albumin Human 100 ml @ 100 mls/hr WITH DIALYSIS PRN IV SBP <90 DURING DIALYSIS; Start 11/03/18 at 08:00 Sodium Chloride (NS) -To prime the dialy... DIRECTED FOR HD PRN IV HD; Start 11/03/18 at 08:00 Coded Allergies: No Known Allergy (Unverified , 01/05/17) Past Surgical History Past Surgical Hx: no surgical history Family History Significant Family History: no pertinent family hx Social History Smoking Status: Never smoker Exam/Review of Systems Vital Signs Vitals Vital Signs Date Temp Pulse Resp B/P (MAP) Pulse Ox O2 O2 Flow FiO2 Time Delivery Rate 11/03/18 97.6 61 20 153/78 97 Room Air 08:16 (103) 11/03/18 21 05:34 Exam Constitutional: alert, well developed Psych: nl mood/affect Head: atraumatic Eyes: nl lids Neck: non-tender Respiratory: diminished breath sounds (bilaterall at bases) Cardiovascular: nl pulses Gastrointestinal: soft, non-tender Musculoskeletal: muscle weakness Extremities: edema Neurological: other (alert) Lymph: nontender WALE RIBEIRO Nov 03, 2018 09:31
[2018-11-03] MEDS ORDERED: HYDROCODONE/APAP (10/325) TAB PO PRN (10:00)
[2018-11-03] MEDS ORDERED: PENTOXIFYLLINE (SR) 400 MG TAB PO SCH (13:00)
[2018-11-03] MEDS: INSULIN ASPART [NOVOLOG] 3 ML PEN SC SCH ×3 (13:20→21:00)
[2018-11-03] MEDS: hydrOXYzine HCL 10 MG TAB PO SCH ×2 (13:31→21:21)
[2018-11-03] MEDS: CALCIUM ACETATE 667 MG CAP PO SCH ×2 (13:31→17:20)
[2018-11-03] MEDS: FUROSEMIDE 20 MG TAB PO SCH (13:32)
[2018-11-03] MEDS: ASPIRIN 81 MG TAB PO SCH (13:38)
[2018-11-03] MEDS: DICYCLOMINE 10 MG CAP PO SCH ×2 (13:38→22:56)
[2018-11-03] MEDS: PENTOXIFYLLINE (SR) 400 MG TAB PO SCH (13:39)
[2018-11-03] MEDS: LORATADINE 10 MG TAB PO SCH (13:39)
[2018-11-03] MEDS: VERAPAMIL (SR) 120 MG TAB PO SCH (13:39)
[2018-11-03] MEDS ORDERED: NITROGLYCERIN (SL) 0.4 MG TAB SL PRN (14:00)
[2018-11-03] MEDS ORDERED: hydrALAzine 20 MG INJ IV PRN (14:00)
[2018-11-03] MEDS ORDERED: LANT3I SC (14:18)
[2018-11-03] MEDS ORDERED: INSU100C SQ (14:18)
--- NOTE | 2018-11-03 14:38 | CONS ---
DATE OF ADMISSION: 11/03/2018 DATE OF CONSULTATION: 11/03/2018 TYPE OF CONSULTATION: Cardiology. REASON FOR CONSULTATION: Chest pain, assess for acute coronary syndrome. REQUESTING PHYSICIAN: Silvia Martinez MD HISTORY OF PRESENT ILLNESS: Ms. Garcia is a 68-year-old female with a history of end-stage kelly al disease on hemodialysis, diabetes mellitus, hypertension, hyperthyroidism, dyslipidemia who presen chante with complaints of left-sided chest pain beginning in the dialysis center, poorly described, but upon further questioning, states it was like a cramping feeling in the left side of her chest, occurr ing at rest with radiation to her left arm. The patient states she has not had chest pain like this similar. Upon arrival, temperature 98.6, blood pressure is 134/66, pulse 69, respiratory rate 19, sa tting 100%. The patient's labs revealed white count 5.6, hemoglobin 12.2, platelet count of 134, a s odium of 125, creatinine of 8.2, BUN 47. Troponin negative, potassium of 5.5. LDL 42, HDL 32. The patient underwent a chest x-ray revealing bilateral perihilar and lower lobe interstitial opacities, likely reflecting pulmonary edema, small bilateral pleural effusions. The patient's electrocardiogra m revealed sinus rhythm, rate of 66, normal axis with occasional PVCs, nonspecific ST abnormalities d iffusely. The patient was admitted to the floor where she is undergoing hemodialysis at this time. The patient denies ongoing chest pain and has negative troponins x2 at this time. PAST MEDICAL HISTORY: As above in HPI. MEDICATIONS CURRENTLY IN HOSPITAL: 1. Synthroid 100 mcg daily. 2. Lipitor 20 daily at bedtime. 3. Hydralazine 20 mg p.o. q.8. 4. Hydroxyzine 10 mg t.i.d. 5. PhosLo 667 mg with meals. 6. Verapamil 120 mg daily. 7. Aspirin 81 daily. 8. Carvedilol 6.25 mg p.o. b.i.d. 9. Lasix 20 mg daily. 10. [place]. 11. Claritin. 12. Bentyl 20 mg p.o. b.i.d. 13. Trental 400 mg daily. 14. Albumin IV hydration. ALLERGIES: NO KNOWN DRUG ALLERGIES. SOCIAL HISTORY: No current tobacco, ETOH or illicit drug use. FAMILY HISTORY: No history of sudden cardiac or early CAD. REVIEW OF SYSTEMS: As above in HPI. CONSTITUTIONAL: No fevers, chills. PULMONARY: No current shortness of breath. CARDIOVASCULAR: Intermittent chest pain. GASTROINTESTINAL: No vomiting. GENITOURINARY: End-stage renal disease. PSYCHIATRIC: No documented psych history. NEUROLOGIC: No documented history of CVA. ENDOCRINE: Hypothyroidism, diabetes mellitus. PHYSICAL EXAMINATION: VITAL SIGNS: Temperature of 97.5, blood pressure 158/69, pulse 60, respiratory rate 20, saturating 9 6%. GENERAL: The patient is alert, awake, no acute distress. NECK: JVP approximately 9 to 10 cm water. CHEST: Decreased breath sounds at base bilaterally. HEART: Regular rate and rhythm. Normal S1, S2, I/ systolic murmur, nondisplaced PMI. ABDOMEN: Positive bowel sounds, soft. EXTREMITIES: Trace edema, 1+ pulses bilateral posterior tibial. LABORATORIES: As above in HPI with additionally from today, LDL 42, HDL 32. IMAGING STUDIES: As above in HPI. No further imaging studies for my review at this time. ECG: As above in HPI. No further electrograms for my review at this time. IMPRESSION: 1. Chest pain, assess for acute coronary syndrome with negative troponins x2 at this time. 2. Abnormal echocardiogram with nonspecific ST-T wave abnormalities, assess for acute coronary syndr ome. 3. Premature ventricular contractions, assess for acute coronary syndrome. 4. Hypertension, currently elevated, undergoing hemodialysis at this time. 5. End-stage renal disease on hemodialysis. 6. Dyslipidemia. 7. Diabetes mellitus. 8. Hypothyroidism. 9. Hyponatremia. RECOMMENDATIONS: 1. At this time, we would maintain the patient on telemetry monitoring to follow rhythm and rate con trol closely. 2. We will continue the patient's baseline beta goldie for prophylaxis for cardiovascular events. Continue the patient's aspirin at this time for prophylaxis against cardiovascular events and continu e the patient's aspirin at this time, but continue the patient's hydralazine additionally and a proxi mal and follow blood pressure after receiving these medications. I will titrate medication as necess rikki to improve overall systolic blood pressure control and continue patient's current statin therapy. 3. Hemodialysis for volume removal ongoing now along with Lasix. 4. Continue the patient's Trental for now. 5. We will check a 2D echo for this patient's ejection fraction, wall motion or any major abnormalit ies. 6. Complete the patient's rule out for myocardial infarction to ensure the patient's chest pain was not indicative of an acute coronary syndrome such as an acute myocardial infarction and will consider stress testing this patient given multiple cardiac risk factors with recurrent episodes of chest carmela n as well as abnormal electrocardiogram and PVCs to assess for the possibility of significant obstruc tive coronary artery disease lending to ischemia and subsequent chest pain and admit to the hospital. Thank you for allowing me to take part in the care of this patient. I will continue to follow along very closely with you as further recommendations to be made as the [facility] Dictated By: KERRY ANDREWS/KATERIN Conf#: [id number] DID#: [id number] CC: SILVIA MARTINEZ MD;*EndCC*
[2018-11-03] MEDS: ATORVASTATIN 20 MG TAB PO SCH (21:21)
[2018-11-03] MEDS ORDERED: ONDANSETRON 4 MG INJ IV PRN (21:38)
[2018-11-04] VITALS (19 sets, daily range): BP systolic 98–172; BP diastolic 48–74; PULSE 52–63; RESP 18–20
[2018-11-04] MEDS: ACCU-CHEK XX SCH (02:00)
[2018-11-04] MEDS: FUROSEMIDE 20 MG TAB PO SCH (06:18)
[2018-11-04] MEDS: CALCIUM ACETATE 667 MG CAP PO SCH ×3 (07:42→17:41)
[2018-11-04] MEDS: INSULIN ASPART [NOVOLOG] 3 ML PEN SC SCH ×4 (07:43→21:00)
--- NOTE | 2018-11-04 08:44 | CONS ---
Assessment/Plan Assessment/Plan Assessment/Plan (Daily) 1. acute fluid overload with pulmoanry edema 2. Hypertensive urgency 3. ESRD on HD MWF schedule 4. H/o HTN 5. H/o DM II 6 H/o HL Plan: s/p HD yesterday 2.4 L removed, Plan for HD today pt follows at [facility], her regular schedule is MWF will follow up Consultation Date/Type/Reason Admit Date/Time Nov 03, 2018 at 05:44 Initial Consult Date 11/03/18 Type of Consult NEPHROLOGY Requesting Provider: SILIVA IQBAL MD Date/Time of Note DATE: 11/04/18 TIME: 08:44 24 HR Interval Summary Free Text/Dictation s/p HD yesterday 2.4 L removed, Plan for HD today Exam/Review of Systems Exam Vitals Vital Signs Date Temp Pulse Resp B/P (MAP) Pulse Ox O2 O2 Flow FiO2 Time Delivery Rate 11/04/18 98.7 57 20 143/63 92 Room Air 07:34 (89) 11/03/18 05:34 Intake and Output 11/03/18 11/03/18 11/04/18 1515:00 23:00 07:00 IntakeIntake Total 240 ml 480 ml 400 ml OutputOutput Total 2800 ml BalanceBalance -2560 ml 480 ml 400 ml Results Result Diagram: 11/04/18 0533 11/04/18 0533 Results 24hrs Laboratory Tests Test 11/03/18 10:03 11/03/18 13:27 11/03/18 14:26 11/03/18 16:11 Creatine Kinase 185 174 Creatine Kinase 1.6 1.7 Index Creatinine Kinase MB 3.04 H 2.96 H (Mass) Troponin I 0.017 < 0.012 Triglycerides Level 93 Cholesterol Level 93 L LDL Cholesterol, 42 Calculated HDL Cholesterol 32 L Cholesterol/HDL 2.9 Ratio Hepatitis B Surface NEGATIVE Antigen Bedside Glucose 90 Magnesium Level 2.2 Test 11/03/18 17:19 11/03/18 21:19 11/04/18 05:33 11/04/18 07:41 Bedside Glucose 108 122 78 White Blood Count 4.6 L Red Blood Count 3.61 L Hemoglobin 11.0 L Hematocrit 33.7 L Mean Corpuscular 93.4 Volume Mean Corpuscular 30.5 Hemoglobin Mean Corpuscular 32.6 Hemoglobin Concent Red Cell 15.3 H Distribution Width Platelet Count 120 L Mean Platelet Volume 11.6 H Immature 0.200 Granulocytes % Neutrophils % 68.6 Lymphocytes % 20.3 Monocytes % 7.3 Eosinophils % 3.0 Basophils % 0.6 Nucleated Red Blood 0.0 Cells % Immature 0.010 Granulocytes # Neutrophils # 3.2 Lymphocytes # 0.9 Monocytes # 0.3 Eosinophils # 0.1 Basophils # 0.0 Nucleated Red Blood 0.0 Cells # Sodium Level 134 L Potassium Level 3.1 #L Chloride Level 95 L Carbon Dioxide Level 28 Anion Gap 11 Blood Urea Nitrogen 25 #H Creatinine 6.15 #H Est Glomerular 7 L Filtrat Rate mL/min Glucose Level 75 Hemoglobin A1c 5.7 Calcium Level 7.6 L Free Thyroxine 1.37 Medications Medication Current Medications Albumin Human 100 ml @ 100 mls/hr WITH DIALYSIS PRN IV SBP <90 DURING DIALYSIS; Start 11/03/18 at 08:00 Sodium Chloride (NS) -To prime the dialy... DIRECTED FOR HD PRN IV HD; Start 11/03/18 at 08:00 Aspirin (Aspirin) 81 mg DAILY PO Last administered on 11/03/18at 13:38; Admin Dose 81 MG; Start 11/03/18 at 10:00 Atorvastatin Calcium (Lipitor) 20 mg QHS PO Last administered on 11/03/18at 21:21; Admin Dose 20 MG; Start 11/03/18 at 21:00 Calcium Acetate (Phoslo) 667 mg WITH MEALS PO Last administered on 11/03/18at 17:20; Admin Dose 667 MG; Start 11/03/18 at 11:50 Carvedilol (Coreg) 6.25 mg BID PO Last administered on 11/03/18at 12:15; Admin Dose 6.25 MG; Start 11/03/18 at 10:00 Furosemide (Lasix) 20 mg DAILY@0600 PO Last administered on 11/04/18at 06:18; Admin Dose 20 MG; Start 11/03/18 at 10:00 Acetaminophen/ Hydrocodone Bitart ([place] (10/325)) 1 tab Q6H PRN PO PAIN; Start 11/03/18 at 10:00 Hydroxyzine HCl (Atarax) 10 mg TID PO Last administered on 11/03/18 21:21; Admin Dose 10 MG; Start 11/03/18 at 13:00 Levothyroxine Sodium (Synthroid) 100 mcg DAILY@06 PO ; Start 11/04/18 at 10:00 Loratadine (Claritin) 10 mg DAILY PO Last administered on 11/03/18 13:39; Admin Dose 10 MG; Start 11/03/18 at 10:00 Verapamil HCl (Isoptin Sr) 120 mg DAILY PO Last administered on 11/03/18 13:39; Admin Dose 120 MG; Start 11/03/18 at 10:30 Dicyclomine HCl (Bentyl) 20 mg BID PO Last administered on 11/03/18 22:56; Admin Dose 20 MG; Start 11/03/18 at 10:00 Diagnostic Test (Pha) (Accu-Chek) 1 ea 02 XX ; Start 11/04/18 at 02:00 Insulin Aspart (Novolog Insulin Pen) NOVOLOG *MILD* ALGORITHM WITH MEALS BEDTIME SC ; Start 11/03/18 at 11:50 Pentoxifylline (Trental) 400 mg DAILY PO Last administered on 11/03/18 13:39; Admin Dose 400 MG; Start 11/03/18 at 10:00 Nitroglycerin (Nitroglycerin (Sl Tab) 0.4 Mg) 1 tab Q5M PRN SL ANGINA; Start 11/03/18 at 14:00 Hydralazine HCl (Apresoline) 50 mg Q8 PO Last administered on 11/04/18 06:17; Admin Dose 50 MG; Start 11/03/18 at 14:00 Hydralazine HCl (Apresoline) 10 mg Q4H PRN IV SBP>170 Last administered on 11/03/18at 14:55; Admin Dose 10 MG; Start 11/03/18 at 14:00 Ondansetron HCl (Zofran Inj) 4 mg Q4H PRN IV NAUSEA AND/OR VOMITING Last administered on 11/03/18 22:56; Admin Dose 4 MG; Start 11/03/18 at 21:38 IRIS BURRIS MD Nov 04, 2018 08:44
[2018-11-04] MEDS ORDERED: POTASSIUM CHLORIDE (SR) 20 MEQ TAB PO STA ×2 (08:57→12:24)
[2018-11-04] MEDS ORDERED: REGADENOSON 0.4 MG/5 ML SYG ONE (11:33)
--- NOTE | 2018-11-04 12:25 | PN ---
Date/Time of Note Date/Time of Note DATE: 11/04/18 TIME: 12:21 Assessment/Plan VTE Prophylaxis Risk score (from Ns)>0 risk: 2 SCD applied (from Ns): No SCD contraindicated: other Pharmacological prophylaxis: other Pharm contraindication: other Lines/Catheters IV Catheter Type (from Nrsg): Saline Lock Assessment/Plan Assessment/Plan - Hypokalemia- replace K - Chest pain- r/o ACS: none reported; gone for Lexiscan - per cardiology consult - Fluid overload - per nephrology consult- Dr Dave Naidu - SP HD yesterday - Hyperkalemia- per nephro - Hyponatremia- per nephro - ESRD on HD MWF schedule - hd yesterday - Thrombocytopenia - monitor for bleeding - Diabetes Mellitus - II - Glycemic control - diabetic diet - Hypertensive urgency - Hypothyroidism - TSH wnl - H/o Hyperlipidemia Patient seen in collaboration with Dr Martinez Result Diagram: 11/04/18 0533 11/04/18 0533 Results 24hrs Laboratory Tests Test 11/03/18 13:27 11/03/18 14:26 11/03/18 16:11 11/03/18 17:19 Bedside Glucose 90 108 Magnesium Level 2.2 Creatine Kinase 174 Creatine Kinase 1.7 Index Creatinine Kinase MB 2.96 H (Mass) Troponin I < 0.012 Test 11/03/18 21:19 11/04/18 05:33 11/04/18 07:41 Bedside Glucose 122 78 White Blood Count 4.6 L Red Blood Count 3.61 L Hemoglobin 11.0 L Hematocrit 33.7 L Mean Corpuscular 93.4 Volume Mean Corpuscular 30.5 Hemoglobin Mean Corpuscular 32.6 Hemoglobin Concent Red Cell 15.3 H Distribution Width Platelet Count 120 L Mean Platelet Volume 11.6 H Immature 0.200 Granulocytes % Neutrophils % 68.6 Lymphocytes % 20.3 Monocytes % 7.3 Eosinophils % 3.0 Basophils % 0.6 Nucleated Red Blood 0.0 Cells % Immature 0.010 Granulocytes # Neutrophils # 3.2 Lymphocytes # 0.9 Monocytes # 0.3 Eosinophils # 0.1 Basophils # 0.0 Nucleated Red Blood 0.0 Cells # Sodium Level 134 L Potassium Level 3.1 #L Chloride Level 95 L Carbon Dioxide Level 28 Anion Gap 11 Blood Urea Nitrogen 25 #H Creatinine 6.15 #H Est Glomerular 7 L Filtrat Rate mL/min Glucose Level 75 Hemoglobin A1c 5.7 Calcium Level 7.6 L Thyroid Stimulating 4.590 Hormone (TSH) Free Thyroxine 1.37 Subjective 24 Hr Interval Summary Free Text/Dictation Off floor- gone for Lexiscan no events last night hd TODAY Exam/Review of Systems Exam Vitals Vital Signs Date Temp Pulse Resp B/P (MAP) Pulse Ox O2 O2 Flow FiO2 Time Delivery Rate 11/04/18 98.5 54 20 143/66 95 Room Air 10:57 (91) 11/03/18 21 05:34 Intake and Output 11/03/18 11/03/18 11/04/18 1515:00 23:00 07:00 IntakeIntake Total 240 ml 480 ml 400 ml OutputOutput Total 2800 ml BalanceBalance -2560 ml 480 ml 400 ml Results Results 24hrs Laboratory Tests Test 11/03/18 13:27 11/03/18 14:26 11/03/18 16:11 11/03/18 17:19 Bedside Glucose 90 108 Magnesium Level 2.2 Creatine Kinase 174 Creatine Kinase 1.7 Index Creatinine Kinase MB 2.96 H (Mass) Troponin I < 0.012 Test 11/03/18 21:19 11/04/18 05:33 11/04/18 07:41 Bedside Glucose 122 78 White Blood Count 4.6 L Red Blood Count 3.61 L Hemoglobin 11.0 L Hematocrit 33.7 L Mean Corpuscular 93.4 Volume Mean Corpuscular 30.5 Hemoglobin Mean Corpuscular 32.6 Hemoglobin Concent Red Cell 15.3 H Distribution Width Platelet Count 120 L Mean Platelet Volume 11.6 H Immature 0.200 Granulocytes % Neutrophils % 68.6 Lymphocytes % 20.3 Monocytes % 7.3 Eosinophils % 3.0 Basophils % 0.6 Nucleated Red Blood 0.0 Cells % Immature 0.010 Granulocytes # Neutrophils # 3.2 Lymphocytes # 0.9 Monocytes # 0.3 Eosinophils # 0.1 Basophils # 0.0 Nucleated Red Blood 0.0 Cells # Sodium Level 134 L Potassium Level 3.1 #L Chloride Level 95 L Carbon Dioxide Level 28 Anion Gap 11 Blood Urea Nitrogen 25 #H Creatinine 6.15 #H Est Glomerular 7 L Filtrat Rate mL/min Glucose Level 75 Hemoglobin A1c 5.7 Calcium Level 7.6 L Thyroid Stimulating 4.590 Hormone (TSH) Free Thyroxine 1.37 Medications Medication Current Medications Albumin Human 100 ml @ 100 mls/hr WITH DIALYSIS PRN IV SBP <90 DURING DIALYSIS; Start 11/03/18 at 08:00 Sodium Chloride (NS) -To prime the dialy... DIRECTED FOR HD PRN IV HD; Start 11/03/18 at 08:00 Aspirin (Aspirin) 81 mg DAILY PO Last administered on 11/03/18at 13:38; Start 11/03/18 at 10:00 Atorvastatin Calcium (Lipitor) 20 mg QHS PO Last administered on 11/03/18at 21:21; Start 11/03/18 at 21:00 Calcium Acetate (Phoslo) 667 mg WITH MEALS PO Last administered on 11/03/18 17:20; Start 11/03/18 at 11:50 Carvedilol (Coreg) 6.25 mg BID PO Last administered on 11/03/18at 12:15; Start 11/03/18 at 10:00 Furosemide (Lasix) 20 mg DAILY@0600 PO Last administered on 11/04/18at 06:18; Start 11/03/18 at 10:00 Acetaminophen/ Hydrocodone Bitart ([place] (10/325)) 1 tab Q6H PRN PO PAIN; Start 11/03/18 at 10:00 Hydroxyzine HCl (Atarax) 10 mg TID PO Last administered on 11/03/18at 21:21; Start 11/03/18 at 13:00 Levothyroxine Sodium (Synthroid) 100 mcg DAILY@06 PO ; Start 11/04/18 at 10:00 Loratadine (Claritin) 10 mg DAILY PO Last administered on 11/03/18at 13:39; Start 11/03/18 at 10:00 Verapamil HCl (Isoptin Sr) 120 mg DAILY PO Last administered on 11/03/18at 13:39; Start 11/03/18 at 10:30 Dicyclomine HCl (Bentyl) 20 mg BID PO Last administered on 11/03/18at 22:56; Start 11/03/18 at 10:00 Diagnostic Test (Pha) (Accu-Chek) 1 ea 02 XX ; Start 11/04/18 at 02:00 Insulin Aspart (Novolog Insulin Pen) NOVOLOG *MILD* ALGORITHM WITH MEALS BEDTIME SC ; Start 11/03/18 at 11:50 Pentoxifylline (Trental) 400 mg DAILY PO Last administered on 11/03/18 13:39; Start 11/03/18 at 10:00 Nitroglycerin (Nitroglycerin (Sl Tab) 0.4 Mg) 1 tab Q5M PRN SL ANGINA; Start 11/03/18 at 14:00 Hydralazine HCl (Apresoline) 50 mg Q8 PO Last administered on 11/04/18 06:17; Start 11/03/18 at 14:00 Hydralazine HCl (Apresoline) 10 mg Q4H PRN IV SBP>170 Last administered on 11/03/18 14:55; Start 11/03/18 at 14:00 Ondansetron HCl (Zofran Inj) 4 mg Q4H PRN IV NAUSEA AND/OR VOMITING Last administered on 11/03/18at 22:56; Start 11/03/18 at 21:38 WALE RIBEIRO Nov 04, 2018 12:25
[2018-11-04] MEDS: hydrOXYzine HCL 10 MG TAB PO SCH ×2 (13:00→15:16)
--- NOTE | 2018-11-04 13:17 | CONS ---
Consult Date/Type/Reason Admit Date/Time Nov 03, 2018 at 05:44 Initial Consult Date 11/03/18 Requesting Provider: SILVIA IQBAL MD Date/Time of Note DATE: 11/04/18 TIME: 13:14 Subjective NO acute events - Stress test complete -will await results. ROS: No fever, no chills, no nausea, no vomiting, no diarrhea/constipation No recent weight changes No chest pain, no PND, no orthopnea - mild SOB No dizziness, blurred vision No thirst, no heat or cold intolerance Objective Vitals Vital Signs Date Temp Pulse Resp B/P (MAP) Pulse Ox O2 O2 Flow FiO2 Time Delivery Rate 11/04/18 98.5 54 20 143/66 95 Room Air 10:57 (91) 11/03/18 05:34 Intake and Output 11/03/18 11/03/18 11/04/18 1515:00 23:00 07:00 IntakeIntake Total 240 ml 480 ml 400 ml OutputOutput Total 2800 ml BalanceBalance -2560 ml 480 ml 400 ml Exam General: WN/WD/NAD, AOx 3 HEENT: Unicetric/atraumatic/EOMI ( follows commands) NECK: JVD elevated, no thyromegaly Lymph: no lymphadenopathy HEART: regular with no S3, II/ systolic murmur at apex, PMI L LUNGS: Coarse sounds ABD: soft, NT, ND, +BS : Intact Neuro: non focal SKIN: chronic changes EXT: trace edema Results/Medications Result Diagram: 11/04/18 0533 11/04/18 0533 Results 24 hrs Laboratory Tests Test 11/03/18 13:27 11/03/18 14:26 11/03/18 16:11 11/03/18 17:19 Bedside Glucose 90 108 Magnesium Level 2.2 Creatine Kinase 174 Creatine Kinase 1.7 Index Creatinine Kinase MB 2.96 H (Mass) Troponin I < 0.012 Test 11/03/18 21:19 11/04/18 05:33 11/04/18 07:41 Bedside Glucose 122 78 White Blood Count 4.6 L Red Blood Count 3.61 L Hemoglobin 11.0 L Hematocrit 33.7 L Mean Corpuscular 93.4 Volume Mean Corpuscular 30.5 Hemoglobin Mean Corpuscular 32.6 Hemoglobin Concent Red Cell 15.3 H Distribution Width Platelet Count 120 L Mean Platelet Volume 11.6 H Immature 0.200 Granulocytes % Neutrophils % 68.6 Lymphocytes % 20.3 Monocytes % 7.3 Eosinophils % 3.0 Basophils % 0.6 Nucleated Red Blood 0.0 Cells % Immature 0.010 Granulocytes # Neutrophils # 3.2 Lymphocytes # 0.9 Monocytes # 0.3 Eosinophils # 0.1 Basophils # 0.0 Nucleated Red Blood 0.0 Cells # Sodium Level 134 L Potassium Level 3.1 #L Chloride Level 95 L Carbon Dioxide Level 28 Anion Gap 11 Blood Urea Nitrogen 25 #H Creatinine 6.15 #H Est Glomerular 7 L Filtrat Rate mL/min Glucose Level 75 Hemoglobin A1c 5.7 Calcium Level 7.6 L Thyroid Stimulating 4.590 Hormone (TSH) Free Thyroxine 1.37 Home Meds Active Scripts Dicyclomine HCl (Dicyclomine HCl) 20 Mg Tablet, 20 MG PO QID for PAIN, #20 Prov:INDIRA DENT DO 08/01/17 Hydrocodone/Acetaminophen ([place] 10-325 Tablet) 1 Each Tablet, 1 TAB PO Q6H PRN for PAIN, #20 TAB Prov:INDIRA DENT DO 08/01/17 Hydralazine Hcl* (Hydralazine Hcl*) 25 Mg Tab, 25 MG PO Q8 for 30 Days, TAB Prov:FREDDIE KEYS 01/18/17 Furosemide (Lasix) 20 Mg Tab, 20 MG PO DAILY for 30 Days, TAB Prov:FREDDIE KEYS 01/18/17 Carvedilol* (Carvedilol*) 6.25 Mg Tablet, 6.25 MG PO BID for 30 Days, TAB Prov:FREDDIE KEYS 01/18/17 Calcium Acetate* (Calcium Acetate*) 667 Mg Capsule, 667 MG PO WITH MEALS for 30 Days, CAP Prov:FREDDIE KEYS 01/18/17 Aspirin (Aspirin) 81 Mg Chew, 81 MG PO DAILY for 30 Days, TAB Prov:FREDDIE KEYS 01/18/17 Verapamil Hcl* (Verapamil ER*) 120 Mg Cap24h.pel, 120 MG PO DAILY for 30 Days, CAP Prov:FREDDIE KEYS 01/18/17 Reported Medications Insulin Glargine* (Lantus*) 100 Unit/Ml Soln, 30 UNIT SC QHS, #1 VIAL 11/03/18 Insulin Lispro (Humalog) 100 Unit/1 Ml Cartridge, 12 UNIT SQ BID, EA 11/03/18 Hydroxyzine Hcl* (Hydroxyzine Hcl*) 10 Mg Tablet, 10 MG PO TID, #30 TAB 06/16/17 Pentoxifylline* (Pentoxifylline*) 400 Mg Tablet.sa, 400 MG PO TID, TAB 01/05/17 Loratadine* (Loratadine*) 10 Mg Tablet, 10 MG PO DAILY, #30 TAB 01/05/17 Atorvastatin Calcium* (Atorvastatin Calcium*) 20 Mg Tablet, 20 MG PO QHS, #30 TAB 01/05/17 Levothyroxine Sodium* (Levothyroxine Sodium*) 100 Mcg Tablet, 100 MCG PO BEFORE BREAKFAST, #30 TAB 01/05/17 Medications Current Medications Albumin Human 100 ml @ 100 mls/hr WITH DIALYSIS PRN IV SBP <90 DURING DIALYSIS; Start 11/03/18 at 08:00 Sodium Chloride (NS) -To prime the dialy... DIRECTED FOR HD PRN IV HD; Start 11/03/18 at 08:00 Aspirin (Aspirin) 81 mg DAILY PO Last administered on 11/03/18at 13:38; Admin Dose 81 MG; Start 11/03/18 at 10:00 Atorvastatin Calcium (Lipitor) 20 mg QHS PO Last administered on 11/03/18at 21:21; Admin Dose 20 MG; Start 11/03/18 at 21:00 Calcium Acetate (Phoslo) 667 mg WITH MEALS PO Last administered on 11/03/18at 17:20; Admin Dose 667 MG; Start 11/03/18 at 11:50 Carvedilol (Coreg) 6.25 mg BID PO Last administered on 11/03/18at 12:15; Admin Dose 6.25 MG; Start 11/03/18 at 10:00 Furosemide (Lasix) 20 mg DAILY@0600 PO Last administered on 11/04/18at 06:18; Admin Dose 20 MG; Start 11/03/18 at 10:00 Acetaminophen/ Hydrocodone Bitart ([place] (10/325)) 1 tab Q6H PRN PO PAIN; Start 11/03/18 at 10:00 Hydroxyzine HCl (Atarax) 10 mg TID PO Last administered on 11/03/18at 21:21; Admin Dose 10 MG; Start 11/03/18 at 13:00 Levothyroxine Sodium (Synthroid) 100 mcg DAILY@06 PO ; Start 11/04/18 at 10:00 Loratadine (Claritin) 10 mg DAILY PO Last administered on 11/03/18at 13:39; Admin Dose 10 MG; Start 11/03/18 at 10:00 Verapamil HCl (Isoptin Sr) 120 mg DAILY PO Last administered on 11/03/18 13:39; Admin Dose 120 MG; Start 11/03/18 at 10:30 Dicyclomine HCl (Bentyl) 20 mg BID PO Last administered on 11/03/18 22:56; Admin Dose 20 MG; Start 11/03/18 at 10:00 Diagnostic Test (Pha) (Accu-Chek) 1 ea 02 XX ; Start 11/04/18 at 02:00 Insulin Aspart (Novolog Insulin Pen) NOVOLOG *MILD* ALGORITHM WITH MEALS BEDTIME SC ; Start 11/03/18 at 11:50 Pentoxifylline (Trental) 400 mg DAILY PO Last administered on 11/03/18at 13:39; Admin Dose 400 MG; Start 11/03/18 at 10:00 Nitroglycerin (Nitroglycerin (Sl Tab) 0.4 Mg) 1 tab Q5M PRN SL ANGINA; Start 11/03/18 at 14:00 Hydralazine HCl (Apresoline) 50 mg Q8 PO Last administered on 11/04/18at 06:17; Admin Dose 50 MG; Start 11/03/18 at 14:00 Hydralazine HCl (Apresoline) 10 mg Q4H PRN IV SBP>170 Last administered on 11/03/18at 14:55; Admin Dose 10 MG; Start 11/03/18 at 14:00 Ondansetron HCl (Zofran Inj) 4 mg Q4H PRN IV NAUSEA AND/OR VOMITING Last administered on 11/03/18at 22:56; Admin Dose 4 MG; Start 11/03/18 at 21:38 Assessment/Plan Hospital Course (Demo Recall) 1. Chest pain, assess for acute coronary syndrome with negative troponins x2 at this time - stress test done - will await results 2. Abnormal echocardiogram with nonspecific ST-T wave abnormalities, assess for acute coronary syndrome. 3. Premature ventricular contractions, assess for acute coronary syndrome. 4. Hypertension, currently elevated, undergoing hemodialysis at this time- con't Med RX - better now 5. End-stage renal disease on hemodialysis. 6. Dyslipidemia. 7. Diabetes mellitus- on meds - keep euglycemic 8. Hypothyroidism. 9. Hyponatremia- treated now CAMMY RAE MD Nov 04, 2018 13:17
[2018-11-04] MEDS: PENTOXIFYLLINE (SR) 400 MG TAB PO SCH (15:15)
[2018-11-04] MEDS: VERAPAMIL (SR) 120 MG TAB PO SCH (15:15)
[2018-11-04] MEDS: LEVOTHYROXINE 100 MCG TAB PO SCH (15:15)
[2018-11-04] MEDS: ASPIRIN 81 MG TAB PO SCH (15:16)
[2018-11-04] MEDS: DICYCLOMINE 10 MG CAP PO SCH (15:16)
[2018-11-04] MEDS: LORATADINE 10 MG TAB PO SCH (15:17)
--- NOTE | 2018-11-04 15:57 | RADRPT ---
Vent Rate: 58 bpm RR Interval: 1028 msec TN Interval: 177 msec QRS Duration: 99 msec QT Interval: 439 msec QTC Interval: 433 msec P-R-T [place]: 37 - 77 - 31 degrees Sinus rhythm...normal P axis, V-rate 50- 99 Ventricular premature complex...V complex w/ short R-R interval Anterior infarct, old...Q >40mS, abnormal ST-T, V2-V5 Electronically Signed By: Irwin Marinelli
[2018-11-04] MEDS ORDERED: DEXTROSE 50% 50 ML SYRINGE IV PRN ×2 (19:00)
[2018-11-04] MEDS ORDERED: GLUCOSE GEL 15 GRAM TUBE BUCCAL PRN (19:00)
[2018-11-04] MEDS ORDERED: GLUCAGON 1 MG INJ IM PRN (19:00)
[2018-11-04] MEDS ORDERED: GLUCOSE GEL 15 GRAM TUBE PO PRN ×2 (19:00)
--- NOTE | 2018-11-04 20:59 | ECORPT ---
DATE OF SERVICE: REFERRING PHYSICIAN: Varinder Padilla MD REASON FOR ADMISSION: Chest pain. DESCRIPTION OF TEST: The patient was brought to heart station in fasting condition. Initial blood p ressure was 137/65. She had some PVCs on her EKG with heart rate in the 60s. She tolerated the inje ction well. The imaging portion will be dictated separately. Dictated By: CAMMY RAE MD ML/NTS Conf#: [id number] DID#: [id number]
[2018-11-05] VITALS (8 sets, daily range): BP systolic 110–155; BP diastolic 54–78; PULSE 56–64; RESP 18–22
[2018-11-05] MEDS: hydrOXYzine HCL 10 MG TAB PO SCH ×4 (00:04→20:18)
[2018-11-05] MEDS: ATORVASTATIN 20 MG TAB PO SCH ×2 (00:04→20:18)
[2018-11-05] MEDS: DICYCLOMINE 10 MG CAP PO SCH ×3 (00:04→20:18)
[2018-11-05] MEDS: ACCU-CHEK XX SCH (01:57)
[2018-11-05] MEDS: LEVOTHYROXINE 100 MCG TAB PO SCH (06:09)
[2018-11-05] MEDS: FUROSEMIDE 20 MG TAB PO SCH (06:09)
[2018-11-05] MEDS: CALCIUM ACETATE 667 MG CAP PO SCH ×3 (07:55→17:42)
[2018-11-05] MEDS: INSULIN ASPART [NOVOLOG] 3 ML PEN SC SCH ×4 (07:55→20:19)
[2018-11-05] MEDS: ASPIRIN 81 MG TAB PO SCH (08:55)
[2018-11-05] MEDS: LORATADINE 10 MG TAB PO SCH (08:55)
[2018-11-05] MEDS: PENTOXIFYLLINE (SR) 400 MG TAB PO SCH (08:56)
[2018-11-05] MEDS: VERAPAMIL (SR) 120 MG TAB PO SCH (08:56)
--- NOTE | 2018-11-05 09:40 | PN ---
Date/Time of Note Date/Time of Note DATE: 11/05/18 TIME: 09:38 Assessment/Plan VTE Prophylaxis Risk score (from Ns)>0 risk: 2 SCD applied (from Ns): Yes SCD contraindicated: other Pharmacological prophylaxis: other Pharm contraindication: other Lines/Catheters IV Catheter Type (from Nrsg): [place] Lock Assessment/Plan Assessment/Plan - Hypokalemia- resolved - Chest pain- r/o ACS: none reported; sp Lexiscan - LVEF 56 % - per cardiology consult - Fluid overload - per nephrology consult- Dr Dave Naidu - SP HD Tuesday - Hyperkalemia- per nephro - Hyponatremia- per nephro - ESRD on HD MWF schedule - hd yesterday - Thrombocytopenia - monitor for bleeding - Diabetes Mellitus - II - Glycemic control - diabetic diet - Hypertensive urgency - Hypothyroidism - TSH wnl - H/o Hyperlipidemia Patient seen in collaboration with Dr Martinez Result Diagram: 11/05/18 0600 11/05/18 0600 Results 24hrs Laboratory Tests Test 11/04/18 17:37 11/04/18 21:56 11/05/18 06:00 11/05/18 07:36 Bedside Glucose 104 108 71 White Blood Count 5.2 Red Blood Count 3.87 L Hemoglobin 11.7 L Hematocrit 37.1 Mean Corpuscular 95.9 Volume Mean Corpuscular 30.2 Hemoglobin Mean Corpuscular 31.5 L Hemoglobin Concent Red Cell 15.8 H Distribution Width Platelet Count 125 L Mean Platelet Volume 11.1 H Immature 0.200 Granulocytes % Neutrophils % 67.0 Lymphocytes % 19.7 Monocytes % 7.7 Eosinophils % 4.6 Basophils % 0.8 Nucleated Red Blood 0.0 Cells % Immature 0.010 Granulocytes # Neutrophils # 3.5 Lymphocytes # 1.0 Monocytes # 0.4 Eosinophils # 0.2 Basophils # 0.0 Nucleated Red Blood 0.0 Cells # Sodium Level 138 Potassium Level 3.8 Chloride Level 99 Carbon Dioxide Level 30 Anion Gap 9 Blood Urea Nitrogen 13 # Creatinine 4.44 #H Est Glomerular 10 L Filtrat Rate mL/min Glucose Level 75 Calcium Level 7.8 L Subjective 24 Hr Interval Summary Free Text/Dictation NAD Sp Lexiscan - LVEF 56 % No chest pain reported Eyes: no complaints ENT: no complaints Respiratory: no complaints Cardiovascular: no complaints Gastrointestinal: no complaints Genitourinary: no complaints Musculoskeletal: no complaints Skin: no complaints Neurologic: no complaints Endocrine: no complaints Psychological: nl mood/affect Immunologic: no complaints Exam/Review of Systems Exam Vitals Vital Signs Date Temp Pulse Resp B/P (MAP) Pulse Ox O2 O2 Flow FiO2 Time Delivery Rate 11/05/18 98.6 64 22 144/55 96 Room Air 07:36 (84) 11/03/18 05:34 Intake and Output 11/04/18 11/04/18 11/05/18 1515:00 23:00 07:00 IntakeIntake Total 240 ml 120 ml 700 ml OutputOutput Total 2900 ml BalanceBalance 240 ml 120 ml -2200 ml Constitutional: alert, well developed Psych: nl mood/affect Head: normocephalic Eyes: nl lids, nl sclera, PERRL ENMT: nl external ears & nose Neck: non-tender Respiratory: clear to auscultation Cardiovascular: nl pulses, other (s1s2) Gastrointestinal: soft, non-tender Musculoskeletal: nl extremities to inspection Extremities: normal pulses Neurological: nl speech Skin: other Lymph: nontender Results Results 24hrs Laboratory Tests Test 11/04/18 17:37 11/04/18 21:56 11/05/18 06:00 11/05/18 07:36 Bedside Glucose 104 108 71 White Blood Count 5.2 Red Blood Count 3.87 L Hemoglobin 11.7 L Hematocrit 37.1 Mean Corpuscular 95.9 Volume Mean Corpuscular 30.2 Hemoglobin Mean Corpuscular 31.5 L Hemoglobin Concent Red Cell 15.8 H Distribution Width Platelet Count 125 L Mean Platelet Volume 11.1 H Immature 0.200 Granulocytes % Neutrophils % 67.0 Lymphocytes % 19.7 Monocytes % 7.7 Eosinophils % 4.6 Basophils % 0.8 Nucleated Red Blood 0.0 Cells % Immature 0.010 Granulocytes # Neutrophils # 3.5 Lymphocytes # 1.0 Monocytes # 0.4 Eosinophils # 0.2 Basophils # 0.0 Nucleated Red Blood 0.0 Cells # Sodium Level 138 Potassium Level 3.8 Chloride Level 99 Carbon Dioxide Level 30 Anion Gap 9 Blood Urea Nitrogen 13 # Creatinine 4.44 #H Est Glomerular 10 L Filtrat Rate mL/min Glucose Level 75 Calcium Level 7.8 L Medications Medication Current Medications Albumin Human 100 ml @ 100 mls/hr WITH DIALYSIS PRN IV SBP <90 DURING DIALYSIS; Start 11/03/18 at 08:00 Sodium Chloride (NS) -To prime the dialy... DIRECTED FOR HD PRN IV HD; Start 11/03/18 at 08:00 Aspirin (Aspirin) 81 mg DAILY PO Last administered on 11/05/18at 08:55; Admin Dose 81 MG; Start 11/03/18 at 10:00 Atorvastatin Calcium (Lipitor) 20 mg QHS PO Last administered on 11/05/18at 00:04; Admin Dose 20 MG; Start 11/03/18 at 21:00 Calcium Acetate (Phoslo) 667 mg WITH MEALS PO Last administered on 11/05/18 07:55; Admin Dose 667 MG; Start 11/03/18 at 11:50 Carvedilol (Coreg) 6.25 mg BID PO Last administered on 11/05/18 08:55; Admin Dose 6.25 MG; Start 11/03/18 at 10:00 Furosemide (Lasix) 20 mg DAILY@0600 PO Last administered on 11/05/18 06:09; Admin Dose 20 MG; Start 11/03/18 at 10:00 Acetaminophen/ Hydrocodone Bitart ([place] (10/325)) 1 tab Q6H PRN PO PAIN; Start 11/03/18 at 10:00 Hydroxyzine HCl (Atarax) 10 mg TID PO Last administered on 11/05/18at 08:55; Admin Dose 10 MG; Start 11/03/18 at 13:00 Levothyroxine Sodium (Synthroid) 100 mcg DAILY@06 PO Last administered on 11/05/18 06:09; Admin Dose 100 MCG; Start 11/04/18 at 10:00 Loratadine (Claritin) 10 mg DAILY PO Last administered on 11/05/18 08:55; Admin Dose 10 MG; Start 11/03/18 at 10:00 Verapamil HCl (Isoptin Sr) 120 mg DAILY PO Last administered on 11/05/18 08:56; Admin Dose 120 MG; Start 11/03/18 at 10:30 Dicyclomine HCl (Bentyl) 20 mg BID PO Last administered on 11/05/18at 08:55; Admin Dose 20 MG; Start 11/03/18 at 10:00 Diagnostic Test (Pha) (Accu-Chek) 1 ea 02 XX ; Start 11/04/18 at 02:00 Insulin Aspart (Novolog Insulin Pen) NOVOLOG *MILD* ALGORITHM WITH MEALS BEDTIME SC ; Start 11/03/18 at 11:50 Pentoxifylline (Trental) 400 mg DAILY PO Last administered on 11/05/18at 08:56; Admin Dose 400 MG; Start 11/03/18 at 10:00 Nitroglycerin (Nitroglycerin (Sl Tab) 0.4 Mg) 1 tab Q5M PRN SL ANGINA; Start 11/03/18 at 14:00 Hydralazine HCl (Apresoline) 50 mg Q8 PO Last administered on 11/05/18at 06:09; Admin Dose 50 MG; Start 11/03/18 at 14:00 Hydralazine HCl (Apresoline) 10 mg Q4H PRN IV SBP>170 Last administered on 11/03/18at 14:55; Admin Dose 10 MG; Start 11/03/18 at 14:00 Ondansetron HCl (Zofran Inj) 4 mg Q4H PRN IV NAUSEA AND/OR VOMITING Last administered on 11/03/18at 22:56; Admin Dose 4 MG; Start 11/03/18 at 21:38 Miscellaneous Information 1 ea NOTE XX ; Start 11/04/18 at 19:00 Glucose (Glutose) 15 gm Q15M PRN PO DECREASED GLUCOSE; Start 11/04/18 at 19:00 Glucose (Glutose) 22.5 gm Q15M PRN PO DECREASED GLUCOSE; Start 11/04/18 at 19:00 Dextrose (D50w Syringe) 25 ml Q15M PRN IV DECREASED GLUCOSE; Start 11/04/18 at 19:00 Dextrose (D50w Syringe) 50 ml Q15M PRN IV DECREASED GLUCOSE; Start 11/04/18 at 19:00 Glucagon (Glucagen) 1 mg Q15M PRN IM DECREASED GLUCOSE; Start 11/04/18 at 19:00 Glucose (Glutose) 15 gm Q15M PRN BUCCAL DECREASED GLUCOSE; Start 11/04/18 at 19:00 WALE RIBEIRO Nov 05, 2018 09:40
--- NOTE | 2018-11-05 11:40 | CONS ---
Consult Date/Type/Reason Admit Date/Time Nov 03, 2018 at 05:44 Initial Consult Date 11/03/18 Requesting Provider: SILVIA IQBAL MD Date/Time of Note DATE: 11/05/18 TIME: 11:38 Subjective NO acute events - STRESS TEST normal - EF 60% - no ischemia ROS: No fever, no chills, no nausea, no vomiting, no diarrhea/constipation No recent weight changes No chest pain, no PND, no orthopnea + SOB, chronic No dizziness, blurred vision No thirst, no heat or cold intolerance Objective Vitals Vital Signs Date Temp Pulse Resp B/P (MAP) Pulse Ox O2 O2 Flow FiO2 Time Delivery Rate 11/05/18 98.6 64 22 144/55 96 Room Air 07:36 (84) 11/03/18 05:34 Intake and Output 11/04/18 11/04/18 11/05/18 1515:00 23:00 07:00 IntakeIntake Total 240 ml 120 ml 700 ml OutputOutput Total 2900 ml BalanceBalance 240 ml 120 ml -2200 ml Exam General: WN/WD/NAD, AOx 1-2 HEENT: Unicetric/atraumatic/EOMI (follow commands) NECK: JVD elevated, no thyromegaly Lymph: no lymphadenopathy HEART: regular with no S3, II/ systolic murmur at apex, PMI L LUNGS: Coarse sounds ABD: soft, NT, ND, +BS : Intact Neuro: non focal SKIN: chronic changes EXT: trace edema Results/Medications Result Diagram: 11/05/18 0600 11/05/18 0600 Results 24 hrs Laboratory Tests Test 11/04/18 17:37 11/04/18 21:56 11/05/18 06:00 11/05/18 07:36 Bedside Glucose 104 108 71 White Blood Count 5.2 Red Blood Count 3.87 L Hemoglobin 11.7 L Hematocrit 37.1 Mean Corpuscular 95.9 Volume Mean Corpuscular 30.2 Hemoglobin Mean Corpuscular 31.5 L Hemoglobin Concent Red Cell 15.8 H Distribution Width Platelet Count 125 L Mean Platelet Volume 11.1 H Immature 0.200 Granulocytes % Neutrophils % 67.0 Lymphocytes % 19.7 Monocytes % 7.7 Eosinophils % 4.6 Basophils % 0.8 Nucleated Red Blood 0.0 Cells % Immature 0.010 Granulocytes # Neutrophils # 3.5 Lymphocytes # 1.0 Monocytes # 0.4 Eosinophils # 0.2 Basophils # 0.0 Nucleated Red Blood 0.0 Cells # Sodium Level 138 Potassium Level 3.8 Chloride Level 99 Carbon Dioxide Level 30 Anion Gap 9 Blood Urea Nitrogen 13 # Creatinine 4.44 #H Est Glomerular 10 L Filtrat Rate mL/min Glucose Level 75 Calcium Level 7.8 L Home Meds Active Scripts Dicyclomine HCl (Dicyclomine HCl) 20 Mg Tablet, 20 MG PO QID for PAIN, #20 Prov:INDIRA DENT DO 08/01/17 Hydrocodone/Acetaminophen ([place] 10-325 Tablet) 1 Each Tablet, 1 TAB PO Q6H PRN for PAIN, #20 TAB Prov:INDIRA DENT DO 08/01/17 Hydralazine Hcl* (Hydralazine Hcl*) 25 Mg Tab, 25 MG PO Q8 for 30 Days, TAB Prov:FREDDIE KEYS 01/18/17 Furosemide (Lasix) 20 Mg Tab, 20 MG PO DAILY for 30 Days, TAB Prov:FREDDIE KEYS 01/18/17 Carvedilol* (Carvedilol*) 6.25 Mg Tablet, 6.25 MG PO BID for 30 Days, TAB Prov:FREDDIE KEYS 01/18/17 Calcium Acetate* (Calcium Acetate*) 667 Mg Capsule, 667 MG PO WITH MEALS for 30 Days, CAP Prov:FREDDIE KEYS 01/18/17 Aspirin (Aspirin) 81 Mg Chew, 81 MG PO DAILY for 30 Days, TAB Prov:FREDDIE KEYS 01/18/17 Verapamil Hcl* (Verapamil ER*) 120 Mg Cap24h.pel, 120 MG PO DAILY for 30 Days, CAP Prov:FREDDIE KEYS 01/18/17 Reported Medications Insulin Glargine* (Lantus*) 100 Unit/Ml Soln, 30 UNIT SC QHS, #1 VIAL 11/03/18 Insulin Lispro (Humalog) 100 Unit/1 Ml Cartridge, 12 UNIT SQ BID, EA 11/03/18 Hydroxyzine Hcl* (Hydroxyzine Hcl*) 10 Mg Tablet, 10 MG PO TID, #30 TAB 06/16/17 Pentoxifylline* (Pentoxifylline*) 400 Mg Tablet.sa, 400 MG PO TID, TAB 01/05/17 Loratadine* (Loratadine*) 10 Mg Tablet, 10 MG PO DAILY, #30 TAB 01/05/17 Atorvastatin Calcium* (Atorvastatin Calcium*) 20 Mg Tablet, 20 MG PO QHS, #30 TAB 01/05/17 Levothyroxine Sodium* (Levothyroxine Sodium*) 100 Mcg Tablet, 100 MCG PO BEFORE BREAKFAST, #30 TAB 01/05/17 Medications Current Medications Albumin Human 100 ml @ 100 mls/hr WITH DIALYSIS PRN IV SBP <90 DURING DIALYSIS; Start 11/03/18 at 08:00 Sodium Chloride (NS) -To prime the dialy... DIRECTED FOR HD PRN IV HD; Start 11/03/18 at 08:00 Aspirin (Aspirin) 81 mg DAILY PO Last administered on 11/05/18at 08:55; Admin Dose 81 MG; Start 11/03/18 at 10:00 Atorvastatin Calcium (Lipitor) 20 mg QHS PO Last administered on 11/05/18at 00:04; Admin Dose 20 MG; Start 11/03/18 at 21:00 Calcium Acetate (Phoslo) 667 mg WITH MEALS PO Last administered on 11/05/18at 07:55; Admin Dose 667 MG; Start 11/03/18 at 11:50 Carvedilol (Coreg) 6.25 mg BID PO Last administered on 11/05/18at 08:55; Admin Dose 6.25 MG; Start 11/03/18 at 10:00 Furosemide (Lasix) 20 mg DAILY@0600 PO Last administered on 11/05/18at 06:09; Admin Dose 20 MG; Start 11/03/18 at 10:00 Acetaminophen/ Hydrocodone Bitart ([place] (10/325)) 1 tab Q6H PRN PO PAIN; Start 11/03/18 at 10:00 Hydroxyzine HCl (Atarax) 10 mg TID PO Last administered on 11/05/18at 08:55; Admin Dose 10 MG; Start 11/03/18 at 13:00 Levothyroxine Sodium (Synthroid) 100 mcg DAILY@06 PO Last administered on 11/05/18at 06:09; Admin Dose 100 MCG; Start 11/04/18 at 10:00 Loratadine (Claritin) 10 mg DAILY PO Last administered on 11/05/18at 08:55; Admin Dose 10 MG; Start 11/03/18 at 10:00 Verapamil HCl (Isoptin Sr) 120 mg DAILY PO Last administered on 11/05/18at 08:56; Admin Dose 120 MG; Start 11/03/18 at 10:30 Dicyclomine HCl (Bentyl) 20 mg BID PO Last administered on 11/05/18at 08:55; Admin Dose 20 MG; Start 11/03/18 at 10:00 Diagnostic Test (Pha) (Accu-Chek) 1 ea 02 XX ; Start 11/04/18 at 02:00 Insulin Aspart (Novolog Insulin Pen) NOVOLOG *MILD* ALGORITHM WITH MEALS BEDTIME SC ; Start 11/03/18 at 11:50 Pentoxifylline (Trental) 400 mg DAILY PO Last administered on 11/05/18at 08:56; Admin Dose 400 MG; Start 11/03/18 at 10:00 Nitroglycerin (Nitroglycerin (Sl Tab) 0.4 Mg) 1 tab Q5M PRN SL ANGINA; Start 11/03/18 at 14:00 Hydralazine HCl (Apresoline) 50 mg Q8 PO Last administered on 11/05/18at 06:09; Admin Dose 50 MG; Start 11/03/18 at 14:00 Hydralazine HCl (Apresoline) 10 mg Q4H PRN IV SBP>170 Last administered on 11/03/18at 14:55; Admin Dose 10 MG; Start 11/03/18 at 14:00 Ondansetron HCl (Zofran Inj) 4 mg Q4H PRN IV NAUSEA AND/OR VOMITING Last administered on 11/03/18at 22:56; Admin Dose 4 MG; Start 11/03/18 at 21:38 Miscellaneous Information 1 ea NOTE XX ; Start 11/04/18 at 19:00 Glucose (Glutose) 15 gm Q15M PRN PO DECREASED GLUCOSE; Start 11/04/18 at 19:00 Glucose (Glutose) 22.5 gm Q15M PRN PO DECREASED GLUCOSE; Start 11/04/18 at 19:00 Dextrose (D50w Syringe) 25 ml Q15M PRN IV DECREASED GLUCOSE; Start 11/04/18 at 19:00 Dextrose (D50w Syringe) 50 ml Q15M PRN IV DECREASED GLUCOSE; Start 11/04/18 at 19:00 Glucagon (Glucagen) 1 mg Q15M PRN IM DECREASED GLUCOSE; Start 11/04/18 at 19:00 Glucose (Glutose) 15 gm Q15M PRN BUCCAL DECREASED GLUCOSE; Start 11/04/18 at 19:00 Assessment/Plan Hospital Course (Demo Recall) 1. Chest pain, assess for acute coronary syndrome with negative troponins x2 at this time - stress test done - NOREMAl EF 60%, no ischemia - med rx advised 2. Abnormal echocardiogram with nonspecific ST-T wave abnormalities, assess for acute coronary syndrome. 3. Premature ventricular contractions, assess for acute coronary syndrome - med rx 4. Hypertension, currently elevated, undergoing hemodialysis at this time- con't Med RX - better now 5. End-stage renal disease on hemodialysis - remove fkuid as needed K 3.8 now 6. Dyslipidemia. 7. Diabetes mellitus- on meds - keep euglycemic 8. Hypothyroidism. 9. Hyponatremia- treated now CAMMY RAE MD Nov 05, 2018 11:39
--- NOTE | 2018-11-05 12:06 | RADRPT ---
Echocardiogram Report Patient Name: LAM ZAVALAPatient ID: [id number] : [birth year] (68y 9m)Study Date: 11/03/2018 2:06:30 PM Gender: FAccession #: [id number] Tech: Loy Díaz [facility] Location: [facility] Ref.Physician: WALE RIBEIRO Height(Cm): BSA: Weight(Kg): Quality: AdequateOrder Physician: WALE RIBEIRO Account #: Procedures: Echocardiographic Report: Transthoracic echocardiogram with complete 2D, M-Mode, and doppler examination. Indications: fluid overload. Measurements: 2D/M Mode Doppler Measurement Value Normal Range Measurement Value Normal Range LVIDd 2D 5.1 [ 3.8 - 5.2 ] cm AV Peak Walter 1.5 [ 100.0 - 170.0 ] cm/sec LVIDs 2D 3.5 [ 2.2 - 3.5 ] cm AV Peak PG 9.0 [ 2.0 - 9.0 ] mmHg LVPWd 2D 1.0 [ 0.6 - 0.9 ] cm LVOT Peak Walter 0.8 [ 70.0 - 110.0 ] cm/sec IVSd 2D 0.9 [ 0.6 - 0.9 ] cm LVOT Peak PG 2.0 [ 2.0 - 6.0 ] mmHg AoR Diam 2D 2.6 [ 2.3 - 3.1 ] cm MV E Peak Walter 1.2 [ 60.0 - 130.0 ] cm/sec EDV 2D 126.0 [ 46.0 - 106.0 ] ml MV A Peak Walter 0.7 [ 100.0 - 120.0 ] cm/sec ESV 2D 52.6 [ 14.0 - 42.0 ] ml MV E/A 1.8 [ 0.8 - 1.5 ] ratio EF 2D 58.3 [ 54.0 - 74.0 ] percent MV Decel Time 155 [ 104 - 258 ] msec LA Dimen 2D 4.3 [ 2.7 - 3.8 ] cm Lat E` Walter 0.1 [ 10.0 - 15.0 ] cm/sec Lateral E/E` 23.5 [ 1.0 - 2.0 ] ratio MV E/A 1.8 [ 0.8 - 1.5 ] ratio TR Peak Walter 3.7 [ 100.0 - 280.0 ] cm/sec TR Peak PG 54.0 mmHg RVSP 62.0 [ 10.0 - 36.0 ] mmHg RA Pressure 8.0 mmHg Findings: Left Ventricle: Normal left ventricular cavity size. Normal left ventricular wall thickness. Mild global left ventricular systolic dysfunction. Ejection fraction is visually estimated at 45-50 %. Abnormal Diastolic Function. Right Ventricle: Normal right ventricular size. Normal right ventricular systolic function. Left Atrium: There is mild enlargement of left atrium. Right Atrium: The right atrium is normal in size. Mitral Valve: Mitral valve leaflets appear mildly thickened. Mild mitral annular calcification. Mild mitral valve regurgitation. Aortic Valve: Normal appearance of the aortic valve. No significant aortic stenosis or insufficiency. Tricuspid Valve: Normal appearance of the tricuspid valve. The estimated Peak RVSP is 62 mmHg. There is mild to moderate tricuspid regurgitation. Pulmonic Valve: There is trace pulmonic regurgitation. Pericardium: Trivial pericardial effusion. Pleural effusion seen. Aorta: Normal aortic root. IVC: Normal size and no respiratory collapse consistent with elevated right atrial pressure. Conclusions: Normal left ventricular cavity size. Normal left ventricular wall thickness. Mild global left ventricular systolic dysfunction. Ejection fraction is visually estimated at 45-50 %. Abnormal Diastolic Function. Mitral valve leaflets appear mildly thickened. Mild mitral annular calcification. Mild mitral valve regurgitation. Normal appearance of the tricuspid valve. The estimated Peak RVSP is 62 mmHg. There is mild to moderate tricuspid regurgitation. Trivial pericardial effusion. Pleural effusion seen. Electronically Signed By: Shon Pink 2018-11-05 12:06:09 PDT
--- NOTE | 2018-11-05 20:43 | CONS ---
Assessment/Plan Assessment/Plan Assessment/Plan (Daily) 1. acute fluid overload with pulmoanry edema 2. Hypertensive urgency - Improved 3. ESRD on HD MWF schedule 4. H/o HTN 5. H/o DM II 6 H/o HL Plan: s/p HD x 2 days in row, total 4.8 L removed , Hd ordered for Tuesday pt follows at [facility], her regular schedule is MWF Improved BP control with Coreg 6.25 mg BID, Hydralazine 50mg pO Q8 hr, Verapamil 120mg PO daily, IV hydralazine prn will follow up Consultation Date/Type/Reason Admit Date/Time Nov 03, 2018 at 05:44 Initial Consult Date 11/03/18 Type of Consult NEPHROLOGY Requesting Provider: SILVIA IQBAL MD Date/Time of Note DATE: 11/05/18 TIME: 20:43 24 HR Interval Summary Free Text/Dictation s/p HD x 2 days in row, total 4.8 L removed Exam/Review of Systems Exam Vitals Vital Signs Date Temp Pulse Resp B/P (MAP) Pulse Ox O2 O2 Flow FiO2 Time Delivery Rate 11/05/18 98.0 62 19 122/68 94 Room Air 20:03 (86) 11/03/18 05:34 Intake and Output 11/04/18 11/04/18 11/05/18 1515:00 23:00 07:00 IntakeIntake Total 240 ml 120 ml 700 ml OutputOutput Total 2900 ml BalanceBalance 240 ml 120 ml -2200 ml Exam Constitutional: alert, awake, no acute distress Respiratory: congested cough, crackles/rales, diminished breath sounds Cardiovascular: regular rate and rhythm, nl pulses Gastrointestinal: soft, non-tender Musculoskeletal: nl extremities to inspection, muscle weakness, swelling Extremities: normal pulses Neurological: [employer] II-XII intact, nl mental status, nl speech Results Result Diagram: 11/05/18 0600 11/05/18 0600 Results 24hrs Laboratory Tests Test 11/04/18 21:56 11/05/18 06:00 11/05/18 07:36 11/05/18 11:57 Bedside Glucose 108 71 94 White Blood Count 5.2 Red Blood Count 3.87 L Hemoglobin 11.7 L Hematocrit 37.1 Mean Corpuscular 95.9 Volume Mean Corpuscular 30.2 Hemoglobin Mean Corpuscular 31.5 L Hemoglobin Concent Red Cell 15.8 H Distribution Width Platelet Count 125 L Mean Platelet Volume 11.1 H Immature 0.200 Granulocytes % Neutrophils % 67.0 Lymphocytes % 19.7 Monocytes % 7.7 Eosinophils % 4.6 Basophils % 0.8 Nucleated Red Blood 0.0 Cells % Immature 0.010 Granulocytes # Neutrophils # 3.5 Lymphocytes # 1.0 Monocytes # 0.4 Eosinophils # 0.2 Basophils # 0.0 Nucleated Red Blood 0.0 Cells # Sodium Level 138 Potassium Level 3.8 Chloride Level 99 Carbon Dioxide Level 30 Anion Gap 9 Blood Urea Nitrogen 13 # Creatinine 4.44 #H Est Glomerular 10 L Filtrat Rate mL/min Glucose Level 75 Calcium Level 7.8 L Test 11/05/18 17:41 11/05/18 20:17 Bedside Glucose 103 109 Medications Medication Current Medications Albumin Human 100 ml @ 100 mls/hr WITH DIALYSIS PRN IV SBP <90 DURING DIALYSIS; Start 11/03/18 at 08:00 Sodium Chloride (NS) -To prime the dialy... DIRECTED FOR HD PRN IV HD; Start 11/03/18 at 08:00 Aspirin (Aspirin) 81 mg DAILY PO Last administered on 11/05/18at 08:55; Admin Dose 81 MG; Start 11/03/18 at 10:00 Atorvastatin Calcium (Lipitor) 20 mg QHS PO Last administered on 11/05/18at 20:18; Admin Dose 20 MG; Start 11/03/18 at 21:00 Calcium Acetate (Phoslo) 667 mg WITH MEALS PO Last administered on 11/05/18at 17:42; Admin Dose 667 MG; Start 11/03/18 at 11:50 Carvedilol (Coreg) 6.25 mg BID PO Last administered on 11/05/18at 20:19; Admin Dose 6.25 MG; Start 11/03/18 at 10:00 Furosemide (Lasix) 20 mg DAILY@0600 PO Last administered on 11/05/18at 06:09; Admin Dose 20 MG; Start 11/03/18 at 10:00 Acetaminophen/ Hydrocodone Bitart ([place] (10/325)) 1 tab Q6H PRN PO PAIN; Start 11/03/18 at 10:00 Hydroxyzine HCl (Atarax) 10 mg TID PO Last administered on 11/05/18 20:18; Admin Dose 10 MG; Start 11/03/18 at 13:00 Levothyroxine Sodium (Synthroid) 100 mcg DAILY@06 PO Last administered on 11/05/18 06:09; Admin Dose 100 MCG; Start 11/04/18 at 10:00 Loratadine (Claritin) 10 mg DAILY PO Last administered on 11/05/18 08:55; Admin Dose 10 MG; Start 11/03/18 at 10:00 Verapamil HCl (Isoptin Sr) 120 mg DAILY PO Last administered on 11/05/18 08:56; Admin Dose 120 MG; Start 11/03/18 at 10:30 Dicyclomine HCl (Bentyl) 20 mg BID PO Last administered on 11/05/18 20:18; Admin Dose 20 MG; Start 11/03/18 at 10:00 Diagnostic Test (Pha) (Accu-Chek) 1 ea 02 XX ; Start 11/04/18 at 02:00 Insulin Aspart (Novolog Insulin Pen) NOVOLOG *MILD* ALGORITHM WITH MEALS BEDTIME SC ; Start 11/03/18 at 11:50 Pentoxifylline (Trental) 400 mg DAILY PO Last administered on 11/05/18 08:56; Admin Dose 400 MG; Start 11/03/18 at 10:00 Nitroglycerin (Nitroglycerin (Sl Tab) 0.4 Mg) 1 tab Q5M PRN SL ANGINA; Start 11/03/18 at 14:00 Hydralazine HCl (Apresoline) 50 mg Q8 PO Last administered on 11/05/18 14:06; Admin Dose 50 MG; Start 11/03/18 at 14:00 Hydralazine HCl (Apresoline) 10 mg Q4H PRN IV SBP>170 Last administered on 11/03/18at 14:55; Admin Dose 10 MG; Start 11/03/18 at 14:00 Ondansetron HCl (Zofran Inj) 4 mg Q4H PRN IV NAUSEA AND/OR VOMITING Last administered on 11/03/18at 22:56; Admin Dose 4 MG; Start 11/03/18 at 21:38 Miscellaneous Information 1 ea NOTE XX ; Start 11/04/18 at 19:00 Glucose (Glutose) 15 gm Q15M PRN PO DECREASED GLUCOSE; Start 11/04/18 at 19:00 Glucose (Glutose) 22.5 gm Q15M PRN PO DECREASED GLUCOSE; Start 11/04/18 at 19:00 Dextrose (D50w Syringe) 25 ml Q15M PRN IV DECREASED GLUCOSE; Start 11/04/18 at 19:00 Dextrose (D50w Syringe) 50 ml Q15M PRN IV DECREASED GLUCOSE; Start 11/04/18 at 19:00 Glucagon (Glucagen) 1 mg Q15M PRN IM DECREASED GLUCOSE; Start 11/04/18 at 19:00 Glucose (Glutose) 15 gm Q15M PRN BUCCAL DECREASED GLUCOSE; Start 11/04/18 at 19:00 IRIS BURRIS MD Nov 05, 2018 20:43
[2018-11-06] VITALS (19 sets, daily range): BP systolic 103–149; BP diastolic 51–74; PULSE 58–75; RESP 18–20
[2018-11-06] MEDS: ACCU-CHEK XX SCH (02:00)
[2018-11-06] MEDS: LEVOTHYROXINE 100 MCG TAB PO SCH (05:51)
[2018-11-06] MEDS: FUROSEMIDE 20 MG TAB PO SCH (05:52)
[2018-11-06] MEDS: INSULIN ASPART [NOVOLOG] 3 ML PEN SC SCH ×4 (07:55→20:58)
[2018-11-06] MEDS: VERAPAMIL (SR) 120 MG TAB PO SCH (08:53)
[2018-11-06] MEDS: ASPIRIN 81 MG TAB PO SCH (08:53)
[2018-11-06] MEDS: LORATADINE 10 MG TAB PO SCH (08:54)
[2018-11-06] MEDS: PENTOXIFYLLINE (SR) 400 MG TAB PO SCH (08:54)
[2018-11-06] MEDS: DICYCLOMINE 10 MG CAP PO SCH ×2 (08:54→20:50)
[2018-11-06] MEDS: hydrOXYzine HCL 10 MG TAB PO SCH ×3 (08:54→20:50)
[2018-11-06] MEDS: CALCIUM ACETATE 667 MG CAP PO SCH ×3 (08:55→18:49)
--- NOTE | 2018-11-06 11:45 | CONS ---
Assessment/Plan Assessment/Plan Assessment/Plan (Daily) 1. acute fluid overload with pulmoanry edema 2. Hypertensive urgency - Improved 3. ESRD on HD MWF schedule 4. H/o HTN 5. H/o DM II 6 H/o HL Plan: s/p HD x 2 days in row, total 4.8 L removed over the weekend, S/p Hd today 3 L removed pt follows at [facility], her regular schedule is MWF - next HD will be on if pt stays here Improved BP control with Coreg 6.25 mg BID, Hydralazine 50mg pO Q8 hr, Verapamil 120mg PO daily, IV hydralazine prn will follow up Consultation Date/Type/Reason Admit Date/Time Nov 03, 2018 at 05:44 Initial Consult Date 11/03/18 Type of Consult NEPHROLOGY Requesting Provider: SILVIA IQBAL MD Date/Time of Note DATE: 11/06/18 TIME: 11:45 Exam/Review of Systems Exam Vitals Vital Signs Date Temp Pulse Resp B/P (MAP) Pulse Ox O2 O2 Flow FiO2 Time Delivery Rate 11/06/18 59 11:40 11/06/18 98.2 20 143/61 96 Room Air 10:49 (88) 11/03/18 21 05:34 Intake and Output 11/05/18 11/05/18 11/06/18 1515:00 23:00 07:00 IntakeIntake Total 420 ml 800 ml 350 ml BalanceBalance 420 ml 800 ml 350 ml Exam Constitutional: alert, awake, no acute distress Respiratory: congested cough, crackles/rales, diminished breath sounds Cardiovascular: regular rate and rhythm, nl pulses Gastrointestinal: soft, non-tender Musculoskeletal: nl extremities to inspection, muscle weakness, swelling Extremities: normal pulses Neurological: [employer] 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 II-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 intact, nl mental status, nl speech Results Result Diagram: 11/05/18 0600 11/05/18 0600 Results 24hrs Laboratory Tests Test 11/05/18 11:57 11/05/18 17:41 11/05/18 20:17 11/06/18 07:29 Bedside Glucose 94 103 109 80 Medications Medication Current Medications Albumin Human 100 ml @ 100 mls/hr WITH DIALYSIS PRN IV SBP <90 DURING DIALYSIS; Start 11/03/18 at 08:00 Aspirin (Aspirin) 81 mg DAILY PO Last administered on 11/06/18 08:53; Admin Dose 81 MG; Start 11/03/18 at 10:00 Atorvastatin Calcium (Lipitor) 20 mg QHS PO Last administered on 11/05/18 20:18; Admin Dose 20 MG; Start 11/03/18 at 21:00 Calcium Acetate (Phoslo) 667 mg WITH MEALS PO Last administered on 11/06/18 08:55; Admin Dose 667 MG; Start 11/03/18 at 11:50 Carvedilol (Coreg) 6.25 mg BID PO Last administered on 11/06/18 08:54; Admin Dose 6.25 MG; Start 11/03/18 at 10:00 Furosemide (Lasix) 20 mg DAILY@0600 PO Last administered on 11/06/18 05:52; Admin Dose 20 MG; Start 11/03/18 at 10:00 Acetaminophen/ Hydrocodone Bitart ([place] (10/325)) 1 tab Q6H PRN PO PAIN; Start 11/03/18 at 10:00 Hydroxyzine HCl (Atarax) 10 mg TID PO Last administered on 11/06/18 08:54; Admin Dose 10 MG; Start 11/03/18 at 13:00 Levothyroxine Sodium (Synthroid) 100 mcg DAILY@06 PO Last administered on 11/06/18 05:51; Admin Dose 100 MCG; Start 11/04/18 at 10:00 Loratadine (Claritin) 10 mg DAILY PO Last administered on 11/06/18 08:54; Admin Dose 10 MG; Start 11/03/18 at 10:00 Verapamil HCl (Isoptin Sr) 120 mg DAILY PO Last administered on 11/06/18 08:53; Admin Dose 120 MG; Start 11/03/18 at 10:30 Dicyclomine HCl (Bentyl) 20 mg BID PO Last administered on 11/06/18 08:54; Admin Dose 20 MG; Start 11/03/18 at 10:00 Diagnostic Test (Pha) (Accu-Chek) 1 ea 02 XX ; Start 11/04/18 at 02:00 Insulin Aspart (Novolog Insulin Pen) NOVOLOG *MILD* ALGORITHM WITH MEALS BEDTIME SC ; Start 11/03/18 at 11:50 Pentoxifylline (Trental) 400 mg DAILY PO Last administered on 11/06/18at 08:54; Admin Dose 400 MG; Start 11/03/18 at 10:00 Nitroglycerin (Nitroglycerin (Sl Tab) 0.4 Mg) 1 tab Q5M PRN SL ANGINA; Start 11/03/18 at 14:00 Hydralazine HCl (Apresoline) 50 mg Q8 PO Last administered on 11/06/18at 05:52; Admin Dose 50 MG; Start 11/03/18 at 14:00 Hydralazine HCl (Apresoline) 10 mg Q4H PRN IV SBP>170 Last administered on 11/03at 14:55; Admin Dose 10 MG; Start 11/03/18 at 14:00 Ondansetron HCl (Zofran Inj) 4 mg Q4H PRN IV NAUSEA AND/OR VOMITING Last administered on 11/03/18at 22:56; Admin Dose 4 MG; Start 11/03/18 at 21:38 Miscellaneous Information 1 ea NOTE XX ; Start 11/04/18 at 19:00 Glucose (Glutose) 15 gm Q15M PRN PO DECREASED GLUCOSE; Start 11/04/18 at 19:00 Glucose (Glutose) 22.5 gm Q15M PRN PO DECREASED GLUCOSE; Start 11/04/18 at 19:00 Dextrose (D50w Syringe) 25 ml Q15M PRN IV DECREASED GLUCOSE; Start 11/04/18 at 19:00 Dextrose (D50w Syringe) 50 ml Q15M PRN IV DECREASED GLUCOSE; Start 11/04/18 at 19:00 Glucagon (Glucagen) 1 mg Q15M PRN IM DECREASED GLUCOSE; Start 11/04/18 at 19:00 Glucose (Glutose) 15 gm Q15M PRN BUCCAL DECREASED GLUCOSE; Start 11/04/18 at 19:00 IRIS BURRIS MD Nov 06, 2018 11:45
--- NOTE | 2018-11-06 12:14 | CONS ---
Assessment/Plan Assessment/Plan Hospital Course (Demo Recall) IMPRESSION: 1. Chest pain, assess for acute coronary syndrome with negative troponins x2 at this time. 2. Abnormal echocardiogram with nonspecific ST-T wave abnormalities, assess for acute coronary syndrome. 3. Premature ventricular contractions, assess for acute coronary syndrome. 4. Hypertension, currently elevated, undergoing hemodialysis at this time. 5. End-stage renal disease on hemodialysis. 6. Dyslipidemia. 7. Diabetes mellitus. 8. Hypothyroidism. 9. Hyponatremia. Recc: -Tele -Contineu verapamil/coreg -Contine statin/asa -Continue lasix plus HD for volume removal Consultation Date/Type/Reason Admit Date/Time Nov 03, 2018 at 05:44 Initial Consult Date 11/03/18 Type of Consult Cardiology Reason for Consultation chest pain Requesting Provider: SILVIA IQBAL MD Date/Time of Note DATE: 11/06/18 TIME: 12:09 Exam/Review of Systems Vital Signs Vitals Vital Signs Date Temp Pulse Resp B/P (MAP) Pulse Ox O2 O2 Flow FiO2 Time Delivery Rate 11/06/18 59 11:55 11/06/18 98.2 20 143/61 96 Room Air 10:49 (88) 11/03/18 21 05:34 Intake and Output 11/05/18 11/05/18 11/06/18 1515:00 23:00 07:00 IntakeIntake Total 420 ml 800 ml 350 ml BalanceBalance 420 ml 800 ml 350 ml Exam Exam Review of Systems: CONSTITUTIONAL: No fevers, chills. PULMONARY: No sob CARDIOVASCULAR: No chest pain/palpitations GASTROINTESTINAL: No nausea/vomiting. GENITOURINARY: No hematuria/dysuria. MUSCULOSKELETAL: No myagias/arthalgias. PSYCHIATRIC: The patient denies depression. NEUROLOGIC: No weakness Constitutional: alert Psych: no complaints Head: normocephalic ENMT: mucosa pink and moist Neck: supple, jvd (9 cm water) Respiratory: clear to auscultation Cardiovascular: regular rate and rhythm Gastrointestinal: soft, non-tender Musculoskeletal: muscle tone (normal) Extremities: edema (none) Neurological: other (No focakl deficits) Labs Result Diagram: 11/05/18 0600 11/05/18 0600 Results 24hrs Laboratory Tests Test 11/05/18 17:41 11/05/18 20:17 11/06/18 07:29 Bedside Glucose 103 109 80 Medications Medications Current Medications Albumin Human 100 ml @ 100 mls/hr WITH DIALYSIS PRN IV SBP <90 DURING DIALYSIS; Start 11/03/18 at 08:00 Aspirin (Aspirin) 81 mg DAILY PO Last administered on 11/06/18 08:53; Admin Dose 81 MG; Start 11/03/18 at 10:00 Atorvastatin Calcium (Lipitor) 20 mg QHS PO Last administered on 11/05/18 20:18; Admin Dose 20 MG; Start 11/03/18 at 21:00 Calcium Acetate (Phoslo) 667 mg WITH MEALS PO Last administered on 11/06/18 08:55; Admin Dose 667 MG; Start 11/03/18 at 11:50 Carvedilol (Coreg) 6.25 mg BID PO Last administered on 11/06/18 08:54; Admin Dose 6.25 MG; Start 11/03/18 at 10:00 Furosemide (Lasix) 20 mg DAILY@0600 PO Last administered on 11/06/18 05:52; Admin Dose 20 MG; Start 11/03/18 at 10:00 Acetaminophen/ Hydrocodone Bitart ([place] (10/325)) 1 tab Q6H PRN PO PAIN; Start 11/03/18 at 10:00 Hydroxyzine HCl (Atarax) 10 mg TID PO Last administered on 11/06/18 08:54; Admin Dose 10 MG; Start 11/03/18 at 13:00 Levothyroxine Sodium (Synthroid) 100 mcg DAILY@06 PO Last administered on 11/06/18 05:51; Admin Dose 100 MCG; Start 11/04/18 at 10:00 Loratadine (Claritin) 10 mg DAILY PO Last administered on 11/06/18 08:54; Admin Dose 10 MG; Start 11/03/18 at 10:00 Verapamil HCl (Isoptin Sr) 120 mg DAILY PO Last administered on 11/06/18 08:53; Admin Dose 120 MG; Start 11/03/18 at 10:30 Dicyclomine HCl (Bentyl) 20 mg BID PO Last administered on 11/06/18 08:54; Admin Dose 20 MG; Start 11/03/18 at 10:00 Diagnostic Test (Pha) (Accu-Chek) 1 ea 02 XX ; Start 11/04/18 at 02:00 Insulin Aspart (Novolog Insulin Pen) NOVOLOG *MILD* ALGORITHM WITH MEALS BEDTIME SC ; Start 11/03/18 at 11:50 Pentoxifylline (Trental) 400 mg DAILY PO Last administered on 11/06/18at 08:54; Admin Dose 400 MG; Start 11/03/18 at 10:00 Nitroglycerin (Nitroglycerin (Sl Tab) 0.4 Mg) 1 tab Q5M PRN SL ANGINA; Start 11/03/18 at 14:00 Hydralazine HCl (Apresoline) 50 mg Q8 PO Last administered on 11/06/18at 05:52; Admin Dose 50 MG; Start 11/03/18 at 14:00 Hydralazine HCl (Apresoline) 10 mg Q4H PRN IV SBP>170 Last administered on 11/03/18at 14:55; Admin Dose 10 MG; Start 11/03/18 at 14:00 Ondansetron HCl (Zofran Inj) 4 mg Q4H PRN IV NAUSEA AND/OR VOMITING Last administered on 11/03/18at 22:56; Admin Dose 4 MG; Start 11/03/18 at 21:38 Miscellaneous Information 1 ea NOTE XX ; Start 11/04/18 at 19:00 Glucose (Glutose) 15 gm Q15M PRN PO DECREASED GLUCOSE; Start 11/04/18 at 19:00 Glucose (Glutose) 22.5 gm Q15M PRN PO DECREASED GLUCOSE; Start 11/04/18 at 19:00 Dextrose (D50w Syringe) 25 ml Q15M PRN IV DECREASED GLUCOSE; Start 11/04/18 at 19:00 Dextrose (D50w Syringe) 50 ml Q15M PRN IV DECREASED GLUCOSE; Start 11/04/18 at 19:00 Glucagon (Glucagen) 1 mg Q15M PRN IM DECREASED GLUCOSE; Start 11/04/18 at 19:00 Glucose (Glutose) 15 gm Q15M PRN BUCCAL DECREASED GLUCOSE; Start 11/04/18 at 19 :00 KERRY RIZO Nov 06, 2018 12:14
--- NOTE | 2018-11-06 16:29 | PN ---
Date/Time of Note Date/Time of Note DATE: 11/06/18 TIME: 16:20 Assessment/Plan VTE Prophylaxis Risk score (from Nsg)>0 risk: 6 SCD applied (from Nsg): Yes Pharmacological prophylaxis: other Lines/Catheters IV Catheter Type (from Nrsg): Saline Lock Urinary Cath still in place: No Assessment/Plan Hospital Course Patient denies any chest pain denies shortness of breath, sinus bradycardia with occasional PACs and PVCs, continue telemetry monitoring. PT eval. Assessment/Plan -Chest pain, rule out acute coronary syndrome, troponin is negative x2, stress test with no ischemia. Dr. Padilla is following in cardiology consultation. -Hypertensive urgency, continue Coreg and hydralazine. -Acute fluid overload with pulmonary edema, resolved -Hemodialysis dependent end-stage renal disease, continue hemodialysis per nephrology. Dr. Naidu is following in nephrology consultation. -Hypothyroidism, continue levothyroxine -Diabetes mellitus type 2, continue NovoLog Further recommendations based on clinical course. Plan of care discussed with Dr. Martinez. Result Diagram: 11/05/18 0600 11/05/18 0600 Results 24hrs Laboratory Tests Test 11/05/18 17:41 11/05/18 20:17 11/06/18 07:29 11/06/18 12:09 Bedside Glucose 103 109 80 93 Exam/Review of Systems Exam Vitals Vital Signs Date Temp Pulse Resp B/P (MAP) Pulse Ox O2 O2 Flow FiO2 Time Delivery Rate 11/06/18 98.0 62 20 103/74 95 Room Air 14:57 (84) 11/03/18 05:34 Intake and Output 11/05/18 11/05/18 11/06/18 1515:00 23:00 07:00 IntakeIntake Total 420 ml 800 ml 350 ml BalanceBalance 420 ml 800 ml 350 ml Constitutional: alert, oriented Head: normocephalic Neck: supple Respiratory: clear to auscultation Cardiovascular: regular rate and rhythm Gastrointestinal: soft, non-tender Musculoskeletal: nl extremities to inspection Extremities: other (Left upper extremity AV fistula) Neurological: nl mental status Results Results 24hrs Laboratory Tests Test 11/05/18 17:41 11/05/18 20:17 11/06/18 07:29 11/06/18 12:09 Bedside Glucose 103 109 80 93 Medications Medication Current Medications Albumin Human 100 ml @ 100 mls/hr WITH DIALYSIS PRN IV SBP <90 DURING DIALYSIS; Start 11/03/18 at 08:00 Aspirin (Aspirin) 81 mg DAILY PO Last administered on 11/06/18 08:53; Admin Dose 81 MG; Start 11/03/18 at 10:00 Atorvastatin Calcium (Lipitor) 20 mg QHS PO Last administered on 11/05/18 20:18; Admin Dose 20 MG; Start 11/03/18 at 21:00 Calcium Acetate (Phoslo) 667 mg WITH MEALS PO Last administered on 11/06/18 12:10; Admin Dose 667 MG; Start 11/03/18 at 11:50 Carvedilol (Coreg) 6.25 mg BID PO Last administered on 11/06/18 08:54; Admin Dose 6.25 MG; Start 11/03/18 at 10:00 Furosemide (Lasix) 20 mg DAILY@0600 PO Last administered on 11/06/18 05:52; Admin Dose 20 MG; Start 11/03/18 at 10:00 Acetaminophen/ Hydrocodone Bitart ([place] (10/325)) 1 tab Q6H PRN PO PAIN; Start 11/03/18 at 10:00 Hydroxyzine HCl (Atarax) 10 mg TID PO Last administered on 11/06/18 13:26; Admin Dose 10 MG; Start 11/03/18 at 13:00 Levothyroxine Sodium (Synthroid) 100 mcg DAILY@06 PO Last administered on 11/06/18 05:51; Admin Dose 100 MCG; Start 11/04/18 at 10:00 Loratadine (Claritin) 10 mg DAILY PO Last administered on 11/06/18 08:54; Admin Dose 10 MG; Start 11/03/18 at 10:00 Verapamil HCl (Isoptin Sr) 120 mg DAILY PO Last administered on 11/06/18 08:53; Admin Dose 120 MG; Start 11/03/18 at 10:30 Dicyclomine HCl (Bentyl) 20 mg BID PO Last administered on 11/06/18 08:54; Admin Dose 20 MG; Start 11/03/18 at 10:00 Diagnostic Test (Pha) (Accu-Chek) 1 ea 02 XX ; Start 11/04/18 at 02:00 Insulin Aspart (Novolog Insulin Pen) NOVOLOG *MILD* ALGORITHM WITH MEALS BEDTIME SC ; Start 11/03/18 at 11:50 Pentoxifylline (Trental) 400 mg DAILY PO Last administered on 11/06/18at 08:54; Admin Dose 400 MG; Start 11/03/18 at 10:00 Nitroglycerin (Nitroglycerin (Sl Tab) 0.4 Mg) 1 tab Q5M PRN SL ANGINA; Start 11/03/18 at 14:00 Hydralazine HCl (Apresoline) 50 mg Q8 PO Last administered on 11/06/18at 13:26; Admin Dose 50 MG; Start 11/03/18 at 14:00 Hydralazine HCl (Apresoline) 10 mg Q4H PRN IV SBP>170 Last administered on 11/03/18at 14:55; Admin Dose 10 MG; Start 11/03/18 at 14:00 Ondansetron HCl (Zofran Inj) 4 mg Q4H PRN IV NAUSEA AND/OR VOMITING Last administered on 11/03/18at 22:56; Admin Dose 4 MG; Start 11/03/18 at 21:38 Miscellaneous Information 1 ea NOTE XX ; Start 11/04/18 at 19:00 Glucose (Glutose) 15 gm Q15M PRN PO DECREASED GLUCOSE; Start 11/04/18 at 19:00 Glucose (Glutose) 22.5 gm Q15M PRN PO DECREASED GLUCOSE; Start 11/04/18 at 19:00 Dextrose (D50w Syringe) 25 ml Q15M PRN IV DECREASED GLUCOSE; Start 11/04/18 at 19:00 Dextrose (D50w Syringe) 50 ml Q15M PRN IV DECREASED GLUCOSE; Start 11/04/18 at 19:00 Glucagon (Glucagen) 1 mg Q15M PRN IM DECREASED GLUCOSE; Start 11/04/18 at 19:00 Glucose (Glutose) 15 gm Q15M PRN BUCCAL DECREASED GLUCOSE; Start 11/04/18 at 19:00 FREDDIE KEYS Nov 06, 2018 16:29
[2018-11-06] MEDS: ATORVASTATIN 20 MG TAB PO SCH (20:50)
[2018-11-07] VITALS: BP 129/58; PULSE 61; RESP 18
[2018-11-07] MEDS: ACCU-CHEK XX SCH (02:00)
[2018-11-07 04:00] VITALS: BP 147/62; PULSE 65; RESP 20
[2018-11-07] MEDS: LEVOTHYROXINE 100 MCG TAB PO SCH (06:15)
[2018-11-07] MEDS: FUROSEMIDE 20 MG TAB PO SCH (06:16)
[2018-11-07 07:21] VITALS: BP 138/64; PULSE 60; RESP 17
[2018-11-07] MEDS: INSULIN ASPART [NOVOLOG] 3 ML PEN SC SCH ×2 (07:55→11:50)
[2018-11-07] MEDS: CALCIUM ACETATE 667 MG CAP PO SCH ×2 (08:52→12:18)
[2018-11-07] MEDS: hydrOXYzine HCL 10 MG TAB PO SCH ×2 (08:52→12:18)
[2018-11-07] MEDS: DICYCLOMINE 10 MG CAP PO SCH (08:52)
[2018-11-07] MEDS: PENTOXIFYLLINE (SR) 400 MG TAB PO SCH (08:52)
[2018-11-07] MEDS: ASPIRIN 81 MG TAB PO SCH (08:52)
[2018-11-07] MEDS: LORATADINE 10 MG TAB PO SCH (08:52)
[2018-11-07] MEDS: VERAPAMIL (SR) 120 MG TAB PO SCH (08:53)
--- NOTE | 2018-11-07 09:26 | CONS ---
Consult Date/Type/Reason Admit Date/Time Nov 03, 2018 at 05:44 Initial Consult Date 11/03/18 Requesting Provider: SILVIA IQBAL MD Date/Time of Note DATE: 11/07/18 TIME: 09:25 Subjective NO acute events - pt feels much better - more alert - no CP now - negative stress test prior. ROS: No fever, no chills, no nausea, no vomiting, no diarrhea/constipation No recent weight changes No chest pain, no PND, no orthopnea - improved SOB No dizziness, blurred vision No thirst, no heat or cold intolerance Objective Vitals Vital Signs Date Temp Pulse Resp B/P (MAP) Pulse Ox O2 O2 Flow FiO2 Time Delivery Rate 11/07/18 98.5 60 17 138/64 95 07:21 (88) 11/06/18 Room Air 14:57 Intake and Output 11/06/18 11/06/18 11/07/18 1515:00 23:00 07:00 IntakeIntake Total 1200 ml 480 ml OutputOutput Total 3400 ml 300 ml BalanceBalance -2200 ml 480 ml -300 ml Exam General: WN/WD/NAD, AOx 3 HEENT: Unicetric/atraumatic/EOMI ( follow commands) NECK: JVD elevated, no thyromegaly Lymph: no lymphadenopathy HEART: regular with no S3, II/ systolic murmur at apex, PMI L LUNGS: Coarse sounds ABD: soft, NT, ND, +BS : Intact Neuro: non focal SKIN: chronic changes EXT: trace edema Results/Medications Result Diagram: 11/05/18 0600 11/05/18 0600 Results 24 hrs Laboratory Tests Test 11/06/18 12:09 11/06/18 17:40 11/06/18 20:50 11/07/18 07:55 Bedside Glucose 93 122 164 84 Home Meds Active Scripts Dicyclomine HCl (Dicyclomine HCl) 20 Mg Tablet, 20 MG PO QID for PAIN, #20 Prov:INDIRA DENT DO 08/01/17 Hydrocodone/Acetaminophen ([place] 10-325 Tablet) 1 Each Tablet, 1 TAB PO Q6H PRN for PAIN, #20 TAB Prov:INDIRA DENT DO 08/01/17 Hydralazine Hcl* (Hydralazine Hcl*) 25 Mg Tab, 25 MG PO Q8 for 30 Days, TAB Prov:MASSIMOFREDDIE 01/18/17 Furosemide (Lasix) 20 Mg Tab, 20 MG PO DAILY for 30 Days, TAB Prov:GOSIAFREDDIE 01/18/17 Carvedilol* (Carvedilol*) 6.25 Mg Tablet, 6.25 MG PO BID for 30 Days, TAB Prov:GOSIAFREDDIE 01/18/17 Calcium Acetate* (Calcium Acetate*) 667 Mg Capsule, 667 MG PO WITH MEALS for 30 Days, CAP Prov:FREDDIE 01/18/17 Aspirin (Aspirin) 81 Mg Chew, 81 MG PO DAILY for 30 Days, TAB Prov:ANIKETFREDDIE 01/18/17 Verapamil Hcl* (Verapamil ER*) 120 Mg Cap24h.pel, 120 MG PO DAILY for 30 Days, CAP Prov:GOSIADARELLFREDDIE 01/18/17 Reported Medications Insulin Glargine* (Lantus*) 100 Unit/Ml Soln, 30 UNIT SC QHS, #1 VIAL 11/03/18 Insulin Lispro (Humalog) 100 Unit/1 Ml Cartridge, 12 UNIT SQ BID, EA 11/03/18 Hydroxyzine Hcl* (Hydroxyzine Hcl*) 10 Mg Tablet, 10 MG PO TID, #30 TAB 06/16/17 Pentoxifylline* (Pentoxifylline*) 400 Mg Tablet.sa, 400 MG PO TID, TAB 01/05/17 Loratadine* (Loratadine*) 10 Mg Tablet, 10 MG PO DAILY, #30 TAB 01/05/17 Atorvastatin Calcium* (Atorvastatin Calcium*) 20 Mg Tablet, 20 MG PO QHS, #30 TAB 01/05/17 Levothyroxine Sodium* (Levothyroxine Sodium*) 100 Mcg Tablet, 100 MCG PO BEFORE BREAKFAST, #30 TAB 01/05/17 Medications Current Medications Albumin Human 100 ml @ 100 mls/hr WITH DIALYSIS PRN IV SBP <90 DURING DIALYSIS; Start 11/03/18 at 08:00 Aspirin (Aspirin) 81 mg DAILY PO Last administered on 11/07/18at 08:52; Admin Dose 81 MG; Start 11/03/18 at 10:00 Atorvastatin Calcium (Lipitor) 20 mg QHS PO Last administered on 11/06/18 20:50; Admin Dose 20 MG; Start 11/03/18 at 21:00 Calcium Acetate (Phoslo) 667 mg WITH MEALS PO Last administered on 11/07/18 08:52; Admin Dose 667 MG; Start 11/03/18 at 11:50 Carvedilol (Coreg) 6.25 mg BID PO Last administered on 11/07/18 08:53; Admin Dose 6.25 MG; Start 11/03/18 at 10:00 Furosemide (Lasix) 20 mg DAILY@0600 PO Last administered on 11/07/18 06:16; A dmin Dose 20 MG; Start 11/03/18 at 10:00 Acetaminophen/ Hydrocodone Bitart ([place] (10/325)) 1 tab Q6H PRN PO PAIN; Start 11/03/18 at 10:00 Hydroxyzine HCl (Atarax) 10 mg TID PO Last administered on 11/07/18 08:52; Admin Dose 10 MG; Start 11/03/18 at 13:00 Levothyroxine Sodium (Synthroid) 100 mcg DAILY@06 PO Last administered on 11/07/18 06:15; Admin Dose 100 MCG; Start 11/04/18 at 10:00 Loratadine (Claritin) 10 mg DAILY PO Last administered on 11/07/18 08:52; Admin Dose 10 MG; Start 11/03/18 at 10:00 Verapamil HCl (Isoptin Sr) 120 mg DAILY PO Last administered on 11/07/18 08:53; Admin Dose 120 MG; Start 11/03/18 at 10:30 Dicyclomine HCl (Bentyl) 20 mg BID PO Last administered on 11/07/18 08:52; Admin Dose 20 MG; Start 11/03/18 at 10:00 Diagnostic Test (Pha) (Accu-Chek) 1 ea 02 XX ; Start 11/04/18 at 02:00 Insulin Aspart (Novolog Insulin Pen) NOVOLOG *MILD* ALGORITHM WITH MEALS BEDTIME SC ; Start 11/03/18 at 11:50 Pentoxifylline (Trental) 400 mg DAILY PO Last administered on 11/07/18 08:52; Admin Dose 400 MG; Start 11/03/18 at 10:00 Nitroglycerin (Nitroglycerin (Sl Tab) 0.4 Mg) 1 tab Q5M PRN SL ANGINA; Start 11/03/18 at 14:00 Hydralazine HCl (Apresoline) 50 mg Q8 PO Last administered on 11/07/18at 06:15; Admin Dose 50 MG; Start 11/03/18 at 14:00 Hydralazine HCl (Apresoline) 10 mg Q4H PRN IV SBP>170 Last administered on 11/03/18at 14:55; Admin Dose 10 MG; Start 11/03/18 at 14:00 Ondansetron HCl (Zofran Inj) 4 mg Q4H PRN IV NAUSEA AND/OR VOMITING Last administered on 11/03/18at 22:56; Admin Dose 4 MG; Start 11/03/18 at 21:38 Miscellaneous Information 1 ea NOTE XX ; Start 11/04/18 at 19:00 Glucose (Glutose) 15 gm Q15M PRN PO DECREASED GLUCOSE; Start 11/04/18 at 19:00 Glucose (Glutose) 22.5 gm Q15M PRN PO DECREASED GLUCOSE; Start 11/04/18 at 19:00 Dextrose (D50w Syringe) 25 ml Q15M PRN IV DECREASED GLUCOSE; Start 11/04/18 at 19:00 Dextrose (D50w Syringe) 50 ml Q15M PRN IV DECREASED GLUCOSE; Start 11/04/18 at 19:00 Glucagon (Glucagen) 1 mg Q15M PRN IM DECREASED GLUCOSE; Start 11/04/18 at 19:00 Glucose (Glutose) 15 gm Q15M PRN BUCCAL DECREASED GLUCOSE; Start 11/04/18 at 19:00 Assessment/Plan Hospital Course (Demo Recall) 1. Chest pain, assess for acute coronary syndrome with negative troponins x2 at this time - stress test done - NOREMAl EF 60%, no ischemia - med rx advised - no CP now - on meds. 2. Abnormal echocardiogram with nonspecific ST-T wave abnormalities, assess for acute coronary syndrome. Treated. 3. Premature ventricular contractions, assess for acute coronary syndrome - med rx 4. Hypertension, currently elevated, undergoing hemodialysis at this time- con't Med RX - better now - in good range now. 5. End-stage renal disease on hemodialysis - remove fkuid as needed K 3.8 now - better. 6. Dyslipidemia. 7. Diabetes mellitus- on meds - keep euglycemic 8. Hypothyroidism. 9. Hyponatremia- treated now to 138 now/ CAMMY RAE MD Nov 07, 2018 09:26
--- NOTE | 2018-11-07 10:36 | CONS ---
Assessment/Plan Assessment/Plan Assessment/Plan (Daily) 1. acute fluid overload with pulmoanry edema 2. Hypertensive urgency - Improved 3. ESRD on HD MWF schedule 4. H/o HTN 5. H/o DM II 6 H/o HL Plan: s/p HD yesterday 3 L removed, will plan for HD tomorrow if pt stays in hospital pt follows at [facility], her regular schedule is MWF Improved BP control with Coreg 6.25 mg BID, Hydralazine 50mg pO Q8 hr, Verapamil 120mg PO daily, IV hydralazine prn will follow up Consultation Date/Type/Reason Admit Date/Time Nov 03, 2018 at 05:44 Initial Consult Date 11/03/18 Type of Consult NEPHROLOGY Requesting Provider: SILVIA IQBAL MD Date/Time of Note DATE: 11/07/18 TIME: 10:36 Exam/Review of Systems Exam Vitals Vital Signs Date Temp Pulse Resp B/P (MAP) Pulse Ox O2 O2 Flow FiO2 Time Delivery Rate 11/07/18 98.5 60 17 138/64 95 07:21 (88) 11/06/18 Room Air 14:57 Intake and Output 11/06/18 11/06/18 11/07/18 1515:00 23:00 07:00 IntakeIntake Total 1200 ml 480 ml OutputOutput Total 3400 ml 300 ml BalanceBalance -2200 ml 480 ml -300 ml Exam Constitutional: alert, awake, no acute distress Respiratory: congested cough, crackles/rales, diminished breath sounds Cardiovascular: regular rate and rhythm, nl pulses Gastrointestinal: soft, non-tender Musculoskeletal: nl extremities to inspection, muscle weakness, swelling Extremities: normal pulses Neurological: EYEGLASS LENS GENERATOR II-XII intact, nl mental status, nl speech Results Result Diagram: 11/05/18 0600 11/05/18 0600 Results 24hrs Laboratory Tests Test 11/06/18 12:09 11/06/18 17:40 11/06/18 20:50 11/07/18 07:55 Bedside Glucose 93 122 164 84 Medications Medication Current Medications Albumin Human 100 ml @ 100 mls/hr WITH DIALYSIS PRN IV SBP <90 DURING DIALYSIS; Start 11/03/18 at 08:00 Aspirin (Aspirin) 81 mg DAILY PO Last administered on 11/07/18at 08:52; Admin Dose 81 MG; Start 11/03/18 at 10:00 Atorvastatin Calcium (Lipitor) 20 mg QHS PO Last administered on 11/06/18 20:50; Admin Dose 20 MG; Start 11/03/18 at 21:00 Calcium Acetate (Phoslo) 667 mg WITH MEALS PO Last administered on 11/07/18 08:52; Admin Dose 667 MG; Start 11/03/18 at 11:50 Carvedilol (Coreg) 6.25 mg BID PO Last administered on 11/07/18 08:53; Admin Dose 6.25 MG; Start 11/03/18 at 10:00 Furosemide (Lasix) 20 mg DAILY@0600 PO Last administered on 11/07/18 06:16; Admin Dose 20 MG; Start 11/03/18 at 10:00 Acetaminophen/ Hydrocodone Bitart ([place] (10/325)) 1 tab Q6H PRN PO PAIN; Start 11/03/18 at 10:00 Hydroxyzine HCl (Atarax) 10 mg TID PO Last administered on 11/07/18 08:52; Admin Dose 10 MG; Start 11/03/18 at 13:00 Levothyroxine Sodium (Synthroid) 100 mcg DAILY@06 PO Last administered on 11/07/18 06:15; Admin Dose 100 MCG; Start 11/04/18 at 10:00 Loratadine (Claritin) 10 mg DAILY PO Last administered on 11/07/18 08:52; Admin Dose 10 MG; Start 11/03/18 at 10:00 Verapamil HCl (Isoptin Sr) 120 mg DAILY PO Last administered on 11/07/18 08:53; Admin Dose 120 MG; Start 11/03/18 at 10:30 Dicyclomine HCl (Bentyl) 20 mg BID PO Last administered on 11/07/18 08:52; Admin Dose 20 MG; Start 11/03/18 at 10:00 Diagnostic Test (Pha) (Accu-Chek) 1 ea 02 XX ; Start 11/04/18 at 02:00 Insulin Aspart (Novolog Insulin Pen) NOVOLOG *MILD* ALGORITHM WITH MEALS BEDTIME SC ; Start 11/03/18 at 11:50 Pentoxifylline (Trental) 400 mg DAILY PO Last administered on 7/23/19at 08:52; Admin Dose 400 MG; Start 11/03/18 at 10:00 Nitroglycerin (Nitroglycerin (Sl Tab) 0.4 Mg) 1 tab Q5M PRN SL ANGINA; Start 11/03/18 at 14:00 Hydralazine HCl (Apresoline) 50 mg Q8 PO Last administered on 11/07/18at 06:15; Admin Dose 50 MG; Start 11/03/18 at 14:00 Hydralazine HCl (Apresoline) 10 mg Q4H PRN IV SBP>170 Last administered on 11/03/18at 14:55; Admin Dose 10 MG; Start 11/03/18 at 14:00 Ondansetron HCl (Zofran Inj) 4 mg Q4H PRN IV NAUSEA AND/OR VOMITING Last administered on 11/03/18at 22:56; Admin Dose 4 MG; Start 11/03/18 at 21:38 Miscellaneous Information 1 ea NOTE XX ; Start 11/04/18 at 19:00 Glucose (Glutose) 15 gm Q15M PRN PO DECREASED GLUCOSE; Start 11/04/18 at 19:00 Glucose (Glutose) 22.5 gm Q15M PRN PO DECREASED GLUCOSE; Start 11/04/18 at 19:00 Dextrose (D50w Syringe) 25 ml Q15M PRN IV DECREASED GLUCOSE; Start 11/04/18 at 19:00 Dextrose (D50w Syringe) 50 ml Q15M PRN IV DECREASED GLUCOSE; Start 11/04/18 at 19:00 Glucagon (Glucagen) 1 mg Q15M PRN IM DECREASED GLUCOSE; Start 11/04/18 at 19:00 Glucose (Glutose) 15 gm Q15M PRN BUCCAL DECREASED GLUCOSE; Start 11/04/18 at 19:00 IRIS BURRIS MD Nov 07, 2018 10:36
[2018-11-07 11:58] VITALS: BP 147/66; PULSE 63; RESP 17
[2018-11-07] MEDS ORDERED: HYDR-3672 PO (15:14)
[2018-11-07 15:30] VITALS: BP 135/63; PULSE 57; RESP 17
--- NOTE | 2018-11-07 23:22 | DS ---
Date/Time of Note Date/Time of Note DATE: 11/07/18 TIME: 23:20 Discharge Summary Admission/Discharge Info Admit Date/Time Nov 03, 2018 at 05:44 Discharge Date/Time Nov 07, 2018 at 16:52 Patient Condition: Stable Hx of Present Illness The patient is a 68-year-old female, presenting to the ER from dialysis center because of left-sided chest pain that began about 30 minutes prior to arrival, non-provoked, radiating down to the left arm, denies similar symptoms previously, complains of associated dyspnea. Pt was treated with 2 nitroglycerin spray by EMS with good response, denies headache, neck pain, abdominal pain, vomiting, dysuria, diarrhea. Hospital Course -Chest pain, rule out acute coronary syndrome, troponin is negative x2, stress test with no ischemia. Dr. Padilla is following in cardiology consultation. -Hypertensive urgency, resolved.continue Coreg and hydralazine. -Acute fluid overload with pulmonary edema, resolved -Hemodialysis dependent end-stage renal disease, continue hemodialysis per nephrology. Dr. Naidu is following in nephrology consultation. -Hypothyroidism, continue levothyroxine -Diabetes mellitus type 2, continue NovoLog Plan of care discussed with Dr. Martinez. Home Meds Active Scripts Hydralazine Hcl* (Apresoline*) 50 Mg Tab, 50 MG PO Q8 for 30 Days, TAB Prov:FREDDIE KEYS 11/07/18 Dicyclomine HCl (Dicyclomine HCl) 20 Mg Tablet, 20 MG PO QID for PAIN, #20 Prov:INDIRA DENT DO 08/01/17 Furosemide (Lasix) 20 Mg Tab, 20 MG PO DAILY for 30 Days, TAB Prov:FREDDIE KEYS 01/18/17 Carvedilol* (Carvedilol*) 6.25 Mg Tablet, 6.25 MG PO BID for 30 Days, TAB Prov:FREDDIE KEYS 01/18/17 Calcium Acetate* (Calcium Acetate*) 667 Mg Capsule, 667 MG PO WITH MEALS for 30 Days, CAP Prov:FREDDIE KEYS 01/18/17 Aspirin (Aspirin) 81 Mg Chew, 81 MG PO DAILY for 30 Days, TAB Prov:FREDDIE KEYS 10/3/17 Verapamil Hcl* (Verapamil ER*) 120 Mg Cap24h.pel, 120 MG PO DAILY for 30 Days, CAP Prov:FREDDIE KEYS 01/18/17 Reported Medications Hydroxyzine Hcl* (Hydroxyzine Hcl*) 10 Mg Tablet, 10 MG PO TID, #30 TAB 06/16/17 Pentoxifylline* (Pentoxifylline*) 400 Mg Tablet.sa, 400 MG PO TID, TAB 01/05/17 Loratadine* (Loratadine*) 10 Mg Tablet, 10 MG PO DAILY, #30 TAB 01/05/17 Atorvastatin Calcium* (Atorvastatin Calcium*) 20 Mg Tablet, 20 MG PO QHS, #30 TAB 01/05/17 Levothyroxine Sodium* (Levothyroxine Sodium*) 100 Mcg Tablet, 100 MCG PO BEFORE BREAKFAST, #30 TAB 01/05/17 Discontinued Reported Medications Insulin Glargine* (Lantus*) 100 Unit/Ml Soln, 30 UNIT SC QHS, #1 VIAL 11/03/18 Insulin Lispro (Humalog) 100 Unit/1 Ml Cartridge, 12 UNIT SQ BID, EA 11/03/18 Discontinued Scripts Hydrocodone/Acetaminophen ([place] 10-325 Tablet) 1 Each Tablet, 1 TAB PO Q6H PRN for PAIN, #20 TAB Prov:INDIRA DENT DO 08/01/17 Hydralazine Hcl* (Hydralazine Hcl*) 25 Mg Tab, 25 MG PO Q8 for 30 Days, TAB Prov:FREDDIE KEYS 01/18/17 Follow-up Plan Follow-up in [facility] tomorrow for hemodialysis Primary Care Provider Not On Staff Doctor Time spent on discharge: > 30 minutes Pending Labs Laboratory Tests Test 11/07/18 07:55 11/07/18 12:17 Bedside Glucose 84 mg/dL (70-220) 92 mg/dL (70-220) FREDDIE KEYS Nov 07, 2018 23:22
[2018-11-10] MEDS ORDERED: HYDR-3672 PO (13:06)
[2018-11-10] MEDS ORDERED: FURO-109 PO (13:06)
[2018-11-10] MEDS ORDERED: SUCR1TAB56 PO (13:06)
[2018-11-10] MEDS ORDERED: LEVO50TA7 PO (13:06)
[2018-11-10] MEDS ORDERED: CARV12.598 PO (13:06)
== END 2018-11-07 16:52 | disposition home or self-care (01) | DRG 313 ==
LOC: E/R 04:35 → TEL 05:44
PROVIDERS: ADMIT Internal Medicine; ATTEND Internal Medicine
PROC: 5A1D70Z Performance of Urinary Filtration, Intermittent, Less than 6 Hours Per Day (ICD-10-PCS; principal; 2018-11-03)
DX: R07.9 Chest pain, unspecified (principal); N18.6 End stage renal disease; I12.0 Hypertensive chronic kidney disease with stage 5 chronic kidney disease or end stage renal disease; E87.1 Hypo-osmolality and hyponatremia; E87.70 Fluid overload, unspecified; E87.5 Hyperkalemia; D69.6 Thrombocytopenia, unspecified; E11.22 Type 2 diabetes mellitus with diabetic chronic kidney disease; Z99.2 Dependence on renal dialysis; I16.0 Hypertensive urgency; E03.9 Hypothyroidism, unspecified; I49.3 Ventricular premature depolarization
CPT/HCPCS: 36415; 71045; 78452; 80048; 80061; 82550; 82553; 82962; 83036; 83735; 84439; 84443; 84484; 85025; 87340; 90935; 93005; 93017; 93306; 94664; A9500; A9505; J0360; J1815; J2405; J2785

== ENCOUNTER 2018-11-10 12:02 | Emergency (ER) | payer OTHER ==
[~2018-11-10] VITALS: Ht 154.9 cm; Wt 57.6 kg
[~2018-11-10 12:02] MED LIST changes: +ASPI325T29 PO; +BENA20TA4 PO; +CARV12.598 PO; +FURO-109 PO; -HYDR-3671 PO; +HYDR-3672 PO; -HYDR-3980 PO; +LEVO50TA7 PO; +METO-448 PO; +NIFE30TA2 PO; +NITR0.4T32 SL; +SUCR1TAB56 PO
[2018-11-10 12:20] VITALS: Ht 154.9 cm; Wt 57.6 kg
--- NOTE | 2018-11-10 12:56 | ERD ---
ER Documentation Chief Complaint Chief Complaint c/o shaking after hemodialysis today HPI Patient was just discharged for hyponatremia and hyper kalemia. Received dialysis this morning completed a full dialysis. During dialysis she began to have tremors. Does not feel like she has a fever does not have chills. Denies any pain, shortness of breath, headache, weakness. Denies any history of similar symptoms. Did not syncopized. Does make urine and denies any dysuria. What took all her medications this morning. Tremors have been persistent since dialysis. Dialysis is through her fistula on her left upper extremity ROS All systems reviewed and are negative except as per history of present illness. Medications Home Meds Reported Medications Sucralfate* (Carafate*) 1 Gm Tab, 1 GM PO AC MEALS AND BEDTIME, TAB 11/10/18 Levothyroxine Sodium* (Levothyroxine Sodium*) 50 Mcg Tablet, 50 MCG PO BEFORE BREAKFAST, #30 TAB 11/10/18 Hydralazine Hcl* (Hydralazine Hcl*) 50 Mg Tab, 50 MG PO Q8 PRN for HTN, #60 TAB 11/10/18 Furosemide* (Lasix*) 40 Mg Tablet, 40 MG PO DAILY, TAB 11/10/18 Carvedilol* (Coreg*) 12.5 Mg Tablet, 12.5 MG PO BID, #60 TAB 11/10/18 Discontinued Reported Medications Hydroxyzine Hcl* (Hydroxyzine Hcl*) 10 Mg Tablet, 10 MG PO TID, #30 TAB 06/16/17 Pentoxifylline* (Pentoxifylline*) 400 Mg Tablet.sa, 400 MG PO TID, TAB 01/05/17 Loratadine* (Loratadine*) 10 Mg Tablet, 10 MG PO DAILY, #30 TAB 01/05/17 Atorvastatin Calcium* (Atorvastatin Calcium*) 20 Mg Tablet, 20 MG PO QHS, #30 TAB 01/05/17 Levothyroxine Sodium* (Levothyroxine Sodium*) 100 Mcg Tablet, 100 MCG PO BEFORE BREAKFAST, #30 TAB 01/05/17 Insulin Glargine* (Lantus*) 100 Unit/Ml Soln, 30 UNIT SC QHS, #1 VIAL 11/03/18 Insulin Lispro (Humalog) 100 Unit/1 Ml Cartridge, 12 UNIT SQ BID, EA 11/03/18 Discontinued Scripts Hydralazine Hcl* (Apresoline*) 50 Mg Tab, 50 MG PO Q8 for 30 Days, TAB Prov:FREDDIE KEYS 11/07/18 Dicyclomine HCl (Dicyclomine HCl) 20 Mg Tablet, 20 MG PO QID for PAIN, #20 Prov:INDIRA DENT DO 08/01/17 Furosemide (Lasix) 20 Mg Tab, 20 MG PO DAILY for 30 Days, TAB Prov:FREDDIE KEYS 01/18/17 Carvedilol* (Carvedilol*) 6.25 Mg Tablet, 6.25 MG PO BID for 30 Days, TAB Prov:FREDDIE KEYS 01/18/17 Calcium Acetate* (Calcium Acetate*) 667 Mg Capsule, 667 MG PO WITH MEALS for 30 Days, CAP Prov:FREDDIE KEYS 01/18/17 Aspirin (Aspirin) 81 Mg Chew, 81 MG PO DAILY for 30 Days, TAB Prov:FREDDIE KEYS 01/18/17 Verapamil Hcl* (Verapamil ER*) 120 Mg Cap24h.pel, 120 MG PO DAILY for 30 Days, CAP Prov:FREDDIE KEYS 01/18/17 Hydrocodone/Acetaminophen ([place] 10-325 Tablet) 1 Each Tablet, 1 TAB PO Q6H PRN for PAIN, #20 TAB Prov:INDIRA DENT DO 08/01/17 Hydralazine Hcl* (Hydralazine Hcl*) 25 Mg Tab, 25 MG PO Q8 for 30 Days, TAB Prov:FREDDIE KEYS 01/18/17 Allergies Allergies: Coded Allergies: No Known Allergy (Unverified , 11/10/18) PMhx/Soc Medical and Surgical Hx: pt denies Medical Hx (Dialysis end-stage renal dis ease), pt denies Surgical Hx (Left upper extremity fistula placement) History of Surgery: No Anesthesia Reaction: No Hx Neurological Disorder: No Hx Respiratory Disorders: No Hx Cardiac Disorders: No Hx Psychiatric Problems: No Hx Miscellaneous Medical Probl: Yes Hx Alcohol Use: No Hx Substance Use: No Hx Tobacco Use: No Physical Exam Vitals Vital Signs Date Temp Pulse Resp B/P (MAP) Pulse Ox O2 O2 Flow FiO2 Time Delivery Rate 11/10/18 65 13 171/71 100 Nasal 2.0 16:00 (104) Cannula 11/10/18 64 14 185/69 100 Nasal 2.0 14:00 (107) Cannula 11/10/18 99.2 67 20 137/63 96 12:20 (87) Physical Exam Const: No acute distress Head: Atraumatic Eyes: Normal Conjunctiva ENT: Normal External Ears, Nose and Mouth. Neck: Full range of motion. No meningismus. Resp: Clear to auscultation bilaterally Cardio: Regular rate and rhythm, no murmurs no lower extremity edema Abd: Soft, non tender, non distended. Normal bowel sounds Skin: No petechiae or rashes Back: No midline or flank tenderness Ext: No cyanosis, or edema. Left upper extremity fistula Neur: Awake and alert Psych: Normal Mood and Affect Result Diagram: 11/10/18 1313 11/10/18 1313 Results 24 hrs Laboratory Tests Test 11/10/18 13:13 11/10/18 17:45 White Blood Count 5.7 10^3/ul Red Blood Count 4.13 10^6/ul Hemoglobin 12.5 g/dl Hematocrit 39.4 % Mean Corpuscular Volume 95.4 fl Mean Corpuscular Hemoglobin 30.3 pg Mean Corpuscular Hemoglobin Concent 31.7 g/dl Red Cell Distribution Width 14.7 % Platelet Count 144 10^3/UL Mean Platelet Volume 10.9 fl Immature Granulocytes % 0.400 % Neutrophils % 71.3 % Lymphocytes % 14.0 % Monocytes % 8.0 % Eosinophils % 5.8 % Basophils % 0.5 % Nucleated Red Blood Cells % 0.0 /100WBC Immature Granulocytes # 0.020 10^3/ul Neutrophils # 4.0 10^3/ul Lymphocytes # 0.8 10^3/ul Monocytes # 0.5 10^3/ul Eosinophils # 0.3 10^3/ul Basophils # 0.0 10^3/ul Nucleated Red Blood Cells # 0.0 10^3/ul Prothrombin Time 14.4 Sec Prothrombin Time Ratio 1.1 INR International Normalized Ratio 1.11 Activated Partial Thromboplast Time 32.6 Sec Sodium Level 139 mmol/L Potassium Level 3.7 mmol/L Chloride Level 97 mmol/L Carbon Dioxide Level 33 mmol/L Anion Gap 9 Blood Urea Nitrogen 13 mg/dl Creatinine 3.34 mg/dl Est Glomerular Filtrat Rate mL/min 14 mL/min Glucose Level 142 mg/dl Lactic Acid Level 1.4 mmol/L Calcium Level 8.4 mg/dl Total Bilirubin 0.8 mg/dl Direct Bilirubin 0.00 mg/dl Indirect Bilirubin 0.8 mg/dl Aspartate Amino Transf (AST/SGOT) 25 IU/L Alanine Aminotransferase (ALT/SGPT) 22 IU/L Alkaline Phosphatase 89 IU/L Troponin I < 0.012 ng/ml Total Protein 6.8 g/dl Albumin 3.6 g/dl Globulin 3.20 g/dl Albumin/Globulin Ratio 1.12 Lipase 112 U/L Urine Color RADHA Urine Clarity CLEAR Urine pH 8.0 Urine Specific [place] 1.030 Urine Ketones NEGATIVE mg/dL Urine Nitrite NEGATIVE mg/dL Urine Bilirubin NEGATIVE mg/dL Urine Urobilinogen NEGATIVE mg/dL Urine Leukocyte Esterase NEGATIVE Jen/ul Urine Microscopic RBC 3 /HPF Urine Microscopic WBC 5 /HPF Urine Bacteria FEW /HPF Urine Hemoglobin NEGATIVE mg/dL Urine Glucose 3+ mg/dL Urine Total Protein 3+ mg/dl Current Medications Medications Dose Sig/Elzbieta Start Time Status Last (Trade) Ordered Route PRN Stop Time Admin Dose Reason Admin 500 mg ONCE STAT 11/10/18 DC 11/10/18 Acetaminophen PO 14:05 14:20 (Tylenol 11/10/18 14:06 Tab) Procedures/MDM ECG Time: 1313 63 Ventricular Rate: Rhythm: normal sinus rhythm. ST Segments: without evidence of depressions or elevations. Mild T wave flattening in lateral leads Intervals: without evidence of AV block, new BBB, long QT, [place] No evidence of delta wave. Chest X-ray 1V Interpreted by me: Soft Tissue: No acute abnormalities Bones: No acute abnormalities Mediastinum/Cardiac Silhouette/Lungs: Mild pulmonary edema no change from prior November 03 Impression: No acute pathology Patient presents today with tremors during dialysis. Patient was afebrile well-appearing. No focal neuro findings. No infectious symptoms. Labs showed no metabolic derangements no leukocytosis. Urine was negative chest x-ray was normal patient is well-appearing at this time. Low suspicion for acute central nervous system pathology or bacterial pathology will discharge patient with strict return precautions Departure Diagnosis: Primary Impression: Episode of shaking Condition: Stable LEXI MARTIN MD Nov 10, 2018 12:56
[2018-11-10] MEDS ORDERED: ACETAMINOPHEN 500 MG TAB PO STA (14:05)
[2018-11-10 19:02] VITALS: BP 170/91; PULSE 78; RESP 14
== END 2018-11-10 19:02 | disposition home or self-care (01) ==
LOC: E/R 12:02
DX: R25.1 Tremor, unspecified (principal); I12.0 Hypertensive chronic kidney disease with stage 5 chronic kidney disease or end stage renal disease; N18.6 End stage renal disease; R40.2142 Coma scale, eyes open, spontaneous, at arrival to emergency department; R40.2352 Coma scale, best motor response, localizes pain, at arrival to emergency department; R40.2362 Coma scale, best motor response, obeys commands, at arrival to emergency department; Z99.2 Dependence on renal dialysis
CPT/HCPCS: 36415; 71045; 80053; 81001; 83605; 83690; 84484; 85025; 85610; 85730; 93005; 99285; P9612

== ENCOUNTER 2018-11-27 03:29 | Inpatient (IN) | payer OTHER ==
[2018-11-27] VITALS (14 sets, daily range): BP systolic 137–169; BP diastolic 61–72; PULSE 51–56; RESP 17–18; Ht 154.9 cm; Wt 62.4 kg
[~2018-11-27] VITALS: Ht 154.9 cm; Wt 62.4 kg
[~2018-11-27 03:29] MED LIST changes: -ASPI-831 PO; -ATOR20TA38 PO; -CALC667C PO; -CARV6.2579 PO; -DIC20 PO; -HYDR-3029 PO; -LAS20 PO; -LEVO100T8 PO; -LORA10TA3 PO; -PENT400T9 PO; -VERA120C2 PO
[2018-11-27] MEDS ORDERED: ONDANSETRON 4 MG INJ IV STA (03:33)
[2018-11-27] MEDS ORDERED: morphine 4 MG/ML VIAL IV STA ×2 (03:33→04:37)
[2018-11-27] MEDS ORDERED: NITROGLYCERIN 2% 1 GM OINT PKT TD STA (03:33)
[2018-11-27] MEDS ORDERED: ONDANSETRON 4 MG INJ IV PRN ×3 (05:30→11:30)
[2018-11-27] MEDS ORDERED: ACETAMINOPHEN 325 MG TAB PO PRN (05:30)
[2018-11-27] MEDS ORDERED: NITROGLYCERIN (SL) 0.4 MG TAB SL PRN (11:30)
[2018-11-27] MEDS: ASPIRIN 325 MG TAB PO SCH (12:13)
[2018-11-27] MEDS: METOPROLOL 25 MG TAB PO SCH (12:15)
[2018-11-27] MEDS ORDERED: ALBUMIN HUMAN 25% 100 ML IV PRN (15:30)
[2018-11-27] MEDS ORDERED: SODIUM CHLORIDE 0.9% 1L BAG IV PRN (15:30)
[2018-11-27] MEDS: SUCRALFATE 1 GM TAB PO SCH (17:43)
[2018-11-27] MEDS: morphine 2 MG INJ IV PRN (17:49)
[2018-11-28] VITALS (9 sets, daily range): BP systolic 146–179; BP diastolic 60–78; PULSE 53–63; RESP 17–18
[2018-11-28] MEDS: METOPROLOL 25 MG TAB PO SCH ×3 (01:50→23:08)
[2018-11-28] MEDS: SUCRALFATE 1 GM TAB PO SCH ×5 (01:51→23:08)
[2018-11-28] MEDS: LEVOTHYROXINE 50 MCG TAB PO SCH (06:29)
[2018-11-28] MEDS: FUROSEMIDE 40 MG TAB PO SCH (08:49)
[2018-11-28] MEDS: ASPIRIN 325 MG TAB PO SCH (08:49)
[2018-11-28] MEDS: morphine 2 MG INJ IV PRN (18:33)
[2018-11-28] MEDS ORDERED: BARIUM SULF 2% 450 ML BTL (BERRY SMOOTHIE) PO ONE (19:30)
[2018-11-29] VITALS (23 sets, daily range): BP systolic 142–184; BP diastolic 59–77; PULSE 54–61; RESP 17–20
[2018-11-29] MEDS: SUCRALFATE 1 GM TAB PO SCH ×4 (06:55→22:40)
[2018-11-29] MEDS: LEVOTHYROXINE 50 MCG TAB PO SCH (06:55)
[2018-11-29] MEDS: METOPROLOL 25 MG TAB PO SCH ×3 (09:00→22:40)
[2018-11-29] MEDS: ASPIRIN 325 MG TAB PO SCH (14:37)
[2018-11-29] MEDS: FUROSEMIDE 40 MG TAB PO SCH (14:38)
[2018-11-30] VITALS (8 sets, daily range): BP systolic 143–174; BP diastolic 67–85; PULSE 56–60; RESP 18–21
[2018-11-30] MEDS: LEVOTHYROXINE 50 MCG TAB PO SCH (06:33)
[2018-11-30] MEDS: SUCRALFATE 1 GM TAB PO SCH ×4 (06:33→21:11)
[2018-11-30] MEDS: PANTOPRAZOLE (EC) 40 MG TAB PO SCH (06:33)
[2018-11-30] MEDS: ASPIRIN 325 MG TAB PO SCH (09:46)
[2018-11-30] MEDS: FUROSEMIDE 40 MG TAB PO SCH (09:50)
[2018-11-30] MEDS: METOPROLOL 25 MG TAB PO SCH ×2 (09:51→21:12)
[2018-11-30] MEDS: BENAZEPRIL 20 MG TAB PO SCH (21:11)
[2018-12-01] VITALS (19 sets, daily range): BP systolic 151–196; BP diastolic 68–90; PULSE 54–73; RESP 17–21
[2018-12-01] MEDS: SUCRALFATE 1 GM TAB PO SCH ×4 (06:18→21:32)
[2018-12-01] MEDS: LEVOTHYROXINE 50 MCG TAB PO SCH (06:18)
[2018-12-01] MEDS: PANTOPRAZOLE (EC) 40 MG TAB PO SCH (06:18)
[2018-12-01] MEDS: ASPIRIN 325 MG TAB PO SCH (09:16)
[2018-12-01] MEDS: BENAZEPRIL 20 MG TAB PO SCH ×2 (09:17→21:33)
[2018-12-01] MEDS: FUROSEMIDE 40 MG TAB PO SCH (09:17)
[2018-12-01] MEDS: METOPROLOL 25 MG TAB PO SCH ×2 (09:17→21:33)
[2018-12-02] VITALS: BP 176/79; PULSE 57; RESP 18
[2018-12-02 04:00] VITALS: BP 180/77; PULSE 61; RESP 18
[2018-12-02] MEDS: PANTOPRAZOLE (EC) 40 MG TAB PO SCH (06:07)
[2018-12-02 07:19] VITALS: BP 183/79; PULSE 61; RESP 19
[2018-12-02] MEDS: SUCRALFATE 1 GM TAB PO SCH ×4 (08:46→20:46)
[2018-12-02] MEDS: LEVOTHYROXINE 50 MCG TAB PO SCH (08:47)
[2018-12-02] MEDS: ASPIRIN 325 MG TAB PO SCH (08:47)
[2018-12-02] MEDS: BENAZEPRIL 20 MG TAB PO SCH ×2 (08:47→20:47)
[2018-12-02] MEDS: METOPROLOL 25 MG TAB PO SCH ×2 (08:48→20:48)
[2018-12-02] MEDS: FUROSEMIDE 40 MG TAB PO SCH (08:48)
[2018-12-02 11:12] VITALS: BP 179/79; PULSE 89; RESP 18
[2018-12-02] MEDS: NIFEdipine (XL) 30 MG TAB PO SCH ×2 (12:24→20:46)
[2018-12-02 20:00] VITALS: BP 146/81; PULSE 69; RESP 17
[2018-12-03 00:02] VITALS: BP 135/78; PULSE 65; RESP 17
[2018-12-03 05:33] VITALS: BP 165/73; PULSE 59; RESP 17
[2018-12-03 07:40] VITALS: BP 148/67; PULSE 61; RESP 20
[2018-12-03] MEDS: BENAZEPRIL 20 MG TAB PO SCH (09:10)
[2018-12-03] MEDS: METOPROLOL 25 MG TAB PO SCH (09:10)
[2018-12-03] MEDS: SUCRALFATE 1 GM TAB PO SCH ×3 (09:10→17:32)
[2018-12-03] MEDS: ASPIRIN 325 MG TAB PO SCH (09:11)
[2018-12-03] MEDS: FUROSEMIDE 40 MG TAB PO SCH (09:11)
[2018-12-03] MEDS: PANTOPRAZOLE (EC) 40 MG TAB PO SCH (09:11)
[2018-12-03] MEDS: LEVOTHYROXINE 50 MCG TAB PO SCH (09:11)
[2018-12-03] MEDS: NIFEdipine (XL) 30 MG TAB PO SCH (09:11)
[2018-12-03 11:02] VITALS: BP 142/65; PULSE 59; RESP 20
[2018-12-03 16:18] VITALS: BP 165/77; PULSE 60; RESP 20
== END 2018-12-03 18:27 | disposition home or self-care (01) | DRG 291 ==
LOC: E/R 03:29 → 6WM 05:14 → OBSVTOIN 17:21 → INTOOBSV 17:21 → OBSVTOIN 11-28 17:22
PROVIDERS: ADMIT Internal Medicine; ATTEND Internal Medicine
PROC: 5A1D70Z Performance of Urinary Filtration, Intermittent, Less than 6 Hours Per Day (ICD-10-PCS; principal; 2018-11-29)
DX: I13.2 Hypertensive heart and chronic kidney disease with heart failure and with stage 5 chronic kidney disease, or end stage renal disease (principal); N18.6 End stage renal disease; I50.33 Acute on chronic diastolic (congestive) heart failure; E11.22 Type 2 diabetes mellitus with diabetic chronic kidney disease; E03.9 Hypothyroidism, unspecified; D63.1 Anemia in chronic kidney disease; E78.5 Hyperlipidemia, unspecified; I25.10 Atherosclerotic heart disease of native coronary artery without angina pectoris; R00.1 Bradycardia, unspecified; Z99.2 Dependence on renal dialysis; Z90.49 Acquired absence of other specified parts of digestive tract
CPT/HCPCS: 36415; 71045; 74176; 80048; 82550; 82553; 82962; 84484; 85025; 85610; 85730; 87340; 90935; 93005; 96374; 96375; 99217; G0378; J2270; J2405